=== PATIENT | male | born 1955 | race Caucasian/White ===

== ENCOUNTER 2018-04-29 03:12 | Emergency (ER) | payer OTHER ==
--- OUTSIDE RECORDS SUMMARY | 2018-04-29 03:14 | XMS REPORT ---
:1955 Author Organization eClinicalWorks Care Team Providers Name Role Phone Ramón Moneth Provider Role Unavailable Allergies, Adverse Reactions, Alerts Substance Reaction Event Type N.K.D.A. Info Not Available Non Drug Allergy Problems Problem Type Condition Code Onset Dates Condition Status Assessment Vitamin D deficiency E55.9 Active Assessment Rheumatoid arthritis involving M06.9 Active multiple sites, unspecified rheumatoid factor presence Assessment Obstructive sleep apnea G47.33 Active Assessment Adult BMI 40.0-44.9 kg/sq m Z68.41 Active Assessment Anxiety F41.9 Active Problem Obstructive sleep apnea G47.33 Active Assessment Depression F32.9 Active Problem Prediabetes R73.09 Active Assessment Prediabetes R73.09 Active Problem Depression F32.9 Active Problem Vitamin D deficiency E55.9 Active Problem GERD (gastroesophageal reflux K21.9 Active disease) Problem Rheumatoid arthritis involving M06.9 Active multiple sites, unspecified rheumatoid factor presence Problem Allergic rhinitis J30.9 Active Assessment Mixed hyperlipidemia E78.2 Active Assessment COPD (chronic obstructive pulmonary J44.9 Active disease) Problem Adult BMI 40.0-44.9 kg/sq m Z68.41 Active Assessment Hypertension I10 Active Problem Anxiety F41.9 Active Problem Rheumatoid arthritis M06.9 Active Problem Hypertension I10 Active Problem COPD (chronic obstructive pulmonary J44.9 Active disease) Problem Mixed hyperlipidemia E78.2 Active Problem Sexual dysfunction, unspecified R37 Active Problem Nonalcoholic fatty liver disease K76.0 Active Problem Thrombocytosis D47.3 Active Problem Varicose vein I86.8 Active Problem Folate deficiency anemia, D52.9 Active unspecified Problem Decreased testosterone level E29.1 Active Medications Medication Code Code Instructions Start End Status Dosage System Date Date Pantoprazole [facility] 59291415645 40 MG Orally Active 1 tablet Sodium Once a day Zetia [facility] 26230749322 10 MG Orally Active 1 tablet Once a day Pantoprazole [facility] 67135598960 40 MG Active TAKE 1 Sodium TABLET BY MOUTH EVERY DAY Vitamin D [facility] 11808764436 95683 UNIT Active 1 capsule (Ergocalciferol Orally ) Etodolac [facility] [address]-54 500 MG Orally Active 1 tablet Once a day with food Lexapro [facility] 94176288607 20 MG Orally Active 0.5 tablet Once a day Folic Acid [facility] 15334152629 1 MG Orally Active 1 tablet Once a day Wellbutrin SR [facility] 46956905245 150 MG Orally Active 1 tablet Twice a day Clarinex [facility] 87665074038 5 MG Orally Active 1 tablet Once a day Cozaar [facility] 98673142695 25 MG Orally Active 1 tablet Once a day Humira Pen [facility] 44201656953 40 MG/0.8ML Active 0.8 ml Subcutaneous Lipitor [facility] 02384680193 40 MG Orally Active 1 tablet Once a day Results No Known Results Summary Purpose eClinicalWorks Submission
--- OUTSIDE RECORDS SUMMARY | 2018-04-29 03:14 | XMS REPORT ---
:1955 Author Organization [employer]ClinicalWorks Care Team Providers Name Role Phone Chiki Portillo Provider Role Unavailable Allergies, Adverse Reactions, Alerts Substance Reaction Event Type N.K.D.A. Info Not Available Non Drug Allergy Problems Problem Type Condition Code Onset Dates Condition Status Assessment Vitamin D deficiency E55.9 Active Assessment Rheumatoid arthritis involving M06.9 Active multiple sites, unspecified rheumatoid factor presence Assessment Obstructive sleep apnea G47.33 Active Problem Varicose vein I86.8 Active Assessment Anxiety F41.9 Active Problem Obstructive sleep apnea G47.33 Active Assessment Depression F32.9 Active Problem Prediabetes R73.09 Active Problem GERD (gastroesophageal reflux K21.9 Active disease) Problem Depression F32.9 Active Problem Allergic rhinitis J30.9 Active Problem Hypertension I10 Active Assessment Hypertension I10 Active Assessment Mixed hyperlipidemia E78.2 Active Problem Rheumatoid arthritis involving M06.9 Active multiple sites, unspecified rheumatoid factor presence Assessment Prediabetes R73.09 Active Problem Rheumatoid arthritis M06.9 Active Problem Vitamin D deficiency E55.9 Active Problem COPD (chronic obstructive pulmonary J44.9 Active disease) Problem Anxiety F41.9 Active Problem Nonalcoholic fatty liver disease K76.0 Active Problem Mixed hyperlipidemia E78.2 Active Assessment COPD (chronic obstructive pulmonary J44.9 Active disease) Problem Decreased testosterone level E29.1 Active Problem Thrombocytosis D47.3 Active Problem Sexual dysfunction, unspecified R37 Active Problem Folate deficiency anemia, D52.9 Active unspecified Medications Medication Code Code Instructions Start End Status Dosage System Date Date Lexapro [facility] 50199592325 20 MG Orally Active 0.5 tablet Once a day Cozaar [facility] 59890979118 25 MG Orally Active 1 tablet Once a day Etodolac [facility] [address]-17 500 MG Orally Active 1 tablet Once a day with food Pantoprazole [facility] 25652864729 40 MG Orally Active 1 tablet Sodium Once a day Vitamin D [facility] 23690466405 31050 UNIT Active 1 capsule (Ergocalciferol Orally ) Lipitor [facility] 40811845583 40 MG Orally Active 1 tablet Once a day Folic Acid [facility] 09075142283 1 MG Orally Active 1 tablet Once a day Humira Pen [facility] 55979276996 40 MG/0.8ML Active 0.8 ml Subcutaneous Clarinex [facility] 17945412589 5 MG Orally Active 1 tablet Once a day Wellbutrin SR [facility] 37699177004 150 MG Orally Active 1 tablet Twice a day Zetia [facility] 44201180845 10 MG Orally Active 1 tablet Once a day Results No Known Results Summary Purpose eClinicalWorks Submission
[2018-04-29] MEDS ORDERED: ASPIRIN 81 MG CHEWABLE TABLET ONE (03:58)
[2018-04-29 04:37] LABS: Absolute Lymphocytes (CBC) 1.1 K/uL (0.7-4.9); Absolute Monocytes 0.7 K/uL (0.1-1.3); Absolute Neutrophil 4.8 K/uL (1.8-8.0); Hematocrit 47.9 % (39.6-49.0); Lymphocytes % 15.5 % (15.3-44.8); MCH 26.9 pg (27.0-35.0); MCV 81.1 fL (80-100); MPV 8.2 fL (7.6-11.3); Monocytes % 10.4 % (3.3-12.3); Protime INR 1.15
[2018-04-29 05:01] LABS: ALT/SGPT 55 U/L (12-78); AST/SGOT 35 U/L (15-37); Albumin 3.5 g/dL (3.4-5.0); Alkaline Phosphatase 63 U/L (45-117); BUN Blood Urea Nitrogen 27 mg/dL (7-18); Bicarbonate 27 mmol/L (21-32); Bilirubin Direct 0.2 mg/dL (0-0.2); Bilirubin Total 0.6 mg/dL (0.2-1.0); Glucose Level 107 mg/dL (74-106); Magnesium 2.1 mg/dL (1.8-2.4); NT PRO-BNP 15 pg/mL (<125); Potassium 4.2 mmol/L (3.5-5.1); Protein, Total 7.1 g/dL (6.4-8.2); Sodium Level 140 mmol/L (136-145); Troponin (Emerg Dept Use Only) < 0.02 ng/mL (0.0-0.045)
--- NOTE | 2018-04-29 05:59 | ER ---
Nurse's Notes [facility] Name: Navdeep Gonzalez Age: 62 yrs Sex: Male : 1955 Arrival Date: 04/29/2018 Time: 03:14 Bed 17 Private MD: Diagnosis: Chest pain Presentation: 04/29 03:21 Presenting complaint: Patient states: left chest wall pain that radiates down left arm ak1 started at midnight. pt denies N/V. Transition of care: patient was not received from another setting of care. Onset of symptoms was April 29, 2018. Risk Assessment: Do you want to hurt yourself or someone else? Patient reports no desire to harm self or others. Initial Sepsis Screen: Does the patient meet any 2 criteria? No. Patient's initial sepsis screen is negative. Does the patient have a suspected source of infection? No. Patient's initial sepsis screen is negative. Care prior to arrival: None. 03:21 Method Of Arrival: Ambulatory ak1 03:21 Acuity: CHERI 3 ak1 Triage Assessment: 03:26 General: Appears in no apparent distress. Behavior is calm, cooperative. Pain: ak1 Complains of pain in left supraclavicular area, left clavicle and anterior aspect of left upper chest. EENT: No signs and/or symptoms were reported regarding the EENT system. Neuro: No deficits noted. Historical: - Allergies: 03:26 No Known Allergies; ak1 - Home Meds: 03:26 bupropion HCl 300 mg Oral Tb24 1 tab once daily [Active]; losartan 25 mg Oral tab 1 tab ak1 once daily [Active]; humira [Active]; etodolac 500 mg Oral tab 1 tab 2 times per day [Active]; escitalopram oxalate 20 mg Oral tab 1 tab once daily [Active]; Zetia 10 mg Oral tab [Active]; Lipitor Oral [Active]; Protonix Oral [Active]; - PMHx: 03:26 Anxiety; Arthritis; Hyperlipidemia; Hypertension; ak1 - PSHx: 03:26 R knee replacement; left knee replacement; foot sx; ak1 - Immunization history:: Adult Immunizations unknown. - Social history:: Smoking status: Patient/guardian denies using tobacco, the patient reports quitting approximately 11 years ago. - Ebola Screening: : No symptoms or risks identified at this time. Screenin:27 Abuse screen: Denies threats or abuse. Denies injuries from another. Nutritional ak1 screening: No deficits noted. Tuberculosis screening: No symptoms or risk factors identified. Fall Risk None identified. Assessment: 03:27 Pain: Pain radiates to left arm Pain began 3 hours ago. ak1 03:45 General: Appears in no apparent distress. uncomfortable, Behavior is calm, cooperative, jb4 appropriate for age. Pain: Complains of pain in chest Pain radiates to anterior aspect of left shoulder Pain currently is 2 out of 10 on a pain scale. at worst was 8 out of 10 on a pain scale. Quality of pain is described as pressure. Neuro: Level of Consciousness is awake, alert, obeys commands, Oriented to person, place, time, situation. Cardiovascular: Heart tones S1 S2 present Patient's skin is warm and dry. Rhythm is sinus rhythm. Respiratory: Airway is patent Respiratory effort is even, unlabored, Respiratory pattern is regular, symmetrical, Breath sounds are clear bilaterally. GI: No signs and/or symptoms were reported involving the gastrointestinal system. : No signs and/or symptoms were reported regarding the genitourinary system. EENT: No signs and/or symptoms were reported regarding the EENT system. Derm: Skin is intact, Skin is pink, warm \T\ dry. 03:45 Musculoskeletal: Circulation, motion, and sensation intact. jb4 05:01 Reassessment: Patient appears in no apparent distress at this time. Patient and/or jb4 family updated on plan of care and expected duration. Pain level reassessed. Patient is alert, oriented x 3, equal unlabored respirations, skin warm/dry/pink. 06:05 Reassessment: Patient appears in no apparent distress at this time. Patient and/or jb4 family updated on plan of care and expected duration. Pain level reassessed. Patient is alert, oriented x 3, equal unlabored respirations, skin warm/dry/pink. Vital Signs: 03:21 BP 138 / 62 RA Supine (auto/reg); Pulse 88 MON; Resp 18 S; Temp 98.9(O); Pulse Ox 94% ds4 on R/A; Weight 145.15 kg (R); Height 6 ft. 0 in. (182.88 cm) (R); Pain 2/10; 03:45 BP 141 / 80; Pulse 84; Resp 18; Pulse Ox 92% on R/A; jb4 04:45 BP 121 / 78; Pulse 80; Resp 18; Pulse Ox 92% on R/A; jb4 06:05 BP 127 / 64; Pulse 78; Resp 18; Pulse Ox 95% on R/A; jb4 03:21 Body Mass Index 43.40 (145.15 kg, 182.88 cm) ds4 ED Course: 03:14 Patient arrived in ED. do 03:21 Tre Lake MD is Attending Physician. pkl 03:23 Triage completed. ak1 03:25 Inserted saline lock: 20 gauge in right forearm, using aseptic technique. Blood cc3 collected. By RODOLFO Van. 03:26 Arm band placed on Patient placed in an exam room, on a stretcher, on nutrition specialist, ak1 on pulse oximetry, Patient notified of wait time. 03:27 Patient has correct armband on for positive identification. Bed in low position. Call ak1 light in reach. Side rails up X 1. Adult w/ patient. knife finisher on. Pulse ox on. NIBP on. 03:27 Patient maintains SpO2 saturation greater than 95% on room air. ak1 03:45 Edinson Brice, RN is Primary Nurse. jb4 03:59 X-ray completed. Portable x-ray completed in exam room. Patient tolerated procedure kw well. 04:01 XRAY Chest (1 view) In Process Unspecified. EDMS 06:05 No provider procedures requiring assistance completed. IV discontinued, intact, jb4 bleeding controlled. Administered Medications: 04:00 Drug: Aspirin Chewable Tablet 324 mg Route: PO; jb4 05:06 Follow up: Response: No adverse reaction; Pain is decreased jb4 Outcome: 05:59 Discharge ordered by . pkmurray 06:05 Discharged to home ambulatory. jb4 06:05 Condition: stable 06:05 Discharge instructions given to patient, family, Instructed on discharge instructions, follow up and referral plans. Demonstrated understanding of instructions, follow-up care. 06:07 Patient left the ED. jb4 Signatures: Dispatcher [employer] EDMS Tre Lake MD MD pkAgnes William Donovan ds4 Meron Amaya RN RN ak1 Aruna Chinchilla James, RN RN jb4 Brielle Diane cc3 Corrections: (The following items were deleted from the chart) 03:25 03:21 Pulse 87bpm; Resp 18bpm; Pulse Ox 94% RA; 145.15 kg Reported; Height 6 ft. 0 in. ds4 Reported; BMI: 43.4; Pain 2/10; ak1
--- NOTE | 2018-04-29 06:00 | EDPHYS ---
Physician Documentation [facility] Name: Navdeep Gonzalez Age: 62 yrs Sex: Male : 1955 Arrival Date: 04/29/2018 Time: 03:14 Bed 17 Private MD: ED Physician Tre Lake HPI: 04/29 03:52 This 62 yrs old Male presents to ER via Ambulatory with complaints of Chest pkl Pain > 30 y/o, Arm Pain. 03:52 The patient or guardian reports chest pain that is located primarily in the substernal pkl area. Onset: just prior to arrival, 4 hour(s) ago. The pain radiates to the left arm. Associated signs and symptoms: The patient has no apparent associated signs or symptoms. The chest pain is described as a pressure. Historical: - Allergies: 03:26 No Known Allergies; ak1 - Home Meds: 03:26 bupropion HCl 300 mg Oral Tb24 1 tab once daily [Active]; losartan 25 mg Oral tab 1 tab ak1 once daily [Active]; humira [Active]; etodolac 500 mg Oral tab 1 tab 2 times per day [Active]; escitalopram oxalate 20 mg Oral tab 1 tab once daily [Active]; Zetia 10 mg Oral tab [Active]; Lipitor Oral [Active]; Protonix Oral [Active]; - PMHx: 03:26 Anxiety; Arthritis; Hyperlipidemia; Hypertension; ak1 - PSHx: 03:26 R knee replacement; left knee replacement; foot sx; ak1 - Immunization history:: Adult Immunizations unknown. - Social history:: Smoking status: Patient/guardian denies using tobacco, the patient reports quitting approximately 11 years ago. - Ebola Screening: : No symptoms or risks identified at this time. ROS: 03:52 Eyes: Negative for injury, pain, redness, and discharge, ENT: Negative for injury, pkl pain, and discharge, Neck: Negative for injury, pain, and swelling. 03:52 Cardiovascular: Positive for chest pain. 03:52 Respiratory: Negative for cough, shortness of breath. 03:52 Abdomen/GI: Negative for abdominal pain, nausea, vomiting, and diarrhea. 03:52 Back: Negative for acute changes. 03:52 : Negative for urinary symptoms. 03:52 MS/extremity: Negative for acute changes. 03:52 Skin: Negative for rash. 03:52 Neuro: Negative for altered mental status. Exam: 03:52 Head/Face: Normocephalic, atraumatic. Eyes: Pupils equal round and reactive to light, pkl extra-ocular motions intact. Lids and lashes normal. Conjunctiva and sclera are non-icteric and not injected. Cornea within normal limits. Periorbital areas with no swelling, redness, or edema. ENT: Nares patent. No nasal discharge, no septal abnormalities noted. Tympanic membranes are normal and external auditory canals are clear. Oropharynx with no redness, swelling, or masses, exudates, or evidence of obstruction, uvula midline. Mucous membranes moist. Neck: Trachea midline, no thyromegaly or masses palpated, and no cervical lymphadenopathy. Supple, full range of motion without nuchal rigidity, or vertebral point tenderness. No Meningismus. Chest/axilla: Normal chest wall appearance and motion. Nontender with no deformity. No lesions are appreciated. Cardiovascular: Regular rate and rhythm with a normal S1 and S2. No gallops, murmurs, or rubs. Normal PMI, no JVD. No pulse deficits. Respiratory: Lungs have equal breath sounds bilaterally, clear to auscultation and percussion. No rales, rhonchi or wheezes noted. No increased work of breathing, no retractions or nasal flaring. Abdomen/GI: Soft, non-tender, with normal bowel sounds. No distension or tympany. No guarding or rebound. No evidence of tenderness throughout. Back: No spinal tenderness. No costovertebral tenderness. Full range of motion. Skin: Warm, dry with normal turgor. Normal color with no rashes, no lesions, and no evidence of cellulitis. MS/ Extremity: Pulses equal, no cyanosis. Neurovascular intact. Full, normal range of motion. Neuro: Awake and alert, GCS 15, oriented to person, place, time, and situation. Cranial nerves II-XII grossly intact. Motor strength 5/5 in all extremities. Sensory grossly intact. Cerebellar exam normal. Normal gait. Vital Signs: 03:21 BP 138 / 62 RA Supine (auto/reg); Pulse 88 MON; Resp 18 S; Temp 98.9(O); Pulse Ox 94% ds4 on R/A; Weight 145.15 kg (R); Height 6 ft. 0 in. (182.88 cm) (R); Pain 2/10; 03:45 BP 141 / 80; Pulse 84; Resp 18; Pulse Ox 92% on R/A; jb4 04:45 BP 121 / 78; Pulse 80; Resp 18; Pulse Ox 92% on R/A; jb4 06:05 BP 127 / 64; Pulse 78; Resp 18; Pulse Ox 95% on R/A; jb4 03:21 Body Mass Index 43.40 (145.15 kg, 182.88 cm) ds4 MDM: 03:21 Patient medically screened. pkl 05:56 Data reviewed: vital signs, nurses notes, lab test result(s), EKG, radiologic studies, pkl plain films. ED course: Patient feeling better. Does not want to be admitted for further evaluations. Will see his tuft machine operator for outpatient evaluations. 04/29 03:37 Order name: Basic Metabolic Panel; Complete Time: 05:07 ak1 04/29 03:37 Order name: CBC with Diff; Complete Time: 05:00 ak1 04/29 03:37 Order name: LFT's; Complete Time: 05:07 ak1 04/29 03:37 Order name: Magnesium; Complete Time: 05:07 ak1 04/29 03:37 Order name: NT PRO-BNP; Complete Time: 05:07 ak1 04/29 03:37 Order name: PT-INR; Complete Time: 05:00 ak1 04/29 03:37 Order name: Troponin (emerg Dept Use Only); Complete Time: 05:07 ak1 04/29 03:37 Order name: XRAY Chest (1 view) ak1 04/29 03:37 Order name: EKG; Complete Time: 03:38 ak1 04/29 03:37 Order name: Cardiac monitoring; Complete Time: 03:46 ak1 04/29 03:37 Order name: EKG - Nurse/Tech; Complete Time: 03:46 ak1 04/29 05:10 Order name: D-Dimer; Complete Time: 05:54 pkl 04/29 05:10 Order name: Troponin (emerg Dept Use Only); Complete Time: 05:54 pkl 04/29 03:37 Order name: IV Saline Lock; Complete Time: 03:46 ak1 04/29 03:37 Order name: Labs collected and sent; Complete Time: 03:46 ak1 04/29 03:37 Order name: O2 Per Protocol; Complete Time: :46 ak1 04/29 03:37 Order name: O2 Sat Monitoring; Complete Time: ak1 Administered Medications: 04:00 Drug: Aspirin Chewable Tablet 324 mg Route: PO; jb4 05:06 Follow up: Response: No adverse reaction; Pain is decreased jb4 Disposition: 04/29/18 05:59 Discharged to Home. Impression: Chest pain. - Condition is Stable. - Medication Reconciliation Form, Thank You Letter, Antibiotic Education, Prescription Opioid Use form. - Follow up: Private Physician; When: 1 - 2 days; Reason: Re-evaluation by your physician. - Problem is new. - Symptoms have improved. Signatures: Dispatcher [employer] EDMS Tre Lake MD MD pkl Meron Amaya RN RN ak1 Edinson Brice RN RN jb4 Corrections: (The following items were deleted from the chart) 06:07 05:59 04/29/2018 05:59 Discharged to Home. Impression: Chest pain. Condition is Stable. jb4 Forms are Medication Reconciliation Form, Thank You Letter, Antibiotic Education, Prescription Opioid Use. Follow up: Private Physician; When: 1 - 2 days; Reason: Re-evaluation by your physician. Problem is new. Symptoms have improved. pkl
[2018-04-29 06:12] VITALS: TEMP 98.9
[2018-04-29 06:15] VITALS: BP 127/64; O2SAT 95
--- NOTE | 2018-04-29 08:25 | RAD REPORT ---
EXAM DESCRIPTION: Frantz Single View04/29/2018 4:00 am CLINICAL HISTORY: Chest pain COMPARISON: July 2016 FINDINGS: The lungs appear clear of acute infiltrate. The heart is normal size IMPRESSION: No acute abnormalities displayed
--- NOTE | 2018-04-29 13:55 | EKG ---
Test Date: 2018-04-29 Test Time: 03:20:30 Employee Benefits Director: SOHAIL MEASUREMENT RESULTS: Intervals: Rate: 87 SC: 182 QRSD: 92 QT: 366 QTc: 440 [place]: P: 58 SC: 182 QRS: 31 T: 58 INTERPRETIVE STATEMENTS: Normal sinus rhythm Normal ECG Compared to ECG 07/30/2016 19:57:54 No significant changes Electronically Signed On 04-29-18 13:53:20 CDT by Marcel Wisdom
== END 2018-04-29 06:07 | disposition home or self-care (01) ==
LOC: ER 03:12
DX: R07.9 Chest pain, unspecified (principal); I10 Essential (primary) hypertension; E78.5 Hyperlipidemia, unspecified; F41.8 Other specified anxiety disorders
CPT/HCPCS: 36415; 71045; 80048; 80076; 83735; 83880; 84484; 85025; 85379; 85610; 93005; 99285

== ENCOUNTER 2018-12-08 19:08 | Emergency (ER) | payer OTHER ==
--- OUTSIDE RECORDS SUMMARY | 2018-12-08 19:11 | XMS REPORT | Clinical Summary ---
:1955 Author Organization [facility] Address [address] [place] [address] Care Team Providers Name Role Phone Asked, No Pcp Primary Care Provider Unavailable Allergies No Known Allergies Medications Medication Sig Dispensed Refills Start Date End Date Status adalimumab (HUMIRA) 40 Inject 40 mg 0 Active mg/0.8 mL injection under the skin every 14 (fourteen) days. folic acid (FOLVITE) 1 Take 1 mg by 0 Active MG tablet mouth daily. escitalopram (LEXAPRO) Take 20 mg by 0 Active 20 MG tablet mouth daily. buPROPion XL (WELLBUTRIN Take 300 mg by 0 Active XL) 300 MG 24 hr tablet mouth daily. desloratadine (CLARINEX) Take 5 mg by 0 Active 5 mg tablet mouth daily. losartan (COZAAR) 25 MG Take 25 mg by 0 Active tablet mouth daily. pantoprazole (PROTONIX) Take 40 mg by 0 Active 40 MG EC tablet mouth daily. etodolac (LODINE) 300 MG Take 500 mg by 0 Active capsule mouth 2 (two) times a day. ezetimibe (ZETIA) 10 mg Take 10 mg by 0 Active tablet mouth daily. atorvastatin (LIPITOR) Take 40 mg by 0 Active 40 MG tablet mouth daily. metoprolol succinate XL Take 25 mg by 0 Active (TOPROL-XL) 25 mg 24 hr mouth daily. tablet Active Problems Not on file Encounters Date Type Specialty Care Team Description 08/01/2018 Surgery Procedural Davin Teixeira CV LEFT HEART CATH Cardiology MD Carlos LV GRAM WITH CORS MATILDA LV [84981 (CPT)] 08/01/2018 Hospital Encounter Procedural Davin Teixeira Abnormal nuclear stress test; Cardiology MD Carlos Unstable angina (HCC) 07/18/2018 Hospital Encounter Procedural Davin Teixeira Cardiology MD Carlos 07/11/2018 Hospital Encounter Procedural Davin Teixeira Other specified Cardiology MD Carlos symptoms and signs involving the circulatory and respiratory systems 07/11/2018 Hospital Encounter Procedural Davin Teixeira Chest pain, Cardiology MD Carlos unspecified type 07/11/2018 Hospital Encounter Procedural Davin Teixeira Essential Cardiology MD Carlos hypertension, benign 07/04/2018 Transcribe Orders Access Davin Teixeira Essential hypertension, benign (Primary Dx); MD Carlos Chest pain, unspecified type; Other specified symptoms and signs involving the circulatory and respiratory systems after 12/07/2017 Social History Tobacco Use Types Packs/Day Years Used Date Former Smoker Quit: 2007 Smokeless Tobacco: Never Used Alcohol Use Drinks/Week oz/Week Comments No Alcohol Habits Answer Date Recorded How often do you have a drink containing alcohol? Never 07/31/2018 How many drinks containing alcohol do you have on a typical Not asked day when you are drinking? How often do you have six or more drinks on one occasion? Not asked Sex Assigned at Date Recorded Not on file Job Start Date Occupation Industry Not on file Not on file Not on file Travel History Travel Start Travel End No recent travel history available. Last Filed Vital Signs Vital Sign Reading Time Taken Blood Pressure 159/74 08/01/2018 2:15 PM ENTER[employer]ISE DATA ARCHITECT Pulse 71 08/01/2018 2:15 PM [employer] DATA [employer]CHIT[employer] Temperature 36.6 C (97.9 F) 08/01/2018 10:00 AM EN[employer]CHITECT Respiratory Rate 23 08/01/2018 2:15 PM EN[employer]ISE DATA ARCHITECT Oxygen Saturation 91% 08/01/2018 2:15 PM ENTER[employer]ISE DATA ARCHITECT Inhaled Oxygen Concentration - - Weight 145 kg (320 lb 7 oz) 08/01/2018 6:34 AM EN[employer] DATA ARCHITECT Height 185.4 cm (6' 1") 08/01/2018 6:34 AM ENTER[employer]ISE DATA ARCHITECT Body Mass Index 42.28 08/01/2018 6:34 AM ENTER[employer]ISE DATA ARCHITECT Plan of Treatment Health Maintenance Due Date Last Done Comments COLONOSCOPY SCREENING 2005 SHINGLES VACCINES (#1) 2005 INFLUENZA VACCINE 01/29/2019 Procedures Procedure Name Priority Date/Time Associated Comments Diagnosis CV LEFT HEART CATH LV Routine 08/01/2018 9:40 Abnormal nuclear Results for this GRAM WITH CORS AM ENTER[employer]ISE DATA ARCHITECT stress test procedure are in Unstable angina the results (HCC) section. PARTIAL THROMBOPLASTIN STAT 08/01/2018 6:46 Results for this TIME (PTT) AM EN[employer] DATA [employer]CHITECT procedure are in the results section. PROTHROMBIN TIME WITH STAT 08/01/2018 6:46 Results for this INR AM EN[employer]ISE DATA ARCHITECT procedure are in the results section. ECG 12-LEAD STAT 08/01/2018 6:17 Results for this AM [employer] DATA [employer]CHITECT procedure are in the results section. NM MYOCARDIAL PERFUSION Routine 07/18/2018 11:30 Chest pain, Results for this STRESS REST 2 DAY AM EN[employer]ISE DATA ARCHITECT unspecified type procedure are in the results section. US CAROTID DUPLEX Routine 07/11/2018 1:20 Other specified Results for this BILATERAL PM EN[employer]ISE DATA ARCHITECT symptoms and signs procedure are in involving the the results circulatory and section. respiratory systems CV STRESS TEST NUCLEAR Routine 07/11/2018 10:43 Chest pain, Results for this CARDIO AM EN[employer]ISE DATA ARCHITECT unspecified type procedure are in the results section. ECHOCARDIOGRAM 2D Routine 07/11/2018 9:20 Essential Results for this COMPLETE W MMODE AM EN[employer]ISE DATA ARCHITECT hypertension, procedure are in SPECTRAL COLOR DOPPLER benign the results (60942) section. 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 lvef 60 % cv risk factor optimization, diet and exercise interim Performing Organization Address [facility] Phone Number [facility] [address] [place] [address] Partial thromboplastin time, activated (08/01/2018 6:46 AM ENTERPRISE DATA ARCHITECT) PTT 35.4 23.0 - 36.0 [facility] P[facility] therapeutic range for unfractionated heparin is 61.0-112.0 seconds which corresponds to Anti-Xa 0.3-0.7 U/ml. Specimen Blood Performing Organization Address City[facility]/Zipcode Phone Number [facility] DEPARTMENT OF PATHOLOGY AND [address] [place] [address] GENOMIC MEDICINE [place] [id number] [place] [address] Prothrombin time with INR (08/01/2018 6:46 AM ENTERPRISE DATA ARCHITECT) Prothrombin time 14.3 11.5 - 14.5 [facility] INR 1.1 [facility] Comment: RASTAFARI The International Normalized Ratio (INR) is a therapeutic HOSPITAL monitoring tool for patients who are stable on oral anticoagulant therapy. An INR of 2.0-3.0 is suggested for deep vein thrombosis/pulmonary embolism. Specimen Blood Performing Organization Address City[facility]/Zipcode Phone Number [facility] DEPARTMENT OF PATHOLOGY AND [address] [place] [address] GENOMIC MEDICINE [address] [address] ECG 12 lead (08/01/2018 6:17 AM ENTERPRISE DATA ARCHITECT) Ventricular rate 77 [facility] Atrial rate 77 [facility] MUSE MI interval 180 [facility] MUSE QRSD interval 94 [facility] QT interval 384 [facility] MUSE QTC interval 434 [facility] MUSE P axis 1 55 [facility] MUSE QRS axis 1 16 [facility] MUSE T wave axis 37 [facility] MUSE EKG impression Normal sinus [facility] MUSE rhythm-Normal ECG-No previous ECGs available-Electronicall y Signed By Nico Perkins MD ([id number]) on 08/11/2018 8:33:06 PM Specimen Narrative Performed At Performing Organization Address [facility] Phone Number [facility] MUSE [address] [place] [address] Nm myocardial perfusion (07/18/2018 11:30 AM ENTER[employer]ISE DATA ARCHITECT) Specimen Narrative Performed At [facility] Nuclear Cardiology and Cardiac CT [address] [place] [address] Myocardial Perfusion Imaging Report Stress ECG tracings are available in MUSE, Adult[employer] and HDmessaging Web All ECG interpretations are included in this report Pat.Name:MORALES BOLIVAR Pat.ID:[id number] .Date: 07/11/2018 Refer.MD:DAVIN TEIXEIRA MD Exam Time: 10:19:00 AM Study Type:Myocardial Perfusion Imaging Height:72.99in BSA: 2.61 m2 DOBAge:1955,63Y Sex: MALE BP:130/65HR: 68 bpm Nuclear Tech:PARI Leahy, NAYA/ PARI Sinclair/Shanon YAÑEZ,NAYA Pat. Stat.:OutpatientNuclear Event ID:[id number] Order ID:[id number] Reason for Study:Pre-op evaluation, intermediate/high risk patient History / Clinical:Hyperlipidemia, Hypertension, Obesity Procedures:Two Day Stress / Rest Risk Factors:Hyperlipidemia, Hypertension, Obesity Clinical Symptoms:Regadenoson Physical Exam:S1, S2 SUMMARY: SCINTIGRAPHIC RESULTS Perfusion Defect Size (% LV) 2% Total 0% Ischemia2% Scar Left Ventricular Perfusion Results There is a small mild inferoseptal perfusion defect during stress which improves with rest imaging. Gated SPECT Results The post stress left ventricular ejection fraction is 68% with normal apical wall motion.Left ventricular end-diastolic volume is 141 ml; end-systolic volume is45 ml.The left ventricle is of normal size at stress and rest. Conclusion Abnormal regadenoson Tc-99m tetrofosmin myocardial perfusion study compatible with scar in the left anterior descending coronary artery vascular territory. The LVEF is normal. Comments The study results indicate a relatively low (< 1%) annual risk for a cardiac or non-fatal myocardial infarction. Study Quality/Artifacts The study quality is good. Comparison to Previous Study None available. STRESS: Baseline Vital Signs:Intervention: Regadenoson 0.4mg/5ml IV over 10 seconds followed by radiotracer injection and 5ml saline flush ECG: Normal Sinus Rhythm HR:68 BP:130/65 Stress Test Results: Target HR: 133 Symptoms and Complications: Arrhythmias: None Terminated: As per Regadenoson protocol Symptoms:None Complications: none Conclusions: Normal heart rate response to pharmacological stress, Normal blood pressure response to pharmacological stress Stress ECG Interp: No ischemic ST segment change occurred with stress. Signed 07/18/2018 12:05 PM Arianne Kim MD Procedure Note Interface, Radiology Results In - 07/18/2018 12:05 PM [facility] Nuclear Cardiology and Cardiac CT [address] [address] Myocardial Perfusion Imaging Report Stress ECG tracings are available in [employer], Adult[employer] and Journalism Online All ECG interpretations are included in this report Pat.Name: MORALES BOLIVAR Pat.ID: [id number] .Date: 07/11/2018 Refer.MD: DAVIN TEIXEIRA MD Exam Time: 10:19:00 AM Study Type:Myocardial Perfusion Imaging Height: 72.99in BSA: 2.61 m2 Age: 12 1955,63Y Sex: MALE BP: 130/65 HR: 68 bpm Nuclear Tech:Erik Milner, KELLY MACHINE OPERATOR, ARRT/ Tierra Ferreira, KELLY MACHINE OPERATOR/Shanon Whiting KELLY MACHINE OPERATOR,ARRT Pat. Stat.:Outpatient Nuclear Event ID:[id number] Order ID: [id number] Reason for Study:Pre-op evaluation, intermediate/high risk patient History / Clinical:Hyperlipidemia, Hypertension, Obesity Procedures:Two Day Stress / Rest Risk Factors:Hyperlipidemia, Hypertension, Obesity Clinical Symptoms:Regadenoson Physical Exam:S1, S2 SUMMARY: SCINTIGRAPHIC RESULTS Perfusion Defect Size (% LV) 2% Total 0% Ischemia 2% Scar Left Ventricular Perfusion Results There is a small mild inferoseptal perfusion defect during stress which improves with rest imaging. Gated SPECT Results The post stress left ventricular ejection fraction is 68% with normal apical wall motion. Left ventricular end-diastolic volume is 141 ml; end-systolic volume is 45 ml. The left ventricle is of normal size at stress and rest. Conclusion Abnormal regadenoson Tc-99m tetrofosmin myocardial perfusion study compatible with scar in the left anterior descending coronary artery vascular territory. The LVEF is normal. Comments The study results indicate a relatively low (< 1%) annual risk for a cardiac or non-fatal myocardial infarction. Study Quality/Artifacts The study quality is good. Comparison to Previous Study None available. STRESS: Baseline Vital Signs: Intervention: Regadenoson 0.4mg/5ml IV over 10 seconds followed by radiotracer injection and 5ml saline flush ECG: Normal Sinus Rhythm HR: 68 BP: 130/65 Stress Test Results: Target HR: 133 Symptoms and Complications: Arrhythmias: None Terminated: As per Regadenoson protocol Symptoms: None Complications: none Conclusions: Normal heart rate response to pharmacological stress, Normal blood pressure response to pharmacological stress Stress ECG Interp: No ischemic ST segment change occurred with stress. Signed 07/18/2018 12:05 PM Arianne Kim MD Performing Organization Address City/State/Zipcode Phone Number [facility] [address] [place] [address] Us carotid duplex (07/11/2018 1:20 PM ENTERPRISE DATA ARCHITECT) Specimen Narrative Performed At [facility] Vascular Ultrasound Laboratory Carotid Artery Duplex Report [address] [place] [address] For water quality tester purposes, the categorization of the degree of the stenosis of this exam is based on criteria described in the IAC carotid stenosis grading white paper( www.intersocietal.org/Vascular) and Leti Camilo., Hima Castillo., et al. Carotid artery stenosis: calderon-scale and Doppler US diagnosis--Society of Radiologists in Ultrasound Consensus Conference. Radiology. 2003 Nov; 229(2):340-6. Pat.Name:MORALES BOLIVAR Pat.ID:[id number] .Date: 07/11/2018 Refer.MD:DAVIN TEIXEIRA MD Exam Time: 12:50:00 PM Study Type:Carotid DOBAge:1955,63Y Sex: MALE Sonogrphr: [place] RVT Pat. Stat.:Outpatient TapeVol: RADHA, CPT - 4: 08592 Echo Event ID:[id number] Order ID:[id number] Reason for Study:HTN, and SOB Procedures:Colorflow, Grayscale/2D, Pulsed wave Doppler Race:C SUMMARY: PHYSICAL ASSESSMENT BloodPulsesCarotid Pressure Carotid TemporalBruit Right 120/75 ++0 Left 131/80 ++0 CAROTID ARTERY SCAN RIGHT: There is smooth plaque noted in the common carotid artery and the proximal external carotid artery. There is calcified plaque noted in the proximal internal carotid artery. Velocities are within normal limits and the vertebral artery is antegrade. LEFT: There is intimal thickening noted in the common carotid artery and calcified plaque noted in the bulb/proximal internal carotid artery. Velocities are within normal limits and the vertebral artery is antegrade. PRELIMINARY FINDINGS 1. <50% stenosis in the internal carotid artery, bilaterally 2. The vertebral artery is antegrade, bilaterally PHYSICIAN INTERPRETATION Bilateral carotid duplex examination demonstrated atherosclerotic plaques in the bulbs. Less than 50% stenosis in the bulb and internal carotid artery, bilaterally. Both vertebral arteries are antegrade. Carotid Findings:RightLeft Verteb.Flw AntegradeAntegrade Subclavian TriphasicTriphasic MEASUREMENTS: DOPPLER Right CCA Dist CCA Dist PSV93.8 cm/sCCA Dist EDV20.7 cm/s Right CCA Mid CCA Mid PSV 91.2 cm/sCCA Mid EDV 16.8 cm/s Right CCA Prox CCA Prox PSV83.4 cm/sCCA Prox EDV18.1 cm/s Right ECA Prox ECA Prox PSV78.1 cm/sECA Prox EDV 0 cm/s Right ICA Dist ICA Dist PSV 114 cm/Anh Dist EDV33.7 cm/s Right ICA Mid ICA Mid PSV 98.3 cm/Anh Mid EDV 35.4 cm/s Right ICA Prox ICA Prox PSV 116 cm/Anh Prox EDV25.7 cm/s Right Vertebral Vertebral PSV 62.8 cm/sVertebral EDV 14.4 cm/s Right Subclavian Subclavian PSV 110 cm/sSubclavian EDV 0 cm/s Left CCA Dist CCA Dist PSV78.9 cm/sCCA Dist EDV16 cm/s Left CCA Mid CCA Mid PSV 93.4 cm/sCCA Mid EDV 25.7 cm/s Left CCA Prox CCA Prox PSV93.4 cm/sCCA Prox EDV14.4 cm/s Left ECA Prox ECA Prox PSV 122 cm/sECA Prox EDV10.7 cm/s Left ICA Dist ICA Dist PSV66 cm/Anh Dist EDV25.8 cm/s Left ICA Mid ICA Mid PSV 83.1 cm/Anh Mid EDV 31.4 cm/s Left ICA Prox ICA Prox PSV67.7 cm/Anh Prox EDV21.5 cm/s Left Vertebral Vertebral PSV 47.9 cm/sVertebral EDV 12.8 cm/s Left Subclavian Subclavian PSV 121 cm/sSubclavian EDV 0 cm/s Right ICA/CCA Ratio ICA/CCA PSV 1.27 Left ICA/CCA Ratio ICA/CCA PSV0.725 Signed 07/12/2018 07:40 AM Mitch Escalante MD, RPVI Procedure Note Interface, Radiology Results In - 07/12/2018 7:41 AM [facility] Vascular Ultrasound Laboratory Carotid Artery Duplex Report [address] [place] [address] For water quality tester purposes, the categorization of the degree of the stenosis of this exam is based on criteria described in the IAC carotid stenosis grading white paper( www.intersocietal.org/Vascular) and Leti Camilo., Jonathan CSamB., et al. Carotid artery stenosis: calderon-scale and Doppler US diagnosis--Society of Radiologists in Ultrasound Consensus Conference. Radiology. 2003 Nov; 229(2):340-6. Pat.Name: MORALES BOLIVAR Pat.ID: [id number] St.Date: 07/11/2018 Refer.MD: DAVIN TEIXEIRA MD Exam Time: 12:50:00 PM Study Type:Carotid Age: 12 1955,63Y Sex: MALE Sonogrphr: [place] RVT Pat. Stat.:Outpatient Tape Vol: VB, CPT - 4: 42909 Echo Event ID:[id number] Order ID: [id number] Reason for Study:HTN, and SOB Procedures:Colorflow, Grayscale/2D, Pulsed wave Doppler Race: C SUMMARY: PHYSICAL ASSESSMENT Blood Pulses Carotid Pressure Carotid Temporal Bruit Right 120/75 + + 0 Left 131/80 + + 0 CAROTID ARTERY SCAN RIGHT: There is smooth plaque noted in the common carotid artery and the proximal external carotid artery. There is calcified plaque noted in the proximal internal carotid artery. Velocities are within normal limits and the vertebral artery is antegrade. LEFT: There is intimal thickening noted in the common carotid artery and calcified plaque noted in the bulb/proximal internal carotid artery. Velocities are within normal limits and the vertebral artery is antegrade. PRELIMINARY FINDINGS 1. <50% stenosis in the internal carotid artery, bilaterally 2. The vertebral artery is antegrade, bilaterally PHYSICIAN INTERPRETATION Bilateral carotid duplex examination demonstrated atherosclerotic plaques in the bulbs. Less than 50% stenosis in the bulb and internal carotid artery, bilaterally. Both vertebral arteries are antegrade. Carotid Findings: Right Left Verteb.Flw Antegrade Antegrade Subclavian Triphasic Triphasic MEASUREMENTS: DOPPLER Right CCA Dist CCA Dist PSV 93.8 cm/s CCA Dist EDV 20.7 cm/s Right CCA Mid CCA Mid PSV 91.2 cm/s CCA Mid EDV 16.8 cm/s Right CCA Prox CCA Prox PSV 83.4 cm/s CCA Prox EDV 18.1 cm/s Right ECA Prox ECA Prox PSV 78.1 cm/s ECA Prox EDV 0 cm/s Right ICA Dist ICA Dist PSV 114 cm/s ICA Dist EDV 33.7 cm/s Right ICA Mid ICA Mid PSV 98.3 cm/s ICA Mid EDV 35.4 cm/s Right ICA Prox ICA Prox PSV 116 cm/s ICA Prox EDV 25.7 cm/s Right Vertebral Vertebral PSV 62.8 cm/s Vertebral EDV 14.4 cm/s Right Subclavian Subclavian PSV 110 cm/s Subclavian EDV 0 cm/s Left CCA Dist CCA Dist PSV 78.9 cm/s CCA Dist EDV 16 cm/s Left CCA Mid CCA Mid PSV 93.4 cm/s CCA Mid EDV 25.7 cm/s Left CCA Prox CCA Prox PSV 93.4 cm/s CCA Prox EDV 14.4 cm/s Left ECA Prox ECA Prox PSV 122 cm/s ECA Prox EDV 10.7 cm/s Left ICA Dist ICA Dist PSV 66 cm/s ICA Dist EDV 25.8 cm/s Left ICA Mid ICA Mid PSV 83.1 cm/s ICA Mid EDV 31.4 cm/s Left ICA Prox ICA Prox PSV 67.7 cm/s ICA Prox EDV 21.5 cm/s Left Vertebral Vertebral PSV 47.9 cm/s Vertebral EDV 12.8 cm/s Left Subclavian Subclavian PSV 121 cm/s Subclavian EDV 0 cm/s Right ICA/CCA Ratio ICA/CCA PSV 1.27 Left ICA/CCA Ratio ICA/CCA PSV 0.725 Signed 07/12/2018 07:40 AM Mitch Escalante MD, RPVI Performing Organization Address City/State/Zipcode Phone Number [facility] [address] [place] [address] Cv stress test (07/11/2018 10:43 AM ENTERPRISE DATA ARCHITECT) Resting HR 68 [facility] MUSE Resting BP 130 [facility] MUSE Peak MET Achieved 1.0 [facility] MUSE Protocol Name REGADENO [facility] MUSE Time in Exercise 00:01:00 [facility] MUSE Phase Max Systolic BP 130 [facility] MUSE Max Diastolic BP 65 [facility] MUSE Max Heart Rate 92 [facility] MUSE Max Predicted Heart 157 [facility] MUSE Rate Target HR Formula (220 - Age)*100% [facility] MUSE Test Indication chest pain [facility] MUSE Stress Test Waveform interpreted in [facility] MUSE Impression report associated with image study. No interpretation is provided as part of this Stress ECG report.--Electronically Signed By Milton WARREN, Laurel Servin ([id number]), desk editor Sera Espinoza ([id number]) on 07/11/2018 10:16:13 AM Target HR 157.00 bpm [facility] MUSE Specimen Narrative Performed At Performing Organization Address City/State/Zipcode Phone Number [facility] ASIF [address] [place] [address] Echocardiogram complete w contrast and 3D if needed (07/11/2018 9:20 AM ENTERPRISE DATA ARCHITECT) Specimen Narrative Performed At [facility] Echocardiography Report [address] [facility] [address], [place] [address] Pat.Name:MORALES BOLIVAR Pat.ID:[id number] St.Date: 07/11/2018 Refer.MD:DAVIN TEIXEIRA MD Exam Time: 8:28:00 AMStudy Type:Routine Echo Height:73inWeight: 314lb BSA: 2.61 m2 DOBAge:1955,63Y Sex: MALEBP:130/65 HR:68 bpm Sonogrphr: Marley Valdes RDCS; Yessenia Espinoza (student) Pat. Stat.:OutpatientRoom:Discovery Study Status:Final Echo Event ID:[id number] Order ID:[id number] Reason for Study:Chest Pain History / Clinical:Hypertension Procedures:2D Echo, Colorflow Doppler, Intravenous Definity Contrast SUMMARY: LV EF is normal. RV systolic function is normal. Diastolic dysfunction Grade I (Mild): Impaired relaxation with normal LV filling pressures. No intracardiac flow abnormalities detected by Doppler. FINDINGS: LV: LV size is normal. LV EF is normal. Overall wall motion is normal.Estimated EF is 60-64%. RV: RV size is normal. RV systolic function is normal. LA: LA volume is mildly enlarged. RA: RA volume is mildly enlarged. AO: Aortic root diameter is normal in size. Ascending aorta diameteris normal. JENN: No pericardial effusion. AV: No structural AV abnormalities noted. MV: No structural MV abnormalities noted. PV: No structural PV abnormalities noted. TV: No structural TV abnormalities noted. Hess: Diastolic dysfunction Grade I (Mild): Impaired relaxation withnormal LV filling pressures. Other:Insufficient TR jet to estimate PA systolic pressure. No intracardiacflow abnormalities detected by Doppler. MEASUREMENTS: 2D Parasternal Long [place] LVOT 2.3 cmLA Ds4.9 cm LVIDd5.9 cmIndex2.2 cm/m Ao An2.4 cm LVIDs3.7 cmAo Rtd 3.7 cm Index1.4 cm/m LV%fs 37.3 % LV Gafk785.9 g(122-174) IVSd 1 cmLVM Index 91.9 g/m2 LVPWd1 cmRWT0.3 LA Sng Plane LA Area 26.3 cm2(8.8-23.4) LA Vol96.6 ml Index37 ml/m LA LngAx 5.7 cm RA Sng Plane RA Area 26.8 cm2(8.3-19.5) RA Vol 103 ml Index39.5 ml/m RA LngAx 5.4 cm Ascending Aorta Asce Dim 3.9 cm DOPPLER LVOT Stroke Vol LVOT 2.3 cmLVOT CO5.5 l/min LVOT TVI18.8 cmLVOT CI2.1 l/m/m2 LVOT Tm291 mkvpUW96 bpm LVOT SV 78.3 ml LVOT For Flow LVOT Area4.2 cm2 LVOT SV 87.8 ml WQVNoxMgw173.3 cm/sHR70.1 bpm LVOTpkPG 5.2 mmHgLVOT CO6.2 l/min LVOTmnPG 2.3 mmHgLVOT CI2.4 l/m/m2 LVOT TVI21.1 cm Signed 07/13/2018 03:09 PM Ganga Tobin M.D. Procedure Note Interface, Radiology Results In - 07/13/2018 3:10 PM [facility] Echocardiography Report [address] [place] [address] Pat.Name: MORALES BOLIVAR.ID: [id number] St.Date: 07/11/2018 Refer.MD: DAVIN TEIXEIRA MD Exam Time: 8:28:00 AM Study Type:Routine Echo Height: 73in Weight: 314lb BSA: 2.61 m2 Age: 12 1955,63Y Sex: MALE BP: 130/65 HR: 68 bpm Sonogrphr: Marley Valdes RDCS; Yessenia Espinoza (student) Pat. Stat.:Outpatient Room: [facility] Study Status:Final Echo Event ID:[id number] Order ID: [id number] Reason for Study:Chest Pain History / Clinical:Hypertension Procedures:2D Echo, Colorflow Doppler, Intravenous Definity Contrast SUMMARY: LV EF is normal. RV systolic function is normal. Diastolic dysfunction Grade I (Mild): Impaired relaxation with normal LV filling pressures. No intracardiac flow abnormalities detected by Doppler. FINDINGS: LV: LV size is normal. LV EF is normal. Overall wall motion is normal. Estimated EF is 60-64%. RV: RV size is normal. RV systolic function is normal. LA: LA volume is mildly enlarged. RA: RA volume is mildly enlarged. AO: Aortic root diameter is normal in size. Ascending aorta diameter is normal. JENN: No pericardial effusion. AV: No structural AV abnormalities noted. MV: No structural MV abnormalities noted. PV: No structural PV abnormalities noted. TV: No structural TV abnormalities noted. Hess: Diastolic dysfunction Grade I (Mild): Impaired relaxation with normal LV filling pressures. Other: Insufficient TR jet to estimate PA systolic pressure. No intracardiac flow abnormalities detected by Doppler. MEASUREMENTS: 2D Parasternal Long [place] LVOT 2.3 cm LA Ds 4.9 cm LVIDd 5.9 cm Index 2.2 cm/m Ao An 2.4 cm LVIDs 3.7 cm Ao Rtd 3.7 cm Index 1.4 cm/m LV%fs 37.3 % LV Mass 239.9 g (122-174) IVSd 1 cm LVM Index 91.9 g/m2 LVPWd 1 cm RWT 0.3 LA Sng Plane LA Area 26.3 cm2 (8.8-23.4) LA Vol 96.6 ml Index 37 ml/m LA LngAx 5.7 cm RA Sng Plane RA Area 26.8 cm2 (8.3-19.5) RA Vol 103 ml Index 39.5 ml/m RA LngAx 5.4 cm Ascending Aorta Asce Dim 3.9 cm DOPPLER LVOT Stroke Vol LVOT 2.3 cm LVOT CO 5.5 l/min LVOT TVI 18.8 cm LVOT CI 2.1 l/m/m2 LVOT Tm 291 msec HR 70 bpm LVOT SV 78.3 ml LVOT For Flow LVOT Area 4.2 cm2 LVOT SV 87.8 ml LVOTpkVel 114.3 cm/s HR 70.1 bpm LVOTpkPG 5.2 mmHg LVOT CO 6.2 l/min LVOTmnPG 2.3 mmHg LVOT CI 2.4 l/m/m2 LVOT TVI 21.1 cm Signed 07/13/2018 03:09 PM Ganga Tobin M.D. Performing Organization Address City/State/Zipcode Phone Number [phone] [place] [address] after 12/07/2017 Advance Directives Patient has advance care planning documents on file. For more information, please contact:Micha [id number] [place] [address]
--- OUTSIDE RECORDS SUMMARY | 2018-12-08 19:11 | XMS REPORT ---
[...] End Status Dosage System Date Date Lexapro [facility] 73428222266 20 MG Orally Active 0.5 tablet Once a day Cozaar [facility] 97064537934 25 MG Orally Active 1 tablet Once a day Etodolac [facility] [address]-42 500 MG Orally Active 1 tablet Once a day with food Pantoprazole [facility] 50722096797 40 MG Orally Active 1 tablet Sodium Once a day Vitamin D [facility] 43213009246 61837 UNIT Active 1 capsule (Ergocalciferol Orally ) Lipitor [facility] 45539214846 40 MG Orally Active 1 tablet Once a day Folic Acid [facility] 07741489633 1 MG Orally Active 1 tablet Once a day Humira Pen [facility] 07613089692 40 MG/0.8ML Active 0.8 ml Subcutaneous Clarinex [facility] 39197761684 5 MG Orally Active 1 tablet Once a day Wellbutrin SR [facility] 01597912815 150 MG Orally Active 1 tablet Twice a day Zetia [facility] 96359510188 10 MG Orally Active 1 tablet Once a day Results No Known Results Summary Purpose eClinicalWorks Submission
--- OUTSIDE RECORDS SUMMARY | 2018-12-08 19:12 | XMS REPORT ---
[...] End Status Dosage System Date Date Pantoprazole [facility] 73671295412 40 MG Orally Active 1 tablet Sodium Once a day Zetia [facility] 09472622979 10 MG Orally Active 1 tablet Once a day Pantoprazole [facility] 43468567129 40 MG Active TAKE 1 Sodium TABLET BY MOUTH EVERY DAY Vitamin D [facility] 93502861980 49042 UNIT Active 1 capsule (Ergocalciferol Orally ) Etodolac [facility] [address]-81 500 MG Orally Active 1 tablet Once a day with food Lexapro [facility] 46216689877 20 MG Orally Active 0.5 tablet Once a day Folic Acid [facility] 40464681603 1 MG Orally Active 1 tablet Once a day Wellbutrin SR [facility] 76581301254 150 MG Orally Active 1 tablet Twice a day Clarinex [facility] 29573077244 5 MG Orally Active 1 tablet Once a day Cozaar [facility] 97575034572 25 MG Orally Active 1 tablet Once a day Humira Pen [facility] 63943035546 40 MG/0.8ML Active 0.8 ml Subcutaneous Lipitor [facility] 21098593610 40 MG Orally Active 1 tablet Once a day Results No Known Results Summary Purpose eClinicalWorks Submission
--- OUTSIDE RECORDS SUMMARY | 2018-12-08 19:12 | XMS REPORT ---
:1955 Author Organization eClinicalWorks Care Team Providers Name Role Phone Portillo Monet Provider Role Unavailable Allergies, Adverse Reactions, Alerts Substance Reaction Event Type N.K.D.A. Info Not Available Non Drug Allergy Problems Problem Type Condition Code Onset Dates Condition Status Assessment Former heavy tobacco smoker Z87.891 Active Assessment Adult BMI 40.0-44.9 kg/sq m Z68.41 Active Assessment Prediabetes R73.09 Active Assessment Vitamin D deficiency E55.9 Active Assessment Hypertension I10 Active Assessment Rheumatoid arthritis involving M06.9 Active multiple sites, unspecified rheumatoid factor presence Problem Obstructive sleep apnea G47.33 Active Assessment COPD (chronic obstructive pulmonary J44.9 Active disease) Problem Prediabetes R73.09 Active Assessment Mixed hyperlipidemia E78.2 Active Problem Depression F32.9 Active Problem Vitamin D deficiency E55.9 Active Problem GERD (gastroesophageal reflux K21.9 Active disease) Problem Rheumatoid arthritis involving M06.9 Active multiple sites, unspecified rheumatoid factor presence Problem Allergic rhinitis J30.9 Active Assessment Depression F32.9 Active Assessment Anxiety F41.9 Active Problem Adult BMI 40.0-44.9 kg/sq m Z68.41 Active Assessment Obstructive sleep apnea G47.33 Active Problem Anxiety F41.9 Active Problem Rheumatoid [...] Start End Status Dosage System Date Date Escitalopram [facility] 08856819014 20 MG Orally Active 0.5 tablet Oxalate Once a day Atorvastatin [facility] 79661203567 40 MG Orally Active 1 tablet Calcium Once a day Vitamin D [facility] 31430056672 93619 UNIT Active 1 capsule (Ergocalciferol Orally ) Lipitor [facility] 90217347465 40 MG Orally Active 1 tablet Once a day Folic Acid [facility] 31600206014 1 MG Orally Active 1 tablet Once a day BuPROPion HCl [facility] 63607830935 300 MG Orally Active 1 tablet ER (XL) Once a day in the morning Metoprolol [facility] 87716915943 25 MG Orally Active 1 tablet Succinate ER Once a day Zetia [facility] 06868074514 10 MG Orally Active 1 tablet Once a day Etodolac [facility] [address]-76 500 MG Orally Active 1 tablet Once a day with food Humira Pen [facility] 44701625379 40 MG/0.8ML Active 0.8 ml Subcutaneous Lexapro [facility] 84125518961 20 MG Orally Active 0.5 tablet Once a day Pantoprazole [facility] 88727534373 40 MG Orally Active 1 tablet Sodium Once a day Clarinex [facility] 68359720413 5 MG Active TAKE 1 TABLET BY MOUTH EVERY DAY Folic Acid [facility] 03823358283 1 MG Active TAKE 1 TABLET BY MOUTH EVERY DAY Cozaar [facility] 96714629058 50 MG Orally Active 1 tablet Once a day Results No Known Results Summary Purpose eClinicalWorks Submission
--- OUTSIDE RECORDS SUMMARY | 2018-12-08 19:12 | XMS REPORT ---
:1955 Author Organization eClinicalWorks Care Team Providers Name Role Phone Portillo Monet Provider Role Unavailable Allergies, Adverse Reactions, Alerts Substance Reaction Event Type N.K.D.A. Info Not Available Non Drug Allergy Problems Problem Type Condition Code Onset Dates Condition Status Assessment Prediabetes R73.09 Active Assessment Adult BMI 40.0-44.9 kg/sq m Z68.41 Active Assessment Hypertension I10 Active Assessment Vitamin D deficiency E55.9 Active Assessment Rheumatoid arthritis involving M06.9 Active multiple sites, unspecified rheumatoid factor presence Assessment COPD (chronic obstructive pulmonary J44.9 Active disease) Assessment Mixed hyperlipidemia E78.2 Active Assessment Obstructive sleep apnea G47.33 Active Assessment Anxiety F41.9 Active Problem Obstructive sleep apnea G47.33 Active Assessment Depression F32.9 Active Problem Prediabetes R73.09 Active Assessment Need for pneumococcal vaccine Z23 Active Problem Depression F32.9 Active Problem Vitamin D deficiency E55.9 Active Problem GERD (gastroesophageal reflux K21.9 Active disease) Problem Rheumatoid arthritis involving M06.9 Active multiple sites, unspecified rheumatoid factor presence Problem Allergic rhinitis J30.9 Active Assessment Encounter for general adult medical Z00.01 Active examination with abnormal findings Assessment Former heavy tobacco smoker Z87.891 Active Problem Adult BMI 40.0-44.9 kg/sq m Z68.41 Active Assessment Encounter for screening for lung Z12.2 Active cancer Problem Anxiety F41.9 Active Problem Rheumatoid arthritis [...] Start End Status Dosage System Date Date Lipitor [facility] 01120141526 40 MG Orally Active 1 tablet Once a day Escitalopram [facility] 37031121394 20 MG Orally Active 0.5 tablet Oxalate Once a day Folic Acid [facility] 30195510340 1 MG Orally Active 1 tablet Once a day Metoprolol [facility] 90013634925 25 MG Orally Active 1 tablet Succinate ER Once a day Lexapro [facility] 70174365980 20 MG Orally Active 0.5 tablet Once a day Pantoprazole [facility] 04649646742 40 MG Orally Active 1 tablet Sodium Once a day Cozaar [facility] 52735749349 25 MG Orally Active 1 tablet Once a day Vitamin D [facility] 37716755041 92333 UNIT Active 1 capsule (Ergocalciferol Orally ) Atorvastatin [facility] 86799283001 40 MG Orally Active 1 tablet Calcium Once a day Etodolac [facility] [address]-72 500 MG Orally Active 1 tablet Once a day with food Humira Pen [facility] 57058450097 40 MG/0.8ML Active 0.8 ml Subcutaneous Vitamin D [facility] 31466232057 44456 UNIT Active 1 capsule (Ergocalciferol Orally ) Clarinex [facility] 16532150307 5 MG Active TAKE 1 TABLET BY MOUTH EVERY DAY Folic Acid [facility] 75408754927 1 MG Active TAKE 1 TABLET BY MOUTH EVERY DAY Wellbutrin SR [facility] 62363519103 150 MG Orally Active 1 tablet Twice a day Zetia [facility] 60763192480 10 MG Orally Active 1 tablet Once a day Results No Known Results Immunizations Vaccine Administration Date PNEUMAVAX Jul 28, 2018 Summary Purpose eClinicalWorks Submission
--- OUTSIDE RECORDS SUMMARY | 2018-12-08 19:12 | XMS REPORT ---
:1955 Author Organization eClinicalWorks Care Team Providers Name Role Phone Chiki Portillo Provider Role Unavailable Allergies, Adverse Reactions, Alerts Substance Reaction Event Type N.K.D.A. Info Not Available Non Drug Allergy Problems Problem Type Condition Code Onset Dates Condition Status Problem Depression F32.9 Active Problem Vitamin D deficiency E55.9 Active Problem GERD (gastroesophageal reflux K21.9 Active disease) Problem Rheumatoid arthritis involving M06.9 Active multiple sites, unspecified rheumatoid factor presence Assessment Discoloration and thickening of L60.8 Active nails both feet Problem Allergic rhinitis J30.9 Active Assessment Dystrophic nail L60.3 Active Problem Adult BMI 40.0-44.9 kg/sq m Z68.41 Active Problem Anxiety F41.9 Active Problem Rheumatoid arthritis M06.9 Active Problem Hypertension I10 Active Problem COPD (chronic obstructive pulmonary J44.9 Active disease) Problem Mixed hyperlipidemia E78.2 Active Problem Sexual dysfunction, unspecified R37 Active Problem Nonalcoholic fatty liver disease K76.0 Active Problem Thrombocytosis D47.3 Active Problem Varicose vein I86.8 Active Problem Folate deficiency anemia, D52.9 Active unspecified Problem Obstructive sleep apnea G47.33 Active Problem Decreased testosterone level E29.1 Active Problem Prediabetes R73.09 Active Medications Medication Code Code Instructions Start End Status Dosage System Date Date Atorvastatin [facility] 60460940442 40 MG Orally Active 1 tablet Calcium Once a day Wellbutrin SR [facility] 68921055877 150 MG Orally Active 1 tablet Twice a day Etodolac [facility] [address]-38 500 MG Orally Active 1 tablet Once a day with food Folic Acid [facility] 17343064908 1 MG Orally Active 1 tablet Once a day Escitalopram [facility] 78936626986 20 MG Orally Active 0.5 tablet Oxalate Once a day Clarinex [facility] 44040560283 5 MG Active TAKE 1 TABLET BY MOUTH EVERY DAY Lipitor [facility] 85896537866 40 MG Orally Active 1 tablet Once a day Zetia [facility] 17867865210 10 MG Orally Active 1 tablet Once a day Metoprolol [facility] 78382488596 25 MG Orally Active 1 tablet Succinate ER Once a day Pantoprazole [facility] 75893119563 40 MG Orally Active 1 tablet Sodium Once a day Humira Pen [facility] 95027473853 40 MG/0.8ML Active 0.8 ml Subcutaneous Lexapro [facility] 18108461415 20 MG Orally Active 0.5 tablet Once a day Vitamin D [facility] 62497130360 84302 UNIT Active 1 capsule (Ergocalciferol Orally ) Folic Acid [facility] 82660270671 1 MG Active TAKE 1 TABLET BY MOUTH EVERY DAY Cozaar [facility] 98301625837 25 MG Orally Active 1 tablet Once a day Results No Known Results Summary Purpose eClinicalWorks Submission
[2018-12-08] MEDS ORDERED: ONDANSETRON 4 MG/2 ML VIAL ONE (20:31)
[2018-12-08] MEDS ORDERED: NA CHLORIDE 0.9% 2,000 ML ONE (20:31)
--- NOTE | 2018-12-08 20:32 | RAD REPORT ---
EXAM DESCRIPTION: CT - Stone Protocol - 12/08/2018 7:41 pm CLINICAL HISTORY: Abdominal pain. Right flank pain. Hematuria COMPARISON: None. TECHNIQUE: Computed axial tomography of the abdomen pelvis was obtained without oral or IV contrast. Lack of IV and oral contrast limits evaluation of solid organs, bowel, and vessels. Coronal reformat lily images were obtained and reviewed. All CT scans are performed using dose optimization technique as appropriate and may include automated exposure control or mA/KV adjustment according to patient size. FINDINGS: 4.3 centimeter low-density mass extends off the lower pole right kidney. A 8.6 centimeter heterogeneous intermediate density mass present within the lower pole left kidney. C ontains a couple small calcifications. Small left renal cysts noted A renal calculus is not seen. An ureteral calculus is not noted. A bladder calculus is not present. Spleen measures 17 centimeters The liver, pancreas and adrenals appear grossly normal There is no evidence of diverticulitis. The appendix appears normal Cholelithiasis without gallbladder wall thickening IMPRESSION: 8.6 centimeter heterogeneous intermediate density mass left kidney may represent neoplas m. It is recommended that the patient have a CT scan with IV contrast to determine if there is abnorm al enhancement to confirm neoplasm. 4.3 centimeter low-density mass extending off the right kidney probably represents a cyst Moderate splenomegaly
[2018-12-08 20:37] LABS: Absolute Lymphocytes (CBC) 0.7 K/uL (0.7-4.9); Absolute Monocytes 0.7 K/uL (0.1-1.3); Absolute Neutrophil 7.8 K/uL (1.8-8.0); Basophils % 1.1 % (0-1.3); Eosinophils % 1.7 % (0-4.4); Hematocrit 48.6 % (39.6-49.0); Lymphocytes % 7.3 % (15.3-44.8); MPV 7.9 fL (7.6-11.3); Monocytes % 7.8 % (3.3-12.3); RBC Red Blood Cell Count 6.04 M/uL (4.33-5.43)
[2018-12-08 20:37] LABS: Urine Appearance TURBID; Urine Blood 3+ (NEG); Urine Color RED; Urine Glucose NEGATIVE (NEG); Urine Protein 2+ (NEG); Urine Specific Gravity 1.025 (1.005-1.030)
[2018-12-08 20:40] LABS: Albumin 3.8 g/dL (3.4-5.0); Bilirubin Direct 0.3 mg/dL (0-0.2); Bilirubin Total 0.7 mg/dL (0.2-1.0); Potassium 4.3 mmol/L (3.5-5.1); Protein, Total 7.6 g/dL (6.4-8.2)
[2018-12-08 20:42] LABS: Urine Bilirubin NEGATIVE (NEG)
[2018-12-08 20:44] LABS: Urine Microscopic Reflex ORDER UMIC
[2018-12-08 20:48] LABS: Urine Bacteria <20 /HPF (NONE SEEN); Urine Culture Reflex Order REFLEXED; Urine RBC TNTC /HPF (NONE SEEN)
--- NOTE | 2018-12-08 21:44 | EDPHYS ---
Physician Documentation [facility] Name: Navdeep Gonzalez Age: 63 yrs Sex: Male : 1955 Arrival Date: 12/08/2018 Time: 19:12 Bed 27 Private MD: Portillo Monet ED Physician Jennifer French HPI: 12/08 21:41 This 63 yrs old Male presents to ER via Ambulatory with complaints of Blood ma2 in ueine, Abdominal Pain, Vomiting. 21:41 Onset: The symptoms/episode began/occurred gradually, 1 day(s) ago. Possible causes: ma2 unknown. Associated signs and symptoms: Pertinent positives: abdominal pain, hematuria, Pertinent negatives: dysuria, GI bleeding, hematuria. Severity of symptoms: At their worst the symptoms were very mild in the emergency department the symptoms are unchanged. The patient has not experienced similar symptoms in the past. Historical: - Allergies: 19:21 No Known Allergies; aj - Immunization history:: Adult Immunizations up to date. - Social history:: Patient/guardian denies using alcohol, street drugs, The patient lives with family, with spouse, Smoking status: Patient/guardian denies using tobacco. - Ebola Screening: : Patient negative for fever greater than or equal to 101.5 degrees Fahrenheit, and additional compatible Ebola Virus Disease symptoms Patient denies exposure to infectious person Patient denies travel to an Ebola-affected area in the 21 days before illness onset. - Family history:: not pertinent. ROS: 21:41 Constitutional: Negative for fever, chills, and weight loss. ma2 21:41 : Positive for urinary symptoms, Negative for difficulty urinating, testicular pain 21:41 All other systems are negative. Exam: 21:41 Constitutional: This is a well developed, well nourished patient who is awake, alert, ma2 and in no acute distress. Chest/axilla: Normal chest wall appearance and motion. Nontender with no deformity. No lesions are appreciated. Cardiovascular: Regular rate and rhythm with a normal S1 and S2. No gallops, murmurs, or rubs. Normal PMI, no JVD. No pulse deficits. Respiratory: Lungs have equal breath sounds bilaterally, clear to auscultation and percussion. No rales, rhonchi or wheezes noted. No increased work of breathing, no retractions or nasal flaring. Abdomen/GI: Soft, non-tender, with normal bowel sounds. No distension or tympany. No guarding or rebound. No evidence of tenderness throughout. Male : Normal genitalia with no discharge or lesions. MS/ Extremity: Pulses equal, no cyanosis. Neurovascular intact. Full, normal range of motion. Neuro: Awake and alert, GCS 15, oriented to person, place, time, and situation. Cranial nerves II-XII grossly intact. Motor strength 5/5 in all extremities. Sensory grossly intact. Cerebellar exam normal. Normal gait. Vital Signs: 19:21 BP 159 / 79; Pulse 95; Resp 20; Temp 97.4; Pulse Ox 95% on R/A; Weight 146.96 kg; aj Height 6 ft. 0 in. (182.88 cm); 20:22 BP 138 / 71; Pulse 89; Resp 18; Pulse Ox 95% on R/A; ca1 21:40 BP 128 / 65; Pulse 91; Resp 17 S; Temp 97.8(O); Pulse Ox 99% on R/A; ca1 19:21 Body Mass Index 43.94 (146.96 kg, 182.88 cm) aj MDM: 19:23 Patient medically screened. ma2 21:41 Differential diagnosis: uti, renal mass. Data reviewed: vital signs, nurses notes, old [facility] medical records, radiologic studies. Counseling: I had a detailed discussion with the patient and/or guardian regarding: the historical points, exam findings, and any diagnostic results supporting the discharge/admit diagnosis, the presence of at least one elevated blood pressure reading (>120/80) during this emergency department visit, lab results, the need for outpatient follow up. Response to treatment: the patient's symptoms have markedly improved after treatment. 12/08 19:40 Order name: Basic Metabolic Panel; Complete Time: 21:28 [facility] 12/08 19:40 Order name: CBC with Diff; Complete Time: 21:28 [facility] 12/08 19:40 Order name: Creatinine for Radiology; Complete Time: 21:28 [facility] 12/08 19:40 Order name: Hepatic Function; Complete Time: 21:28 [facility] 12/08 19:40 Order name: Lipase; Complete Time: 21:28 [facility] 12/08 20:09 Order name: UA; Complete Time: 21:28 [facility] 12/08 19:20 Order name: CT Stone Protocol; Complete Time: 21:28 12/08 19:40 Order name: IV Saline Lock; Complete Time: 20:16 [facility] 12/08 19:40 Order name: Labs collected and sent; Complete Time: 20:16 [facility] 12/08 19:40 Order name: Urine Dipstick-Ancillary (obtain specimen); Complete Time: 20:16 [facility] 12/08 20:47 Order name: Urine Microscopic Only; Complete Time: 21:28 EDMS Administered Medications: 20:10 Drug: Zofran 4 mg Route: IVP; Site: left antecubital; ca1 20:56 Follow up: Response: No adverse reaction ca1 20:10 Drug: NS 0.9% 2000 ml Route: IV; Rate: 1 bolus; Site: left antecubital; ca1 22:05 Follow up: Urine output 350 ml; Response: No adverse reaction; IV Status: Completed ca1 infusion 21:35 Drug: Rocephin 1 grams Route: IV; Rate: calculated rate; Site: left antecubital; ca1 22:05 Follow up: Response: No adverse reaction; IV Status: Completed infusion ca1 Disposition: 12/08/18 21:43 Discharged to Home. Impression: Neoplasm of uncertain behavior of left kidney, Urinary tract infection, site not specified. - Condition is Stable. - Discharge Instructions: Urinary Tract Infection, Pediatric. - Prescriptions for Tylenol- Codeine #3 300-30 mg Oral Tablet - take 2 tablet by ORAL route every 6 hours As needed; 30 tablet. Cipro 500 mg Oral Tablet - take 1 tablet by ORAL route every 12 hours for 7 days; 14 tablet. Zofran 4 mg Oral Tablet - take 1 tablet by ORAL route every 12 hours As needed; 20 tablet. - Medication Reconciliation Form, Thank You Letter, Antibiotic Education, Prescription Opioid Use form. - Follow up: Private Physician; When: Tomorrow; Reason: Continuance of care. Follow up: Larisa Martin MD; When: Tomorrow; Reason: Continuance of care. - Notes: you have a kideny mass, follow up with urologist Signatures: Dispatcher [employer] EDNohemi Valdivia RN RN aj Alzahri, Mohammad, MD MD [facility] Lula Avendaño RN RN ca1 Corrections: (The following items were deleted from the chart) 21:44 21:43 12/08/2018 21:43 Discharged to Home. Impression: Neoplasm of uncertain behavior ma2 of left kidney. Condition is Stable. Prescriptions for Tylenol-Codeine #3 300-30 mg Oral Tablet - take 2 tablet by ORAL route every 6 hours As needed; 30 tablet, Cipro 500 mg Oral Tablet - take 1 tablet by ORAL route every 12 hours for 7 days; 14 tablet. and Forms are Medication Reconciliation Form, Thank You Letter, Antibiotic Education, Prescription Opioid Use. Follow up: Private Physician; When: Tomorrow; Reason: Continuance of care. ma2 21:45 21:44 12/08/2018 21:43 Discharged to Home. Impression: Neoplasm of uncertain behavior ma2 of left kidney; Urinary tract infection, site not specified. Condition is Stable. Prescriptions for Tylenol-Codeine #3 300-30 mg Oral Tablet - take 2 tablet by ORAL route every 6 hours As needed; 30 tablet, Cipro 500 mg Oral Tablet - take 1 tablet by ORAL route every 12 hours for 7 days; 14 tablet. and Forms are Medication Reconciliation Form, Thank You Letter, Antibiotic Education, Prescription Opioid Use. Follow up: Private Physician; When: Tomorrow; Reason: Continuance of care. ma2 22:05 21:45 12/08/2018 21:43 Discharged to Home. Impression: Neoplasm of uncertain behavior ca1 of left kidney; Urinary tract infection, site not specified. Condition is Stable. Discharge Instructions: Urinary Tract Infection, Pediatric. Prescriptions for Tylenol-Codeine #3 300-30 mg Oral Tablet - take 2 tablet by ORAL route every 6 hours As needed; 30 tablet, Cipro 500 mg Oral Tablet - take 1 tablet by ORAL route every 12 hours for 7 days; 14 tablet. and Forms are Medication Reconciliation Form, Thank You Letter, Antibiotic Education, Prescription Opioid Use. Follow up: Private Physician; When: Tomorrow; Reason: Continuance of care. Follow up: Larisa Martin; When: Tomorrow; Reason: Continuance of care. ma2
--- NOTE | 2018-12-08 21:44 | ER ---
Nurse's Notes [facility] Name: Navdeep Gonzalez Age: 63 yrs Sex: Male : 1955 Arrival Date: 12/08/2018 Time: 19:12 Bed 27 Private MD: Portillo Monet Diagnosis: Neoplasm of uncertain behavior of left kidney;Urinary tract infection, site not specified Presentation: 12/08 19:20 Presenting complaint: Patient states: Right flank pain for since last night. Seen PCP aj today. Reports blood in urine. Care prior to arrival: None. 19:20 Method Of Arrival: Ambulatory aj 19:20 Acuity: CHERI 3 aj 19:36 Transition of care: patient was not received from another setting of care. Onset of ca1 symptoms was December 08, 2018. Risk Assessment: Do you want to hurt yourself or someone else? Patient reports no desire to harm self or others. Initial Sepsis Screen: Does the patient meet any 2 criteria? No. Patient's initial sepsis screen is negative. Does the patient have a suspected source of infection? No. Patient's initial sepsis screen is negative. Triage Assessment: 19:21 General: Appears in no apparent distress. comfortable, Behavior is calm, cooperative, aj appropriate for age. Pain: Complains of pain in anterior aspect of right lateral abdomen and posterior aspect of right lateral abdomen. Neuro: Level of Consciousness is awake, alert, obeys commands, Oriented to person, place, time, situation, Appropriate for age. Respiratory: Airway is patent Respiratory effort is even, unlabored, Respiratory pattern is regular, symmetrical. : Reports pain in right flank(s). Derm: Skin is pink, warm \T\ dry. Historical: - Allergies: 19:21 No Known Allergies; aj - Immunization history:: Adult Immunizations up to date. - Social history:: Patient/guardian denies using alcohol, street drugs, The patient lives with family, with spouse, Smoking status: Patient/guardian denies using tobacco. - Ebola Screening: : Patient negative for fever greater than or equal to 101.5 degrees Fahrenheit, and additional compatible Ebola Virus Disease symptoms Patient denies exposure to infectious person Patient denies travel to an Ebola-affected area in the 21 days before illness onset. - Family history:: not pertinent. Screenin:32 Abuse screen: Denies threats or abuse. Denies injuries from another. Nutritional ca1 screening: No deficits noted. Tuberculosis screening: No symptoms or risk factors identified. Fall Risk IV access (20 points). Assessment: 19:32 General: Appears in no apparent distress. comfortable, Behavior is calm, cooperative, ca1 appropriate for age. Pain: Complains of pain in abdomen and posterior aspect of right lateral abdomen and anterior aspect of right lateral abdomen Pain currently is 4 out of 10 on a pain scale. Neuro: Level of Consciousness is awake, alert, obeys commands, Oriented to person, place, time, situation. Cardiovascular: Heart tones S1 S2 present Capillary refill < 3 seconds Patient's skin is warm and dry. Respiratory: Airway is patent Respiratory effort is even, unlabored, Respiratory pattern is regular, symmetrical, Breath sounds are clear bilaterally. GI: Abdomen is round non-distended, Bowel sounds present X 4 quads. Abd is soft and non tender X 4 quads. : Urine is contreras blood. EENT: No deficits noted. No signs and/or symptoms were reported regarding the EENT system. Derm: Skin is intact, is healthy with good turgor, Skin is pink, warm \T\ dry. Musculoskeletal: Circulation, motion, and sensation intact. Capillary refill < 3 seconds, Range of motion: intact in all extremities. 20:22 Reassessment: Patient appears in no apparent distress at this time. Patient and/or ca1 family updated on plan of care and expected duration. Pain level reassessed. Patient is alert, oriented x 3, equal unlabored respirations, skin warm/dry/pink. 21:40 Reassessment: Patient appears in no apparent distress at this time. Patient is alert, ca1 oriented x 3, equal unlabored respirations, skin warm/dry/pink. Vital Signs: 19:21 BP 159 / 79; Pulse 95; Resp 20; Temp 97.4; Pulse Ox 95% on R/A; Weight 146.96 kg; aj Height 6 ft. 0 in. (182.88 cm); 20:22 BP 138 / 71; Pulse 89; Resp 18; Pulse Ox 95% on R/A; ca1 21:40 BP 128 / 65; Pulse 91; Resp 17 S; Temp 97.8(O); Pulse Ox 99% on R/A; ca1 19:21 Body Mass Index 43.94 (146.96 kg, 182.88 cm) aj ED Course: 19:12 Patient arrived in ED. es 19:13 Portillo Monet DO is Private Physician. es 19:20 Triage completed. aj 19:21 Arm band placed on right wrist. aj 19:23 Jennifer French MD is Attending Physician. ma2 19:27 Lula Avendaño, RODOLFO is Primary Nurse. ca1 19:32 Patient has correct armband on for positive identification. Placed in gown. Bed in low ca1 position. Call light in reach. Side rails up X 1. Pulse ox on. NIBP on. Warm blanket given. 19:32 No provider procedures requiring assistance completed. ca1 19:43 CT Stone Protocol In Process Unspecified. EDMS 20:07 Inserted saline lock: 20 gauge in left antecubital area, using aseptic technique. Blood ca1 collected. 21:45 Larisa Martin MD is Referral Physician. ma2 22:03 IV discontinued, intact, bleeding controlled, No redness/swelling at site. Pressure ca1 dressing applied. Administered Medications: 20:10 Drug: Zofran 4 mg Route: IVP; Site: left antecubital; ca1 20:56 Follow up: Response: No adverse reaction ca1 20:10 Drug: NS 0.9% 2000 ml Route: IV; Rate: 1 bolus; Site: left antecubital; ca1 22:05 Follow up: Urine output 350 ml; Response: No adverse reaction; IV Status: Completed ca1 infusion 21:35 Drug: Rocephin 1 grams Route: IV; Rate: calculated rate; Site: left antecubital; ca1 22:05 Follow up: Response: No adverse reaction; IV Status: Completed infusion ca1 Output: 22:05 Urine: 350ml; Total: 350ml. ca1 Outcome: 21:43 Discharge ordered by . ma2 22:03 Discharged to home ambulatory, with significant other. ca1 22:03 Condition: stable 22:03 Discharge instructions given to patient, Instructed on discharge instructions, follow up and referral plans. medication usage, Demonstrated understanding of instructions, follow-up care, medications, Prescriptions given X 3. 22:05 Patient left the ED. ca1 Signatures: Dispatcher [employer] Nohemi Christianson RN RN Annetta Feliz Mohammad, MD MD ma2 Acob, Cheryl, RN RN ca1
[2018-12-08] MEDS ORDERED: CEFTRIAXONE/SWI 1gm 1 GM/10 ML SYR ONE (21:50)
[2018-12-09 04:03] VITALS: BP 128/65; TEMP 97.8; O2SAT 99
== END 2018-12-08 22:05 | disposition home or self-care (01) ==
LOC: ER 19:08
DX: D41.02 Neoplasm of uncertain behavior of left kidney (principal); N39.0 Urinary tract infection, site not specified
CPT/HCPCS: 36415; 74176; 76377; 80048; 80076; 81003; 81015; 83690; 85025; 96361; 96365; 96375; 99284; J0696; J2405; J7030

== ENCOUNTER 2019-06-28 00:39 | Emergency (ER) | payer OTHER ==
--- OUTSIDE RECORDS SUMMARY | 2019-06-28 00:43 | XMS REPORT ---
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 Active Problem Varicose vein I86.8 Active Problem Thrombocytosis D47.3 Active Problem Renal mass N28.89 Active Problem GERD (gastroesophageal reflux K21.9 Active disease) Problem History of left nephrectomy Z90.5 Active Problem Depression F32.9 Active Problem Prediabetes R73.09 Active Problem A-fib I48.91 Active Problem Rheumatoid arthritis involving M06.9 Active multiple sites, unspecified rheumatoid factor presence Problem Obstructive sleep apnea G47.33 Active Problem 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 Problem Adult BMI 40.0-44.9 kg/sq m Z68.41 Active Problem Anxiety F41.9 Active Problem COPD (chronic obstructive pulmonary J44.9 Active disease) Problem Vitamin D deficiency E55.9 Active Problem Rheumatoid arthritis M06.9 Active Problem Nonalcoholic fatty liver disease K76.0 Active Problem Mixed hyperlipidemia E78.2 Active Assessment Rheumatoid arthritis involving M06.9 Active multiple sites, unspecified rheumatoid factor presence Problem Hypertension I10 Active Problem Sexual dysfunction, unspecified R37 Active Problem Allergic rhinitis J30.9 Active Problem Folate deficiency anemia, 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
--- OUTSIDE RECORDS SUMMARY | 2019-06-28 00:43 | XMS REPORT ---
:1955 [facility] Address [address] [place] [address] Dr. Yañez [address] [place] [id number] Care Team Providers Name Role Phone ELISEO PEARCE Unavailable Unavailable BETY HOLLOWAY Unavailable Unavailable Problems This patient has no known problems. Allergies, Adverse Reactions, Alerts This patient has no known allergies or adverse reactions. Medications This patient has no known medications. Results Test Description Test Time Test Comments Text Results Atomic Results Result Comments TISSUE EXAM 2019-01-14 13:31:00 Surgical Pathology Report Case: [id number] Authorizing Provider: Bety Holloway MD Collected: 01/02/2019 1249 Ordering Location: [facility] PERI[facility] Received: 01/02/2019 1427 SERVICES Pathologist: Mario Hernandez MD Specimen: Kidney, Left A. KIDNEY, LEFT, RADICAL NEPHRECTOMY: - CLEAR CELL PAPILLARY RENAL CELL CARCINOMA, BLAS NUCLEAR GRADE 2 - TUMOR MEASURES 6.0 CM IN GREATEST DIMENSION - TUMOR IS ORGAN CONFINED - SURGICAL MARGINS, NEGATIVE FOR MALIGNANCY - NEGATIVE FOR LYMPHO-VASCULAR INVASION - NEGATIVE FOR TUMOR NECROSIS - NEGATIVE FOR SARCOMATOID FEATURES - UNINVOLVED KIDNEY WITH NO SIGNIFICANT DIAGNOSTIC ABNORMALITY - PATHOLOGIC TUMOR STAGING: [id number] Signing Pathologist Direct Phone Line: [phone] signed by Mario Hernandez MD on 01/14/2019 at 1:31 PMImmunostains for CK7 and CD10 are positive; while AMACR is negative. While majority of the tumor appears to clear cell papillary renal cell carcinoma, focal areas (~10%) are also reminiscent of conventional clear cell carcinoma.KIDNEY: Nephrectomy (Kidney Res - All Specimens)SPECIMEN Procedure: Radical nephrectomy Specimen Laterality: Left TUMOR Tumor Site: Lower pole Histologic Type: Clear cell papillary renal cell carcinoma Histologic Grade (WHO / ISUP Grade): G2: Nucleoli conspicuous and eosinophilic at 400x magnification, visible but not prominent at 100x magnification Tumor Size: Greatest dimension in Centimeters (cm): 6 Centimeters (cm) Additional Dimension in Centimeters (cm): 5 Centimeters (cm) Additional Dimension in Centimeters (cm): 4.5 Centimeters (cm) Tumor Focality: Unifocal Tumor Extent: Tumor Extension: Tumor limited to kidney Accessory Findings: Sarcomatoid Features: Not identified Rhabdoid Features: Not identified Tumor Necrosis: Not identified Lymphovascular Invasion: Not identified MARGINS Margins: Uninvolved by invasive carcinoma LYMPH NODES Regional Lymph Nodes: No lymph nodes submitted or found PATHOLOGIC STAGE CLASSIFICATION (pTNM, AJCC 8th Edition) TNM Descriptors: Not applicable Primary Tumor (pT): pT1b Regional Lymph Nodes (pN): pNX ADDITIONAL FINDINGS Pathologic Findings in Nonneoplastic Kidney: None identified [id number] mass Kidney, leftReceived fresh labeled with the patient's name, accession number and "kidney, left" is a 2,082 gm, 25 x 16 x 15 cm radical nephrectomy. The kidney measures 13.5 x 7.5 x 7.4 cm, and there is an abundant amount of attached perinephric fat. There is a 4.5 x 0.5 cm, attached, slightly dilated, but otherwise unremarkable ureter. An adrenal gland is not present.The specimen is opened to reveal a 6 x 5 x 4.5 cm, well-circumscribed, polycystic, long-yellow, gong to red, partially hemorrhagic and necrotic mass in the lower pole. The mass pushes the perinephric fat, but it does not invade through it. There is possible renal vein involvement. The mass pushes on the renal sinus, but it does not invade through it.The uninvolved parenchyma is red-pink and smooth. Lymph nodes are not present in the hilum. [employer] sections are submitted.Ink code: Black-outer surface of perinephric fat.Section code:A1, ureter and vascular margins, en faceA2-A3, mass to renal sinus and veinA4-A7, mass to capsule and perinephric fat A8, mass to parenchyma interfaceA9, mass to renal yqqvpO75, civil rights representative of massA11, civil rights representative of hilar fatA12, uninvolved renal parenchymaCG/ewPerformed.The interpretation of this case included the use of immunohistochemistry or special stains.Control Slides Examined: In-house known positive controls were evaluated along with the test tissue. These control slides run alongside of the patients sample show appropriate staining. Internal positive and negative controls when available are evaluated Immunohistochemistry technical testing was performed at [facility], Pathology Laboratory where it was developed and its performance characteristics were determined. It has not been cleared or approved by the U.S. Food and Drug Administration. The FDA has determined that such clearance or approval is not necessary. The test is used for clinical purposes. It should not be regarded as investigational or for research. This laboratory is certified under the Clinical Laboratory Improvement Amendments of 1988 (CLIA-88) as qualified to perform high complexity clinical laboratory testing. WOUND CULTURE + GRAM STAIN 2019-01-13 14:53:00 Test Item Value Reference Range Comments CULTURE (BEAKER) (test hmkb=7565) <1+ Staphylococcus epidermidis BASIC METABOLIC [id number] 07:18:00 Test Item Value Reference Range Comments SODIUM (BEAKER) (test 139 meq/L 136-145 zyud=856) POTASSIUM (BEAKER) (test 3.9 meq/L 3.5-5.1 anqr=239) CHLORIDE (BEAKER) (test 109 meq/L 98-107 uerc=752) CO2 (BEAKER) (test 24 meq/L 22-29 zwrm=217) BLOOD UREA NITROGEN 9 mg/dL 7-21 (BEAKER) (test jixn=954) CREATININE (BEAKER) (test 1.04 mg/dL 0.57-1.25 gaph=592) GLUCOSE RANDOM (BEAKER) 108 mg/dL 70-105 (test fjpb=481) CALCIUM (BEAKER) (test 7.8 mg/dL 8.4-10.2 xbct=761) EGFR (BEAKER) (test 72 mL/min/1.73 sq m ESTIMATED GFR IS NOT ntqk=6656) ACCURATE CREATININE CLEARANCE IN PREDICTING GLOMERULAR FILTRATION RATE. ESTIMATED GFR IS NOT APPLICABLE FOR DIALYSIS PATIENTS. HEMOGLOBIN AND [id number] 06:44:00 Test Item Value Reference Range Comments HEMOGLOBIN (BEAKER) (test tkvl=735) 12.2 GM/DL 13.7-17.5 HEMATOCRIT (BEAKER) (test ihqs=674) 40.8 % 40.1-51.0 ANAEROBIC [id number] 03:32:00 Test Item Value Reference Range Comments CULTURE (BEAKER) (test vsil=6879) No anaerobes isolated HEPATIC FUNCTION [id number] 11:02:00 Test Item Value Reference Range Comments TOTAL PROTEIN (BEAKER) (test lyuv=292) 5.8 gm/dL 6.0-8.3 ALBUMIN (BEAKER) (test jjec=1333) 3.0 g/dL 3.5-5.0 BILIRUBIN TOTAL (BEAKER) (test svdw=942) 0.8 mg/dL 0.2-1.2 BILIRUBIN DIRECT (BEAKER) (test qrpn=043) 0.5 mg/dL 0.1-0.5 ALKALINE PHOSPHATASE (BEAKER) (test afjw=509) 93 U/L 40-150 AST (SGOT) (BEAKER) (test djfi=935) 30 U/L 5-34 ALT (SGPT) (BEAKER) (test hsrs=003) 18 U/L 6-55 BASIC METABOLIC [id number] 06:30:00 Test Item Value Reference Range Comments SODIUM (BEAKER) (test 135 meq/L 136-145 jagb=040) POTASSIUM (BEAKER) (test 3.9 meq/L 3.5-5.1 oibd=410) CHLORIDE (BEAKER) (test 104 meq/L 98-107 httu=751) CO2 (BEAKER) (test 24 meq/L 22-29 tafy=222) BLOOD UREA NITROGEN 8 mg/dL 7-21 (BEAKER) (test prli=629) CREATININE (BEAKER) (test 1.08 mg/dL 0.57-1.25 lnll=497) GLUCOSE RANDOM (BEAKER) 109 mg/dL 70-105 (test oxny=334) CALCIUM (BEAKER) (test 7.7 mg/dL 8.4-10.2 bfkr=037) EGFR (BEAKER) (test 69 mL/min/1.73 sq m ESTIMATED GFR IS NOT rgic=2003) ACCURATE CREATININE CLEARANCE IN PREDICTING GLOMERULAR FILTRATION RATE. ESTIMATED GFR IS NOT APPLICABLE FOR DIALYSIS PATIENTS. HEMOGLOBIN AND [id number] 05:41:00 Test Item Value Reference Range Comments HEMOGLOBIN (BEAKER) (test chwc=972) 12.7 GM/DL 13.7-17.5 HEMATOCRIT (BEAKER) (test lpfi=830) 41.7 % 40.1-51.0 BASIC METABOLIC [id number] 08:51:00 Test Item Value Reference Range Comments SODIUM (BEAKER) (test 136 meq/L 136-145 nqke=708) POTASSIUM (BEAKER) (test 4.1 meq/L 3.5-5.1 Specimen slightly dggk=519) hemolyzed CHLORIDE (BEAKER) (test 103 meq/L 98-107 dpzb=805) CO2 (BEAKER) (test 25 meq/L 22-29 fmos=123) BLOOD UREA NITROGEN 11 mg/dL 7-21 (BEAKER) (test twkb=536) CREATININE (BEAKER) (test 1.16 mg/dL 0.57-1.25 Specimen slightly kbng=824) hemolyzed GLUCOSE RANDOM (BEAKER) 110 mg/dL 70-105 (test wqec=982) CALCIUM (BEAKER) (test 7.7 mg/dL 8.4-10.2 urnb=708) EGFR (BEAKER) (test 64 mL/min/1.73 sq m ESTIMATED GFR IS NOT dffo=4888) ACCURATE CREATININE CLEARANCE IN PREDICTING GLOMERULAR FILTRATION RATE. ESTIMATED GFR IS NOT APPLICABLE FOR DIALYSIS PATIENTS. HEMOGLOBIN AND [id number] 08:03:00 Test Item Value Reference Range Comments HEMOGLOBIN (BEAKER) (test idta=498) 13.1 GM/DL 13.7-17.5 HEMATOCRIT (BEAKER) (test nowa=712) 43.1 % 40.1-51.0 CT, [id number] 16:56:00With PO contrastFINAL REPORT ABDOMINAL AND PELVIS CT DATED 01/10/2019 CLINICAL INFORMATION: Abdominal distension TECHNIQUE: Axial images of the abdomen and pelvis were obtained from diaphragm to the pubic symphysis with GI contrast. Intravenous contrast was not given. This exam was performed according to our departmental dose-optimization program, which includes automated exposure control, adjustment of the mA and/or kV according to patient size and/or use of interactive reconstruction technique. COMMENT: There is trace bilateral pleural effusion. Subsegmental atelectasis is seen in both lung bases. Pleural calcification seen on the left. Liver and spleen are normal in size without focal abnormality. Gallbladder is distended. A few small gallstones are present. No biliary dilatation is noted. Pancreas and adrenals are unremarkable. Right kidney is normal in size. A 4.25 x 4.4 seen cyst is seen in the right kidney. Left kidney is surgically absent. The opacified small bowel is unremarkable. Diverticular disease is seen in the large bowel without diverticulitis. Appendix is not visualized. No mass, adenopathy or ascites is present. IMPRESSION: 1. Diverticulosis without diverticulitis.2. Status post left nephrectomy.3. Right renal cyst.4. Distended gallbladder with gallstones without biliary dilatation.5. Trace bilateral pleural effusion. Signed: Bridget Yepezeport Verified Date/Time: 01/10/2019 16:56:13 Reading Location: [address] Body Reading Room RAD, ABDOMEN/KUB, 1 VIEW [id number] 11:39:00Reason for exam:->NGT placementShould this be performed at the bedside?->YesFINAL REPORT ONE VIEW ABDOMEN HISTORY: Status post nasogastric tube placementCOMPARISON: 01/09/2019 FINDINGS: Single supine AP image of the abdomen was obtained. Nasogastric tubetip is in the region of the body of the stomach. There are dilated bowel loops in the central and lower abdomen, similar to the prior study and suggestive of adynamic ileus. Signed: Morales Crow Verified Date/Time: 01/10/2019 11:39:35 Reading Location: [place] [id number] Transitional Reading Room [id number] 07:33:00 Test Item Value Reference Range Comments MAGNESIUM (BEAKER) (test 2.2 mg/dL 1.6-2.6 Specimen slightly hemolyzed aykc=520) [id number] 07:33:00 Test Item Value Reference Range Comments PHOSPHORUS (BEAKER) (test 2.6 mg/dL 2.3-4.7 Specimen slightly hemolyzed ffgq=980) BASIC METABOLIC [id number] 07:33:00 Test Item Value Reference Range Comments SODIUM (BEAKER) (test 138 meq/L 136-145 lzgl=171) POTASSIUM (BEAKER) (test 4.0 meq/L 3.5-5.1 Specimen slightly smic=686) hemolyzed CHLORIDE (BEAKER) (test 103 meq/L 98-107 mohp=201) CO2 (BEAKER) (test 27 meq/L 22-29 czvj=626) BLOOD UREA NITROGEN 17 mg/dL 7-21 (BEAKER) (test mjir=910) CREATININE (BEAKER) (test 1.12 mg/dL 0.57-1.25 Specimen slightly egpn=271) hemolyzed GLUCOSE RANDOM (BEAKER) 114 mg/dL 70-105 (test fprr=182) CALCIUM (BEAKER) (test 8.0 mg/dL 8.4-10.2 nnlb=973) EGFR (BEAKER) (test 66 mL/min/1.73 sq m ESTIMATED GFR IS NOT ckus=0481) ACCURATE CREATININE CLEARANCE IN PREDICTING GLOMERULAR FILTRATION RATE. ESTIMATED GFR IS NOT APPLICABLE FOR DIALYSIS PATIENTS. URINE [id number] 15:09:00 Test Item Value Reference Range Comments CULTURE (BEAKER) (test jsjf=1167) No growth RAD, ABDOMEN/KUB, 1 VIEW [id number] 10:34:00Reason for exam:->abdominal distensionShould this be performed at the bedside?->YesFINAL REPORT Exam: KUB three views INDICATION: Abdominal distention. COMPARISON: KUB of 01/07/2019. FINDINGS:Persistent dilated loops of small bowel measuring up to 5.0 cm, not significantly changed from the prior KUB of 2018. Air-fluid levels are not apparent as in the prior study. Persistent paucity of colonic bowel gas. No free air. The osseous structures appear unremarkable. The minimally visualized lung bases appear unremarkable. IMPRESSION:Dilated loops of small bowel, not definitely changed from 01/07/2019, consistent with ileus versus obstruction. Signed: Jayna Gore MDReport Verified Date/Time: 01/09/2019 10:34:42 Reading Location: [facility] Radiology Reading Room 10: 34 [id number] 04:41:00 Test Item Value Reference Range Comments PHOSPHORUS (BEAKER) (test qqnf=933) 2.6 mg/dL 2.3-4.7 [id number] 04:41:00 Test Item Value Reference Range Comments MAGNESIUM (BEAKER) (test ulux=701) 2.2 mg/dL 1.6-2.6 BASIC METABOLIC [id number] 04:41:00 Test Item Value Reference Range Comments SODIUM (BEAKER) (test 139 meq/L 136-145 dbbe=768) POTASSIUM (BEAKER) (test 3.3 meq/L 3.5-5.1 nwtp=956) CHLORIDE (BEAKER) (test 101 meq/L 98-107 evvx=874) CO2 (BEAKER) (test 28 meq/L 22-29 fvwn=764) BLOOD UREA NITROGEN 33 mg/dL 7-21 (BEAKER) (test czhm=847) CREATININE (BEAKER) (test 1.38 mg/dL 0.57-1.25 bbvv=857) GLUCOSE RANDOM (BEAKER) 119 mg/dL 70-105 (test rxjs=429) CALCIUM (BEAKER) (test 8.0 mg/dL 8.4-10.2 qkyr=897) EGFR (BEAKER) (test 52 mL/min/1.73 sq m ESTIMATED GFR IS NOT zhir=8710) ACCURATE CREATININE CLEARANCE IN PREDICTING GLOMERULAR FILTRATION RATE. ESTIMATED GFR IS NOT APPLICABLE FOR DIALYSIS PATIENTS. [id number] 11:45:00 Test Item Value Reference Range Comments AMYLASE (BEAKER) (test mrrx=178) 78 U/L 25-125 [id number] 02:24:00 Test Item Value Reference Range Comments PHOSPHORUS (BEAKER) (test xgqr=282) 3.7 mg/dL 2.3-4.7 [id number] 02:24:00 Test Item Value Reference Range Comments MAGNESIUM (BEAKER) (test usaq=790) 2.5 mg/dL 1.6-2.6 BASIC METABOLIC [id number] 02:24:00 Test Item Value Reference Range Comments SODIUM (BEAKER) (test 137 meq/L 136-145 iraj=197) POTASSIUM (BEAKER) (test 4.2 meq/L 3.5-5.1 yqxg=333) CHLORIDE (BEAKER) (test 95 meq/L 98-107 tvel=140) CO2 (BEAKER) (test 31 meq/L 22-29 pqmb=104) BLOOD UREA NITROGEN 46 mg/dL 7-21 (BEAKER) (test gbhr=415) CREATININE (BEAKER) (test 1.64 mg/dL 0.57-1.25 gsxb=843) GLUCOSE RANDOM (BEAKER) 109 mg/dL 70-105 (test fbaf=799) CALCIUM (BEAKER) (test 8.8 mg/dL 8.4-10.2 aoai=203) EGFR (BEAKER) (test 43 mL/min/1.73 sq m ESTIMATED GFR IS NOT zqlv=5098) ACCURATE CREATININE CLEARANCE IN PREDICTING GLOMERULAR FILTRATION RATE. ESTIMATED GFR IS NOT APPLICABLE FOR DIALYSIS PATIENTS. CBC (HEMOGRAM ONLY)2019-01-08 01:58:00 Test Item Value Reference Range Comments WHITE BLOOD CELL COUNT (BEAKER) (test viki=881) 7.8 K/ L 3.5-10.5 RED BLOOD CELL COUNT (BEAKER) (test eadg=920) 5.44 M/ L 4.63-6.08 HEMOGLOBIN (BEAKER) (test ctfj=336) 13.5 GM/DL 13.7-17.5 HEMATOCRIT (BEAKER) (test sevd=032) 44.6 % 40.1-51.0 MEAN CORPUSCULAR VOLUME (BEAKER) (test nern=057) 82.0 fL 79.0-92.2 MEAN CORPUSCULAR HEMOGLOBIN (BEAKER) (test 24.8 pg 25.7-32.2 ekfd=263) MEAN CORPUSCULAR HEMOGLOBIN CONC (BEAKER) (test 30.3 GM/DL 32.3-36.5 bbnz=779) RED CELL DISTRIBUTION WIDTH (BEAKER) (test 16.2 % 11.6-14.4 krqi=822) PLATELET COUNT (BEAKER) (test nvif=941) 428 K/CU MM 150-450 MEAN PLATELET VOLUME (BEAKER) (test numo=569) 9.8 fL 9.4-12.4 NUCLEATED RED BLOOD CELLS (BEAKER) (test 0 /100 WBC 0-0 ydlb=542) CT, [id number] 01:05:00Reason for exam:->EMESISsince 1330 this afternoonReason for exam:->SHORTNESS OF BREATHstarted today What is the patient's sedation requirement?->No SedationFINAL REPORT EXAM: CT of the abdomen and pelvis, without contrast CLINICAL HISTORY: Emesis and abdominal pain. TECHNIQUE: CT of the abdomen and pelvis was performed without the intravenous administration of contrast. This exam was performed according to our departmental dose optimization program which includes automated exposure control, adjustment of the mA and/or kV according to patient's size and/or use of iterative reconstructive technique. COMPARISON: None FINDINGS: Please note study is limited due to lack of intravenous contrast. LOWER CHEST: Trace right pleural effusion. Bibasilar subsegmental atelectasis. Calcified left basilar pleural plaques.LIVER: Within normal limits.BILE DUCTS: Within normal limits.GALL BLADDER: Cholelithiasis.PANCREAS: Within normal limits.SPLEEN: Mild to moderate splenomegaly.ADRENALS: Within normal limits.KIDNEYS/URETERS: Status post leftnephrectomy. 4.6 cm exophytic right lower pole renal cyst. No hydronephrosis or radiopaque stones. URINARY BLADDER: Small amount of air in the urinary bladder may be due to recent instrumentation or infection.REPRODUCTIVE ORGANS: Within normal limits. BOWEL/ MESENTERY: Colonic diverticulosis without acute diverticulitis. Multiple fluid- filled dilated small bowel loops with air-fluid levels without a transition point compatible with an ileus. No abnormal bowel wall thickening. Normal appendix. PERITONEUM/RETROPERITONEUM: Small free fluid in the medial left upper quadrant and left retroperitoneum likely from recent nephrectomy. Small amount of free air in the left retroperitoneum. VESSELS: Atherosclerotic calcifications of the aorta and branches. LYMPH NODES: No abdominal or pelvic lymphadenopathy.SOFT TISSUES: Mild anasarca. Fatty stranding in the midline abdominal wall and left flank likely fromrecent surgery.BONES: Degenerative changes of the visualized spine. Lucent lesion in the L4 vertebral body which may represent intraosseous hemangioma. IMPRESSION: Findings in keeping with recent leftnephrectomy. Small bowel ileus. No findings to suggest mechanical bowel obstruction. Colonic diverticulosis without acute diverticulitis. Small amount of air in the urinary bladder may be due to recentinstrumentation or infection. Correlate clinically. Splenomegaly. Trace right pleural effusion. Bibasilar subsegmental atelectasis. Signed: Elva Avila MDReport Verified Date /Time: 01/08/2019 01:05:19 URINALYSIS W/ [id number] 22:45:00 Test Item Value Reference Range Comments COLOR (BEAKER) (test eejs=991) Yellow CLARITY (BEAKER) (test xufl=984) Clear SPECIFIC GRAVITY UA (BEAKER) (test zxja=344) 1.018 1.001-1.035 PH UA (BEAKER) (test ptah=941) 5.0 5.0-8.0 PROTEIN UA (BEAKER) (test kifh=844) 30 mg/dL Negative GLUCOSE UA (BEAKER) (test vunl=286) Negative Negative KETONES UA (BEAKER) (test tcwu=470) Negative Negative BILIRUBIN UA (BEAKER) (test miuo=734) Positive Negative BLOOD UA (BEAKER) (test npiz=279) Negative Negative NITRITE UA (BEAKER) (test vefu=127) Negative Negative LEUKOCYTE ESTERASE UA (BEAKER) (test epqw=719) Negative Negative UROBILINOGEN UA (BEAKER) (test wxti=542) 0.2 mg/dL 0.2-1.0 RBC UA (BEAKER) (test otrm=110) < /HPF WBC UA (BEAKER) (test hrkf=036) < /HPF MUCUS (BEAKER) (test bqpe=6351) Rare HYALINE CASTS (BEAKER) (test qskj=409) 5 /LPF SOURCE(BEAKER) (test uwaf=6572) [id number] 22:33:00 Test Item Value Reference Range Comments LIPASE (BEAKER) (test phur=810) 81 U/L 8-78 HEPATIC FUNCTION [id number] 22:33:00 Test Item Value Reference Range Comments TOTAL PROTEIN (BEAKER) (test ogtc=848) 6.9 gm/dL 6.0-8.3 ALBUMIN (BEAKER) (test acky=9627) 3.5 g/dL 3.5-5.0 BILIRUBIN TOTAL (BEAKER) (test ykwo=486) 1.4 mg/dL 0.2-1.2 BILIRUBIN DIRECT (BEAKER) (test nglp=179) 0.8 mg/dL 0.1-0.5 ALKALINE PHOSPHATASE (BEAKER) (test ybkh=137) 89 U/L 40-150 AST (SGOT) (BEAKER) (test eked=495) 39 U/L 5-34 ALT (SGPT) (BEAKER) (test mrpo=688) 21 U/L 6-55 RAD, ABDOMEN SERIES W/ UPRIGHT PA [id number] 22:19:00Reason for exam:-> abd painfree air under the diaphragm?Should this be performed at the bedside?-& gt;NoFINAL REPORT HISTORY: Abdominal pain COMPARISON: None. DISCUSSION:An upright view of the chest as well as upright and supine views of the abdomen were obtained. The trachea is midline. The lungs are symmetrically expanded without evidence for large focal consolidation, pneumothorax, or significant pleural effusion. The cardiomediastinal silhouette is within normal limits. Multiple distended loops of bowel are identified throughout the abdomen with air-fluid levels. Findings are suggestive of a bowel obstruction. No abnormal intra-abdominal calcification is appreciated. No acute osseous abnormality is identified. IMPRESSION: No acute cardiopulmonary process identified. Multiple diffusely dilated loops of bowel identified within the abdomen with air-fluid levels concerning for bowel obstruction. Consider further evaluation with dedicated CT examination. Signed: Pavel Antony MDReport Verified Date/Time: 01/07/2019 22:19:37 Reading Location: [facility] [id number] Consult Reading Room TROPONIN [id number] 21:25:00 Test Item Value Reference Range Comments TROPONIN I (BEAKER) (test zjjl=433) < ng/mL 0.00-0.03 Troponin I (TnI) levels must be interpreted in the context of the presenting symptoms and the clinical findings. Elevated TnI levels indicate myocardial damage, but are not specific for ischemic heart disease. Elevated TnI levels are seen in patients with other cardiac conditions (including myocarditis and congestive heart failure), and slight TnI elevations occur in patients with other conditions, including sepsis, renal failure, acidosis, acute neurological disease, and persistent tachyarrhythmia.B-TYPE NATRIURETIC FACTOR (BNP) 21:25:00 Test Item Value Reference Range Comments B-TYPE NATRIURETIC PEPTIDE (BEAKER) (test kier=613) 21 pg/mL 0-100 BASIC METABOLIC [id number] 21:18:00 Test Item Value Reference Range Comments SODIUM (BEAKER) (test 137 meq/L 136-145 pmoe=148) POTASSIUM (BEAKER) (test 4.0 meq/L 3.5-5.1 lryg=264) CHLORIDE (BEAKER) (test 96 meq/L 98-107 ekic=492) CO2 (BEAKER) (test 31 meq/L 22-29 fvwk=188) BLOOD UREA NITROGEN 45 mg/dL 7-21 (BEAKER) (test dbhd=068) CREATININE (BEAKER) (test 1.59 mg/dL 0.57-1.25 lypo=023) GLUCOSE RANDOM (BEAKER) 108 mg/dL 70-105 (test jzaq=235) CALCIUM (BEAKER) (test 9.0 mg/dL 8.4-10.2 gcak=162) EGFR (BEAKER) (test 44 mL/min/1.73 sq m ESTIMATED GFR IS NOT mwfe=3233) ACCURATE CREATININE CLEARANCE IN PREDICTING GLOMERULAR FILTRATION RATE. ESTIMATED GFR IS NOT APPLICABLE FOR DIALYSIS PATIENTS. CREATINE KINASE (CK)2019-01-07 21:18:00 Test Item Value Reference Range Comments CREATINE KINASE TOTAL (BEAKER) (test ankz=428) 55 U/L 29-200 [id number] 21:17:00 Test Item Value Reference Range Comments MAGNESIUM (BEAKER) (test hasx=481) 2.5 mg/dL 1.6-2.6 CBC W/PLT COUNT & AUTO [id number] 21:03:00 Test Item Value Reference Range Comments WHITE BLOOD CELL COUNT (BEAKER) (test kano=187) 9.5 K/ L 3.5-10.5 RED BLOOD CELL COUNT (BEAKER) (test vxmh=667) 5.50 M/ L 4.63-6.08 HEMOGLOBIN (BEAKER) (test devn=753) 13.9 GM/DL 13.7-17.5 HEMATOCRIT (BEAKER) (test rgnt=442) 44.8 % 40.1-51.0 MEAN CORPUSCULAR VOLUME (BEAKER) (test yhzl=992) 81.5 fL 79.0-92.2 MEAN CORPUSCULAR HEMOGLOBIN (BEAKER) (test 25.3 pg 25.7-32.2 lypp=071) MEAN CORPUSCULAR HEMOGLOBIN CONC (BEAKER) (test 31.0 GM/DL 32.3-36.5 kwkv=649) RED CELL DISTRIBUTION WIDTH (BEAKER) (test 16.2 % 11.6-14.4 fyzs=695) PLATELET COUNT (BEAKER) (test dpah=417) 437 K/CU MM 150-450 MEAN PLATELET VOLUME (BEAKER) (test dlyi=386) 10.0 fL 9.4-12.4 NUCLEATED RED BLOOD CELLS (BEAKER) (test 0 /100 WBC 0-0 ypao=978) NEUTROPHILS RELATIVE PERCENT (BEAKER) (test 80 % zpyl=350) LYMPHOCYTES RELATIVE PERCENT (BEAKER) (test 4 % quby=108) MONOCYTES RELATIVE PERCENT (BEAKER) (test 14 % ypbd=504) EOSINOPHILS RELATIVE PERCENT (BEAKER) (test 2 % spxk=041) BASOPHILS RELATIVE PERCENT (BEAKER) (test 0 % tqbs=254) NEUTROPHILS ABSOLUTE COUNT (BEAKER) (test 7.55 K/ L 1.78-5.38 ksnp=263) LYMPHOCYTES ABSOLUTE COUNT (BEAKER) (test 0.35 K/ L 1.32-3.57 muof=333) MONOCYTES ABSOLUTE COUNT (BEAKER) (test 1.36 K/ L 0.30-0.82 wacm=428) EOSINOPHILS ABSOLUTE COUNT (BEAKER) (test 0.14 K/ L 0.04-0.54 vcdg=492) BASOPHILS ABSOLUTE COUNT (BEAKER) (test 0.04 K/ L 0.01-0.08 amoq=307) IMMATURE GRANULOCYTES-RELATIVE PERCENT (BEAKER) 1 % 0-1 (test xcrt=3655) RAD, CHEST, 1 VIEW, NON [id number] 21:03:00Reason for exam:->EMESISsince 1330 this afternoonReason for exam:->SHORTNESS OF BREATHstarted todayFINAL REPORT Chest, 1 view. History: Stenosis, shortness of breath. Comparison: 01/05/2019. Discussion: There is stable mild elevation of the left hemidiaphragm and left basilar atelectasis. There is no evidence for new large focal consolidation, pneumothorax, or significant pleural effusion. The cardiomediastinal silhouette is stable in appearance. No acute osseous abnormalities identified. IMPRESSION: No significant interval change from 2018. Signed: Pavel Antonyeport Verified Date/Time: 01/07/2019 21:03:03 Reading Location: [facility] B1 C013W Consult Reading Room PUL PERF IMAGING, PARTIC, [id number] 10:56:00FINAL REPORT PROCEDURE: V/Q LUNG SCAN CPT CODE: 70303 INDICATION: Acute chest pain, hypoxia PROTOCOL: 10.8 mCi of Xe-133 gas was administered by inhalation. Single breath and rebreathing/washout images were obtained in the anterior and posterior projections. 4.3 mCi of Tc-99m MAA was then injected intravenously, and static perfusion images were obtained in multiple projections. FINDINGS: Ventilation: Initial tracer distribution is mildly irregular in the left mid and upper lung melendez. Washout is mildly irregular. Perfusion: Tracer distribution is nonsegmentally, irregularly decreased in both lungs. IMPRESSION: 1. Very low probability of acute pulmonary embolization.2. Bilateral parenchymal and/or atelectatic changes. Signed: Binta Gould MDReport Verified Date/Time: 01/05/2019 10:56:35 Reading Location: [address] [address] Med Reading Room [facility]. DIFFICILE GDH [id number] 10:36:00 Test Item Value Reference Range Comments CDT TOXIN (test Negative Negative vbju=[id number]) CDT GDH ANTIGEN (test Negative Negative No indication of Clostridium nwzl=[id number]) difficile infection and no colonization. Discontinue enteric isolation and therapy. Testing performed by [employer] Rapid Cassette Assay. For GDH, published sensitivity of the assay is 98.7% compared to cytotoxicity testing. For Toxin AB, published sensitivity is 87.8% and specificity 99.4% compared to cytotoxicity testing.Verification of kit performance was done by the [facility] Microbiology Lab prior to clinical use.BASIC METABOLIC [id number] 07:58:00 Test Item Value Reference Range Comments SODIUM (BEAKER) (test 142 meq/L 136-145 otno=329) POTASSIUM (BEAKER) (test 4.2 meq/L 3.5-5.1 Specimen slightly vmal=937) hemolyzed CHLORIDE (BEAKER) (test 99 meq/L 98-107 oybl=811) CO2 (BEAKER) (test 34 meq/L 22-29 fyuo=561) BLOOD UREA NITROGEN 26 mg/dL 7-21 (BEAKER) (test ruqn=449) CREATININE (BEAKER) (test 1.50 mg/dL 0.57-1.25 Specimen slightly squd=229) hemolyzed GLUCOSE RANDOM (BEAKER) 154 mg/dL 70-105 (test xgqc=544) CALCIUM (BEAKER) (test 8.7 mg/dL 8.4-10.2 lzlv=768) EGFR (BEAKER) (test 47 mL/min/1.73 sq m ESTIMATED GFR IS NOT jfbx=5734) ACCURATE CREATININE CLEARANCE IN PREDICTING GLOMERULAR FILTRATION RATE. ESTIMATED GFR IS NOT APPLICABLE FOR DIALYSIS PATIENTS. RAD, CHEST, 1 VIEW, NON [id number] 07:51:00Reason for exam:->eval breathing statusShould this be performed at the bedside?->YesFINAL REPORT AP chest dated 01/05/2019 Comment: Heart is normal in size. Pulmonary vasculature is unremarkable. Left hemidiaphragm is elevated. Subsegmental atelectasis is seen in the left lower lobe. The rest of the lungs are clear. No pulmonary infiltrate or pleural effusion. IMPRESSION: Left lower lobe subsegmental atelectasis. Signed: Bridget Yepezeport Verified Date/Time: 01/05/2019 07:51:40 Reading Location: [facility] Radiology Reading Room HEMOGLOBIN AND [id number] 06:22:00 Test Item Value Reference Range Comments HEMOGLOBIN (BEAKER) (test vumv=527) 15.0 GM/DL 13.7-17.5 HEMATOCRIT (BEAKER) (test pjhn=155) 49.7 % 40.1-51.0 BASIC METABOLIC [id number] 06:14:00 Test Item Value Reference Range Comments SODIUM (BEAKER) (test 141 meq/L 136-145 jnkr=675) POTASSIUM (BEAKER) (test 4.7 meq/L 3.5-5.1 lgcz=736) CHLORIDE (BEAKER) (test 99 meq/L 98-107 ffba=757) CO2 (BEAKER) (test 33 meq/L 22-29 kuap=805) BLOOD UREA NITROGEN 22 mg/dL 7-21 (BEAKER) (test yjzz=513) CREATININE (BEAKER) (test 1.67 mg/dL 0.57-1.25 byfb=543) GLUCOSE RANDOM (BEAKER) 111 mg/dL 70-105 (test pjsl=085) CALCIUM (BEAKER) (test 8.7 mg/dL 8.4-10.2 gnff=002) EGFR (BEAKER) (test 42 mL/min/1.73 sq m ESTIMATED GFR IS NOT ulcp=7049) ACCURATE CREATININE CLEARANCE IN PREDICTING GLOMERULAR FILTRATION RATE. ESTIMATED GFR IS NOT APPLICABLE FOR DIALYSIS PATIENTS. HEMOGLOBIN AND [id number] 05:56:00 Test Item Value Reference Range Comments HEMOGLOBIN (BEAKER) (test taof=874) 14.2 GM/DL 13.7-17.5 HEMATOCRIT (BEAKER) (test vrqy=795) 47.2 % 40.1-51.0 BASIC METABOLIC [id number] 06:27:00 Test Item Value Reference Range Comments SODIUM (BEAKER) (test 141 meq/L 136-145 juqt=347) POTASSIUM (BEAKER) (test 4.6 meq/L 3.5-5.1 pdue=334) CHLORIDE (BEAKER) (test 106 meq/L 98-107 afkk=952) CO2 (BEAKER) (test 27 meq/L 22-29 qnuj=889) BLOOD UREA NITROGEN 22 mg/dL 7-21 (BEAKER) (test dkut=101) CREATININE (BEAKER) (test 1.62 mg/dL 0.57-1.25 cgra=538) GLUCOSE RANDOM (BEAKER) 111 mg/dL 70-105 (test toqm=556) CALCIUM (BEAKER) (test 8.5 mg/dL 8.4-10.2 ypwn=806) EGFR (BEAKER) (test 43 mL/min/1.73 sq m ESTIMATED GFR IS NOT xdtc=7695) ACCURATE CREATININE CLEARANCE IN PREDICTING GLOMERULAR FILTRATION RATE. ESTIMATED GFR IS NOT APPLICABLE FOR DIALYSIS PATIENTS. CREATINE KINASE (CK)2019-01-03 06:27:00 Test Item Value Reference Range Comments CREATINE KINASE TOTAL (BEAKER) (test dpmy=435) 193 U/L 29-200 HEMOGLOBIN AND [id number] 05:28:00 Test Item Value Reference Range Comments HEMOGLOBIN (BEAKER) (test rlsl=312) 13.4 GM/DL 13.7-17.5 HEMATOCRIT (BEAKER) (test dwqi=830) 43.4 % 40.1-51.0 BASIC METABOLIC [id number] 15:27:00 Test Item Value Reference Range Comments SODIUM (BEAKER) (test 141 meq/L 136-145 wgzz=786) POTASSIUM (BEAKER) (test 5.0 meq/L 3.5-5.1 Specimen slightly ltcd=840) hemolyzed CHLORIDE (BEAKER) (test 108 meq/L 98-107 gtps=328) CO2 (BEAKER) (test 21 meq/L 22-29 asll=564) BLOOD UREA NITROGEN 20 mg/dL 7-21 (BEAKER) (test gtcd=634) CREATININE (BEAKER) (test 1.60 mg/dL 0.57-1.25 Specimen slightly rbdi=062) hemolyzed GLUCOSE RANDOM (BEAKER) 136 mg/dL 70-105 (test beiz=406) CALCIUM (BEAKER) (test 8.2 mg/dL 8.4-10.2 tbsz=380) EGFR (BEAKER) (test 44 mL/min/1.73 sq m ESTIMATED GFR IS NOT xhyn=4575) ACCURATE CREATININE CLEARANCE IN PREDICTING GLOMERULAR FILTRATION RATE. ESTIMATED GFR IS NOT APPLICABLE FOR DIALYSIS PATIENTS. CREATINE KINASE (CK)2019-01-02 15:27:00 Test Item Value Reference Range Comments CREATINE KINASE TOTAL (BEAKER) (test baor=452) 65 U/L 29-200 HEMOGLOBIN AND [id number] 15:15:00 Test Item Value Reference Range Comments HEMOGLOBIN (BEAKER) (test ufwh=540) 13.7 GM/DL 13.7-17.5 HEMATOCRIT (BEAKER) (test hqvl=813) 44.9 % 40.1-51.0
[2019-06-28] MEDS ORDERED: ASPIRIN 81 MG CHEWABLE TABLET ONE (01:11)
[2019-06-28 02:10] LABS: Protime INR 1.12
[2019-06-28 02:13] LABS: Absolute Lymphocytes (CBC) 1.1 K/uL (0.7-4.9); Basophils % 1.4 % (0-1.3); Hematocrit 44.4 % (39.6-49.0); Lymphocytes % 13.8 % (15.3-44.8); MPV 7.9 fL (7.6-11.3); RBC Red Blood Cell Count 5.38 M/uL (4.33-5.43)
[2019-06-28 02:25] LABS: ALT/SGPT 58 U/L (12-78); AST/SGOT 34 U/L (15-37); Albumin 3.5 g/dL (3.4-5.0); Alkaline Phosphatase 74 U/L (45-117); BUN Blood Urea Nitrogen 29 mg/dL (7-18); Bicarbonate 29 mmol/L (21-32); Bilirubin Direct 0.2 mg/dL (0-0.2); Bilirubin Total 0.5 mg/dL (0.2-1.0); Glucose Level 114 mg/dL (74-106); Magnesium 2.1 mg/dL (1.8-2.4); NT PRO-BNP 61 pg/mL (<125); Potassium 4.5 mmol/L (3.5-5.1); Sodium Level 140 mmol/L (136-145); Troponin (Emerg Dept Use Only) < 0.02 ng/mL (0.0-0.045)
--- NOTE | 2019-06-28 04:16 | EDPHYS ---
Physician Documentation [facility] Name: Navdeep Gonzalez Age: 64 yrs Sex: Male : 1955 Arrival Date: 06/28/2019 Time: 00:42 Bed 24 Private MD: ED Physician Julian Parada HPI: 06/28 01:13 This 64 yrs old Male presents to ER via Unassigned with complaints of Chest kb Pain, Left arm pain. 01:13 The patient or guardian reports chest pain that is located primarily in the anterior kb chest wall, left. Onset: 1 hour(s) ago. The pain radiates to the left arm. Associated signs and symptoms: The patient has no apparent associated signs or symptoms. The chest pain is described as dull. Duration: The patient or guardian reports a single episode, that is still ongoing. Modifying factors: The symptoms are alleviated by nothing. the symptoms are aggravated by nothing. Severity of pain: At its worst the pain was mild in the emergency department the pain is unchanged. The patient has experienced similar episodes in the past, a few times, today's symptoms are similar. The patient has not recently seen a physician. Historical: - Allergies: 02:09 No Known Allergies; jv1 - Home Meds: 02:09 bupropion HCl 300 mg Oral Tb24 1 tab once daily [Active]; losartan 50 mg oral tab 1 tab jv1 once daily [Active]; pantoprazole 40 mg oral TbEC 1 tab once daily [Active]; etodolac 500 mg Oral tab 1 tab 2 times per day [Active]; ezetimibe oral oral 1 tab once daily [Active]; Lipitor 40 mg oral tab 1 tab once daily [Active]; escitalopram oxalate 20 mg Oral tab 1 tab once daily [Active]; desloratadine 5 mg oral tab 1 tab once daily [Active]; metoprolol succinate 50 mg oral Tb24 1 tab once daily [Active]; folic acid 1 mg Oral tab 1 tab once daily [Active]; - PMHx: 02:09 Anxiety; Arthritis; Hyperlipidemia; Hypertension; Depression; jv1 - Immunization history:: Adult Immunizations up to date. - Social history:: Smoking status: Patient/guardian denies using tobacco, the patient reports quitting approximately 13 years ago. - Ebola Screening: : No symptoms or risks identified at this time. ROS: 01:12 Constitutional: Negative for fever, chills, and weight loss, ENT: Negative for injury, kb pain, and discharge, Neck: Negative for injury, pain, and swelling, Respiratory: Negative for shortness of breath, cough, wheezing, and pleuritic chest pain, Abdomen/GI: Negative for abdominal pain, nausea, vomiting, diarrhea, and constipation, Back: Negative for injury and pain, MS/Extremity: Negative for injury and deformity, Skin: Negative for injury, rash, and discoloration, Neuro: Negative for headache, weakness, numbness, tingling, and seizure. 01:12 Cardiovascular: Positive for chest pain, of the chest. Exam: 01:12 Constitutional: This is a well developed, well nourished patient who is awake, alert, kb and in no acute distress. Head/Face: Normocephalic, atraumatic. ENT: Nares patent. No nasal discharge, no septal abnormalities noted. Tympanic membranes are normal and external auditory canals are clear. Oropharynx with no redness, swelling, or masses, exudates, or evidence of obstruction, uvula midline. Mucous membranes moist. Neck: Trachea midline, no thyromegaly or masses palpated, and no cervical lymphadenopathy. Supple, full range of motion without nuchal rigidity, or vertebral point tenderness. No Meningismus. Chest/axilla: Normal chest wall appearance and motion. Nontender with no deformity. No lesions are appreciated. Cardiovascular: Regular rate and rhythm with a normal S1 and S2. No gallops, murmurs, or rubs. Normal PMI, no JVD. No pulse deficits. Respiratory: Lungs have equal breath sounds bilaterally, clear to auscultation and percussion. No rales, rhonchi or wheezes noted. No increased work of breathing, no retractions or nasal flaring. Abdomen/GI: Soft, non-tender, with normal bowel sounds. No distension or tympany. No guarding or rebound. No evidence of tenderness throughout. Back: No spinal tenderness. No costovertebral tenderness. Full range of motion. Skin: Warm, dry with normal turgor. Normal color with no rashes, no lesions, and no evidence of cellulitis. MS/ Extremity: Pulses equal, no cyanosis. Neurovascular intact. Full, normal range of motion. Neuro: Awake and alert, GCS 15, oriented to person, place, time, and situation. Cranial nerves II-XII grossly intact. Motor strength 5/5 in all extremities. Sensory grossly intact. Cerebellar exam normal. Normal gait. Vital Signs: 01:00 BP 122 / 65; Pulse 77; Resp 18; Temp 97.7; Pulse Ox 96% on R/A; Pain 4/10; jv1 01:30 BP 118 / 80; Pulse 74; Resp 18; Temp 98; Pulse Ox 95% on R/A; Pain 4/10; jv1 02:00 BP 116 / 82; Pulse 72; Resp 18; Temp 98; Pulse Ox 92% ; Pain 2/10; jv1 03:00 BP 114 / 63; Pulse 73; Resp 18; Temp 98; Pulse Ox 95% ; Pain 0/10; jv1 04:00 BP 115 / 75; Pulse 68; Resp 78; Temp 98; Pulse Ox 97% on R/A; Pain 1/10; jv1 04:45 BP 118 / 63; Pulse 69; Resp 18; Temp 98.4; Pulse Ox 95% ; Pain 0/10; jv1 MDM: 00:45 Patient medically screened. kb 01:11 Data reviewed: vital signs, nurses notes. Data interpreted: Pulse oximetry: on room air kb is 100 %. Interpretation: normal. 02:38 The patient was given aspirin in the Emergency Department. ED course: Discussed kb admission with pt. Pt does not want to stay in the hospital. Requests that we "recheck" him here in the ER and let him go home. Will repeat troponin and EKG at 0330 and discharge home if normal. . 04:14 Refusal of service: The patient/guardian displays adequate decision making capability rn and despite a detailed discussion of alternatives, benefits, risks, and consequences refuses: Admission to the hospital for further work-up and treatment. 06/28 00:45 Order name: Basic Metabolic Panel; Complete Time: 02:26 kb 06/28 00:45 Order name: CBC with Diff; Complete Time: 02:15 kb 06/28 00:45 Order name: LFT's; Complete Time: 02:26 kb 06/28 00:45 Order name: Magnesium; Complete Time: 02:26 kb 06/28 00:45 Order name: NT PRO-BNP; Complete Time: 02: kb 06/28 00:45 Order name: PT-INR; Complete Time: 02:15 kb 06/28 00:45 Order name: Troponin (emerg Dept Use Only); Complete Time: 02:26 kb 06/28 00:45 Order name: XRAY Chest (1 view); Complete Time: 16:02 kb 06/28 00:45 Order name: EKG; Complete Time: 00:47 kb 06/28 00:45 Order name: Cardiac monitoring; Complete Time: 01:07 kb 06/28 00:45 Order name: EKG - Nurse/Tech; Complete Time: 01:07 kb 06/28 03:47 Order name: Troponin (emerg Dept Use Only); Complete Time: 04:14 rn 06/28 03:47 Order name: EKG; Complete Time: 03:48 rn 06/28 00:45 Order name: IV Saline Lock; Complete Time: 04:56 kb 06/28 00:45 Order name: Labs collected and sent; Complete Time: 04:56 kb 06/28 00:45 Order name: O2 Per Protocol; Complete Time: 01:07 kb 06/28 00:45 Order name: O2 Sat Monitoring; Complete Time: 01:07 kb 06/28 02:40 Order name: Repeat Cardiac Enzymes at: 0330; Complete Time: 04:56 kb 06/28 03:47 Order name: EKG - Nurse/Tech; Complete Time: 04:55 rn Administered Medications: 01:15 Drug: Aspirin Chewable Tablet 324 mg Route: PO; jv1 01:43 Follow up: Response: No adverse reaction jv1 Disposition: 07:01 Co-signature as Attending Physician, Julian Parada MD. rn Disposition: 06/28/19 04:15 Discharged to Home. Impression: Chest pain, unspecified. - Condition is Stable. - Discharge Instructions: Nonspecific Chest Pain, Rxuk-la-Oqiz. - Medication Reconciliation Form, Thank You Letter, Antibiotic Education, Prescription Opioid Use form. - Follow up: Emergency Department; When: As needed; Reason: Worsening of condition. Follow up: Private Physician; When: 2 - 3 days; Reason: Recheck today's complaints, Continuance of care, Re-evaluation by your physician. Signatures: Dispatcher [employer] EDNJ Kathleen Dumont, INPATIENT SERVICES DIRECTOR-C INPATIENT SERVICES DIRECTOR-Ckb Parada, Julian, MD MD rn Timothy, Loli, RN RN jv1 Corrections: (The following items were deleted from the chart) 04:56 04:15 06/28/2019 04:15 Discharged to Home. Impression: Chest pain, unspecified. jv1 Condition is Stable. Discharge Instructions: Nonspecific Chest Pain, Lowi-dn-Gstm. Forms are Medication Reconciliation Form, Thank You Letter, Antibiotic Education, Prescription Opioid Use. Follow up: Emergency Department; When: As needed; Reason: Worsening of condition. Follow up: Private Physician; When: 2 - 3 days; Reason: Recheck today's complaints, Continuance of care, Re-evaluation by your physician. rn
--- NOTE | 2019-06-28 04:16 | ER ---
Nurse's Notes [facility] Name: Navdeep Gonzalez Age: 64 yrs Sex: Male : 1955 Arrival Date: 06/28/2019 Time: 00:42 Bed 24 Private MD: Diagnosis: Chest pain, unspecified Presentation: 06/28 01:00 Presenting complaint: Patient states: verbalized, " I have chest pain, dull pain on my jv1 chest radiating down my left arm." pain scale was 4/10. 01:00 Transition of care: patient was not received from another setting of care. Onset of jv1 symptoms was June 27, 2019 at 23:40. Risk Assessment: Do you want to hurt yourself or someone else? Patient reports no desire to harm self or others. Initial Sepsis Screen: Does the patient meet any 2 criteria? No. Patient's initial sepsis screen is negative. Does the patient have a suspected source of infection? No. Patient's initial sepsis screen is negative. Care prior to arrival: None. 01:00 Method Of Arrival: Ambulatory jv1 01:00 Acuity: CHERI 3 jv1 Triage Assessment: 01:00 General: Appears in no apparent distress. obese, well groomed, Behavior is calm, jv1 cooperative, appropriate for age. Pain: Complains of pain in chest Pain radiates to left arm Pain currently is 4 out of 10 on a pain scale. Quality of pain is described as dull, Pain began 2 hours ago. Cardiovascular: Reports chest pain, since 11:40 pm of June 27, 2019. Respiratory: Airway is patent Breath sounds are clear bilaterally. Historical: - Allergies: 02:09 No Known Allergies; jv1 - Home Meds: 02:09 bupropion HCl 300 mg Oral Tb24 1 tab once daily [Active]; losartan 50 mg oral tab 1 tab jv1 once daily [Active]; pantoprazole 40 mg oral TbEC 1 tab once daily [Active]; etodolac 500 mg Oral tab 1 tab 2 times per day [Active]; ezetimibe oral oral 1 tab once daily [Active]; Lipitor 40 mg oral tab 1 tab once daily [Active]; escitalopram oxalate 20 mg Oral tab 1 tab once daily [Active]; desloratadine 5 mg oral tab 1 tab once daily [Active]; metoprolol succinate 50 mg oral Tb24 1 tab once daily [Active]; folic acid 1 mg Oral tab 1 tab once daily [Active]; - PMHx: 02:09 Anxiety; Arthritis; Hyperlipidemia; Hypertension; Depression; jv1 - Immunization history:: Adult Immunizations up to date. - Social history:: Smoking status: Patient/guardian denies using tobacco, the patient reports quitting approximately 13 years ago. - Ebola Screening: : No symptoms or risks identified at this time. Screenin:00 Abuse screen: Denies threats or abuse. Nutritional screening: No deficits noted. jv1 Tuberculosis screening: No symptoms or risk factors identified. Fall Risk None identified. Mental Status- Oriented to own ability (0 pts). Assessment: 01:00 General: Appears in no apparent distress. obese, well groomed. Pain: Complains of pain jv1 in chest Pain radiates to left arm Pain currently is 4 out of 10 on a pain scale. Quality of pain is described as dull, Pain began 2 hours ago. Neuro: Level of Consciousness is awake, alert, obeys commands, Oriented to person, place, time, Continuity Tester are equal bilaterally Reports. Cardiovascular: Reports chest pain, Heart tones present Capillary refill < 3 seconds JVD is absent. Respiratory: Airway is patent Respiratory effort is even, unlabored, Respiratory pattern is regular, symmetrical. GI: Abdomen is round obese, Bowel sounds present X 4 quads. Abd is soft and non tender X 4 quads. : No signs and/or symptoms were reported regarding the genitourinary system. EENT: No signs and/or symptoms were reported regarding the EENT system. Derm: pt has some brownish discoloration on bilateral lower extremities. 02:00 Reassessment: Patient and/or family updated on plan of care and expected duration. Pain jv1 level reassessed. Patient is alert, oriented x 3, equal unlabored respirations, skin warm/dry/pink. . Pain: Complains of pain in chest Pain does not radiate. Pain currently is 2 out of 10 on a pain scale. Quality of pain is described as dull. 03:00 Reassessment: Patient and/or family updated on plan of care and expected duration. Pain jv1 level reassessed. Patient is alert, oriented x 3, equal unlabored respirations, skin warm/dry/pink. pt resting comfortably, eyes closed, respirations even and unlabored. Pain: Denies pain. 03:30 Reassessment: Patient and/or family updated on plan of care and expected duration. Pain jv1 level reassessed. Patient is alert, oriented x 3, equal unlabored respirations, skin warm/dry/pink. blood obtained for repeat troponin as ordered and repeat EKG done. . 04:45 Reassessment: Patient and/or family updated on plan of care and expected duration. Pain jv1 level reassessed. Patient is alert, oriented x 3, equal unlabored respirations, skin warm/dry/pink. Patient denies pain at this time. Vital Signs: 01:00 BP 122 / 65; Pulse 77; Resp 18; Temp 97.7; Pulse Ox 96% on R/A; Pain 4/10; jv1 01:30 BP 118 / 80; Pulse 74; Resp 18; Temp 98; Pulse Ox 95% on R/A; Pain 4/10; jv1 02:00 BP 116 / 82; Pulse 72; Resp 18; Temp 98; Pulse Ox 92% ; Pain 2/10; jv1 03:00 BP 114 / 63; Pulse 73; Resp 18; Temp 98; Pulse Ox 95% ; Pain 0/10; jv1 04:00 BP 115 / 75; Pulse 68; Resp 78; Temp 98; Pulse Ox 97% on R/A; Pain 1/10; jv1 04:45 BP 118 / 63; Pulse 69; Resp 18; Temp 98.4; Pulse Ox 95% ; Pain 0/10; jv1 ED Course: 00:42 Patient arrived in ED. cf2 00:45 Kathleen Dumont FNP-C [facility]. kb 00:45 Julian Parada MD is Attending Physician. kb 01:00 Patient has correct armband on for positive identification. Placed in gown. Bed in low jv1 position. Call light in reach. Side rails up X 1. Adult w/ patient. victim advocate on. Pulse ox on. NIBP on. 01:15 XRAY Chest (1 view) In Process Unspecified. EDMS 01:15 Patient placed in the treatment room, on a stretcher, on terrazzo worker helper, on pulse jv1 oximetry. EKG completed in triage. Results shown to MD. EKG completed in triage. Results shown to MD. 01:15 Inserted saline lock: 22 gauge in right antecubital area, using aseptic technique. jv1 Patient maintains SpO2 saturation greater than 95% on room air. 04:10 Triage completed. jv1 04:54 No provider procedures requiring assistance completed. IV discontinued, intact, jv1 bleeding controlled, No redness/swelling at site. Pressure dressing applied. Administered Medications: 01:15 Drug: Aspirin Chewable Tablet 324 mg Route: PO; jv1 01:43 Follow up: Response: No adverse reaction jv1 Outcome: 04:15 Discharge ordered by . rn 04:54 Discharged to home ambulatory, with family. jv1 04:54 Condition: improved 04:54 Discharge instructions given to patient, family, Instructed on discharge instructions, follow up and referral plans. Demonstrated understanding of instructions, follow-up care. 04:56 Patient left the ED. jv1 Signatures: Dispatcher [employer] EDMS Kathleen Dumont, GAS DISTRIBUTION PLANT OPERATOR-C GAS DISTRIBUTION PLANT OPERATOR-Ckb Julian Parada MD MD rn Vicente, Joyce, RN RN jDavid Espinoza2
[2019-06-28 05:09] VITALS: BP 118/63; TEMP 98.4; O2SAT 95
--- NOTE | 2019-06-28 09:28 | RAD REPORT ---
EXAM DESCRIPTION: Frantz Single View06/28/2019 1:15 am CLINICAL HISTORY: Chest pain COMPARISON: March 2018 FINDINGS: The lungs appear clear of acute infiltrate. The heart is normal size IMPRESSION: No acute abnormalities displayed
--- NOTE | 2019-06-28 11:43 | EKG ---
Test Date: 2019-06-28 Test Time: 04:00:37 Early Childhood Educator Aide: PAULA MEASUREMENT RESULTS: Intervals: Rate: 69 WV: 190 QRSD: 94 QT: 424 QTc: 454 [place]: P: 46 WV: 190 QRS: 10 T: 34 INTERPRETIVE STATEMENTS: Normal sinus rhythm Normal ECG Compared to ECG 06/28/2019 01:04:36 Myocardial infarct finding no longer present Electronically Signed On 06-28-19 11:41:55 SPORTS RECRUITER by Marcel Wisdom
--- NOTE | 2019-06-28 11:44 | EKG ---
Test Date: 2019-06-28 Test Time: 01:04:36 Marketing Account Manager: DALI MEASUREMENT RESULTS: Intervals: Rate: 74 VT: 182 QRSD: 92 QT: 400 QTc: 444 [place]: P: 47 VT: 182 QRS: 9 T: 35 INTERPRETIVE STATEMENTS: Normal sinus rhythm Cannot rule out Anterior infarct, age undetermined Abnormal ECG Compared to ECG 04/29/2018 03:20:30 Myocardial infarct finding now present Electronically Signed On 06-28-19 11:41:59 OBSTETRIC ANAESTHETIST by Marcel Wisdom
== END 2019-06-28 04:56 | disposition home or self-care (01) ==
LOC: ER 00:39
DX: R07.9 Chest pain, unspecified (principal); I10 Essential (primary) hypertension; E78.5 Hyperlipidemia, unspecified; F41.9 Anxiety disorder, unspecified
CPT/HCPCS: 36415; 71045; 80048; 80076; 83735; 83880; 84484; 85025; 85610; 93005; 99285

== ENCOUNTER 2021-04-09 10:38 | Emergency (ER) | payer OTHER ==
[2021-04-09 11:52] LABS: Protime INR 1.19
[2021-04-09 11:55] LABS: Absolute Lymphocytes (CBC) 0.8 K/uL (0.7-4.9); Hematocrit 45.3 % (39.6-49.0); Lymphocytes % 10.8 % (15.3-44.8); MPV 7.8 fL (7.6-11.3); RBC Red Blood Cell Count 5.34 M/uL (4.33-5.43)
[2021-04-09 11:58] LABS: ALT/SGPT 57 U/L (12-78); AST/SGOT 45 U/L (15-37); Albumin 3.7 g/dL (3.4-5.0); Alkaline Phosphatase 71 U/L (45-117); BUN Blood Urea Nitrogen 26 mg/dL (7-18); Bicarbonate 25 mmol/L (21-32); Bilirubin Direct 0.2 mg/dL (0-0.2); Bilirubin Total 0.7 mg/dL (0.2-1.0); Ferritin 119.8 ng/mL (26-388); Glucose Level 89 mg/dL (74-106); Lipase 187 U/L (73-393); Potassium 4.7 mmol/L (3.5-5.1); Protein, Total 7.3 g/dL (6.4-8.2); Sodium Level 139 mmol/L (136-145); Troponin (Emerg Dept Use Only) < 0.02 ng/mL (0.0-0.045)
[2021-04-09] MEDS ORDERED: METHYLPREDNISOLONE 125 MG INJ ONE (11:59)
[2021-04-09] MEDS ORDERED: ALBUTEROL 2.5 MG/3 ML NEB SOL ONE (11:59)
[2021-04-09] MEDS ORDERED: IPRATROPIUM BROM 0.5MG/2.5ML ONE (11:59)
--- NOTE | 2021-04-09 12:17 | RAD REPORT ---
EXAM DESCRIPTION: RAD - Chest Single View - 04/09/2021 11:38 am CLINICAL HISTORY: SOB COMPARISON: August 2019 TECHNIQUE: AP portable chest image was obtained 04/09/2021 11:38 am . FINDINGS: Lungs are clear but with low lung volume. Interstitial pattern not clearly different from comparison. No failure or volume overload. Heart and vasculature are normal. No measurable pleural effusion and no pneumothorax. No acute bony abnormality seen. No acute aortic findings suspected. IMPRESSION: No acute cardiopulmonary process. No significant change from comparison study.
--- NOTE | 2021-04-09 14:08 | EDPHYS ---
Physician Documentation [facility] Name: Navdeep Gonzalez Age: 65 yrs Sex: Male : 1955 Arrival Date: 04/09/2021 Time: 10:40 Bed 16 Private MD: ED Physician Julian Parada HPI: 04/09 11:26 This 65 yrs old Male presents to ER via Ambulatory with complaints of pm1 Breathing Difficulty, Congestion, Cough. 11:26 The patient has shortness of breath at rest, with light activity. Onset: The pm1 symptoms/episode began/occurred 4 day(s) ago. Duration: The symptoms are intermittent. The patient's shortness of breath is aggravated by light activity. Associated signs and symptoms: Pertinent positives: productive cough, Pertinent negatives: chest pain, fever, nausea, vomiting, Diarrhea. Severity of symptoms: in the emergency department the symptoms are worse. The patient has not recently seen a physician. 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 Historical: - Allergies: 11: No Known Allergies; vg1 - Home Meds: 11:01 folic acid 1 mg Oral tab 1 tab once daily [Active]; escitalopram oxalate 20 mg Oral tab vg1 1 tab once daily [Active]; bupropion HCl 300 mg Oral Tb24 1 tab once daily [Active]; desloratadine 5 mg Oral tab 1 tab once daily [Active]; losartan 50 mg Oral tab 1 tab once daily [Active]; ezetimibe Oral 1 tab once daily [Active]; atorvastatin oral [Active]; metoprolol succinate 50 mg Oral Tb24 1 tab once daily [Active]; Lipitor 40 mg Oral tab 1 tab once daily [Active]; - PMHx: 11:01 Anxiety; Arthritis; Depression; Hyperlipidemia; Hypertension; vg1 - Immunization history:: Adult Immunizations up to date, Client reports receiving the 2nd dose of the Covid vaccine. - Social history:: Smoking status: Patient denies any tobacco usage or history of. ROS: 11:26 Constitutional: Negative for fever, chills, and weight loss, Cardiovascular: Negative pm1 for chest pain, palpitations, and edema. 11:26 Abdomen/GI: Negative for abdominal pain, nausea, vomiting, diarrhea, and constipation, Back: Negative for injury and pain, MS/Extremity: Negative for injury and deformity, Skin: Negative for injury, rash, and discoloration. 11:26 Respiratory: Positive for cough, shortness of breath. 11:26 All other systems are negative. Exam: 11:26 Constitutional: This is a well developed, well nourished patient who is awake, alert, pm1 and in no acute distress. Head/Face: Normocephalic, atraumatic. 11:26 Chest/axilla: Normal chest wall appearance and motion. Nontender with no deformity. No lesions are appreciated. 11:26 Back: No spinal tenderness. No costovertebral tenderness. Full range of motion. Skin: Warm, dry with normal turgor. Normal color with no rashes, no lesions, and no evidence of cellulitis. MS/ Extremity: Pulses equal, no cyanosis. Neurovascular intact. Full, normal range of motion. 11:26 Eyes: Exam is negative for acute changes, Extraocular movements: intact throughout, Conjunctiva: no acute changes, Sclera: no acute changes, icterus, is not appreciated. 11:26 ENT: Exam is negative for acute changes, Mouth: Lips: normal, moist, Oral mucosa: normal, pink and intact, moist. 11:26 Neck: Exam negative for acute changes, ROM/movement: no acute changes. 11:26 Cardiovascular: Exam negative for acute changes, Rate: normal, Rhythm: regular, Pulses: no pulse deficits are appreciated, Heart sounds: normal, Edema: is not appreciated. 11:26 Respiratory: the patient does not display signs of respiratory distress, Respirations: normal, Breath sounds: wheezing: expiratory is heard diffusely. 11:26 Abdomen/GI: Inspection: obese Palpation: abdomen is soft and non-tender, in all quadrants. 11:26 Neuro: Exam negative for acute changes, Orientation: is normal, Mentation: is normal, Motor: is normal, moves all fours. Vital Signs: 10:58 BP 113 / 59; Pulse 78; Resp 24; Temp 99.0; Pulse Ox 93% ; Weight 139.25 kg; Height 6 vg1 ft. 0 in. (182.88 cm); Pain 2/10; 12:18 BP 106 / 63; Pulse 79; Resp 20; Pulse Ox 95% on 2 lpm NC; ll1 14:10 BP 109 / 54; Pulse 81; Resp 20; Pulse Ox 93% on 2 lpm NC; ll1 10:58 Body Mass Index 41.64 (139.25 kg, 182.88 cm) vg1 MDM: 11:08 Patient medically screened. pm1 14:01 Data reviewed: vital signs. Data interpreted: Pulse oximetry: on room air is 95 %. pm1 Interpretation: normal. 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 04/09 11:14 Order name: BMP pm1 04/09 11:14 Order name: Blood Culture Adult (2) pm1 04/09 11:14 Order name: C-Reactive Protein pm1 04/09 11:14 Order name: CBC with Diff pm1 04/09 11:14 Order name: D-Dimer pm1 04/09 11:14 Order name: Ferritin pm1 04/09 11:14 Order name: Flu pm1 04/09 11:14 Order name: LFT's; Complete Time: 12:03 pm1 04/09 11:14 Order name: Lactate; Complete Time: 12:03 pm1 04/09 11:14 Order name: Lipase; Complete Time: 12:03 pm1 04/09 11:14 Order name: PT-INR; Complete Time: 12:03 pm1 04/09 11:14 Order name: Procalcitonin; Complete Time: 12:50 pm1 04/09 11:14 Order name: Ptt, Activated; Complete Time: 12:03 pm1 04/09 11:14 Order name: Strep; Complete Time: 12:50 pm1 04/09 11:14 Order name: Troponin (emerg Dept Use Only); Complete Time: 12:03 pm1 04/09 11:14 Order name: CXR XRAY; Complete Time: 12:20 pm1 04/09 11:14 Order name: Basic Metabolic Panel; Complete Time: 12:03 EDMS 04/09 11:14 Order name: Blood Culture EDMS 04/09 11:14 Order name: C-Reactive Protein; Complete Time: 12:03 EDMS 04/09 11:14 Order name: CBC with Automated Diff; Complete Time: 12:03 EDMS 04/09 11:14 Order name: D-Dimer; Complete Time: 12:03 EDMS 04/09 11:14 Order name: Ferritin; Complete Time: 12:03 EDMS 04/09 11:14 Order name: Influenza Screen (A ; Complete Time: 12:50 EDMS 04/09 11:52 Order name: SARS-COV-2 RT PCR; Complete Time: 13:57 EDMS 04/09 12:42 Order name: Throat Culture EDMS 04/09 11:14 Order name: EKG; Complete Time: 11:15 pm1 04/09 11:14 Order name: Cardiac monitoring; Complete Time: 12:18 pm1 04/09 11:14 Order name: Droplet/Contact Precautions; Complete Time: 11:32 pm1 04/09 11:14 Order name: EKG - Nurse/Tech; Complete Time: 12:18 pm1 04/09 11:14 Order name: IV Start; Complete Time: 11:32 pm1 04/09 11:14 Order name: Labs collected and sent; Complete Time: 11:32 pm1 04/09 11:14 Order name: O2 Per Protocol; Complete Time: 11:32 pm1 04/09 11:14 Order name: O2 Sat Monitoring; Complete Time: 11:32 pm1 Administered Medications: 11:45 Drug: Albuterol - atroVENT (ipratropium) (3:1) (2.5 mg - 0.5 mg) 3 ml Route: Nebulizer; ll1 12:17 Follow up: Response: No adverse reaction ll1 11:45 Drug: SOLU-Medrol (methylPrednisoLONE) 125 mg Route: IVP; Site: left forearm; ll1 12:18 Follow up: Response: No adverse reaction; RASS: Alert and Calm (0) ll1 14:23 Drug: Rocephin (cefTRIAXone) 1 grams Route: IV; Rate: calculated rate; Site: left ll1 forearm; Disposition Summary: 04/09/21 14:07 Discharge Ordered Location: Home pm1 Problem: new pm1 Symptoms: have improved pm1 Condition: Stable pm1 Diagnosis - COPD/ Chronic obstructive pulmonary disease, unspecified pm1 Followup: pm1 - With: Emergency Department - When: As needed - Reason: Worsening of condition Followup: pm1 - With: Private Physician - When: 2 - 3 days - Reason: Recheck today's complaints, Continuance of care, Re-evaluation by your physician Discharge Instructions: - Discharge Summary Sheet pm1 - Chronic Obstructive Pulmonary Disease pm1 - Chronic Obstructive Pulmonary Disease Exacerbation pm1 Forms: - Medication Reconciliation Form pm1 - Thank You Letter pm1 - Antibiotic Education pm1 - Prescription Opioid Use pm1 Prescriptions: - Ventolin HFA 90 mcg/actuation Inhalation HFA aerosol inhaler - inhale 1 puff by INHALATION route every 4-6 hours As needed; 1 Inhaler; pm1 Refills: 0, Product Selection Permitted - Prednisone 20 mg Oral Tablet - take 3 tablets by ORAL route once daily for 5 days; 15 tablet; Refills: 0, pm1 Product Selection Permitted - Zithromax Z-Henok 250 mg Oral Tablet - take 1 tablet by ORAL route as directed for 5 days Day 1 - take two (2) tablets pm1 one time. Day 2, 3, 4 , 5 take one (1) tablet once daily.; 6 tablet; Refills: 0, Product Selection Permitted - Guaifenesin AC 10-100 mg/5 mL Oral Liquid - take 10 milliliters by ORAL route every 4 hours As needed; 240 milliliter; pm1 Refills: 0, Product Selection Permitted Addendum: 04/13/2021 00:01 Co-signature as Attending Physician, Julian Parada MD I agree with the assessment and r n plan of care. Attestation: The patient's history, exam findings, diagnostics, and a summary of any interventions or procedures was reviewed in detail with Ankit Martinez NP. Signatures: Dispatcher [employer] [facility] Julian Parada MD MD rn Marinas, Patrick, NP [employer] MG[employer] DEV MANAGER pm1 Karen Cross RN RN vg1 Isaiah Walton RN RN ll1 Corrections: (The following items were deleted from the chart) 04/09 11:52 11:15 CORONAVIRUS+ ordered. [facility] EDUT
--- NOTE | 2021-04-09 14:08 | ER ---
Nurse's Notes [facility] Name: Navdeep Gonzalez Age: 65 yrs Sex: Male : 1955 Arrival Date: 04/09/2021 Time: 10:40 Bed 16 Private MD: Diagnosis: COPD/ Chronic obstructive pulmonary disease, unspecified Presentation: 04/09 10:58 Chief complaint: Patient states: For the past 4 days pt has had a productive cough, c/o vg1 chest and back pain, states sneezing and congestion as well as shortness of breath and difficulty breathing 'at times'. Denies NVD. Coronavirus screen: Vaccine status: Patient reports receiving the 2nd dose of the covid vaccine. Client presents with at least one sign or symptom that may indicate coronavirus-19. Standard/surgical mask placed on the client. Ebola Screen: Patient negative for fever greater than or equal to 101.5 degrees Fahrenheit, and additional compatible Ebola Virus Disease symptoms. Initial Sepsis Screen: Does the patient meet any 2 criteria? No. Patient's initial sepsis screen is negative. Does the patient have a suspected source of infection? No. Patient's initial sepsis screen is negative. Risk Assessment: Do you want to hurt yourself or someone else? Patient reports no desire to harm self or others. Onset of symptoms was April 05, 2021. 10:58 Method Of Arrival: Ambulatory vg1 10:58 Acuity: CHERI 3 vg1 Triage Assessment: 11:01 General: Appears in no apparent distress. uncomfortable, Behavior is calm, cooperative. vg1 Pain: Complains of pain in back and chest. Respiratory: Reports shortness of breath at rest cough that is productive, Breath sounds are diminished in left posterior lower lobe Onset: The symptoms/episode began/occurred 04/05/21, the patient has moderate shortness of breath. Historical: - Allergies: 11: No Known Allergies; vg1 - Home Meds: 11: folic acid 1 mg Oral tab 1 tab once daily [Active]; escitalopram oxalate 20 mg Oral tab vg1 1 tab once daily [Active]; bupropion HCl 300 mg Oral Tb24 1 tab once daily [Active]; desloratadine 5 mg Oral tab 1 tab once daily [Active]; losartan 50 mg Oral tab 1 tab once daily [Active]; ezetimibe Oral 1 tab once daily [Active]; atorvastatin oral [Active]; metoprolol succinate 50 mg Oral Tb24 1 tab once daily [Active]; Lipitor 40 mg Oral tab 1 tab once daily [Active]; - PMHx: 11:01 Anxiety; Arthritis; Depression; Hyperlipidemia; Hypertension; vg1 - Immunization history:: Adult Immunizations up to date, Client reports receiving the 2nd dose of the Covid vaccine. - Social history:: Smoking status: Patient denies any tobacco usage or history of. Screenin:11 Abuse screen: Denies threats or abuse. Nutritional screening: No deficits noted. ll1 Tuberculosis screening: No symptoms or risk factors identified. 11:11 Fall Risk IV access (20 points). Total Francois Fall Scale indicates No Risk (0-24 pts). ll1 Assessment: 11:11 Cardiovascular: Rhythm is regular. Respiratory: Airway is patent Trachea midline ll1 Respiratory effort is even, unlabored. 12:00 Reassessment: No changes from previously documented assessment. Patient and/or family ll1 updated on plan of care and expected duration. Pain level reassessed. Patient is alert, oriented x 3, equal unlabored respirations, skin warm/dry/pink. 13:00 Reassessment: No changes from previously documented assessment. Patient and/or family ll1 updated on plan of care and expected duration. Pain level reassessed. Patient is alert, oriented x 3, equal unlabored respirations, skin warm/dry/pink. 14:00 Reassessment: No changes from previously documented assessment. Patient and/or family ll1 updated on plan of care and expected duration. Pain level reassessed. Patient is alert, oriented x 3, equal unlabored respirations, skin warm/dry/pink. Vital Signs: 10:58 BP 113 / 59; Pulse 78; Resp 24; Temp 99.0; Pulse Ox 93% ; Weight 139.25 kg; Height 6 vg1 ft. 0 in. (182.88 cm); Pain 2/10; 12:18 BP 106 / 63; Pulse 79; Resp 20; Pulse Ox 95% on 2 lpm NC; ll1 14:10 BP 109 / 54; Pulse 81; Resp 20; Pulse Ox 93% on 2 lpm NC; ll1 10:58 Body Mass Index 41.64 (139.25 kg, 182.88 cm) vg1 ED Course: 10:40 Patient arrived in ED. rg4 11:01 Triage completed. vg1 11:01 Arm band placed on. vg1 11:05 [facility] pm1 11:05 Julian Parada MD is Attending Physician. pm1 11:08 Isaiah Walton, RN is Primary Nurse. ll1 11:10 Patient placed in an exam room, on a stretcher. ll1 11:11 Patient has correct armband on for positive identification. Bed in low position. Call ll1 light in reach. Side rails up X 1. Pulse ox on. NIBP on. 11:25 Inserted saline lock: 22 gauge in left forearm, using aseptic technique. Blood ll1 collected. 11:38 CXR XRAY In Process Unspecified. EDMS 12:25 EKG done, by ED staff. cs9 Administered Medications: 11:45 Drug: Albuterol - atroVENT (ipratropium) (3:1) (2.5 mg - 0.5 mg) 3 ml Route: Nebulizer; ll1 12:17 Follow up: Response: No adverse reaction ll1 11:45 Drug: SOLU-Medrol (methylPrednisoLONE) 125 mg Route: IVP; Site: left forearm; ll1 12:18 Follow up: Response: No adverse reaction; RASS: Alert and Calm (0) ll1 14:23 Drug: Rocephin (cefTRIAXone) 1 grams Route: IV; Rate: calculated rate; Site: left ll1 forearm; Outcome: 14:07 Discharge ordered by . pm1 14:27 Patient left the ED. ll1 Signatures: Dispatcher [employer] EDMS Ankit Martinez NP [employer]ISHING [employer] MOUNTER pm1 Shannon Cross rg4 Karen Cross RN RN vg1 Isaiah Walton, RODOLFO RN ll1 Luisa Ferguson cs9
[2021-04-09] MEDS ORDERED: CEFTRIAXONE 1000 MG/VIAL ONE (14:40)
[2021-04-09] MEDS ORDERED: LIDOCAINE 1% MPF 2 ML AMPULE ONE (14:41)
[2021-04-09 14:43] VITALS: TEMP 99
[2021-04-09 14:44] VITALS: BP 109/54; O2SAT 93
--- NOTE | 2021-04-10 07:07 | EKG ---
Test Date: 2021-04-09 Test Time: 11:43:32 Combined [employer] Operator: ADRIENNE MEASUREMENT RESULTS: Intervals: Rate: 73 NC: 188 QRSD: 82 QT: 388 QTc: 427 Burton: P: 37 NC: 188 QRS: 3 T: 50 INTERPRETIVE STATEMENTS: Normal sinus rhythm Normal ECG Compared to ECG 06/28/2019 04:00:37 No significant changes Electronically Signed On 04-10-21 07:04:41 CDT by Marcel Wisdom
== END 2021-04-09 14:27 | disposition home or self-care (01) ==
LOC: ER 10:38
DX: J44.9 Chronic obstructive pulmonary disease, unspecified (principal); I10 Essential (primary) hypertension; F41.9 Anxiety disorder, unspecified; E78.5 Hyperlipidemia, unspecified; M19.90 Unspecified osteoarthritis, unspecified site; F32.A Depression, unspecified; Z20.822 Contact with and (suspected) exposure to COVID-19
CPT/HCPCS: 93005; 87040 ×2; 87070; 85025; 80048; 36415; 85610; 85379; 80076; 87081; 83605; 85730; 84484; 82728; 83690; 84145; 86140; 87804 ×2; 71045; 96375; 96374; 99284; U0003; J2930

== ENCOUNTER 2021-11-08 08:32 | Observation (INO) | payer OTHER ==
--- OUTSIDE RECORDS SUMMARY | 2021-11-08 08:38 | XMS REPORT | Continuity of Care Document ---
:1955 Author Organization [facility] t Address [address] [place] [place] [address] Care Team Providers Name Role Phone Fozia MONET Primary Care Physician Unavailable Fozia Monet Attending Clinician Unavailable Lester WARREN Attending Clinician Therapy, Covid Infusion Attending Clinician Unavailable Chiki WARREN, A Attending Clinician Tez MONET Attending Clinician Unavailable Doctor Unassigned, Name Attending Clinician Unavailable Saji WARREN Attending Clinician Luis Holloway MD Attending Clinician DASIA PEARCE Attending Clinician Unavailable LUIS HOLLOWAY Attending Clinician Unavailable LUIS HOLLOWAY Admitting Clinician Unavailable Payers Payer Name Policy Type Policy Number Effective Date Expiration Date S ource Problems Condition Condition Condition Status Onset Resolution Last Treating Co mments Source Name Details Category Date Date Treatment Clinician Date Encounter Encounter Disease Active NPI :152 for for 07-12 [id number] monitoring monitoring 00:00: golimumab golimumab 00 therapy therapy Rheumatoid Rheumatoid Disease Active N PI:152 arthritis arthritis 01-05 205 involving involving 00:00: multiple multiple 00 sites with sites with positive positive rheumatoid rheumatoid factor factor Stage 3a Stage 3a Disease Active NPI:1 52 chronic chronic 01-05 [id number] kidney kidney 00:00: disease disease 00 Body mass Body mass Disease Active NPI :152 index index [id number] (BMI)40.0- (BMI)40.0- 00:00: 44.9, 44.9, 00 adult adult 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 00:00: kidney kidney 00 CPAP CPAP Disease Active NPI:152 (continuou (continuou 01-05 42289 s positive s positive 00:00: airway airway 00 pressure) pressure) dependence dependence Major Major Disease Active NPI:152 depressive depressive 01-05 disorder, disorder, 00:00: single single 00 episode, episode, moderate moderate On On Disease Active NPI:152 abatacept abatacept 01-05 therapy therapy 00:00: 00 Encounter Encounter Disease Active NPI :152 for for 03-30 [id number] long-term long-term 00:00: (current) (current) 00 use of use of medication medication s s History of History of Disease Active N PI:152 left left [id number] nephrectom nephrectom 00:00: y y 00 Chronic Chronic Disease Active NPI:152 gout gout 03-25 [id number] 00:00: 00 Renal mass Renal mass Disease Active N PI:118 [id number] 00:00: 00 Nausea and Nausea and Disease Active N PI:118 vomiting, vomiting, 01-07 [id number] intractabi intractabi 00:00: lity of lity of vomiting vomiting not not specified, specified, unspecifie unspecifie d vomiting d vomiting type type Renal Renal Disease Active NPI:118 mass, left mass, left 01-02 46 90301 00:00: 00 Generalize Generalize Disease Active N PI:152 d d 5-10 [id number] osteoarthr osteoarthr 00:00: itis of itis of 00 multiple multiple sites sites High High Disease Active [facility] cholestero cholestero [facility]lege l l of Medicin e Severe Severe Disease Active [facility] obesity obesity [facility] of [facility]in e Rheumatoid Rheumatoid Disease Active [facility] of [facility]in e Hypertensi Hypertensi Disease Active [facility] Medicin e Allergies, Adverse Reactions, Alerts Allergy Allergy Status Severity Reaction(s) Onset Inactive Treating Comm ents Source Name Type Date Date Clinician NO KNOWN Drug Active NPI:183 ALLERGIE Class [id number] S Social History Social Habit Start Date Stop Date Quantity Comments Source Exposure to Not sure NPI:[id number] SARS-CoV-2 (event) History of tobacco Cigarette Smoker [facility] use of Medicine History [facility] St[facility] Drinks Hospit al History [facility] B[facility] History [facility] Alcohol Comment Hospital Cigarettes smoked 2019-12-15 2019-12-15 [facility] current (pack per 00:00:00 00:00:00 of Medi ) - Reported Cigarette 2019-12-15 2019-12-15 [facility] pack-years 00:00:00 00:00:00 of Medicine Tobacco Comment 2018-12-30 2018-12-30 quit 2006 NPI:[id number] 00:00:00 00:00:00 Alcohol intake 2018-08-04 2018-08-04 Current [facility] 00:00:00 00:00:00 non-drinker of Hospital alcohol (finding) History [facility] 2018-08-01 2018-08-01 1 [facility] Frequency 00:00:00 00:00:00 Hospita l Tobacco use and 2018-07-31 2018-07-31 Smokeless tobacco [facility] exposure 00:00:00 00:00:00 non-user Hospital Sex Ass[birth year] At [birth year] [facility] 00:00[facility] 00[facility]00 Hospital Smoking Status Start Date Stop Date Source Unknown if ever smoked NPI:[id number] Ex-smoker 2021-01-05 00:00:00 2021-01-05 00:00:00 NPI:1528 [id number] Medications Ordered Filled Start Stop Current Ordering Indication Dosage Frequency Signature Comments Components Source Medication Medication Date Date Medication? Clinician (SIG) Name Name folic acid QD 1 (one) NPI :152 (Folvite) 1 -12 01-12 time each 85 [id number] MG tablet 10:51: 00:00 day. 55 :00 etodolac Yes 500mg Q.5D Take 500 NPI: 152 (Lodine) 1-12 mg by [id number] 300 MG 10:09: mouth capsule 52 twice a day. ezetimibe 0 Yes 10mg QD Take 10 mg SHOE PLANNER I:152 (Zetia) 10 1-12 by mouth 1 850 9205 MG tablet 10:09: (one) time 52 each day. losartan 2021-0 Yes 50mg QD Take 50 mg NPI :152 (Cozaar) 50 1-12 by mouth 1 85 86540 MG tablet 10:09: (one) time 52 each day. metoprolol 0 Yes 25mg QD Take 25 mg N PI:152 succinate 1-12 by mouth 1 8509 205 XL 10:09: (one) time (Toprol-XL) 52 each day. 25 MG 24 hr tablet omega-3 0 Yes 1 (one) NPI:152 (Fish Oil) 1-12 time each 8509 205 1000 MG 10:09: day at the capsule 52 same time. Topiramate 0 Yes 50mg 50 mg. NPI:1 52 ER 1-12 [id number] (Trokendi 10:09: XR) 50 MG 52 capsule sustained-r elease 24 hr Zinc 50 MG Yes TAKE 1 NPI:1 52 tablet 1-12 TABLET [id number] 10:09: DAILY. 52 adalimumab 2021-0 Yes 40mg Q14D Inject 40 SHOE PLANNER I:152 (Humira) 40 1-12 mg under 8509 205 MG/0.8ML 10:09: the skin Prefilled 52 every 14 Syringe Kit (fourteen) days. atorvastati Yes TAKE 1 NPI: 152 n (Lipitor) 1-12 TABLET BY 850 9205 40 MG 10:09: MOUTH tablet 52 EVERY DAY buPROPion 2021-0 Yes 300mg QD Take 300 NPI :152 XL 1-12 mg by [id number] (Wellbutrin 10:09: mouth 1 XL) 300 MG 52 (one) time 24 hr each day. tablet Cholecalcif 0 Yes TAKE 1 NPI: 152 don 1-12 CAPSULE [id number] (Vitamin D) 10:09: DAILY 50 MCG 52 (2000 UT) capsule desloratadi 0 Yes TAKE 1 NPI: 152 ne 1-12 TABLET BY [id number] (Clarinex) 10:09: MOUTH 5 MG tablet 52 EVERY DAY ergocalcife Yes 1 capsule N PI:152 rol 1-12 [id number] (Vitamin 10:09: D2) 1.25 MG 52 (16688 UT) capsule escitalopra Yes QD 1 (one) NPI :152 m (Lexapro) 1-12 time each 850 9205 20 MG 10:09: day. tablet 52 Golimumab 2022- No [id number] 50mg Q28D Inject 50 NPI:152 (Simponi) 1-12 01-13 mg under [id number] 05 50 MG/0.5ML 00:00: 05:59 the skin solution 00 :00 every 28 auto-inject (twenty-ei or ght) days. sotrovimab 2020-07- No [id number] 500mg 500 mg, IV NPI:183 (XEVUDY) 2-30 12-30 Infusion, [id number] 81 500 mg in 23:00: 22:17 ONCE, NaCl 0.9% 00 :00 Administer (NS) 50 mL over 30 MINI-BAG Minutes, On Irma 06/29/21 at 1700, For [address] able 24 hours refrigerat ed or 6 hours at room temperatur e including transporta tion and infusion time.
Golimumab 2021- No [id number] 50mg Q28D Inject 50 NPI:152 (Simponi) 7 01-12 mg [place] [id number] 05 50 MG/0.5ML 00:00: 00:00 the skin solution 00 :00 every 28 auto-inject (twenty-ei or ght) days. leflunomide 2021- No 10mg 10 mg. NPI :152 (Arava) 10 09-28- [id number] MG tablet 00:00: 00:00 00 :00 Abatacept 2020-2021- No 125mg/m 125 mg/mL. NPI:152 (Orencia 2-08 01-12 L [id number] ClickJect) 00:00: 00:00 125 MG/ML 00 :00 solution auto-inject or CIMZIA Yes 200mL Inject 200 Bayl or PREFILLED 2 5-26 mL into Colle ge X 200 MG/ML 00:00: the skin of injection 00 every 14 Medici n days. e Certolizuma 2021- No 200mL Inject 200 NPI:152 b Pegol 5-26 01-12 mL under [id number] (Cimzia 00:00: 00:00 the skin. Starter 00 :00 Kit) 6 X 200 MG/ML kit Famotidine Famotidine 2018-07 Yes Portillo TAKE 1 NPI:174 0-28 Monet TABLET BY [id number] 00:00: MOUTH 00 EVERY DAY AT BEDTIME NEEDED folic acid 2018- Yes 1mg QD Take 1 mg SHOE PLANNER I:118 (FOLVITE) 1 7-16 by mouth 4622 847 MG tablet 10:55: daily. 46 escitalopra Yes 20mg QD Take 20 mg NPI:118 m oxalate 7-16 by mouth [id number] (LEXAPRO) 10:55: daily. 20 MG 46 tablet buPROPion Yes 300mg QD Take 300 NPI :118 (WELLBUTRIN 7-16 mg by [id number] XL) 300 MG 10:55: mouth 24 hr 46 daily. tablet desloratadi Yes 5mg QD Take 5 mg N PI:118 ne 7-16 by mouth [id number] (CLARINEX) 10:55: daily. 5 mg tablet 46 losartan Yes 50mg QD Take 50 mg NPI :118 (COZAAR) 50 7-16 by mouth [id number] 847 MG tablet 10:55: daily. 46 etodolac Yes 500mg Take 500 NPI: 118 (LODINE) 7-16 mg by [id number] 500 MG 10:55: mouth as tablet 46 needed. ezetimibe 0 Yes 10mg QD Take 10 mg SHOE PLANNER I:118 (ZETIA) 10 7-16 by mouth 13987 47 mg tablet 10:55: daily. 46 metoprolol 2019 Yes 25mg QD Take 25 mg N PI:118 (TOPROL-XL) 7-16 by mouth 4622 847 25 MG 24 hr 10:55: daily. tablet 46 atorvastati 2019-0 Yes 40mg QD Take 40 mg NPI:118 n (LIPITOR) 7-16 by mouth 4622 847 40 MG 10:55: daily. tablet 46 adalimumab 2019-0 Yes 40mg Q14D Inject 40 SHOE PLANNER I:118 (HUMIRA,CF, 7-16 mg [id number] PEN) 40 10:55: subcutaneo mg/0.4 mL 46 usly every PnKt 14 (fourteen) days. folic acid 2019-0 Yes 1mg QD Take 1 mg SHOE PLANNER I:118 (FOLVITE) 1 7-16 by mouth 4622 847 MG tablet 10:55: daily. 46 escitalopra 2019-0 Yes 20mg QD Take 20 mg NPI:118 m oxalate 7-16 by mouth [id number] 7 (LEXAPRO) 10:55: daily. 20 MG 46 tablet buPROPion 2019-0 Yes 300mg QD Take 300 NPI :118 (WELLBUTRIN 7-16 mg by [id number] XL) 300 MG 10:55: mouth 24 hr 46 daily. tablet desloratadi 2019-0 Yes 5mg QD Take 5 mg N PI:118 ne 7-16 by mouth [id number] (CLARINEX) 10:55: daily. 5 mg tablet 46 losartan 2018-0 Yes 50mg QD Take 50 mg NPI :118 (COZAAR) 50 7-16 by mouth 4622 847 MG tablet 10:55: daily. 46 etodolac 2019-0 Yes 500mg Take 500 NPI: 118 (LODINE) 7-16 mg by [id number] 500 MG 10:55: mouth as tablet 46 needed. ezetimibe 2019-0 Yes 10mg QD Take 10 mg SHOE PLANNER I:118 (ZETIA) 10 7-16 by mouth [id number] 47 mg tablet 10:55: daily. 46 metoprolol 2019-0 Yes 25mg QD Take 25 mg N PI:118 (TOPROL-XL) 7-16 by mouth 4622 847 25 MG 24 hr 10:55: daily. tablet 46 atorvastati 2019-0 Yes 40mg QD Take 40 mg NPI:118 n (LIPITOR) 7-16 by mouth 4622 847 40 MG 10:55: daily. tablet 46 adalimumab 2019-0 Yes 40mg Q14D Inject 40 SHOE PLANNER I:118 (HUMIRA,CF, 7-16 mg [id number] PEN) 40 10:55: subcutaneo mg/0.4 mL 46 usly every PnKt 14 (fourteen) days. HUMIRA PEN 2019-0 Yes [facility] 40 MG/0.8ML 6-13 College injection 00:00: of 00 Medicin e HUMIRA PEN Yes [facility] 40 MG/0.8ML 613 College injection 00:00: of 00 Medicin e metoprolol Yes TAKE 1 [facility] (TOPROL-XL) 6-10 TABLET BY Col [facility] 25 MG XL 00:00: MOUTH of tablet 00 EVERY DAY Medicin e metoprolol Yes TAKE 1 [facility] (TOPROL-XL) 6-10 TABLET BY Col [facility]ge 25 MG XL 00:00: MOUTH of tablet 00 EVERY DAY Medicin e losartan Yes TAKE 1 [facility] (COZAAR) 25 5-27 TABLET BY Col lege MG tablet 00:00: MOUTH of 00 TWICE A Medicin DAY e losartan Yes TAKE 1 [facility] (COZAAR) 25 5-27 TABLET BY Col lege MG tablet 00:00: MOUTH of 00 TWICE A Medicin DAY e folic acid Yes TAKE 1 [facility] (FOLVITE) 1 5-25 TABLET BY Col [facility]ge MG tablet 00:00: MOUTH of 00 EVERY DAY Medicin e desloratadi Yes TAKE 1 [facility] or ne 5-25 TABLET BY [place] (CLARINEX) 00:00: MOUTH of 5 MG tablet 00 EVERY DAY Med icin e folic acid Yes TAKE 1 [facility] (FOLVITE) 1 5-25 TABLET BY Col [facility]ge MG tablet 00:00: MOUTH of 00 EVERY DAY Medicin e desloratadi Yes TAKE 1 [facility] or ne 5-25 TABLET BY [place] (CLARINEX) 00:00: MOUTH of 5 MG tablet 00 EVERY DAY Med icin e ezetimibe Yes TAKE 1 [facility] (ZETIA) 10 5-06 TABLET BY [facility] MG tablet 00:00: MOUTH of 00 EVERY DAY Medicin e atorvastati Yes TAKE 1 [facility] or n (LIPITOR) 5-06 TABLET BY Col [facility]ge 40 MG 00:00: MOUTH of tablet 00 EVERY DAY Medicin e ezetimibe Yes TAKE 1 [facility] (ZETIA) 10 5-06 TABLET BY [facility] MG tablet 00:00: MOUTH of 00 EVERY DAY Medicin e atorvastati Yes TAKE 1 [facility] or n (LIPITOR) 5-06 TABLET BY Col lege 40 MG 00:00: MOUTH of tablet 00 EVERY DAY Medicin e escitalopra Yes TAKE 1 [facility] or m (LEXAPRO) 4-19 TABLET BY Col lege 20 MG 00:00: MOUTH ONCE of tablet 00 A DAY Medicin NEEDS e APPOINTMEN T buPROPion Yes TAKE 1 [facility] (WELLBUTRIN 4-19 TABLET BY Col lege ) 300 MG XL 00:00: MOUTH of tablet 00 EVERY Medicin MORNING e NEEDS APPOINTMEN T escitalopra Yes TAKE 1 [facility] or m (LEXAPRO) 4-19 TABLET BY Col lege 20 MG 00:00: MOUTH ONCE of tablet 00 A DAY Medicin NEEDS e APPOINTMEN T buPROPion Yes TAKE 1 [facility] (WELLBUTRIN 4-19 TABLET BY Col lege ) 300 MG XL 00:00: MOUTH of tablet 00 EVERY Medicin MORNING e NEEDS APPOINTMEN T etodolac Yes TAKE 1 [facility] (LODINE) 3-27 TABLET BY Colleg e 500 MG 00:00: MOUTH of tablet 00 TWICE A Medicin DAY e NEEDED FOR PAIN etodolac Yes TAKE 1 [facility] (LODINE) 3-27 TABLET BY Colleg e 500 MG 00:00: MOUTH of tablet 00 TWICE A Medicin DAY e NEEDED FOR PAIN folic acid Yes 1mg QD Take 1 mg [facility] (FOLVITE) [address] MG tablet 14:50: daily. Hospit a 27 l escitalopra Yes 20mg QD Take 20 mg [facility] (LEXAPRO) 08-[address] 20 MG 14:50: daily. Hospita tablet 27 l buPROPion Yes 300mg QD Take 300 [facility] XL 2-[address] (WELLBUTRIN 14:50: mouth Hospi ta XL) 300 MG 27 daily. l 24 hr tablet desloratadi Yes 5mg QD Take 5 mg M [facility]i ne 08-[address] (CLARINEX) 14:50: daily. Hospi ta 5 mg tablet 27 l losartan Yes 25mg QD Take 25 mg [facility] (COZAAR) 25 08-[address] MG tablet 14:50: daily. Hospit a 27 l pantoprazol Yes 40mg QD Take 40 mg [facility] 2-[address] (PROTONIX) 14:50: daily. Hospi ta 40 MG EC 27 l tablet etodolac Yes 500mg Q.5D Take 500 [facility] kelsie (LODINE) 2-[address] 300 MG 14:50: mouth 2 Hospita capsule 27 (two) l times a day. ezetimibe Yes 10mg QD Take 10 mg [facility] (ZETIA) 10 2-[address] mg tablet 14:50: daily. Hospit a 27 l atorvastati Yes 40mg QD Take 40 mg [facility] (LIPITOR) 2-[address] 40 MG 14:50: daily. Hospita tablet 27 l metoprolol Yes 25mg QD Take 25 mg M ethodi succinate 2-[address] XL 14:50: daily. Hospita (TOPROL-XL) 27 l 25 mg 24 hr tablet adalimumab Yes 40mg Q14D Inject 40 Me [facility] (HUMIRA) 40 2-[address] mg/0.8 mL 14:50: the skin Hosp yonathan injection 27 every 14 l (fourteen) days. Pantoprazol Pantoprazol Yes Portillo 1 tablet NPI:174 e Sodium e Sodium Monet [id number] Cozaar Cozaar Yes Portillo 1 tablet NPI:1 74 Monet [id number] Folic Acid Folic Acid Yes Portillo 1 tablet NPI:174 Monet [id number] Losartan Losartan Yes Portillo 1 tablet N PI:174 Potassium Potassium Monet 0485 879 Desloratadi Desloratadi Yes Portillo TAKE 1 NPI:174 ne ne Monet TABLET BY [id number] MOUTH EVERY DAY BuPROPion BuPROPion Yes Portillo 1 tablet NPI:174 HCl ER (XL) HCl ER (XL) Monet in the 4507862 morning Atorvastati Atorvastati Yes Portillo TAKE 1 NPI:174 n Calcium n Calcium Monet TABLET BY [id number] MOUTH EVERY DAY Lexapro Lexapro Yes [facility] 0.5 tablet N PI:174 Monet [id number] Zetia Zetia Yes Portillo 1 tablet NPI:174 Monet [id number] Cimzia Cimzia Yes Portillo as NPI:174 Monet directed [id number] Vitamin D Vitamin D Yes Portillo 1 capsule NPI:174 (Ergocalcif (Ergocalcif Monet [id number] don) don) Lipitor Lipitor Yes Portillo 1 tablet NPI :174 Monet [id number] Metoprolol Metoprolol Yes Portillo 1 tablet NPI:174 Succinate Succinate Monet [id number] ER ER Zetia Zetia Yes Portillo 1 tablet NPI:174 Monet [id number] Escitalopra Escitalopra Yes Portillo TAKE 1 NPI:174 m Oxalate m Oxalate Monet TABLET BY [id number] MOUTH EVERY DAY Immunizations Ordered Immunization Filled Immunization Date Status Commen ts Source Name Name Flucelvax - Flucelvax - 2019-04-24 Completed NPI:[id number] multidose vial multidose vial 00:00:00 PNEUMAVAX 23 PNEUMAVAX 23 2018-07-28 Completed NPI:[id number] 00:00:00 Vital Signs Vital Name Observation Time Observation Value Comments Source Systolic blood 2021-07-12 16:10:00 132 mm[Hg] NPI:15 [id number] pressure Diastolic blood 2021-07-12 16:10:00 75 mm[Hg] NPI:1 [id number] pressure Heart rate 2021-07-12 16:10:00 74 /min NPI:1528 [id number] Body temperature 2021-07-12 16:10:00 36.61 Stacia Body weight 2021-07-12 16:10:00 144.471 kg NPI:1528 [id number] BMI 2021-07-12 16:10:00 44.42 kg/m2 NPI:1528 [id number] Systolic blood 2021-06-29 23:18:00 111 mm[Hg] NPI:18 [id number] pressure Diastolic blood 2021-06-29 23:18:00 51 mm[Hg] NPI:1 [id number] pressure Heart rate 2021-06-29 23:18:00 66 /min NPI:1831 [id number] Body temperature 2021-06-29 23:18:00 36.33 [facility] Respiratory rate 2021-06-29 23:18:00 17 /min Oxygen saturation in 2021-06-29 23:18:00 94 /min Arterial blood by Pulse oximetry Body height 2021-06-29 21:41:00 182.9 cm NPI:1831 [id number] Body weight 2021-06-29 21:41:00 140.615 kg NPI:1831 [id number] BMI 2021-06-29 21:41:00 42.04 kg/m2 NPI:1831 [id number] Systolic blood 2019-12-15 19:08:00 116 mm[Hg] [facility] Diastolic blood 2019-12-15 19:08:00 78 mm[Hg] [facility] Heart rate 2019-12-15 19:08:00 86 /min [facility] Body temperature 2019-12-15 19:08:00 36.67 Stacia [facility] Respiratory rate 2019-12-15 19:08:00 16 /min [facility] Body height 2019-12-15 19:08:00 182.9 cm [facility] Body weight 2019-12-15 19:08:00 152.409 [facility] BMI 2019-12-15 19:08:00 45.57 kg/m2 [facility] Systolic blood 2019-12-15 19:08:00 116 mm[Hg] [facility] Diastolic blood 2019-12-15 19:08:00 78 mm[Hg] [facility] Heart rate 2019-12-15 19:08:00 86 /min [facility] Body temperature 2019-12-15 19:08:00 36.67 Stacia [facility] Respiratory rate 2019-12-15 19:08:00 16 /min [facility] Body height 2019-12-15 19:08:00 182.9 cm [facility] Body weight 2019-12-15 19:08:00 152.409 kg [facility] BMI 2019-12-15 19:08:00 45.57 kg/m2 [facility] Systolic blood 2019-07-30 19:26:00 118 mm[Hg] [facility] Medicine Diastolic blood 2019-07-30 19:26:00 67 mm[Hg] [facility] Heart rate 2019-07-30 19:26:00 90 /min [facility] Body temperature 2019-07-30 19:26:00 36.67 Stacia [facility] Systolic blood 2019-07-30 19:26:00 118 mm[Hg] [facility] Diastolic blood 2019-07-30 19:26:00 67 mm[Hg] [facility] Heart rate 2019-07-30 19:26:00 90 /min [facility] Body temperature 2019-07-30 19:26:00 36.67 Stacia [facility] Procedures Procedure Date / Time Performing Clinician Source Performed COMPREHENSIVE METABOLIC 2021-07-14 13:59:00 Gong, Jose Luis PANEL C-REACTIVE PROTEIN 2021-07-14 13:59:00 Gong, Jose Luis NPI:[id number] CBC AND DIFFERENTIAL 2021-07-14 13:59:00 Gong, Jose Luis NPI:[id number] SEDIMENTATION RATE, 2021-07-14 13:59:00 Gong, Jose Luis NPI:[id number] AUTOMATED CONSENT/REFUSAL FOR 2021-06-29 06:01:00 Doctor Unassigned, No SHOE PLANNER I:[id number] DIAGNOSIS AND TREATMENT Name COMPREHENSIVE METABOLIC 2019-12-15 19:52:00 Guerrero Lennon [facility] MAGNESIUM 2019-12-15 19:52:00 Guerrero Lennon [facility] Medicine PHOSPHORUS 2019-12-15 19:52:00 Guerrero Lennon [facility] Medicine URIC ACID 2019-12-15 19:52:00 Saji [facility] Medicine CBC W/AUTO DIFF WITH 2019-12-15 19:52:00 Saji [facility] PLATELETS [facility] RANDOM URINE 2019-12-15 19:52:00 Guerrero Lennon [facility] PROTEIN/CREATININE Medicine URINALYSIS, COMPLETE 2019-12-15 19:52:00 Guerrero Lennon [facility] W/REFLEX TO CULTURE Medicine COMPREHENSIVE METABOLIC 2019-07-30 20:36:00 Rico Holloway [facility] PANEL Medicine CBC W/AUTO DIFF WITH 2019-07-30 20:36:[address] [facility] POCT URINALYSIS DIPSTICK 2019-07-30 00:00:00 Rico Holloway [facility] Plan of Care Planned Activity Planned Date Details Comments Source Future Scheduled 2021-08-10 COVID-19 VACCINE (1) [facility] Test 08:51:43 [code = COVID-19 VACCINE (1)] Future Scheduled 2021-08-10 Hepatitis C screening [facility] Test 08:51:43 (procedure) [code = 490187161] Future Scheduled 2021-08-[address] [facility] Test 08:51:43 [code = COLONOSCOPY SCREENING] Future Scheduled 2021-08-10 SHINGLES VACCINES (#1) [facility] Test 08:51:43 [code = SHINGLES VACCINES (#1)] Future Scheduled 2021-08-10 [facility]INE [facility] 08:51:43 [code = INFLUENZA VACCINE] Future Scheduled 2021-08-10 65+ [facility]OCOCCAL [facility] Test 08:51:43 VACCINE (1 of 1 - PPSV23) [code = 65+ PNEUMOCOCCAL VACCINE (1 of 1 - PPSV23)] Future Scheduled 2021-07-01 DEPRESSION SCREENING NPI :[id number] Test 00:00:00 (12+) [code = DEPRESSION SCREENING (12+)] Future Scheduled 2021-07-01 FALLS RISK SCREENING NPI :[id number] Test 00:00:00 [code = FALLS RISK SCREENING] Future Scheduled 2021-07-01 DEPRESSION SCREENING NPI :[id number] Test 00:00:00 (12+) [code = DEPRESSION SCREENING (12+)] Future Scheduled 2021-07-01 FALLS RISK SCREENING NPI :[id number] Test 00:00:00 [code = FALLS RISK SCREENING] Future Scheduled 2021-03-01 INFLUENZA VACCINE (#1) N PI:[id number] Test 00:00:00 [code = INFLUENZA VACCINE (#1)] Future Scheduled 2021-03-01 INFLUENZA VACCINE (#1) N PI:[id number] Test 00:00:00 [code = INFLUENZA VACCINE (#1)] Future Scheduled 2020 PNEUMOCOCCAL 65+ YRS NPI :[id number] Test 00:00:00 (1 of 1 - [id number] PCV13) [code = PNEUMOCOCCAL 65+ YRS (1 of 1 - [id number] PCV13)] Future Scheduled 2020 PNEUMOCOCCAL 65+ YRS NPI :[id number] Test 00:00:00 (1 of 1 - [id number]_Xcjdvoh PCV13) [code = PNEUMOCOCCAL 65+ YRS (1 of 1 - [id number]_Wasrrhd PCV13)] Future Scheduled 2005 SHINGLES VACCINES (1 NPI :[id number] Test 00:00:00 of 2) [code = SHINGLES VACCINES (1 of 2)] Future Scheduled 2005 SHINGLES VACCINES (1 NPI :[id number] Test 00:00:00 of 2) [code = SHINGLES VACCINES (1 of 2)] Future Scheduled 1974 DTAP/TDAP/TD VACCINES SHOE PLANNER I:[id number] Test 00:00:00 (1 - Tdap) [code = DTAP/TDAP/TD VACCINES (1 - Tdap)] Future Scheduled 1974 DTAP/TDAP/TD VACCINES SHOE PLANNER I:[id number] Test 00:00:00 (1 - Tdap) [code = DTAP/TDAP/TD VACCINES (1 - Tdap)] Future Scheduled 1973 HEPATITIS C SCREENING SHOE PLANNER I:[id number] Test 00:00:00 [code = HEPATITIS C SCREENING] Future Scheduled 1973 HEPATITIS C SCREENING SHOE PLANNER I:[id number] Test 00:00:00 [code = HEPATITIS C SCREENING] Future Scheduled 1967 COVID-19 VACCINE (1) NPI :[id number] Test 00:00:00 [code = COVID-19 VACCINE (1)] Future Scheduled 1967 COVID-19 VACCINE (1) NPI :[id number] Test 00:00:00 [code = COVID-19 VACCINE (1)] Future Scheduled 1955 Screening for NPI:[id number] Test 00:00:00 malignant neoplasm of colon (procedure) [code = 571632025] Future Scheduled 1955 Screening for NPI:[id number] Test 00:00:00 malignant neoplasm of colon (procedure) [code = 608873428] Future Scheduled COLON CANCER [facility] Test SCREENING: COLONOSCOPY Medic ine [code = COLON CANCER SCREENING: COLONOSCOPY] Future Scheduled TETANUS SHOT (ADULT) [facility] Test [code = TETANUS SHOT Medicin e (ADULT)] Future Scheduled BMI FOLLOW UP PLAN [facility] Test [code = BMI FOLLOW UP Medici ne PLAN] Future Scheduled HEPATITIS C SCREENING [facility] Test [code = HEPATITIS C Medicine SCREENING] Future Scheduled HIV SCREENING [code = Ba [facility] of Test HIV SCREENING] Medicine Future Scheduled FLU VACCINE > 6 MONTHS B [facility] Test [code = FLU VACCINE > Medici ne 6 MONTHS] Future Scheduled COLON CANCER [facility] Test SCREENING: COLONOSCOPY Medic ine [code = COLON CANCER SCREENING: COLONOSCOPY] Future Scheduled TETANUS SHOT (ADULT) [facility] Test [code = TETANUS SHOT Medicin e (ADULT)] Future Scheduled BMI FOLLOW UP PLAN [facility] Test [code = BMI FOLLOW UP Medici ne PLAN] Future Scheduled HEPATITIS C SCREENING [facility] Test [code = HEPATITIS C Medicine SCREENING] Future Scheduled HIV SCREENING [code = Ba [facility] of Test HIV SCREENING] Medicine Future Scheduled FLU VACCINE > 6 MONTHS B [facility] Test [code = FLU VACCINE > Medici ne 6 MONTHS] Encounters Start End Encounter Admission Attending Care Care Encounter Source Date/Time Date/Time Type Type Clinicians Facility Department ID 2021-08-28 Outpatient Monet, [facility] NPI:174 08:13:00 [place] [id number] 2021-07-26 Outpatient Monet, [facility] NPI:174 14:12:49 [place] [id number] 2021-07-26 Outpatient Monet, [facility] NPI:174 14:03:20 [place] [id number] 2021-07-26 Outpatient Monet, [facility] NPI:174 12:34:37 [place] [id number] 2021-07-26 Outpatient Monet, [facility] NPI:174 12:33:54 [place] [id number] 2021-07-26 Outpatient Monet, [facility] [id number] NPI:174 12:27:03 [place] [id number] 2021-07-26 Outpatient Monet, [facility] NPI:174 12:26:30 [place] [id number] 2021-07-26 Outpatient Monet, [facility] [id number] NPI:174 12:15:49 [place] [id number] 2021-07-26 Outpatient Monet, [facility] NPI:174 11:59:11 [place] [id number] 2021-07-26 Outpatient Monet, [facility] [id number] NPI:174 11:58:45 [place] [id number] 2021-07-26 Outpatient Monet, [facility] ST[facility] [id number] NPI:174 11:32:48 [place] [id number] 2021-07-26 Outpatient Monet, [facility] NPI:174 11:18:09 [place] [id number] 2021-07-26 Outpatient Monet, [facility] [id number] NPI:174 11:01:55 [place] [id number] 2021-07-26 Outpatient Monet, [facility] NPI:174 10:57:52 [place] [id number] 2021-09-20 2021-09-20 ambulatory [facility] [id number] NPI:174 00:00:00 00:00:00 [id number] 2021-08-28 2021-08-28 ambulatory [facility] ST[facility]C [id number] NPI:174 00:00:00 00:00:00 [id number] 2021-07-12 2021-07-12 Office Gong, [facility] 6410 1.2.840.114 [id number] NPI:152 10:00:00 10:43:44 Visit Jose Luis ENGLE [id number] [id number] 2021-06-29 2021-06-29 Nurse Therapy, [facility]fusion [facility] 1.2.840.114 [id number] NPI:183 16:00:00 17:00:00 Visit Yoni Monet 350.1.13.10 [id number] [place] 4.2.7.2.686 [facility] [id number] [place] 053 2021-06-29 2021-06-29 Outpatient Melecio MONET [facility] [id number] NPI:183 16:00:00 16:00:00 YONI [id number] 1 2021-06-29 2021-06-29 Orders Doctor DUSTY 1.2.840.114 [id number] NPI:183 00:00:00 00:00:00 Only Unassigned, CASSIE 350.1.13.10 [id number] [place] [facility] 4.2.7.2.686 [id number] 2021-06-21 2021-06-21 ambulatory [facility] ST[facility] [id number] NPI:174 00:00:00 00:00:00 [id number] 2021-05-29 2021-05-29 ambulatory [facility]C [facility] [id number] NPI:174 00:00:00 00:00:00 [id number] 2021-03-10 2021-03-10 Outpatient [facility] [id number] NPI:174 00:00:00 00:00:00 [id number] 2020-12-22 2020-12-22 Outpatient [facility] [id number] NPI:174 00:00:00 00:00:00 [id number] 9 2020-11-18 2020-11-18 Outpatient [facility] [id number] NPI:174 00:00:00 00:00:00 [id number] 9 2020-11-09 2020-11-09 Outpatient [facility] [id number] NPI:174 00:00:00 00:00:00 [id number] 9 2020-09-05 2020-09-05 Outpatient [facility] [id number] NPI:174 00:00:00 00:00:00 [id number] 2020-08-30 2020-08-30 Outpatient [facility] [id number] NPI:174 00:00:00 00:00:00 [id number] 2020-08-29 2020-08-29 Outpatient [facility]C ST[facility] [id number] NPI:174 00:00:00 00:00:00 [id number] 2020-08-02 2020-08-02 Outpatient [facility]C ST[facility] [id number] NPI:174 00:00:00 00:00:00 [id number] 2020-08-01 2020-08-01 Outpatient [facility] [id number] NPI:174 00:00:00 00:00:00 [id number] 2020-08-01 2020-08-01 Outpatient [facility] [id number] NPI:174 00:00:00 00:00:00 [id number] 2020-07-25 2020-07-25 Outpatient [facility]C ST[facility] [id number] NPI:174 00:00:00 00:00:00 [id number] 2020-04-26 2020-04-26 Outpatient [facility]C [facility] [id number] NPI:174 00:00:00 00:00:00 [id number] 9 2020-01-25 2020-01-25 [facility] [id number] NPI:174 08:45:00 08:45:00 t Proximetry5 [employer] [facility] 2019-12-15 2019-12-15 Office Guerrero Lennon 1.2.840.114 [id number] [facility] 14:06:49 14:48:35 Visit AMBULATOR 350.1.13.21 College Y 0.2.7.2.686 of [id number] [facility] 335 e 2019-12-15 2019-12-15 Office Guerrero Lennon 1.2.840.114 [id number] 14:06:49 14:48:35 Visit AMBULATOR 350.1.13.21 Y 0.2.7.2.686 [id number] 2019-10-26 2019-10-26 [facility] [id number] NPI:174 08:30:00 08:30:00 t Proximetry5 [employer] [facility] Medicine 2019-07-30 2019-07-30 Office GILLIAN Holloway 1.2.840.114 [id number] [facility] 13:10:38 15:34:27 Visit Rico Luis AMBULATOR 350.1.13.21 College Y 0.2.7.2.686 [id number] [facility] 300 e 2019-07-30 2019-07-30 Office GILLIAN Holloway 1.2.840.114 [id number] 13:10:38 15:34:27 Visit Rico Smith AMBULATOR 350.1.13.21 Y 0.2.7.2.686 [id number] 2019-07-27 2019-07-27 [facility] [id number] NPI:174 08:00:00 08:00:00 t Serious Parody 0485 879 [employer] [facility] Medicine 2019-04-27 2019-04-27 [facility] [id number] NPI:174 14:25:00 14:25:00 [employer] 0485 879 [employer] [facility] Medicine 2019-04-24 2019-04-24 [facility] 26 [id number] NPI:174 08:00:00 08:00:00 [employer] 0485 879 [employer] [facility] Medicine 2019-01-23 2019-01-23 [facility] 25 [id number] NPI:174 08:45:00 08:45:00 t Serious Parody 0485 879 [employer] [facility] Medicine 2018-12-23 2018-12-23 [facility] 26 [id number] NPI:174 15:38:00 15:38:00 [employer] 0485 879 [employer] [facility] Medicine 2018-12-22 2018-12-22 [facility] [id number] NPI:174 15:14:00 15:14:00 t Specialty/U 04 [id number] Specialty rology /Urology Clinic Clinic 2018-12-09 2018-12-09 [facility] 26 [id number] NPI:174 15:00:00 15:00:00 t Specialty/U 04 [id number] Specialty rology /Urology Clinic Clinic 2018-10-27 2018-10-27 [facility] 23 [id number] NPI:174 08:15:00 08:15:00 [employer] 0485 879 [employer] [facility] Medicine 2018-08-11 2018-08-11 [facility] [id number] NPI:174 08:00:00 08:00:00 [employer] 0485 879 [employer] [facility] 2018-07-28 2018-07-28 Outpatient Cyndi Hannat [id number] NPI:174 08:30:00 08:30:00 Serious Parody [address] [place] [address] [employer] [facility] 2018-04-01 2018-04-01 Outpatient Cyndi Hannat [id number] NPI:174 08:45:00 08:45:00 Serious Parody [address] [place] [address] [employer] [facility] 2017-12-30 2017-12-30 Outpatient Cyndi Hannat [id number] NPI:174 10:45:00 10:45:00 Serious Parody [address] [place] [address] Results Test Description Test Time Test Comments Results Result Comments Source CBC and differential 2021-07-17 19:00:00 Test Item Value Reference Range Interpretation Comme nts WHITE BLOOD CELL COUNT See_Comment [Aut omated message] The (test code = 6690-2) system which generated this result tra nsmitted reference range : 3.8 - 10.8 Thousand/u L. The reference range was not used to interpr et this result as normal/abnormal . RED BLOOD CELL COUNT See_Comment [Autom ated message] The (test code = 789-8) [facility] generated this result tra nsmitted reference range : 4.20 - 5.80 Million/uL . The reference range was not used to interpr et this result as normal/abnormal . HEMOGLOBIN (test code = 14.9 g/dL 13.2-17.1 718-7) HEMATOCRIT (test code = 47.8 % 38.5-50.0 4544-3) MCV (test code = 787-2) 84.3 fL 80.0-100.0 MCH (test code = 785-6) 26.3 pg 27.0-33.0 L MCHC (test code = 786-4) 31.2 g/dL 32.0-36.0 L RDW (test code = 788-0) 16.4 % 11.0-15.0 H PLATELET COUNT (test See_Comment [Autom ated message] The code = 777-3) system which g enerated this result tra nsmitted reference range : 140 - 400 Thousand/uL . The reference range was not used to interpr et this result as normal/abnormal . MPV (test code = 776-5) 9.7 fL 7.5-12.5 ABSOLUTE NEUTROPHILS See_Comment [Autom ated message] The (test code = 751-8) system w [employer] generated this result tra nsmitted reference range : 1500 - 7800 cells/uL. The reference range was not used to interpr et this result as normal/abnormal . ABSOLUTE LYMPHOCYTES See_Comment [Autom ated message] The (test code = 731-0) system w [employer] generated this result tra nsmitted reference range : 850 - 3900 cells/uL. The reference range was not used to interpr et this result as normal/abnormal . ABSOLUTE MONOCYTES (test See_Comment [A utomated message] The code = 742-7) system which g enerated this result tra nsmitted reference range : 200 - 950 cells/uL. T he reference range was not used to interpr et this result as normal/abnormal . ABSOLUTE EOSINOPHILS See_Comment [Autom ated message] The (test code = 711-2) system w [employer] generated this result tra nsmitted reference range : 15 - 500 cells/uL. The r eference range was not u sed to interpret this result as normal/abnormal . ABSOLUTE BASOPHILS (test See_Comment [A utomated message] The code = 704-7) system which g enerated this result tra nsmitted reference range : 0 - 200 cells/uL. The r eference range was not u sed to interpret this result as normal/abnormal . NEUTROPHILS (test code = 73.1 % 770-8) LYMPHOCYTES (test code = 14.5 % 736-9) MONOCYTES (test code = 9.4 % 5905-5) EOSINOPHILS (test code = 1.9 % 713-8) BASOPHILS (test code = 1.1 % 706-2) RAC (test code = RAC) Performing Organization Information: ? ?Site ID: RGA ? ?Name: [employer] [place] ? ?Address: [address] [place] [phone] ? ?Director: DAVIN WAGNER MD Lab Interpretation (test Abnormal code = 53909-4) NPI:[id number] metabolic [id number] 19:00:00 Test Item Value Reference Interpretation Comments Range GLUCOSE (test code 105 mg/dL 65-99 H ? Fasting = 2345-7) reference inter zach For someone wit hout known diabetes, a glucose valuebe tween 100 and 125 mg/ dL is consistent withprediabetes and should be confi rmed with afollow-up test. UREA NITROGEN (BUN) 24 mg/dL 7-25 (test code = 3094-0) CREATININE (test 1.41 mg/dL 0.70-1.25 H For patient s >49 code = 2160-0) years of age, the reference limit for Creatinine is approximately 1 3% higher for peopleidentifie d as -Isela n. eGFR NON- See_Comment L [Automated message] MACEDONIAN (test code The syst em which = 57071-4) generated this result transmit tito reference range : > OR = 60 mL/min/1.73m2. The reference range was not used to interpret this result as normal/abnormal . eGFR See_Comment [Automated mes aziza] MACEDONIAN (test code The syst em which = 08685-8) generated this result transmit tito reference range : > OR = 60 mL/min/1.73m2. The reference range was not used to interpret this result as normal/abnormal . BUN/CREATININE See_Comment [Automated m essage] RATIO (test code = The syste m which 3097-3) generated this result transmit tito reference range : 6 - 22 (calc). The reference range was not used to interpret this result as normal/abnormal . SODIUM (test code = 143 mmol/L 142-482 4716-2) POTASSIUM (test 5.2 mmol/L 3.5-5.3 code = 2823-3) CHLORIDE (test code 107 mmol/L 98-110 = 2075-0) CARBON DIOXIDE 29 mmol/L 20-32 (test code = 8-9) CALCIUM (test code 9.7 mg/dL 8.6-10.3 = 99895-6) PROTEIN, TOTAL 6.8 g/dL 6.1-8.1 (test code = 2885-2) ALBUMIN (test code 4.3 g/dL 3.6-5.1 = 1751-7) GLOBULIN (test code See_Comment [Automa tito message] = 02857-6) The system [employer] generated this result transmit tito reference range : 1.9 - 3.7 g/dL (davey c). The reference r dillon was not used to interpret this result as normal/abnormal . ALBUMIN/GLOBULIN See_Comment [Automated message] RATIO (test code = The syste m which 175-0) generated this result transmit tito reference range : 1.0 - 2.5 (calc). T he reference range was not used to interpret this result as normal/abnormal . BILIRUBIN, TOTAL 0.5 mg/dL 0.2-1.2 (test code = 1975-2) ALKALINE 70 U/L 35-144 PHOSPHATASE (test code = 6768-6) AST (test code = 44 U/L 10-35 H 1920-8) ALT (test code = 54 U/L 9-46 H 1742-6) RAC (test code = Performing RAC) Organization Information: ? ?Site ID: RGA ? ?Name: [employer] [place] ? ?Address: [address] [place] [address] ? ?Director: DAVIN WAGNER MD Lab Interpretation Abnormal (test code = 96555-6) NPI:[id number] [id number] 19:00:00 Test Item Value Reference Range Interpretation Comments C-REACTIVE 1 mg/L <8.0 REPORT PROTEIN (test COMMENT:FASTIN G:Y code = 1987-10) ES RAC (test code = Performing RAC) Organization Information: ? ?Site ID: RGA ? ?Name: [employer] [place] ? ?Address: [address] [place] [address] ? ?Director: DAVIN WAGNER MD NPI:[id number] rate, [id number] 19:00:00 Test Item Value Reference Range Interpretation Comments SED RATE BY 2 mm/h See_Comment [Automated MODIFIED message] The [employer] (test system ic h code = 4537-7) generated thi s result transmit tito reference range : < OR = 20. The reference range was not used to interpret this result as normal/abnormal . RAC (test code = Performing RAC) Organization Information: ? ?Site ID: RGA ? ?Name: [employer] [place] ? ?Address: [address] [place] [address] ? ?Director: DAVIN WAGNER MD NPI:[id number] 11:20:23 Test Item Value Reference Range Interpretation Comments PHOSPHORUS (test code = See_Comment Unless Otherwise 2777-1) Indicated, All Testing Performed At: [facility] [employer] [facility], [address] [place] [address] Laboratory D irector: Dasia delacruz M.D. CLIA Number [id number] [employer] Accreditation N o. [Auto mated message] The sy stem which generated this result transmitted ref erence range: 2.5 - 4. 5 MG/DL. The reference r dillon was not used to int erpret this result as normal/abnormal . [id number] 11:20:23 Test Item Value Reference Range Interpretation Comments MAGNESIUM (test code = See_Comment Unless Otherwise 49168-9) Indicated, All Testing Performed At: [facility], [address] [place] [address] Laboratory Di erik: Dasia delacruz M.D. CLIA Number [id number] Cap Accredit[employer] on No. [Auto mated message] The sy stem which generated this result transmitted ref erence range: 1.6 - 2. 6 MG/DL. The reference r dillon was not used to int erpret this result as josé l/abnormal. [facility] [id number] 11:18:47 Test Item Value Reference Range Interpretation Comments GLUCOSE (test code = See_Comment H [Autom ated message] 8212-7) The system [employer] generated this result transmitted ref erence range: 70 - 99 MG/DL. The reference r dillon was not used to interpret this result as normal/abnor mal. BLOOD UREA NITROGEN See_Comment [Automa tito message] (test code = 3091-6) The sys tem which generated this result transmitted ref erence range: 8 - 23 M G/DL. The reference r dillon was not used to interpret this result as normal/abnor mal. CREATININE (test code = See_Comment H [Au tomated message] 2160-0) The system [employer] generated this result transmitted ref erence range: 0.80 - 1 .40 MG/DL. The refe rence range was not u sed to interpret this result as normal/abnor mal. EGFR AA (test code = See_Comment L [Autom ated message] 30898-1) The system [employer] generated this result transmitted ref erence range: >60 ML/MIN/1.73. Th e reference range was not used to int erpret this result as normal/abnormal . EGFR (test code = See_Comment L [Automate d message] 50318-4) The system [employer] generated this result transmitted ref erence range: >60 ML/MIN/1.73. Th e reference range was not used to int erpret this result as normal/abnormal . BUN/CREAT RATIO (test See_Comment [Auto mated message] code = 3097-3) The system [facility] generated this result transmitted ref erence range: 6 - 28 R ATIO. The reference r dillon was not used to interpret this result as normal/abnor mal. SODIUM (test code = See_Comment [Automa tito message] 0251-2) The system [employer] generated this result transmitted ref erence range: 133 - 14 6 MEQ/L. The refe rence range was not u sed to interpret this result as normal/abnor mal. POTASSIUM (test code = See_Comment [Aut omated message] 8693-3) The system [employer] generated this result transmitted ref erence range: 3.5 - 5. 4 MEQ/L. The refe rence range was not u sed to interpret this result as normal/abnor mal. CHLORIDE (test code = See_Comment [Auto mated message] 9922-0) The system [employer] generated this result transmitted ref erence range: 95 - 107 MEQ/L. The reference r dillon was not used to interpret this result as normal/abnor mal. CO2 (test code = See_Comment [Automated message] 1962-8) The system [employer] generated this result transmitted ref erence range: 19 - 31 MEQ/L. The reference r dillon was not used to interpret this result as normal/abnor mal. CALCIUM (test code = See_Comment [Autom ated message] 00520-4) The system [employer] generated this result transmitted ref erence range: 8.5 - 10 .5 MG/DL. The refe rence range was not u sed to interpret this result as normal/abnor mal. PROTEIN TOTAL (test See_Comment [Automa tito message] code = 2885-2) The system [facility] generated this result transmitted ref erence range: 6.1 - 8. 3 G/DL. The reference r dillon was not used to interpret this result as normal/abnor mal. ALBUMIN (test code = See_Comment [Autom ated message] 15926-7) The system [facility] generated this result transmitted ref erence range: 3.5 - 5. 2 G/DL. The reference r dillon was not used to interpret this result as normal/abnor mal. GLOBULINS, SERUM, TOTAL See_Comment [Au tomated message] (test code = 93077-2) The sy stem which generated this result transmitted ref erence range: 1.9 - 3. 7 G/DL. The reference r dillon was not used to interpret this result as normal/abnor mal. A/G RATIO (test code = See_Comment [Aut omated message] 1759-0) The system [facility] generated this result transmitted ref erence range: 1.0 - 2. 6 RATIO. The refe rence range was not u sed to interpret this result as normal/abnor mal. BILIRUBIN TOTAL (test See_Comment [Auto mated message] code = 1975-2) The system [facility] generated this result transmitted ref erence range: <=1.2 MG /DL. The reference r dillon was not used to interpret this result as normal/abnor mal. ALKALINE PHOSPHATASE 66 U/L 40-123 (test code = 6768-6) AST (SGOT) (test code = 29 U/L 9-50 1920-8) ALT (SGPT) (test code = 39 U/L 5-50 Unless 1744-2) Otherwise Indic ated, All Testing Per formed At: [facility], [address] [place] [address] Laboratory Dire ctor: Dasia delacruz M.D. CLIA Num isi [id number] Cap Accreditation [place] o. 60262-54 Lab Interpretation Abnormal (test code = 64223-0) [facility] [id number] 11:18:47 Test Item Value Reference Range Interpretation Comments URIC ACID (test code = See_Comment H Unless 8052466) Otherwise Indic ated, All Testing Per formed At: [facility], [address] [place] [address] Laboratory Dire ctor: Dasia delacruz M.D. CLIA Num isi [id number] [employer] Acc[employer] N o. 40741-57 [Auto mated message] The sy stem which generated this result transmit tito reference range : 3.7 - 8.0 MG/DL. The reference range was not used to int erpret this result as normal/abnormal . Lab Interpretation Abnormal (test code = 39329-8) [facility] PROTEIN/[id number] 10:36:42 Test Item Value Reference Range Interpretation Comments URINE PROTEIN (test NOT ESTAB MG/DL Reference code = 2888-6) interval for random urine samples h as not been establ ished. CREATININE URINE NOT ESTAB MG/DL Re ference (test code = 2161-8) interva l for random urine samples h as not been establ ished. CALC SEE BELOW MG/G CREAT $$$$$ PROTEIN/CREATININE INTERPRET ZHEN (test code = 72520-3) INFORM ATION $$$$$NKF ADULT AND CHILD NORMAL RANGE . . . . . .MG/G CREAT <200AAFP INFANT (6-24 MONTHS) N ORMAL RANGE . . .MG/G CREAT <500NEPHROTIC R DILLON PROTEINURIA (AP PROX) . . . .MG/G CREAT >2-3,000 NKF NO RMAL RANGES PREFERRE D FOR FIRST MORNING V OID, BUT NON-FIRSTMORNIN G SPECIMENS ARE ACCEPTABLE. FO R ASSESSMENT OF NON-FIRSTMORNIN G SPECIMENS, ANNA TIONAL INTERPRETIVE INFORMATION PROVIDEDBELOW: AGE MALE FEM KATRIN (MG/G CREAT) (MG /G CREAT) 7-9 <220 <300 10-12 <220 <340 13-15 <150 <39 0 16-17 <190 <350 Refs: National Kid[employer] Foundation K/DO QI 2002. [facility] Eddi and [facility] Michael; Proteinur ia in Children. Amer. Fam. Phys. 2010; 8 2(6): 645-651. [place] Sl ev et al. Pediatric R eference Intervals for Random Urine Calcium, Phosphorus and Total Protein. Pedi atr Nephrol. 2010; 25:9580-2236. Unless Otherwis e Indicated, All Testing Performed At: [facility], [address] [place] [address] Hook Tender: Dasia Gutierrez M.D. CLIA Number [id number] [place] [address] [facility]AL[facility], COMPLETE W/REFLEX TO [id number] 09:59:54 Test Item Value Reference Range Interpretation Comments COLOR UA (test code = YELLOW YELLOW-STRAW 5778-6) CLARITY UA (test code CLEAR CLEAR = 5767-9) SPECIFIC GRAVITY UA 1.005-1.035 (test code = 5811-5) LEUKOCYTE ESTERASE UA NEGATIVE NEGATIVE (test code = 5799-2) NITRITE UA (test code NEGATIVE NEGATIVE = 5802-4) PH UA (test code = 5.0-9.0 5803-2) PROTEIN UA (test code NEGATIVE NEGATIVE = 83933-8) GLUCOSE UA (test code NEGATIVE NEGATIVE = 5792-7) KETONES UA (test code NEGATIVE NEGATIVE = 5797-6) UROBILINOGEN UA (test <2.0 See_Comment [Auto mated message] code = 47926-6) The system [employer] [facility] generated this result transmitted ref erence range: <=2.0 M G/DL. The reference r dillon was not used to int erpret this result as normal/abnormal . BILIRUBIN UA (test NEGATIVE NEGATIVE code = 5770-3) OCCULT BLOOD UA (test NEGATIVE NEGATIVE code = 97920-4) WBC UA (test code = See_Comment [Automa tito message] 78829-1) The system [employer] generated this result transmitted ref erence range: 0 - 5 / HPF. The reference range was not used to interpr et this result as normal/abnormal . RBC UA (test code = 0-2 See_Comment [Automa tito message] 95037-9) The system [employer] generated this result transmitted ref erence range: 0 - 5 / HPF. The reference range was not used to interpr et this result as normal/abnormal . EPITHELIAL CELLS (test See_Comment Unless code = 65183-9) Otherwise In dicated, All Testing Per formed At: [facility], [address] [facility], [place] [address] Laboratory Dire ctor: Dasia delacruz M.D. CLIA Numb er [id number] Cap Accreditation N o. 11598-08 [Auto mated message] The sy stem which generated this result transmit tito reference range : 0 - 5 /HPF. The refer ence range was not u sed to interpret this result as normal/abnor mal. [facility] W/AUTO DIFF WITH [id number] 09:22:42 Test Item Value Reference Range Interpretation Comments WHITE BLOOD CELL COUNT See_Comment [Aut omated message] (test code = 91959-8) The sy stem which generated this result transmitted ref erence range: 3.5 - 10 .0 K/UL. The refer ence range was not u sed to interpret this result as normal/abnor mal. RED BLOOD CELL COUNT See_Comment [Autom ated message] (test code = 48884-5) The sy stem which generated this result transmitted ref erence range: 4.30 - 5 .70 M/UL. The refer ence range was not u sed to interpret this result as normal/abnor mal. HEMOGLOBIN (test code = See_Comment [Au tomated message] 718-7) The system whic h generated this result transmitted ref erence range: 13.5 - 1 7.0 G/DL. The refer ence range was not u sed to interpret this result as normal/abnor mal. HEMATOCRIT (test code = 42.6 % 38-50 36102-8) MEAN CORPUSCULAR VOLUME 83.2 fL 80-99 (test code = 83543-3) MEAN CORPUSCULAR 28.3 PG 25-34 HEMOGLOBIN (test code = 01246-9) MEAN CORPUSCULAR See_Comment [Automated message] HEMOGLOBIN CONC (test The sy stem which code = 33315-6) generated th is result transmitted ref erence range: 31.0 - 3 6.0 G/DL. The refer ence range was not u sed to interpret this result as normal/abnor mal. RED CELL DISTRIBUTION 15.3 % 11.5-15 H WIDTH (test code = 48258-9) NEUTROPHILS % (test 65.2 % 40-75 code = 29744-6) LYMPHOCYTES % (test 18.0 % 20-45 L code = 66366-0) MONOCYTES % (test code 13.3 % 4-12 H = 75429-1) EOSINOPHILS % (test 2.2 % 0-7 code = 05343-9) BASOPHILS % (test code 1.3 % 0-2 = 16415-8) PLATELET COUNT (test See_Comment Unless code = 81780-0) Otherwise In dicated, All Testing Per formed At: [facility], [address] [place] [address] Laboratory Dire ctor: Dasia delacruz M.D. CLIA Num isi [id number] Cap Accreditation N o. [id number] [Auto mated message] The sy stem which generated this result transmit tito reference range : 130 - 400 K/UL. The reference range was not used to int erpret this result as normal/abnormal . Lab Interpretation Abnormal (test code = 96535-4) [facility] [id number] 10:22:15 Test Item Value Reference Range Interpretation Comments GLUCOSE (test code = See_Comment [Autom ated message] 2345-7) The system [employer] generated this result transmitted ref erence range: 70 - 99 MG/DL. The reference r dillon was not used to interpret this result as normal/abnor mal. BLOOD UREA NITROGEN See_Comment H [Automa tito message] (test code = 3091-6) The sys tem which generated this result transmitted ref erence range: 8 - 23 M G/DL. The reference r dillon was not used to interpret this result as normal/abnor mal. CREATININE (test code = See_Comment H [Au tomated message] 2160-0) The system [employer] generated this result transmitted ref erence range: 0.80 - 1 .40 MG/DL. The refe rence range was not u sed to interpret this result as normal/abnor mal. EGFR AA (test code = See_Comment L [Autom ated message] 47327-5) The system [employer] generated this result transmitted ref erence range: >60 ML/MIN/1.73. Th e reference range was not used to int erpret this result as normal/abnormal . EGFR (test code = See_Comment L [Automate d message] 14874-7) The system [facility] generated this result transmitted ref erence range: >60 ML/MIN/1.73. Th e reference range was not used to int erpret this result as normal/abnormal . BUN/CREAT RATIO (test See_Comment [Auto mated message] code = 3097-3) The system [facility] generated this result transmitted ref erence range: 6 - 28 R ATIO. The reference r dillno was not used to interpret this result as normal/abnor mal. SODIUM (test code = See_Comment [Automa tito message] 2951-2) The system [facility] generated this result transmitted ref erence range: 133 - 14 6 MEQ/L. The refe rence range was not u sed to interpret this result as normal/abnor mal. POTASSIUM (test code = See_Comment H [Aut omated message] 7283-3) The system [facility] generated this result transmitted ref erence range: 3.5 - 5. 4 MEQ/L. The refe rence range was not u sed to interpret this result as normal/abnor mal. CHLORIDE (test code = See_Comment [Auto mated message] 5285-0) The system [facility] generated this result transmitted ref erence range: 95 - 107 MEQ/L. The reference r dillon was not used to interpret this result as normal/abnor mal. CO2 (test code = See_Comment [Automated message] 1963-8) The system [facility] generated this result transmitted ref erence range: 19 - 31 MEQ/L. The reference r dillon was not used to interpret this result as normal/abnor mal. CALCIUM (test code = See_Comment [Autom ated message] 32493-2) The system [facility] generated this result transmitted ref erence range: 8.5 - 10 .5 MG/DL. The refe rence range was not u sed to interpret this result as normal/abnor mal. PROTEIN TOTAL (test See_Comment [Automa tito message] code = 2885-2) The system [facility] generated this result transmitted ref erence range: 6.1 - 8. 3 G/DL. The reference r dillon was not used to interpret this result as normal/abnor mal. ALBUMIN (test code = See_Comment [Autom ated message] 03962-2) The system [employer] generated this result transmitted ref erence range: 3.5 - 5. 2 G/DL. The reference r dillon was not used to interpret this result as normal/abnor mal. GLOBULINS, SERUM, TOTAL See_Comment [Au tomated message] (test code = 47004-1) The sy stem which generated this result transmitted ref erence range: 1.9 - 3. 7 G/DL. The reference r dillon was not used to interpret this result as normal/abnor mal. A/G RATIO (test code = See_Comment [Aut omated message] 1759-0) The system [employer] generated this result transmitted ref erence range: 1.0 - 2. 6 RATIO. The refe rence range was not u sed to interpret this result as normal/abnor mal. BILIRUBIN TOTAL (test See_Comment [Auto mated message] code = 1975-2) The system [facility] generated this result transmitted ref erence range: <=1.2 MG /DL. The reference r dillon was not used to interpret this result as normal/abnor mal. ALKALINE PHOSPHATASE 70 U/L 40-123 (test code = 6768-6) AST (SGOT) (test code = 30 U/L 9-50 1920-8) ALT (SGPT) (test code = 37 U/L 5-50 Unless 1744-2) Otherwise Indic ated, All Testing Per formed At: [facility], [address] [place] [address] Laboratory Dire ctor: Tien MorenoIA Num [facility] [id number] Cap Accreditation N o. [id number] Lab Interpretation Abnormal (test code = 47786-9) [facility] W/AUTO DIFF WITH [id number] 07:37:08 Test Item Value Reference Range Interpretation Comments WHITE BLOOD CELL COUNT See_Comment [Aut omated message] (test code = 74829-7) The sy stem which generated this result transmitted ref erence range: 4.0 - 11 .0 K/UL. The refer ence range was not u sed to interpret this result as normal/abnor mal. RED BLOOD CELL COUNT See_Comment [Autom ated message] (test code = 73059-4) The sy stem which generated this result transmitted ref erence range: 4.10 - 5 .70 M/UL. The refer ence range was not u sed to interpret this result as normal/abnor mal. HEMOGLOBIN (test code = See_Comment [Au tomated message] 718-7) The system whic h generated this result transmitted ref erence range: 13.0 - 1 7.0 G/DL. The refer ence range was not u sed to interpret this result as normal/abnor mal. HEMATOCRIT (test code = 43.9 % 37-49 57571-4) MEAN CORPUSCULAR VOLUME 80.1 fL 80-100 (test code = 90115-7) MEAN CORPUSCULAR 27.9 PG 27-34 HEMOGLOBIN (test code = 34067-5) MEAN CORPUSCULAR See_Comment [Automated message] HEMOGLOBIN CONC (test The sy stem which code = 75534-6) generated th is result transmitted ref erence range: 32.0 - 3 5.5 G/DL. The refer ence range was not u sed to interpret this result as normal/abnor mal. RED CELL DISTRIBUTION 15.9 % 11-15 H WIDTH (test code = 37482-1) NEUTROPHILS % (test 66.7 % 40-74 code = 06999-2) LYMPHOCYTES % (test 16.2 % 19-48 L code = 59774-0) MONOCYTES % (test code 12.3 % 4-13 = 82862-5) EOSINOPHILS % (test 2.8 % 0-7 code = 72511-2) BASOPHILS % (test code 2.0 % 0-2 = 25161-4) PLATELET COUNT (test See_Comment Unless code = 71014-2) Otherwise In dicated, All Testing Per formed At: [facility], [address] [facility], [place] [address] Laboratory Dire ctor: Dasia delacruz M.D. CLIA Num isi [id number] Cap Accreditation N o. [id number] [Auto mated message] The sy stem which generated this result transmit tito reference range : 130 - 400 K/UL. The reference range was not used to int erpret this result as normal/abnormal . Lab Interpretation Abnormal (test code = 80677-4) [facility] [id number] 00:00:00 Test Item Value Reference Range Interpretation Comments COLOR UA (test code = 5778-6) Yellow YELLOW/STRAW CLARITY UA (test code = 05484-2) Clear CLEAR GLUCOSE UA (test code = 5792-7) Negative NEGATIVE BILIRUBIN UA (test code = 5770-3) 2+ NEGATIVE KETONES UA (test code = 04586-7) Negative NEGATIVE SPECIFIC GRAVITY UA (test code = 1.005-1.035 5811-5) BLOOD UA (test code = 5794-3) Negative NEGATIVE PH UA (test code = 5803-2) 5-9 PROTEIN UA (test code = 5804-0) Negative NEGATIVE UROBILINOGEN UA (test code = 0.02 E.U/DL NORMAL MG/DL 5818-0) LEUKOCYTE ESTERASE UA (test code Negative NEGATIVE = 5799-2) NITRITE UA (test code = 5802-4) Negative NEGATIVE REDUCING SUBSTANCES URINE (test code = 03372-8) [facility] [id number] 13:31:00Surgical Pathology Report Case: [id number] Authorizing Provider: Rico Holloway MD Collected: 01/02/2019 1249 Ordering Location: [facility] Received: 01/02/2019 1427 SERVICES Pathologist: Mario Hernandez MD Specimen: Dell clark, Left A. KIDNEY, LEFT, RADICAL NEPHRECTOMY: - CLEAR CELL PAPILLARY RENAL CELL CARCINOMA, BLAS NUCLEAR GRADE 2 - TUMORMEASURES 6.0 CM IN GREATEST DIMENSION - TUMOR IS ORGAN CONFINED - SURGICAL MARGINS, NEGATIVE FOR MALIGNANCY - NEGATIVE FOR LYMPHO-VASCULAR INVASION - NEGATIVE FOR TUMOR NECROSIS - NEGATIVE FOR SARCOMATOID FEATURES - UNINVOLVED KIDNEY WITH NO SIGNIFICANT DIAGNOSTIC ABNORMALITY - PATHOLOGIC TUMOR STAGING: [id number] Signing Pathologist Direct Phone Line: [phone] signed by Mario Hernandez MD on 01/14/2019 at 1:31 PMImmunostains for CK7 and CD10 are positive; while AMACR is negative. While majority of the tumor appears to clear cell papillary renal cell carcinoma, focal areas (~10%) are also reminiscent of conventional clear cell carcinoma.KIDNEY: Nephrectomy(Kidney Res - All Specimens)SPECIMEN Procedure: Radical nephrectomy [...] Extension: Tumor limited to kidney Accessory Findings: Sa rcomatoid Features: Not identified Rhabdoid Features: Not identified Tumor Necrosis: Not identified Lymphovascular Invasion: Not identified MARGINS Margins: Uninvolved by invasive carcinoma LYMPH NODES Regional Lymph Nodes: No lymph nodes submitted or found PATHOLOGIC STAGE CLASSIFICATION (pTNM, AJCC 8th Edition) TNM Descriptors: Not applicable Primary Tumor (pT): pT1b Regional Lymph Nodes (pN): pNX ADDITIONAL FINDINGS Pathologic Findings in Nonneoplastic Kidney: None identified [id number] mass Kidney, leftReceived fresh labeledwith the patient's name, accession number and "kidney, left" is a 2,082 gm, 25 x 16 x 15 cm radical nephrectomy. The kidney measures 13.5 x 7.5 x 7.4 cm, and there is an abundant amount of attached perinephric fat. There is a 4.5 x 0.5 cm, attached, slightly dilated, but otherwise unremarkable ureter.An adrenal gland is not present.The specimen is [...] nodes are not present in the hilum. Water Mangle Tender sections are submitted.Ink code: Black-outer surface of perinephric fat.Section code:A1, ureter and vascular margins, en faceA2-A3, mass to renal sinus and veinA4-A7, mass to capsule and perinephric fat A8, mass toparenchyma interfaceA9, mass to renal naczxB77, artists' booking representative of massA11, artists' booking representative of hilar fatA12, uninvolved renal parenchymaCG/ewPerformed.The interpretation of this case included the use of immunohistochemistry or special stains.Control Slides Examined: In-house known positive controls were evaluated along with the test tissue. These control slides run alongside of the patients sample show appropriate staining. Internal positive and negative controls when available are evaluated Immunohistochemistry technical testing was performed at [facility], Pathology Laboratory where it was developed and its performance characteristics were determined. It has not been cleared or approved by the U.S. Food and Drug Administration. The FDA has determined that such clearance orapproval is not necessary. The test is used for clinical purposes. It should not be regarded as investigational or for research. This laboratory is certified under the Clinical Laboratory Improvement Amendments of 1988 (CLIA-88) as qualified to perform high complexity clinical laboratory testing.WOUND CULTURE + GRAM [id number] 14:53:00 Test Item Value Reference Range Interpretation Comments CULTURE (BEAKER) A <1+ Staphyl ococcus (test code = 1095) epidermid is BASIC METABOLIC [id number] 07:18:00 Test Item Value Reference Range Interpretation Comments SODIUM (BEAKER) 139 meq/L 136-145 (test code = 381) POTASSIUM (BEAKER) 3.9 meq/L 3.5-5.1 (test code = 379) CHLORIDE (BEAKER) 109 meq/L 98-107 H (test code = 382) CO2 (BEAKER) (test 24 meq/L 22-29 code = 355) BLOOD UREA NITROGEN 9 mg/dL 7-21 (BEAKER) (test code = 354) CREATININE (BEAKER) 1.04 mg/dL 0.57-1.25 (test code = 358) GLUCOSE RANDOM 108 mg/dL 70-105 H (BEAKER) (test code = 652) CALCIUM (BEAKER) 7.8 mg/dL 8.4-10.2 L (test code = 697) EGFR (BEAKER) (test 72 mL/min/1.73 ESTIMA TITO GFR IS code = 1092) sq m NOT ACCURATE CREATININE CLEARANCE IN PREDICTING GLOMERULAR FILTRATION RATE . ESTIMATED GFR I S NOT APPLICABLE FOR DIALYSIS PATIEN TS. HEMOGLOBIN AND [id number] 06:44:00 Test Item Value Reference Range Interpretation Comments HEMOGLOBIN (BEAKER) (test code = 12.2 GM/DL 13.7-17.5 L 410) HEMATOCRIT (BEAKER) (test code = 40.8 % 40.1-51.0 411) ANAEROBIC [id number] 03:32:00 Test Item Value Reference Range Interpretation Comments CULTURE (BEAKER) (test No anaerobes isolated code = 1095) HEPATIC FUNCTION [id number] 11:02:00 Test Item Value Reference Range Interpretation Comments TOTAL PROTEIN (BEAKER) (test code = 5.8 gm/dL 6.0-8.3 L 770) ALBUMIN (BEAKER) (test code = 1145) 3.0 g/dL 3.5-5.0 L BILIRUBIN TOTAL (BEAKER) (test code 0.8 mg/dL 0.2-1.2 = 377) BILIRUBIN DIRECT (BEAKER) (test 0.5 mg/dL 0.1-0.5 code = 706) ALKALINE PHOSPHATASE (BEAKER) (test 93 U/L 40-150 code = 346) AST (SGOT) (BEAKER) (test code = 30 U/L 5-34 353) ALT (SGPT) (BEAKER) (test code = 18 U/L 6-55 347) BASIC METABOLIC [id number] 06:30:00 Test Item Value Reference Range Interpretation Comments SODIUM (BEAKER) 135 meq/L 136-145 L (test code = 381) POTASSIUM (BEAKER) 3.9 meq/L 3.5-5.1 (test code = 379) CHLORIDE (BEAKER) 104 meq/L 98-107 (test code = 382) CO2 (BEAKER) (test 24 meq/L 22-29 code = 355) BLOOD UREA NITROGEN 8 mg/dL 7-21 (BEAKER) (test code = 354) CREATININE (BEAKER) 1.08 mg/dL 0.57-1.25 (test code = 358) GLUCOSE RANDOM 109 mg/dL 70-105 H (BEAKER) (test code = 652) CALCIUM (BEAKER) 7.7 mg/dL 8.4-10.2 L (test code = 697) EGFR (BEAKER) (test 69 mL/min/1.73 ESTIMA TITO GFR IS code = 1092) sq m NOT ACCURATE CREATININE CLEARANCE IN PREDICTING GLOMERULAR FILTRATION RATE . ESTIMATED GFR I S NOT APPLICABLE FOR DIALYSIS PATIEN TS. HEMOGLOBIN AND [id number] 05:41:00 Test Item Value Reference Range Interpretation Comments HEMOGLOBIN (BEAKER) (test code = 12.7 GM/DL 13.7-17.5 L 410) HEMATOCRIT (BEAKER) (test code = 41.7 % 40.1-51.0 411) BASIC METABOLIC [id number] 08:51:00 Test Item Value Reference Range Interpretation Comments SODIUM (BEAKER) 136 meq/L 136-145 (test code = 381) POTASSIUM (BEAKER) 4.1 meq/L 3.5-5.1 Specimen slightly (test code = 379) hemolyzed CHLORIDE (BEAKER) 103 meq/L 98-107 (test code = 382) CO2 (BEAKER) (test 25 meq/L 22-29 code = 355) BLOOD UREA NITROGEN 11 mg/dL 7-21 (BEAKER) (test code = 354) CREATININE (BEAKER) 1.16 mg/dL 0.57-1.25 Specimen slightly (test code = 358) hemolyzed GLUCOSE RANDOM 110 mg/dL 70-105 H (BEAKER) (test code = 652) CALCIUM (BEAKER) 7.7 mg/dL 8.4-10.2 L (test code = 697) EGFR (BEAKER) (test 64 mL/min/1.73 ESTIMA TITO GFR IS code = 1092) sq m NOT ACCURATE CREATININE CLEARANCE IN PREDICTING GLOMERULAR FILTRATION RATE . ESTIMATED GFR I S NOT APPLICABLE FOR DIALYSIS PATIEN TS. HEMOGLOBIN AND [id number] 08:03:00 Test Item Value Reference Range Interpretation Comments HEMOGLOBIN (BEAKER) (test code = 13.1 GM/DL 13.7-17.5 L 410) HEMATOCRIT (BEAKER) (test code = 43.1 % 40.1-51.0 411) CT, [id number] 16:56:00With PO contrastFINAL REPORT ABDOMINAL AND PELVIS CT DATED 01/10/2019 CLINICAL INFORMATION: A bdominal distension TECHNIQUE: Axial images of the abdomen [...] large bowel without diverticulitis. Appendix is not visua lized. No mass, adenopathy or ascites is present. IMPRESSION: 1. Diverticulosis without diverticulitis.2. Status post left nephrectomy.3. Right renal cyst.4. Distended gallbladder with gallstones without biliary dilatation.5. Trace bilateral pleural effusion. Signed: Bridget Yepezeport Verified Date/Time: 01/10/2019 16:56:13 Reading Location: [place] [address] CT Body Reading Room RAD, ABDOMEN/KUB, 1 VIEW [id number] 11:39:00Reason for exam:->NGT placementShould this be performed at the bedside?->YesFINAL REPORT ONE VIEW ABDOMEN HISTORY: Status post nasogastric tube placement COMPARISON: 01/09/2019 FINDINGS: Single supine AP image of the abdomen was obtained. Nasogastric tubetip is in the region of the body of the stomach. There are dilated bowel loops in the central and lower abdomen, similar to the prior study and suggestive of adynamic ileus. Signed: Morales Crowort Verified Date/Time: 01/10/2019 11:39:35 Reading Location: [facility] C013T Transitional Reading Room [id number] 07:33:00 Test Item Value Reference Range Interpretation Comments MAGNESIUM (BEAKER) 2.2 mg/dL 1.6-2.6 Specimen slightly (test code = 627) hemolyzed [id number] 07:33:00 Test Item Value Reference Range Interpretation Comments PHOSPHORUS (BEAKER) 2.6 mg/dL 2.3-4.7 Specimen slightly (test code = 604) hemolyzed BASIC METABOLIC [id number] 07:33:00 Test Item Value Reference Range Interpretation Comments SODIUM (BEAKER) 138 meq/L 136-145 (test code = 381) POTASSIUM (BEAKER) 4.0 meq/L 3.5-5.1 Specimen slightly (test code = 379) hemolyzed CHLORIDE (BEAKER) 103 meq/L 98-107 (test code = 382) CO2 (BEAKER) (test 27 meq/L 22-29 code = 355) BLOOD UREA NITROGEN 17 mg/dL 7-21 (BEAKER) (test code = 354) CREATININE (BEAKER) 1.12 mg/dL 0.57-1.25 Specimen slightly (test code = 358) hemolyzed GLUCOSE RANDOM 114 mg/dL 70-105 H (BEAKER) (test code = 652) CALCIUM (BEAKER) 8.0 mg/dL 8.4-10.2 L (test code = 697) EGFR (BEAKER) (test 66 mL/min/1.73 ESTIMA TITO GFR IS code = 1092) sq m NOT ACCURATE CREATININE CLEARANCE IN PREDICTING GLOMERULAR FILTRATION RATE . ESTIMATED GFR I S NOT APPLICABLE FOR DIALYSIS PATIEN TS. URINE [id number] 15:09:00 Test Item Value Reference Range Interpretation Comments CULTURE (BEAKER) (test code = 1095) No growth RAD, ABDOMEN/KUB, 1 VIEW [id number] 10:34:00Reason for exam:->abdominal distensionShould this be performed at the bedside?->YesFINAL REPORT Exam: KUB three views INDICATION: Abdominal distention. COMPARISO N: KUB of 01/07/2019. FINDINGS:Persistent dilated loops of small bowel measuring up to 5.0 cm, not significantly changed from the prior KUB of 01/07/2019. Air- fluid levels are not apparent as in the prior study. Persistent paucity of colonic bowel gas. No free air. The osseous structures appear unremarkable. The minimally visualized lung bases appear unremarkable. IMPRESSION:Dilated loops of small bowel, not definitely changed from 01/07/2019, consistent with ileus versus obstruction. Signed: Jayna Gore MDReport Verified Date/Time: 01/09/2019 10:34:42 Reading Location: [facility] Radiology Reading Room PHOSPHORUS 2019-01-09 04:41:00 Test Item Value Reference Range Interpretation Comments PHOSPHORUS (BEAKER) (test code = 2.6 mg/dL 2.3-4.7 604) [id number] 04:41:00 Test Item Value Reference Range Interpretation Comments MAGNESIUM (BEAKER) (test code = 2.2 mg/dL 1.6-2.6 627) BASIC METABOLIC [id number] 04:41:00 Test Item Value Reference Range Interpretation Comments SODIUM (BEAKER) 139 meq/L 136-145 (test code = 381) POTASSIUM (BEAKER) 3.3 meq/L 3.5-5.1 L (test code = 379) CHLORIDE (BEAKER) 101 meq/L 98-107 (test code = 382) CO2 (BEAKER) (test 28 meq/L 22-29 code = 355) BLOOD UREA NITROGEN 33 mg/dL 7-21 H (BEAKER) (test code = 354) CREATININE (BEAKER) 1.38 mg/dL 0.57-1.25 H (test code = 358) GLUCOSE RANDOM 119 mg/dL 70-105 H (BEAKER) (test code = 652) CALCIUM (BEAKER) 8.0 mg/dL 8.4-10.2 L (test code = 697) EGFR (BEAKER) (test 52 mL/min/1.73 ESTIMA TITO GFR IS code = 1092) sq m NOT ACCURATE CREATININE CLEARANCE IN PREDICTING GLOMERULAR FILTRATION RATE . ESTIMATED GFR I S NOT APPLICABLE FOR DIALYSIS PATIEN TS. [id number] 11:45:00 Test Item Value Reference Range Interpretation Comments AMYLASE (BEAKER) (test code = 349) 78 U/L 25-125 [id number] 02:24:00 Test Item Value Reference Range Interpretation Comments PHOSPHORUS (BEAKER) (test code = 3.7 mg/dL 2.3-4.7 604) [id number] 02:24:00 Test Item Value Reference Range Interpretation Comments MAGNESIUM (BEAKER) (test code = 2.5 mg/dL 1.6-2.6 627) BASIC METABOLIC [id number] 02:24:00 Test Item Value Reference Range Interpretation Comments SODIUM (BEAKER) 137 meq/L 136-145 (test code = 381) POTASSIUM (BEAKER) 4.2 meq/L 3.5-5.1 (test code = 379) CHLORIDE (BEAKER) 95 meq/L 98-107 L (test code = 382) CO2 (BEAKER) (test 31 meq/L 22-29 H code = 355) BLOOD UREA NITROGEN 46 mg/dL 7-21 H (BEAKER) (test code = 354) CREATININE (BEAKER) 1.64 mg/dL 0.57-1.25 H (test code = 358) GLUCOSE RANDOM 109 mg/dL 70-105 H (BEAKER) (test code = 652) CALCIUM (BEAKER) 8.8 mg/dL 8.4-10.2 (test code = 697) EGFR (BEAKER) (test 43 mL/min/1.73 ESTIMA TITO GFR IS code = 1092) sq m NOT ACCURATE CREATININE CLEARANCE IN PREDICTING GLOMERULAR FILTRATION RATE . ESTIMATED GFR I S NOT APPLICABLE FOR DIALYSIS PATIEN TS. CBC (HEMOGRAM ONLY)2019-01-08 01:58:00 Test Item Value Reference Range Interpretation Comments WHITE BLOOD CELL COUNT (BEAKER) 7.8 K/ L 3.5-10.5 (test code = 775) RED BLOOD CELL COUNT (BEAKER) 5.44 M/ L 4.63-6.08 (test code = 761) HEMOGLOBIN (BEAKER) (test code = 13.5 GM/DL 13.7-17.5 L 410) HEMATOCRIT (BEAKER) (test code = 44.6 % 40.1-51.0 411) MEAN CORPUSCULAR VOLUME (BEAKER) 82.0 fL 79.0-92.2 (test code = 753) MEAN CORPUSCULAR HEMOGLOBIN 24.8 pg 25.7-32.2 L (BEAKER) (test code = 751) MEAN CORPUSCULAR HEMOGLOBIN CONC 30.3 GM/DL 32.3-36.5 L (BEAKER) (test code = 752) RED CELL DISTRIBUTION WIDTH 16.2 % 11.6-14.4 H (BEAKER) (test code = 412) PLATELET COUNT (BEAKER) (test 428 K/CU MM 150-450 code = 756) MEAN PLATELET VOLUME (BEAKER) 9.8 fL 9.4-12.4 (test code = 754) NUCLEATED RED BLOOD CELLS 0 /100 WBC 0-0 (BEAKER) (test code = 413) CT, [id number] 01:05:00Reason for exam:->EMESISsince 1330 this afternoonReason for [...] may be due to recent instrumentation or in fection.REPRODUCTIVE ORGANS: Within normal limits. BOWEL/MESENTERY: Colonic diverticulosis without acute diverticulitis. Multiple fluid-filled dilated small bowel loops with air-fluid levels without a transition point compatible with an ileus. No abnormal bowel wall thickening. Normal appendix. PERITON EUM/RETROPERITONEUM: Small free fluid in the medial left [...] right pleural effusion. Bibasilar subsegmental atelectasis. Signed: Bret Avila MDReport Verified Date/Time: 01/08/2019 01:05:19 URINALYSIS W/ [id number] 22:45:00 Test Item Value Reference Range Interpretation Comments COLOR (BEAKER) (test code = 470) Yellow CLARITY (BEAKER) (test code = 469) Clear SPECIFIC GRAVITY UA (BEAKER) (test 1.018 1.001-1.035 code = 468) PH UA (BEAKER) (test code = 467) 5.0 5.0-8.0 PROTEIN UA (BEAKER) (test code = 30 mg/dL Negative A 464) GLUCOSE UA (BEAKER) (test code = Negative Negative 365) KETONES UA (BEAKER) (test code = Negative Negative 371) BILIRUBIN UA (BEAKER) (test code = Positive Negative A 462) BLOOD UA (BEAKER) (test code = 461) Negative Negative NITRITE UA (BEAKER) (test code = Negative Negative 465) LEUKOCYTE ESTERASE UA (BEAKER) Negative Negative (test code = 466) UROBILINOGEN UA (BEAKER) (test code 0.2 mg/dL 0.2-1.0 = 463) RBC UA (BEAKER) (test code = 519) < /HPF WBC UA (BEAKER) (test code = 520) < /HPF MUCUS (BEAKER) (test code = 1574) Rare HYALINE CASTS (BEAKER) (test code = 5 /LPF 514) SOURCE(BEAKER) (test code = 2795) [id number] 22:33:00 Test Item Value Reference Range Interpretation Comments LIPASE (BEAKER) (test code = 749) 81 U/L 8-78 H HEPATIC FUNCTION [id number] 22:33:00 Test Item Value Reference Range Interpretation Comments TOTAL PROTEIN (BEAKER) (test code = 6.9 gm/dL 6.0-8.3 770) ALBUMIN (BEAKER) (test code = 1145) 3.5 g/dL 3.5-5.0 BILIRUBIN TOTAL (BEAKER) (test code 1.4 mg/dL 0.2-1.2 H = 377) BILIRUBIN DIRECT (BEAKER) (test 0.8 mg/dL 0.1-0.5 H code = 706) ALKALINE PHOSPHATASE (BEAKER) (test 89 U/L 40-150 code = 346) AST (SGOT) (BEAKER) (test code = 39 U/L 5-34 H 353) ALT (SGPT) (BEAKER) (test code = 21 U/L 6-55 347) RAD, ABDOMEN SERIES W/ UPRIGHT PA [id number] 22:19:00Reason for exam:- >abd painfree air under the diaphragm?Should this be performed at the bedside?->NoFINAL REPORT HISTORY: Abdominal pain COMPARISON: None. DISCUSSION:An [...] MDReport Verified Date/Time: 01/07/2019 22:19:37 Reading Location: [address] Consult Reading Room TROPONIN [id number] 21:25:00 Test Item Value Reference Range Interpretation Comments TROPONIN I (BEAKER) (test code = 397) < ng/mL 0.00-0.03 Troponin I (TnI) levels [...] disease, and persistent tachyarrhythmia.B-TYPE NATRIURETIC FACTOR (BNP) 2019-01-07 21:25:00 Test Item Value Reference Range Interpretation Comments B-TYPE NATRIURETIC PEPTIDE (BEAKER) 21 pg/mL 0-100 (test code = 700) BASIC METABOLIC [id number] 21:18:00 Test Item Value Reference Range Interpretation Comments SODIUM (BEAKER) 137 meq/L 136-145 (test code = 381) POTASSIUM (BEAKER) 4.0 meq/L 3.5-5.1 (test code = 379) CHLORIDE (BEAKER) 96 meq/L 98-107 L (test code = 382) CO2 (BEAKER) (test 31 meq/L 22-29 H code = 355) BLOOD UREA NITROGEN 45 mg/dL 7-21 H (BEAKER) (test code = 354) CREATININE (BEAKER) 1.59 mg/dL 0.57-1.25 H (test code = 358) GLUCOSE RANDOM 108 mg/dL 70-105 H (BEAKER) (test code = 652) CALCIUM (BEAKER) 9.0 mg/dL 8.4-10.2 (test code = 697) EGFR (BEAKER) (test 44 mL/min/1.73 ESTIMA TITO GFR IS code = 1092) sq m NOT ACCURATE CREATININE CLEARANCE IN PREDICTING GLOMERULAR FILTRATION RATE . ESTIMATED GFR I S NOT APPLICABLE FOR DIALYSIS PATIEN TS. CREATINE KINASE (CK)2019-01-07 21:18:00 Test Item Value Reference Range Interpretation Comments CREATINE KINASE TOTAL (BEAKER) (test 55 U/L 29-200 code = 380) [id number] 21:17:00 Test Item Value Reference Range Interpretation Comments MAGNESIUM (BEAKER) (test code = 2.5 mg/dL 1.6-2.6 627) CBC W/PLT COUNT & AUTO [id number] 21:03:00 Test Item Value Reference Range Interpretation Comments WHITE BLOOD CELL COUNT (BEAKER) 9.5 K/ L 3.5-10.5 (test code = 775) RED BLOOD CELL COUNT (BEAKER) 5.50 M/ L 4.63-6.08 (test code = 761) HEMOGLOBIN (BEAKER) (test code = 13.9 GM/DL 13.7-17.5 410) HEMATOCRIT (BEAKER) (test code = 44.8 % 40.1-51.0 411) MEAN CORPUSCULAR VOLUME (BEAKER) 81.5 fL 79.0-92.2 (test code = 753) MEAN CORPUSCULAR HEMOGLOBIN 25.3 pg 25.7-32.2 L (BEAKER) (test code = 751) MEAN CORPUSCULAR HEMOGLOBIN CONC 31.0 GM/DL 32.3-36.5 L (BEAKER) (test code = 752) RED CELL DISTRIBUTION WIDTH 16.2 % 11.6-14.4 H (BEAKER) (test code = 412) PLATELET COUNT (BEAKER) (test 437 K/CU MM 150-450 code = 756) MEAN PLATELET VOLUME (BEAKER) 10.0 fL 9.4-12.4 (test code = 754) NUCLEATED RED BLOOD CELLS 0 /100 WBC 0-0 (BEAKER) (test code = 413) NEUTROPHILS RELATIVE PERCENT 80 % (BEAKER) (test code = 429) LYMPHOCYTES RELATIVE PERCENT 4 % (BEAKER) (test code = 430) MONOCYTES RELATIVE PERCENT 14 % (BEAKER) (test code = 431) EOSINOPHILS RELATIVE PERCENT 2 % (BEAKER) (test code = 432) BASOPHILS RELATIVE PERCENT 0 % (BEAKER) (test code = 437) NEUTROPHILS ABSOLUTE COUNT 7.55 K/ L 1.78-5.38 H (BEAKER) (test code = 670) LYMPHOCYTES ABSOLUTE COUNT 0.35 K/ L 1.32-3.57 L (BEAKER) (test code = 414) MONOCYTES ABSOLUTE COUNT (BEAKER) 1.36 K/ L 0.30-0.82 H (test code = 415) EOSINOPHILS ABSOLUTE COUNT 0.14 K/ L 0.04-0.54 (BEAKER) (test code = 416) BASOPHILS ABSOLUTE COUNT (BEAKER) 0.04 K/ L 0.01-0.08 (test code = 417) IMMATURE GRANULOCYTES-RELATIVE 1 % 0-1 PERCENT (BEAKER) (test code = 2801) RAD, CHEST, 1 VIEW, NON [id number] 21:03:00Reason for exam:->EMESISsince 1330 this afternoonReason for [...] identified. IMPRESSION: No significant interval change from 01/05/2019. Signed: Pavel Antony MDRjelaniort Verified Date/Time: 01/07/2019 21:03:03 Reading Location: [facility] [id number] Consult Reading Room PUL PERF IMAGING, PARTIC, [id number] 10:56:00FINAL REPORT PROCEDURE: V/Q LUNG SCAN CPT CODE: 41471 INDICATION: Acute chest pain, hypoxia PROTOCOL: 10.8 [...] MDReport Verified Date/Time: 01/05/2019 10:56:35 Reading Location: [facility] Med Reading Room C. DIFFICILE GDH [id number] 10:36:00 Test Item Value Reference Range Interpretation Comments CDT TOXIN (test code Negative Negative = 2460182453) CDT GDH ANTIGEN (test Negative Negative No ind ication of code = 2331151715) Clostridi um difficile infection and n o colonization. Discontinue ent josé isolation and t herapy. Testing performed by [employer] Rapid Cassette Assay. For GDH, published sensitivity of the assay is 98.7% compared to cytotoxicity testing. For Toxin AB, published sensitivity is 87.8% and specificity 99.4% compared to cytotoxicity testing.Verification of kit performance was done by the [facility] Microbiology Lab prior to clinical use.BASIC METABOLIC [id number] 07:58:00 Test Item Value Reference Range Interpretation Comments SODIUM (BEAKER) 142 meq/L 136-145 (test code = 381) POTASSIUM (BEAKER) 4.2 meq/L 3.5-5.1 Specimen slightly (test code = 379) hemolyzed CHLORIDE (BEAKER) 99 meq/L 98-107 (test code = 382) CO2 (BEAKER) (test 34 meq/L 22-29 H code = 355) BLOOD UREA NITROGEN 26 mg/dL 7-21 H (BEAKER) (test code = 354) CREATININE (BEAKER) 1.50 mg/dL 0.57-1.25 H Specimen slightly (test code = 358) hemolyzed GLUCOSE RANDOM 154 mg/dL 70-105 H (BEAKER) (test code = 652) CALCIUM (BEAKER) 8.7 mg/dL 8.4-10.2 (test code = 697) EGFR (BEAKER) (test 47 mL/min/1.73 ESTIMA TITO GFR IS code = 1092) sq m NOT ACCURATE CREATININE CLEARANCE IN PREDICTING GLOMERULAR FILTRATION RATE . ESTIMATED GFR I S NOT APPLICABLE FOR DIALYSIS PATIEN TS. RAD, CHEST, 1 VIEW, NON [id number] 07:51:00Reason for exam:->eval breathing statusShould this be performed at the bedside?->YesFINAL REPORT AP chest dated 01/05/2019 Comment: Heart is normal in size. Pulmonary vasculature is unremarkable. Left hemidiaphragm is elevated. Subsegmental atelectasis is seen in the left lower lobe. The rest of the lungs are clear. No pulmonary infiltrate or pleural effusion. IMPRESSION: Left lower lobe subsegmental atelectasis. Signed: Bridget Yepez MDReport Verified Date/Time: 01/05/2019 07:51:40 [facility] [place] [place] [facility] Reading Room HEMOGLOBIN AND [id number] 06:22:00 Test Item Value Reference Range Interpretation Comments HEMOGLOBIN (BEAKER) (test code = 15.0 GM/DL 13.7-17.5 410) HEMATOCRIT (BEAKER) (test code = 49.7 % 40.1-51.0 411) BASIC METABOLIC [id number] 06:14:00 Test Item Value Reference Range Interpretation Comments SODIUM (BEAKER) 141 meq/L 136-145 (test code = 381) POTASSIUM (BEAKER) 4.7 meq/L 3.5-5.1 (test code = 379) CHLORIDE (BEAKER) 99 meq/L 98-107 (test code = 382) CO2 (BEAKER) (test 33 meq/L 22-29 H code = 355) BLOOD UREA NITROGEN 22 mg/dL 7-21 H (BEAKER) (test code = 354) CREATININE (BEAKER) 1.67 mg/dL 0.57-1.25 H (test code = 358) GLUCOSE RANDOM 111 mg/dL 70-105 H (BEAKER) (test code = 652) CALCIUM (BEAKER) 8.7 mg/dL 8.4-10.2 (test code = 697) EGFR (BEAKER) (test 42 mL/min/1.73 ESTIMA TITO GFR IS code = 1092) sq m NOT ACCURATE CREATININE CLEARANCE IN PREDICTING GLOMERULAR FILTRATION RATE . ESTIMATED GFR I S NOT APPLICABLE FOR DIALYSIS PATIEN TS. HEMOGLOBIN AND [id number] 05:56:00 Test Item Value Reference Range Interpretation Comments HEMOGLOBIN (BEAKER) (test code = 14.2 GM/DL 13.7-17.5 410) HEMATOCRIT (BEAKER) (test code = 47.2 % 40.1-51.0 411) BASIC METABOLIC [id number] 06:27:00 Test Item Value Reference Range Interpretation Comments SODIUM (BEAKER) 141 meq/L 136-145 (test code = 381) POTASSIUM (BEAKER) 4.6 meq/L 3.5-5.1 (test code = 379) CHLORIDE (BEAKER) 106 meq/L 98-107 (test code = 382) CO2 (BEAKER) (test 27 meq/L 22-29 code = 355) BLOOD UREA NITROGEN 22 mg/dL 7-21 H (BEAKER) (test code = 354) CREATININE (BEAKER) 1.62 mg/dL 0.57-1.25 H (test code = 358) GLUCOSE RANDOM 111 mg/dL 70-105 H (BEAKER) (test code = 652) CALCIUM (BEAKER) 8.5 mg/dL 8.4-10.2 (test code = 697) EGFR (BEAKER) (test 43 mL/min/1.73 ESTIMA TITO GFR IS code = 1092) sq m NOT ACCURATE CREATININE CLEARANCE IN PREDICTING GLOMERULAR FILTRATION RATE . ESTIMATED GFR I S NOT APPLICABLE FOR DIALYSIS PATIEN TS. CREATINE KINASE (CK)2019-01-03 06:27:00 Test Item Value Reference Range Interpretation Comments CREATINE KINASE TOTAL (BEAKER) (test 193 U/L 29-200 code = 380) HEMOGLOBIN AND [id number] 05:28:00 Test Item Value Reference Range Interpretation Comments HEMOGLOBIN (BEAKER) (test code = 13.4 GM/DL 13.7-17.5 L 410) HEMATOCRIT (BEAKER) (test code = 43.4 % 40.1-51.0 411) BASIC METABOLIC [id number] 15:27:00 Test Item Value Reference Range Interpretation Comments SODIUM (BEAKER) 141 meq/L 136-145 (test code = 381) POTASSIUM (BEAKER) 5.0 meq/L 3.5-5.1 Specimen slightly (test code = 379) hemolyzed CHLORIDE (BEAKER) 108 meq/L 98-107 H (test code = 382) CO2 (BEAKER) (test 21 meq/L 22-29 L code = 355) BLOOD UREA NITROGEN 20 mg/dL 7-21 (BEAKER) (test code = 354) CREATININE (BEAKER) 1.60 mg/dL 0.57-1.25 H Specimen slightly (test code = 358) hemolyzed GLUCOSE RANDOM 136 mg/dL 70-105 H (BEAKER) (test code = 652) CALCIUM (BEAKER) 8.2 mg/dL 8.4-10.2 L (test code = 697) EGFR (BEAKER) (test 44 mL/min/1.73 ESTIMA TITO GFR IS code = 1092) sq m NOT ACCURATE CREATININE CLEARANCE IN PREDICTING GLOMERULAR FILTRATION RATE . ESTIMATED GFR I S NOT APPLICABLE FOR DIALYSIS PATIEN TS. CREATINE KINASE (CK)2019-01-02 15:27:00 Test Item Value Reference Range Interpretation Comments CREATINE KINASE TOTAL (BEAKER) (test 65 U/L 29-200 code = 380) HEMOGLOBIN AND [id number] 15:15:00 Test Item Value Reference Range Interpretation Comments HEMOGLOBIN (BEAKER) (test code = 13.7 GM/DL 13.7-17.5 410) HEMATOCRIT (BEAKER) (test code = 44.9 % 40.1-51.0 411)
[2021-11-08 08:55] LABS: Absolute Lymphocytes (CBC) 0.9 K/uL (0.7-4.9); Hematocrit 47.3 % (39.6-49.0); Lymphocytes % 7.7 % (15.3-44.8); MPV 7.6 fL (7.6-11.3); RBC Red Blood Cell Count 5.81 M/uL (4.33-5.43)
[2021-11-08 08:58] LABS: Protime INR 1.22
[2021-11-08] MEDS ORDERED: METHYLPREDNISOLONE 125 MG INJ ONE (09:10)
[2021-11-08] MEDS ORDERED: IPRATROPIUM BROM 0.5MG/2.5ML ONE ×2 (09:10→11:00)
[2021-11-08] MEDS ORDERED: ALBUTEROL 2.5 MG/3 ML NEB SOL ONE ×2 (09:10→11:00)
[2021-11-08 09:15] LABS: Albumin 3.7 g/dL (3.4-5.0); Bilirubin Direct 0.3 mg/dL (0-0.2); Bilirubin Total 0.8 mg/dL (0.2-1.0); Potassium 4.7 mmol/L (3.5-5.1); Protein, Total 7.5 g/dL (6.4-8.2); Troponin High Sensitivity 5.4 pg/mL (<58.9)
--- NOTE | 2021-11-08 10:36 | RAD REPORT ---
EXAM DESCRIPTION: RAD - Chest Single View - 11/08/2021 9:25 am CLINICAL HISTORY: sob, chest pain Chest pain. COMPARISON: Chest Single View dated 04/09/2021; Chest Pa And Lat (2 Views) dated 08/20/2019; Chest Si ngle View dated 06/28/2019; Chest Single View dated 04/29/2018 FINDINGS: Portable technique limits examination quality. The lungs are grossly clear. The heart is normal in size. No displaced fractures. IMPRESSION: No acute intrathoracic process suspected.
--- NOTE | 2021-11-08 11:36 | RAD REPORT ---
EXAM DESCRIPTION: CT - Chest For Pe Angio - 11/08/2021 11:14 am CLINICAL HISTORY: Chest pain. shortness of breath, chest pain COMPARISON: Lung Cancer Screening CT W/O dated 08/12/2018 TECHNIQUE: CT angiogram of the pulmonary arteries was performed with MIP. All CT scans are performed using dose optimization technique as appropriate and may include automated exposure control or mA/KV adjustment according to patient size. FINDINGS: Filling defects are seen in the right lower lobe pulmonary arterial tree suspicious for pu lmonary embolism. No acute aortic finding demonstrated. The lungs are clear. No significant pericardial or pleural fluid. No concerning bony finding. Cholelithiasis. IMPRESSION: Filling defects are present in the right lower lobe segmental and subsegmental branches suspicious for pulmonary embolism. There is no evidence of an RV strain pattern. No acute lung findings. Gallstones.
--- NOTE | 2021-11-08 11:48 | EDPHYS ---
Physician Documentation [facility] Name: Navdeep Gonzalez Age: 66 yrs Sex: Male : 1955 Arrival Date: 11/08/2021 Time: 08:33 Bed 8 Private MD: [facility] ED Physician Ashkan Kirkpatrick HPI: 11/08 08:37 This 66 yrs old Male presents to ER via Ambulatory with complaints of Chest Pain, jmm Breathing Difficulty. 08:37 The patient has shortness of breath at rest. Onset: The symptoms/episode began/occurred jmm gradually, 1 day(s) ago. Duration: The symptoms are continuous. The patient's shortness of breath is aggravated by nothing, is alleviated by nothing. Associated signs and symptoms: Pertinent positives: chest pain. The patient has experienced similar episodes in the past, with previous copd exacerbations. . Historical: - Allergies: 08:44 No Known Allergies; jl7 - Home Meds: 08:44 folic acid 1 mg Oral tab 1 tab once daily [Active]; escitalopram oxalate 20 mg Oral tab jl7 1 tab once daily [Active]; bupropion HCl 300 mg Oral Tb24 1 tab once daily [Active]; desloratadine 5 mg Oral tab 1 tab once daily [Active]; losartan 50 mg Oral tab 1 tab once daily [Active]; ezetimibe 10 mg oral tab 1 tab once daily [Active]; atorvastatin 40 mg oral tab 1 tab once daily [Active]; metoprolol succinate 50 mg Oral Tb24 1 tab once daily [Active]; - PMHx: 08:44 Anxiety; Arthritis; Depression; Hyperlipidemia; Hypertension; jl7 - Immunization history:: Client reports receiving the 2nd dose of the Covid vaccine. - Social history:: Smoking status: Patient/guardian denies using tobacco, the patient reports quitting approximately 16 years ago. ROS: 08:45 Constitutional: Positive for fatigue. jmm 08:45 Cardiovascular: Positive for chest pain. 08:45 Respiratory: Positive for shortness of breath. 08:45 All other systems are negative. Exam: 08:45 Constitutional: This is a well developed, well nourished patient who is awake, alert, jmm and in no acute distress. Head/Face: atraumatic. Eyes: EOMI, no conjunctival erythema appreciated ENT: Moist Mucus Membranes Neck: Trachea midline, Supple Chest/axilla: Normal chest wall appearance and motion. Cardiovascular: Regular rate and rhythm. No edema appreciated 08:45 Abdomen/GI: Non distended, soft Back: Normal ROM Skin: General appearance color normal MS/ Extremity: Moves all extremities, no obvious deformities appreciated, no edema noted to the lower extremities Neuro: Awake and alert Psych: Behavior is normal, Mood is normal, Patient is cooperative and pleasant 08:45 Respiratory: mild respiratory distress is noted, Respirations: labored breathing, that is mild, Breath sounds: decreased breath sounds, that are moderate, are heard in the left posterior lower lobe and right posterior middle lobe. Vital Signs: 08:43 BP 152 / 69; Pulse 89; Resp 20; Pulse Ox 95% ; Weight 145.15 kg; Height 6 ft. 0 in. jl7 (182.88 cm); Pain 7/10; 09:41 BP 131 / 73; Pulse 108; Resp 20 S; Pulse Ox 94% on R/A; jd3 10:45 BP 122 / 72; Pulse 102; Resp 20 S; Pulse Ox 91% on R/A; jd3 11:48 BP 122 / 72; Pulse 107; Resp 16; Pulse Ox 98% on Nebulizer Mask; jd3 13:00 BP 130 / 69; Pulse 110; Resp 22 S; Pulse Ox 93% on R/A; jd3 14:02 BP 132 / 70; Pulse 115; Resp 23 S; Pulse Ox 91% on R/A; jd3 15:06 BP 120 / 87; Pulse 113; Resp 19 S; Pulse Ox 93% on R/A; jd3 16:08 BP 124 / 60; Pulse 112; Resp 20 S; Pulse Ox 93% on R/A; jd3 08:43 Body Mass Index 43.40 (145.15 kg, 182.88 cm) jl7 MDM: 08:37 Patient medically screened. [facility] 11:45 Data reviewed: vital signs, nurses notes. [facility] 11:45 Counseling: I had a detailed discussion with the patient and/or guardian regarding: the [facility] historical points, exam findings, and any diagnostic results supporting the discharge/admit diagnosis, lab results, radiology results, the need for further work-up and treatment in the hospital. ED course: I discussed the patient with Dr. Parada whom accepted the patient for admission. . 11/08 08:42 Order name: Basic Metabolic Panel; Complete Time: 09:33 [facility] 11/08 08:42 Order name: CBC with Diff; Complete Time: 09:02 [facility] 11/08 08:42 Order name: LFT's; Complete Time: 09:33 [facility] 11/08 08:42 Order name: Magnesium; Complete Time: 09:33 [facility] 11/08 08:42 Order name: NT PRO-BNP; Complete Time: 09:33 [facility] 11/08 08:42 Order name: PT-INR; Complete Time: 09:02 [facility] 11/08 08:42 Order name: Troponin HS; Complete Time: 09:33 [facility] 11/08 08:42 Order name: XRAY Chest (1 view); Complete Time: 10:37 [facility] 11/08 09:02 Order name: SARS-COV-2 RT PCR (Document "Date of Onset" if Symptomatic); Complete Time: [facility] 11:11/08 09:03 Order name: Influenza Screen (a \\T\\ B); Complete Time: 10:49 [facility] 11/08 10:49 Order name: CT Chest For PE Angio; Complete Time: 11:37 [facility] 11/08 11:38 Order name: US Extremity Venous W Compression Mg; Complete Time: 13:31 [facility] 11/08 08:42 Order name: EKG; Complete Time: 08:43 [facility] 11/08 08:42 Order name: Cardiac monitoring; Complete Time: 08:46 [facility] 11/08 08:42 Order name: EKG - Nurse/Tech; Complete Time: 08:46 [facility] 11/08 08:42 Order name: IV Saline Lock; Complete Time: 08:46 [facility] 11/08 08:42 Order name: Labs collected and sent; Complete Time: 08:46 [facility] 11/08 08:42 Order name: O2 Per Protocol; Complete Time: 08:46 [facility] 11/08 08:42 Order name: O2 Sat Monitoring; Complete Time: 08:46 [facility] 11/08 14:08 Order name: CONS Physician Consult EDMS Administered Medications: 09:12 Drug: DuoNeb (albuterol 2.5 mg, ipratropium 0.5 mg) (3:1) (2.5 mg - 0.5 mg) 3 ml Route: jd3 Nebulizer; 10:00 Follow up: Response: No adverse reaction jd3 09:12 Drug: SOLU-Medrol (methylPrednisoLONE) 125 mg Route: IVP; Site: right antecubital; jd3 10:00 Follow up: Response: No adverse reaction jd3 11:28 Drug: DuoNeb (albuterol 2.5 mg, ipratropium 0.5 mg) (3:1) (2.5 mg - 0.5 mg) 3 ml Route: jd3 Nebulizer; 12:20 Follow up: Response: No adverse reaction jd3 12:51 Drug: Lovenox (enoxaparin) 1 mg/kg Route: Sub-Q; Site: abdomen; jd3 13:50 Follow up: Response: No adverse reaction jd3 Disposition: 21:22 Co-signature as Attending Physician, Ashkan KHAN was immediately available on-site ms3 in the Emergency Department for consultation in the care of the patient.. Disposition Summary: 11/08/21 11:47 Hospitalization Ordered Hospitalization Status: Observation [facility] Provider: David Parada Location: Telemetry/MedSurg (observation) [facility] Condition: Stable [facility] Problem: new jmm Symptoms: are unchanged [facility] Bed/Room Type: Standard [facility] Room Assignment: 231(11/08/21 14:51) bd Diagnosis - Pulmonary embolism without acute cor pulmonale [facility] Forms: - Medication Reconciliation Form [facility] - SBAR form [facility] Signatures: Dispatcher [employer] EDMS Itzel Langley Joel, PA PA m Isabella Waite RN RN Brent Murray RN RN jAshkan Jacobsen DO DO ms3 Corrections: (The following items were deleted from the chart) 14:51 11:47 [facility] bd
--- NOTE | 2021-11-08 11:48 | ER ---
Nurse's Notes [facility] Name: Navdeep Gonzalez Age: 66 yrs Sex: Male : 1955 Arrival Date: 11/08/2021 Time: 08:33 Bed 8 Private MD: Portillo Monet Diagnosis: Pulmonary embolism without acute cor pulmonale Presentation: 11/08 08:43 Chief complaint: Patient states: Dyspnea and midsternal chest pain x 1 day. Coronavirus jl7 screen: At this time, the client does not indicate any symptoms associated with coronavirus-19. Ebola Screen: No symptoms or risks identified at this time. Initial Sepsis Screen: Does the patient meet any 2 criteria? No. Patient's initial sepsis screen is negative. Does the patient have a suspected source of infection? No. Patient's initial sepsis screen is negative. Risk Assessment: Do you want to hurt yourself or someone else? Patient reports no desire to harm self or others. Onset of symptoms was November 07, 2021. 08:43 Method Of Arrival: Ambulatory jl7 08:43 Acuity: CHERI 2 jl7 Triage Assessment: 08:44 General: Appears in no apparent distress. uncomfortable, Behavior is calm, cooperative, jl7 appropriate for age. Pain: Complains of pain in mid-sternal area Pain currently is 7 out of 10 on a pain scale. Cardiovascular: Patient's skin is warm and dry. Historical: - Allergies: 08:44 No Known Allergies; jl7 - Home Meds: 08:44 folic acid 1 mg Oral tab 1 tab once daily [Active]; escitalopram oxalate 20 mg Oral tab jl7 1 tab once daily [Active]; bupropion HCl 300 mg Oral Tb24 1 tab once daily [Active]; desloratadine 5 mg Oral tab 1 tab once daily [Active]; losartan 50 mg Oral tab 1 tab once daily [Active]; ezetimibe 10 mg oral tab 1 tab once daily [Active]; atorvastatin 40 mg oral tab 1 tab once daily [Active]; metoprolol succinate 50 mg Oral Tb24 1 tab once daily [Active]; - PMHx: 08:44 Anxiety; Arthritis; Depression; Hyperlipidemia; Hypertension; jl7 - Immunization history:: Client reports receiving the 2nd dose of the Covid vaccine. - Social history:: Smoking status: Patient/guardian denies using tobacco, the patient reports quitting approximately 16 years ago. Screenin:52 Abuse screen: Denies threats or abuse. Nutritional screening: No deficits noted. jd3 Tuberculosis screening: No symptoms or risk factors identified. Fall Risk Ambulatory Aid- None/Bed Rest/Nurse Assist (0 pts). Gait- Normal/Bed Rest/Wheelchair (0 pts) Mental Status- Oriented to own ability (0 pts). Total Francois Fall Scale indicates No Risk (0-24 pts). Assessment: 08:50 General: Appears in no apparent distress. comfortable, Behavior is calm, cooperative, jd3 appropriate for age. Pain: Complains of pain in chest Pain does not radiate. Quality of pain is described as crampy, pressure, Pain began 1 day ago. Neuro: Greene Agitation-Sedation Scale (RASS): 0 - Alert and Calm Level of Consciousness is awake, alert, obeys commands, Oriented to person, place, time, situation. Cardiovascular: Capillary refill < 3 seconds Patient's skin is warm and dry. Rhythm is regular. Respiratory: Airway is patent Respiratory effort is even, unlabored, shallow, Respiratory pattern is regular, symmetrical, Breath sounds are coarse bilaterally. Breath sounds are diminished bilaterally. GI: No signs and/or symptoms were reported involving the gastrointestinal system. : No signs and/or symptoms were reported regarding the genitourinary system. EENT: No signs and/or symptoms were reported regarding the EENT system. Derm: Skin is intact, Skin is dry, Skin is normal, Skin temperature is warm. Musculoskeletal: Circulation, motion, and sensation intact. Range of motion: intact in all extremities. 09:41 Reassessment: Patient appears in no apparent distress at this time. No changes from jd3 previously documented assessment. Patient and/or family updated on plan of care and expected duration. Pain level reassessed. Patient is alert, oriented x 3, equal unlabored respirations, skin warm/dry/pink. 10:45 Reassessment: Patient appears in no apparent distress at this time. Patient and/or jd3 family updated on plan of care and expected duration. Pain level reassessed. Patient is alert, oriented x 3, equal unlabored respirations, skin warm/dry/pink. 11:47 Reassessment: Patient appears in no apparent distress at this time. No changes from jd3 previously documented assessment. Patient and/or family updated on plan of care and expected duration. Pain level reassessed. Patient is alert, oriented x 3, equal unlabored respirations, skin warm/dry/pink. 13:00 Reassessment: Patient appears in no apparent distress at this time. Patient and/or jd3 family updated on plan of care and expected duration. Pain level reassessed. Patient is alert, oriented x 3, equal unlabored respirations, skin warm/dry/pink. awaiting admission. 14:02 Reassessment: Patient appears in no apparent distress at this time. No changes from jd3 previously documented assessment. Patient and/or family updated on plan of care and expected duration. Pain level reassessed. Patient is alert, oriented x 3, equal unlabored respirations, skin warm/dry/pink. 15:06 Reassessment: Patient appears in no apparent distress at this time. Patient and/or jd3 family updated on plan of care and expected duration. Pain level reassessed. Patient is alert, oriented x 3, equal unlabored respirations, skin warm/dry/pink. 16:08 Reassessment: Patient appears in no apparent distress at this time. Patient and/or jd3 family updated on plan of care and expected duration. Pain level reassessed. Patient is alert, oriented x 3, equal unlabored respirations, skin warm/dry/pink. report given to Tawny REYNOLDS. Vital Signs: 08:43 BP 152 / 69; Pulse 89; Resp 20; Pulse Ox 95% ; Weight 145.15 kg; Height 6 ft. 0 in. jl7 (182.88 cm); Pain 7/10; 09:41 BP 131 / 73; Pulse 108; Resp 20 S; Pulse Ox 94% on R/A; jd3 10:45 BP 122 / 72; Pulse 102; Resp 20 S; Pulse Ox 91% on R/A; jd3 11:48 BP 122 / 72; Pulse 107; Resp 16; Pulse Ox 98% on Nebulizer Mask; jd3 13:00 BP 130 / 69; Pulse 110; Resp 22 S; Pulse Ox 93% on R/A; jd3 14:02 BP 132 / 70; Pulse 115; Resp 23 S; Pulse Ox 91% on R/A; jd3 15:06 BP 120 / 87; Pulse 113; Resp 19 S; Pulse Ox 93% on R/A; jd3 16:08 BP 124 / 60; Pulse 112; Resp 20 S; Pulse Ox 93% on R/A; jd3 08:43 Body Mass Index 43.40 (145.15 kg, 182.88 cm) jl7 ED Course: 08:33 Patient arrived in ED. mr 08:33 Portillo Monet DO is Private Physician. mr 08:34 Danny Berrios PA is PHCP. [facility] 08:34 Ashkan Kirkpatrick DO is Attending Physician. [facility] 08:36 Brent Ding, RODOLFO is Primary Nurse. jd3 08:44 Triage completed. jl7 08:50 Arm band placed on. jd3 08:50 EKG done, by ED staff, reviewed by Danny TRUJILLO. Inserted saline lock: 20 gauge in jd3 right antecubital area, using aseptic technique. Blood collected. Patient maintains SpO2 saturation greater than 95% on room air. 08:52 Patient has correct armband on for positive identification. Placed in gown. Bed in low jd3 position. Call light in reach. Side rails up X 1. Adult w/ patient. Client placed on continuous cardiac and pulse oximetry monitoring. NIBP monitoring applied. engine monitor on. Pulse ox on. NIBP on. 09:27 XRAY Chest (1 view) In Process Unspecified. EDMS 10:11 SARS-COV-2 RT PCR (Document "Date of Onset" if Symptomatic) Sent. jw7 10:11 COVID swab sent to lab. Flu and/or RSV swab sent to lab. jw7 11:16 CT Chest For PE Angio In Process Unspecified. EDMS 11:47 David Parada MD is Hospitalizing Provider. jmm 12:34 US Extremity Venous W Compression Mg In Process Unspecified. EDMS 16:08 No provider procedures requiring assistance completed. Patient admitted, IV remains in jd3 place. Administered Medications: 09:12 Drug: DuoNeb (albuterol 2.5 mg, ipratropium 0.5 mg) (3:1) (2.5 mg - 0.5 mg) 3 ml Route: jd3 Nebulizer; 10:00 Follow up: Response: No adverse reaction jd3 09:12 Drug: SOLU-Medrol (methylPrednisoLONE) 125 mg Route: IVP; Site: right antecubital; jd3 10:00 Follow up: Response: No adverse reaction jd3 11:28 Drug: DuoNeb (albuterol 2.5 mg, ipratropium 0.5 mg) (3:1) (2.5 mg - 0.5 mg) 3 ml Route: jd3 Nebulizer; 12:20 Follow up: Response: No adverse reaction jd3 12:51 Drug: Lovenox (enoxaparin) 1 mg/kg Route: Sub-Q; Site: abdomen; jd3 13:50 Follow up: Response: No adverse reaction jd3 Outcome: 11:47 Decision to Hospitalize by Provider. kenzie 16:08 Admitted to Med/surg accompanied by yuli, via wheelchair, room 231, with chart, Report jd3 called to Tawny REYNOLDS 16:08 Condition: stable 16:08 Instructed on the need for admit, Demonstrated understanding of instructions. 16:22 Patient left the ED. jd3 Signatures: Dispatcher [employer] EDMS Danny Berrios PA PA jmm LuisGwen mr Isabella Waite RN RN jl7 Brent Ding RN RN jd3 Waits, Jodi jw7 Corrections: (The following items were deleted from the chart) 10:31 08:50 Pain: Complains of pain in chest Pain does not radiate. Quality of pain is jd3 described as crampy, pressure, Pain began 1 day ago. jd3 13:05 13:00 Pulse 110bpm; Resp 22bpm; Spontaneous; Pulse Ox 93% RA; jd3 jd3
[2021-11-08] MEDS ORDERED: ENOXAPARIN 100 MG/ML SYR SQ ONE (12:01)
[2021-11-08] MEDS ORDERED: ENOXAPARIN 40 MG/0.4 ML SQ ONE (12:01)
--- NOTE | 2021-11-08 13:20 | RAD REPORT ---
EXAM DESCRIPTION: USExtrem Venous W Compress Bil11/08/2021 12:46 pm CLINICAL HISTORY: Leg pain COMPARISON: 2014 FINDINGS: The common femoral, superficial femoral, popliteal and posterior tibial veins bilaterally are compressible and demonstrate augmentation. Doppler demonstrates good flow. Left Nunez cyst measures 2.2 cm Grayscale, color and spectral analysis performed on all vessels IMPRESSION: No evidence of deep venous thrombosis involving either lower extremity.
[2021-11-08] MEDS ORDERED: ONDANSETRON 4 MG/2 ML VIAL IV PRN (16:10)
[2021-11-08 16:44] VITALS: BMI 43.4
--- NOTE | 2021-11-08 16:59 | P.HP ---
Certification for Inpatient Patient admitted to: Observation With expected LOS: <2 Midnights Practitioner: I am a practitioner with admitting privileges, knowledge of patient current condition, hospital course, and medical plan of care. Services: Services provided to patient in accordance with Admission requirements found in Title 42 Section 412.3 of the Code of Federal Regulations Patient History Date of Service: 11/08/21 Reason for admission: PE History of Present Illness: 66yo M, PMH: HTN, HLD, depression/anxiety, RA, COPD Presents to ED due to ~2-3 days of progressively worsening shortness of breath. Feels unable to take a deep breath and gets winded after walking several feet, which is unusual for him. Reports some slight substernal chest tightness. Denies any recent change in meds. Just prior to onset, patient went on road top to [facility] without any breaks / stretching. Multiple 1st degree relatives with h/o blood clot formation. Patient is usure / denies ever being told of genetic / familial issue. Denies any h/o DVT/PE. No recent changes in medications. In the ED, CTA noted PE, U/S negative for DVT, patient was noted to be slightly tachycardic and SpO2: 92% on room air at rest. ED PA requested admission for further management and was given lovenox. Allergies No Known Allergies Allergy (Verified 06/04/15 00:15) - Past Medical/Surgical History Has patient received pneumonia vaccine in the past: Yes Diabetic: No -: hyperlipidemia -: GERD -: RA -: COPD -: R knee replacement -: screw place in R foot -: L Knee SX - Family History Mother -: Heart disease, Diabetes Notes: CHF, COPD Father -: Other (see notes) Notes: brothers/sister, father' h/o DVT - Social History Smoking Status: Former smoker Alcohol use: No CD- Drugs: No Caffeine use: Yes Place of Residence: Home Review of Systems 10-point ROS is otherwise unremarkable Physical Examination - Vital Signs Blood Pressure: 124/60 Pulse: 112 Respirations: 20 - Physical Exam General: Alert, In no apparent distress, Oriented x3 HEENT: Sclerae nonicteric Neck: Supple Respiratory: Clear to auscultation bilaterally Cardiovascular: No edema, Other (sinus tachycardia) Gastrointestinal: Soft and benign, No tenderness Musculoskeletal: No tenderness Integumentary: No rashes, No significant lesion Neurological: Normal speech, Normal reflexes 2+ - Studies Laboratory Data (last 24 hrs) 11/08/21 08:46: PT 13.5 H, INR 1.22 11/08/21 08:46: WBC 11.8 H, Hgb 15.5, Hct 47.3, Plt Count 304 11/08/21 08:46: Sodium 137, Potassium 4.7, BUN 19 H, Creatinine 1.45 H, Glucose 124 H, Magnesium 2.0, Total Bilirubin 0.8, AST 29, ALT 58, Alkaline Phosphatase 92 Microbiology Data (last 24 hrs): 11/08/21 09:03 Nasopharnyx Influenza Type A Antigen Screen - Final 11/08/21 09:03 Nasopharnyx Influenza Type B Antigen Screen - Final Assessment and Plan - Advance Directives Does patient have a Living Will: No Does patient have a Durable POA for Healthcare: No Physician Review Additional Text: Problem List Acute pulmonary emboli family history of PE HTN HLD RA COPD depression/anxiety given lovenox in ED, transition to eliquis 92% on RA at rest U/S to r/u DVT pending Pulmonology consulted seems multiple family members have had DVTs in the past patient just got back from road trip to [place] without breaks otherwise, no changes in meds / routine recently monitor on telemetry O2 if needed VTE: eliquis Code: full Dispo: home, likely tomorrow Time Spent Managing Pts Care (In Minutes): 75
[2021-11-08 17:56] VITALS: O2SAT 96
[2021-11-08] MEDS ORDERED: ACETAMINOPHEN 325 MG TABLET PO PRN (20:36)
[2021-11-08] MEDS ORDERED: ATORVASTATIN 40 MG TAB PO SCH (21:00)
[2021-11-08] MEDS ORDERED: APIXABAN 5 MG TABLET PO SCH (21:00)
[2021-11-09 05:36] VITALS: BP 114/57
[2021-11-09 06:16] LABS: Absolute Lymphocytes (CBC) 0.8 K/uL (0.7-4.9); Hematocrit 44.9 % (39.6-49.0); Lymphocytes % 6.2 % (15.3-44.8); MPV 7.3 fL (7.6-11.3); RBC Red Blood Cell Count 5.44 M/uL (4.33-5.43)
[2021-11-09 06:31] LABS: Albumin 3.2 g/dL (3.4-5.0); Bilirubin Total 0.5 mg/dL (0.2-1.0); Magnesium 2.3 mg/dL (1.8-2.4); Potassium 5.1 mmol/L (3.5-5.1)
--- NOTE | 2021-11-09 07:46 | EKG ---
Test Date: 2021-11-08 Test Time: 08:40:54 [employer] Mechanic: DAVID MEASUREMENT RESULTS: Intervals: Rate: 86 [place]: 176 QRSD: 90 QT: 372 QTc: 445 [place]: P: 53 [place]: 176 QRS: 13 T: 58 INTERPRETIVE STATEMENTS: Normal sinus rhythm Cannot rule out Anterior infarct, age undetermined Abnormal ECG Compared to ECG 04/09/2021 11:43:32 Myocardial infarct finding now present Electronically Signed On 11-09-21 07:43:35 CDT by Marcel Wisdom
--- NOTE | 2021-11-09 08:20 | P.CNS ---
Date of Consult: 11/09/21 Reason for Consult: Pulmonary embolism Chief Complaint: PE History of Present Illness: Patient is 66 years of age admitted with acute onset of shortness of breath came in here to the emergency room diagnosed with pulmonary embolism no prior history of cardiopulmonary disease he has some chest tightness currently he went on a road trip to [place] no prior history of thromboembolism no recent surgery currently doing well no other complaints saturation blood pressure all satisfactory Allergies No Known Allergies Allergy (Verified 06/04/15 00:15) Home Medications: Ascorbic Acid [Vitamin C] 2,000 mg PO DAILY 11/08/21 Atorvastatin Calcium 40 mg PO DAILY 11/08/21 Bupropion HCl [Wellbutrin Xl] 300 mg PO DAILY 11/08/21 Cholecalciferol (Vitamin D3) [Vitamin D 1000 Iu Tab*] 2,000 mg PO DAILY 11/08/21 Desloratadine 5 mg PO DAILY 11/08/21 Escitalopram [Lexapro*] 20 mg PO DAILY 11/08/21 Ezetimibe 10 mg PO DAILY 11/08/21 Folic Acid 1 mg PO DAILY 11/08/21 Golimumab [Simponi] 50 mg SQ DIRECTED 11/08/21 Losartan Potassium 50 mg PO DAILY 11/08/21 Metoprolol Succinate 50 mg PO DAILY 11/08/21 [place]-3/Dha/Epa/Fish Oil [Fish Oil 1,000 mg Softgel] 2,000 mg PO DAILY 11/08/21 Topiramate [Trokendi Xr] 50 mg PO DAILY 11/08/21 Zinc 50 mg PO DAILY 11/08/21 - Past Medical/Surgical History Diabetic: No -: hyperlipidemia -: GERD -: RA -: COPD -: Renal cancer -: R knee replacement -: screw place in R foot -: L Knee SX - Family History Mother Medical History: Heart disease, Diabetes Notes: CHF, COPD Father Medical History: Other (see notes) Notes: brothers/sister, father' h/o DVT - Social History Alcohol use: No CD- Drugs: No Caffeine use: Yes Place of Residence: Home Review of Systems 10-point ROS is otherwise unremarkable Physical Examination Temp Pulse Resp BP Pulse Ox 97.0 F 88 18 114/57 L 94 11/09/21 04:00 11/09/21 04:00 11/09/21 04:00 11/09/21 04:00 11/09/21 04:00 General: Alert, In no apparent distress, Oriented x3 Neck: Supple Respiratory: Clear to auscultation bilaterally Cardiovascular: Regular rate/rhythm, Normal S1 S2, Edema Gastrointestinal: Normal bowel sounds, Soft and benign Musculoskeletal: No clubbing Laboratory Data (last 24 hrs) 11/08/21 08:46: PT 13.5 H, INR 1.22 11/08/21 08:46: WBC 11.8 H, Hgb 15.5, Hct 47.3, Plt Count 304 11/08/21 08:46: Sodium 137, Potassium 4.7, BUN 19 H, Creatinine 1.45 H, Glucose 124 H, Magnesium 2.0, Total Bilirubin 0.8, AST 29, ALT 58, Alkaline Phosphatase 92 - Problems (1) Pulmonary embolism Current Visit: Yes Status: Acute Plan: Patient is 66 years of age admitted with acute pulmonary embolism he is currently doing well hemodynamically stable oxygenation satisfactory plan to discharge home on Eliquis or Xarelto as per guidelines minimum 6 months of anticoagulation possibly longer appears to have chronic renal failure CT scans labs reviewed plan for discharge Qualifiers: Acute cor pulmonale presence: unspecified
[2021-11-09 08:21] VITALS: TEMP 96.9
[2021-11-09] MEDS ORDERED: METOPROLOL XL 50 MG TAB PO SCH (09:00)
[2021-11-09] MEDS ORDERED: BUPROPION HCL XL 150 MG TAB PO SCH (09:00)
[2021-11-09] MEDS ORDERED: EZETIMIBE 10 MG TAB PO SCH (09:00)
[2021-11-09] MEDS ORDERED: FOLIC ACID 1 MG TABLET PO SCH (09:00)
[2021-11-09] MEDS ORDERED: HOME MED 1 EA UNK (Bupropion Hcl [Wellbutrin Xl] 300 MG Tab.Er.24h) PO SCH (09:00)
[2021-11-09] MEDS ORDERED: ESCITALOPRAM 20 MG TAB PO SCH (09:00)
--- NOTE | 2021-11-10 18:25 | P.DS ---
Admission Date: 11/08/21 Discharge Date: 11/09/21 Disposition: ROUTINE DISCHARGE Discharge Condition: GOOD Reason for Admission: PE Consultations: Pulmonology - Dr. Noriega Procedures: Problem List Acute pulmonary emboli family history of PE/DVT HTN HLD RA COPD depression/anxiety Brief History of Present Illness: 66yo M, PMH: HTN, HLD, depression/anxiety, RA, COPD Presents to ED due to ~2-3 days of progressively worsening shortness of breath. Feels unable to take a deep breath and gets winded after walking several feet, which is unusual for him. Reports some slight substernal chest tightness. Denies any recent change in meds. Just prior to onset, patient went on road top to [facility] without any breaks / stretching. Multiple 1st degree relatives with h/o blood clot formation. Patient is usure / denies ever being told of genetic / familial issue. Denies any h/o DVT/PE. No recent changes in medications. In the ED, CTA noted PE, U/S negative for DVT, patient was noted to be slightly tachycardic and SpO2: 92% on room air at rest. ED PA requested admission for further management and was given lovenox. Hospital Course: Patient was found to have pulmonary emboli. He did not require oxygen supplementation. He was observed overnight after initiation of anticoagulation. He remained hemodynamically stable. Pulmonology was consulted. Patient deemed stable for discharge home on eliquis. Minimum 6 months. Follow up with Dr. Noriega in 2-4 weeks. Follow up with PCP within 1 week. Can order labs to further evaluate / rule out hypercoagulopathy issues, given family history vs consider Heme/Onc referral. Vital Signs/Physical Exam: Temp Pulse Resp BP Pulse Ox 96.9 F 83 18 114/57 L 95 11/09/21 08:00 11/09/21 08:00 11/09/21 08:00 11/09/21 08:00 11/09/21 08:00 General: Alert, In no apparent distress, Oriented x3 HEENT: Sclerae nonicteric Respiratory: Clear to auscultation bilaterally, Normal air movement, Other (nonlabored respirations on room air) Cardiovascular: No edema, Regular rate/rhythm Gastrointestinal: Soft and benign, Non-distended, No tenderness Musculoskeletal: No swelling, No tenderness Neurological: Normal speech, Normal affect Laboratory Data at Discharge: WBC 12.7 K/uL (4.3-10.9) H 11/09/21 06:04 Hgb 14.6 g/dL (13.6-17.9) 11/09/21 06:04 Hct 44.9 % (39.6-49.0) 11/09/21 06:04 Plt Count 335 K/uL (152-406) 11/09/21 06:04 PT 13.5 SECONDS (9.5-12.5) H 11/08/21 08:46 INR 1.22 11/08/21 08:46 Sodium 138 mmol/L (136-145) 11/09/21 06:04 Potassium 5.1 mmol/L (3.5-5.1) 11/09/21 06:04 BUN 28 mg/dL (7-18) H 11/09/21 06:04 Creatinine 1.51 mg/dL (0.55-1.3) H 11/09/21 06:04 Glucose 144 mg/dL (74-106) H 11/09/21 06:04 Magnesium 2.3 mg/dL (1.8-2.4) 11/09/21 06:04 Total Bilirubin 0.5 mg/dL (0.2-1.0) 11/09/21 06:04 AST 20 U/L (15-37) 11/09/21 06:04 ALT 45 U/L (12-78) 11/09/21 06:04 Alkaline Phosphatase 80 U/L (45-117) 11/09/21 06:04 Home Medications: Ascorbic Acid [Vitamin C] 2,000 mg PO DAILY 11/08/21 Atorvastatin Calcium 40 mg PO DAILY 11/08/21 Bupropion HCl [Wellbutrin Xl] 300 mg PO DAILY 11/08/21 Cholecalciferol (Vitamin D3) [Vitamin D 1000 Iu Tab*] 2,000 mg PO DAILY 11/08/21 Desloratadine 5 mg PO DAILY 11/08/21 Escitalopram [Lexapro*] 20 mg PO DAILY 11/08/21 Ezetimibe 10 mg PO DAILY 11/08/21 Folic Acid 1 mg PO DAILY 11/08/21 Golimumab [Simponi] 50 mg SQ DIRECTED 11/08/21 Losartan Potassium 50 mg PO DAILY 11/08/21 Metoprolol Succinate 50 mg PO DAILY 11/08/21 [place]-3/Dha/Epa/Fish Oil [Fish Oil 1,000 mg Softgel] 2,000 mg PO DAILY 11/08/21 Topiramate [Trokendi Xr] 50 mg PO DAILY 11/08/21 Zinc 50 mg PO DAILY 11/08/21 Apixaban [Eliquis] 5 mg PO SEECOM 30 Days #1 tab.ds.pk 11/09/21 New Medications: Apixaban [Eliquis] 5 mg PO SEECOM 30 Days #1 tab.ds.pk Diet: AHA Activity: Ad adi Followup: Piero Noriega MD [ACTIVE - CAN ADMIT] - Portillo Monet DO [Primary Care Provider] - Time spent managing pt's care (in minutes): 45
== END 2021-11-09 10:15 | disposition home or self-care (01) ==
LOC: ER 08:32 → ERHOLD 14:15 → 2ND 16:09
PROVIDERS: ADMIT Hospitalist; ATTEND Hospitalist
DX: I26.99 Other pulmonary embolism without acute cor pulmonale (principal); I10 Essential (primary) hypertension; E78.5 Hyperlipidemia, unspecified; M06.9 Rheumatoid arthritis, unspecified; J44.9 Chronic obstructive pulmonary disease, unspecified; F32.A Depression, unspecified; F41.9 Anxiety disorder, unspecified; K21.9 Gastro-esophageal reflux disease without esophagitis; Z20.822 Contact with and (suspected) exposure to COVID-19; Z85.53 Personal history of malignant neoplasm of renal pelvis; Z87.891 Personal history of nicotine dependence; Z96.651 Presence of right artificial knee joint; Z82.49 Family history of ischemic heart disease and other diseases of the circulatory system; Z83.3 Family history of diabetes mellitus; Z83.6 Family history of other diseases of the respiratory system
CPT/HCPCS: 93005; 85025 ×2; 80048; 36415; 83735 ×2; 85610; 80076; 84484; 80053; 83880; 87804 ×2; 71275; 71045; 93970; 94640; 94760 ×3; 96372; 96374; 99285; U0003; Q9967; J1650 ×2; J2930; G0378 ×3

== ENCOUNTER 2022-01-24 06:31 | Day surgery (SDC) | payer OTHER ==
[2022-01-23 11:50] LABS: SARS-CoV-2 Antigen Rapid Res Negative (Negative)
[2022-01-24] MEDS ORDERED: Ringers Lactate 1,000 ML IV ONE (06:46)
[2022-01-24] MEDS ORDERED: LIDOCAINE 1% MPF 5 ML VIAL ONE (07:26)
[2022-01-24] MEDS ORDERED: propofoL 200 MG/20 ML VIAL IV ONE (07:26)
--- NOTE | 2022-01-24 08:08 | ENDO RPT ---
[address], [address] COLONOSCOPY PROCEDURE REPORT EXAM DATE: 01/24/2022 PATIENT NAME: Navdeep Gonzalez MR #: [id number] BIRTHDATE: 1955 ATTENDING: Bhanu Castaneda MD STATUS: outpatient LEGAL OFFICER: Vandana Yao and Natalie Martin RN INDICATIONS: The patient is a 66 yr old Male here for a colonoscopy due to colon cancer screening PROCEDURE PERFORMED: Colonoscopy with biopsy - cold polypectomy MEDICATIONS: Per Anesthesia. ESTIMATED BLOOD LOSS: None CONSENT: The patient understands the risks and benefits of the procedure and understands that these risks include, but are not limited to: sedation, allergic reaction, infection, perforation and/or bleeding. Alternative means of evaluation and treatment include, among others: physical exam, x-rays, and/or surgical intervention. The patient elects to proceed with this endoscopic procedure. DESCRIPTION OF PROCEDURE: During intra-op preparation period all mechanical medical equipment was checked for proper function. Hand hygiene and appropriate measures for infection prevention was taken. Procedure, possible complications, alternatives including, but not limited to possibility of bleeding, perforation, tear, infection, sepsis, need for surgery, need for blood transfusion, were explained to the patient. After the risks, benefits and alternatives of the procedure were thoroughly explained, Informed consent was verified, confirmed and timeout was successfully executed by the treatment team. The patient was placed in the left lateral position. A digital rectal exam was performed and revealed hemorrhoids. After appropriate level of anesthesia, the scope was passed. The [id number] ([id number]) endoscope was introduced through the anus and advanced to the cecum, which was identified by transillumination from the light source, the appendix, and the ileocecal valve. The quality of the prep was fair. The instrument was then slowly withdrawn as the colon was fully examined. Scope withdrawal time was . COLON FINDINGS: Diverticula was found in the descending colon. The opening was medium sized. Multiple sessile polyps were found in the ascending colon less than 0.5 cm in size. Retroflexed views revealed no abnormalities. The scope was then completely withdrawn from the patient and the procedure terminated. ADVERSE EVENTS: There were no complications. IMPRESSIONS: 1. Diverticula in the descending colon 2. Multiple sessile polyps were found in the ascending colon; polypectomy was performed in a piecemeal fashion using hot forceps 3. External hemorrhoids 4. Internal hemorrhoids RECOMMENDATIONS: 1. follow-up: office 1 week(s) 2. hemorrhoidal hygiene 3. no seeds in diet RECALL: for Colonoscopy, pending biopsy results. Bhanu Castaneda MD eSigned: Bhanu Castaneda MD 01/24/2022 8:08 AM cc: Portillo Monet MD CPT CODES: ICD9 CODES: PATIENT NAME: Navdeep Gonzalez MR#: [id number]
[2022-01-24 08:35] VITALS: TEMP 97.8
[2022-01-24 08:39] VITALS: BP 118/65; O2SAT 94
== END 2022-01-24 08:20 | disposition home or self-care (01) ==
LOC: OR 06:31
PROVIDERS: ATTEND Surgery
PROC: 0DBH8ZX Excision of Cecum, Via Natural or Artificial Opening Endoscopic, Diagnostic (ICD-10-PCS; 2022-01-24)
PROC: 0DBK8ZX Excision of Ascending Colon, Via Natural or Artificial Opening Endoscopic, Diagnostic (ICD-10-PCS; principal; 2022-01-24 07:30)
DX: Z12.11 Encounter for screening for malignant neoplasm of colon (principal); K64.4 Residual hemorrhoidal skin tags; K64.8 Other hemorrhoids; K57.30 Diverticulosis of large intestine without perforation or abscess without bleeding; D12.2 Benign neoplasm of ascending colon; I10 Essential (primary) hypertension; J44.9 Chronic obstructive pulmonary disease, unspecified; E78.00 Pure hypercholesterolemia, unspecified; F41.9 Anxiety disorder, unspecified; I82.409 Acute embolism and thrombosis of unspecified deep veins of unspecified lower extremity; G47.30 Sleep apnea, unspecified; Z85.528 Personal history of other malignant neoplasm of kidney; Z20.822 Contact with and (suspected) exposure to COVID-19
CPT/HCPCS: 36415; 88305; 87811; 45380; J2704; J7120

== ENCOUNTER 2022-04-22 11:42 | Emergency (ER) | payer OTHER ==
--- OUTSIDE RECORDS SUMMARY | 2022-04-22 11:50 | XMS REPORT | Continuity of Care Document ---
:1955 Author Organization [facility] t Address [address] [place] [address] Care Team Providers Name Role Phone FELIPA MONET Primary Care Physician Unavailable Felipa Monet Attending Clinician Unavailable CHANI DUNN Attending Clinician Unavailable Radha Attending Clinician Unavailable Therapy, [facility] Attending Clinician Unavailable Yoni Monet MD Attending Clinician YONI MONET Attending Clinician Unavailable Doctor Unassigned, Rickreall Attending Clinician Unavailable Guerrero Lennon MD Attending Clinician DAVIN BOLIVAR Attending Clinician Unavailable Rico Holloway MD Attending Clinician ELISEO PEARCE Attending Clinician Unavailable RICO HOLLOWAY Attending Clinician Unavailable Radha Admitting Clinician Unavailable RICO HOLLOWAY Admitting Clinician Unavailable Payers Payer Name Policy Type Policy Number Effective Date Expiration Date S salvatore AETNA MEDICARE [id number] 2021 PPO 00:00:00 [employer]ETNA MEDICARE 53 [id number] 2021 Common 00:00:00 [facility] MEDICARE B-[place]: [id number] 2020 NOVITAS SOLUTIONS 00:00:00 [employer]ETNA (MEDICARE [id number] 2021 REPLACEMENT PPO) 00:00:00 [employer] MEDICARE 53 [id number] 2020 Common 00:00:00 [facility] MEDICARE NOVMONIQUE MB [id number] 2020 Common 00:00:00 [facility] AETNA MEDICARE C1 [id number] Common [facility] Problems Condition Condition Condition Status Onset Resolution Last Treating Co mments Source Name Details Category Date Date Treatment Clinician Date Single Single Disease Active UT subsegment subsegment 7-13 He alth al al 00:00: pulmonary pulmonary 00 embolism embolism without without acute cor acute cor pulmonale pulmonale Encounter Encounter Disease Active UT for for 1-12 Health monitoring monitoring 00:00: golimumab golimumab 00 therapy therapy Stage 3a Stage 3a Disease Active UT chronic chronic 708 Health kidney kidney 00:00: disease disease 00 On On Disease Active UT abatacept abatacept 7-08 Heal th therapy therapy 00:00: 00 Encounter Encounter Disease Active UT for for 9-30 Health long-term long-term 00:00: (current) (current) 00 use of use of medication medication s s Chronic Chronic Disease Active UT gout gout 9 Health 00:00: 00 Renal mass Renal mass Disease Active [facility] 00:[facility]: Medical 00 Bud Nausea and Nausea and Disease Active C [facility] vomiting, vomiting, 7-10 [facility] s intractabi intractabi 00:00: Me dical lity of lity of 00 Center vomiting vomiting not not specified, specified, unspecifie unspecifie d vomiting d vomiting type type Left renal Left renal Disease Active [facility] mass mass 7-05 [facility] 00:[facility]: Medical 00 Center Generalize Generalize Disease Active U T d d 5-10 Health osteoarthr osteoarthr 00:00: itis of itis of 00 multiple multiple sites sites High High Disease Active [facility] cholestero cholestero Co llege l l of Medicin e Severe Severe Disease Active [facility] obesity obesity [facility]) [facility] of Medicin e [id number] S/P Problem Common laparoscop Spirit ic surgery - [facility] [id number] S/p Problem Common nephrectom Spirit y - [facility] [id number] Lymphopeni Problem Com mon a 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 - [facility] stage 3B disease St (disorder) [facility] Prediabete Prediabete Problem C ommon s s [facility] Gastroesop GERD Problem Commo n hageal (gastroeso Spirit reflux phageal - [facility] disease reflux St disease) [facility] Depression Depression Problem C ommon [facility] Rheumatoid Rheumatoid Problem C ommon arthritis arthritis Spir it - [facility] Vitamin D Vitamin D Problem Com mon deficiency deficiency Sp lninette - [facility] COPD - COPD Problem Common Chronic (chronic Spirit obstructiv obstructiv - [facility] e e St pulmonary pulmonary Leipsic s disease disease) Medical Center Anxiety Anxiety Problem Common 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 Decreased Decreased Problem Com mon testostero testostero Sp linnette ne level ne level [facility] Obstructiv WALE Problem Commo n e sleep (obstructi Spiri t apnea ve sleep - [facility]I apnea) [facility] Varicose Varicose Problem Commo n vein vein 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 t liver liver - [facility] disease [facility] [id number] History of Problem C ommon 9104 left Spirit nephrectom - [facility] y [facility] Atrial A-fib Problem Common fibrillati Spirit on - [facility] [id number] CPAP Problem Common (continuou Spirit s positive - CHI airway St pressure) [facility] dependence [facility] Allergic Allergic Problem Commo n rhinitis rhinitis Spirit - [facility] [id number] 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 - [facility] kidney [facility] Hypertensi Hypertensi Problem C ommon on on Spirit CHI [facility] Mixed Mixed Problem Common hyperlipid hyperlipid Sp linnette emia emia - [facility] [id number] +5th digit Problem Co mmon eff Spirit 03/31/20*CK - CHI D (chronic St kidney [facility] disease) Medical stage 3, Center GFR 30-59 ml/min [id number] Current Problem Common moderate Spirit episode of - [facility]I major St depressive [facility] disorder Medical without Center prior episode [id number] Migraine Problem Comm on without Spirit aura and - [facility] without St status [facility] migrainosu Medica l s, not Center intractabl e Allergies, Adverse Reactions, Alerts Allergy Allergy Status Severity Reaction(s) Onset Inactive Treating Comm ents Source Name Type Date Date Clinician NO KNOWN Drug Active Univers ALLERGIE Class ity of S [facility] Social History Social Habit Start Date Stop Date Quantity Comments Source History SDAK Jain Alcohol Std Drinks Hospit al History [facility] Exposure to Not sure [facility] SARS-CoV-2 (event) History of Tobacco Common Spirit - Use [facility] History [facility] Alcohol Comment Medical C enter Cigarettes smoked 2019-12-15 2019-12-15 [facility] of current (pack per 00:00:00 00:00:00 Medicin e day) - Reported Cigarette 2019-12-15 2019-12-15 [facility] of pack-years 00:00:00 00:00:00 Medicine Tobacco use and 2018-12-30 2018-12-30 Never used [facility] exposure 00:00:00 00:00:00 [facility] Tobacco Comment 2018-12-30 2018-12-[address] Shyla kes 00:00:00 00:00:00 [facility] Alcohol intake 2018-08-04 2018-08-04 Current Jain 00:00:00 00:00:00 non-drinker of Hospital alcohol (finding) History SDAK 2018-08-01 2018-08-01 1 Jain Alcohol Frequency 00:00:00 00:00:00 Hospita l Sex [birth year] Jain 00:00:00 00:00:00 Hospital Smoking Status Start Date Stop Date Source Unknown if ever smoked [facility] Former Smoker 2022-04-16 00:00:00 2022-04-16 00:00:00 Common S pirit - [facility] Ce nter Medications Ordered Filled Start Stop Current Ordering Indication Dosage Frequency Signature Comments Components Source Medication Medication Date Date Medication? Clinician (SIG) Name Name etodolac 2021- No 500mg Q.5D Take 500 UT (Lodine) 7-13 07-13 mg by Health 300 MG 10:05: 00:00 mouth capsule 48 :00 twice a day. ergocalcife 2021- No 1 capsule UT rol 01-10 07-13 Health (Vitamin 10:05: 00:00 D2) 1.25 MG 45 :00 (34160 UT) capsule adalimumab 2021- No 40mg Q14D Inject 40 U T (Humira) 40 7-13 07-13 mg under Hea lth MG/0.8ML 10:05: 00:00 the skin Prefilled 41 :00 every 14 Syringe Kit (fourteen) days. atorvastati Yes TAKE 1 UT n (Lipitor) 7-13 TABLET BY Hea lth 40 MG 09:57: MOUTH tablet 58 EVERY DAY buPROPion Yes 300mg QD Take 300 UT XL 7-13 mg by Health (Wellbutrin 09:57: mouth 1 XL) 300 MG 58 (one) time 24 hr each day. tablet Cholecalcif Yes TAKE 1 UT don 7-13 CAPSULE [email or web address] (Vitamin D) 09:57: DAILY 50 MCG 58 (2000 UT) capsule desloratadi Yes TAKE 1 UT ne 7-13 TABLET BY Health (Clarinex) 09:57: MOUTH 5 MG tablet 58 EVERY DAY escitalopra Yes 10mg QD Take 10 mg UT m (Lexapro) 7-13 by mouth 1 He alth 20 MG 09:57: (one) time tablet 58 each day. ezetimibe 2022-0 Yes 10mg QD Take 10 mg UT (Zetia) 10 - by mouth 1 Hea lth MG tablet 09:57: (one) time 58 each day. losartan 2021-0 Yes 50mg QD Take 50 mg UT (Cozaar) 50 01-10 by mouth 1 He alth MG tablet 09:57: (one) time 58 each day. metoprolol 0 Yes 25mg QD Take 25 mg U T succinate 01-10 by mouth 1 Heal th XL 09:57: (one) time (Toprol-XL) 58 each day. 25 MG 24 hr tablet omega-3 2021-0 Yes 1 (one) UT (Fish Oil) -13 time each Heal th 1000 MG 09:57: day at the capsule 58 same time. Topiramate Yes 50mg QD Take 50 mg U T ER 01-10 by mouth 1 Health (Trokendi 09:57: (one) time XR) 50 MG 58 each day. capsule sustained-r elease 24 hr Zinc 50 MG Yes TAKE 1 UT tablet 01-10 TABLET Health 09:57: DAILY. 58 Golimumab 0 2022- No [id number] 50mg Q28D Inject 50 UT (Simponi) 01-10 07-14 mg under Healt h 50 MG/0.5ML 00:00: 04:59 the skin solution 00 :00 every 28 auto-inject (twenty-ei or ght) days. Eliquis 5 2021-0 Yes 5mg Q.5D Take 5 mg UT MG tablet - by mouth 2 Heal th 00:00: (two) 00 times a day. pantoprazol 0 Yes 40mg QD Take 40 mg UT e 5-29 by mouth 1 Health (ProtoNix) 00:00: (one) time 40 MG EC 00 each day. tablet Eliquis 5 Eliquis 5 2021-0 No Eliquis 5 MG MG 5-18 MG 00:00: 00 Eliquis 5 Eliquis 5 2021-0 No Eliquis 5 MG MG 5-18 MG 00:00: 00 folic acid 2021-0 2022- No QD 1 (one) UT (Folvite) 1 -12 01-12 time each He alth MG tablet 10:51: 00:00 day. 55 :00 escitalopra 2021-0 Yes QD 1 (one) UT m (Lexapro) 1-12 time each Hea lth 20 MG 10:09: day. tablet 52 etodolac 2021-0 Yes 500mg Q.5D Take 500 UT (Lodine) 1-12 mg by Health 300 MG 10:09: mouth capsule 52 twice a day. ezetimibe 2021-0 Yes 10mg QD Take 10 mg UT (Zetia) 10 1-12 by mouth 1 Hea lth MG tablet 10:09: (one) time 52 each day. losartan 2021-0 Yes 50mg QD Take 50 mg UT (Cozaar) 50 1-12 by mouth 1 He alth MG tablet 10:09: (one) time 52 each day. metoprolol 0 Yes 25mg QD Take 25 mg U T succinate 1-12 by mouth 1 Heal th XL 10:09: (one) time (Toprol-XL) 52 each day. 25 MG 24 hr tablet omega-3 2021-0 Yes 1 (one) UT (Fish Oil) 1-12 time each Heal th 1000 MG 10:09: day at the capsule 52 same time. Topiramate 0 Yes 50mg 50 mg. UT ER 1-12 Health (Trokendi 10:09: XR) 50 MG 52 capsule sustained-r elease 24 hr Zinc 50 MG 0 Yes TAKE 1 UT tablet 1-12 TABLET Health 10:09: DAILY. 52 adalimumab 2021-0 Yes 40mg Q14D Inject 40 UT (Humira) 40 1-12 mg under Heal th MG/0.8ML 10:09: the skin Prefilled 52 every 14 Syringe Kit (fourteen) days. atorvastati 0 Yes TAKE 1 UT n (Lipitor) 1-12 TABLET BY Hea lth 40 MG 10:09: MOUTH tablet 52 EVERY DAY buPROPion 2021-0 Yes 300mg QD Take 300 UT XL 1-12 mg by Health (Wellbutrin 10:09: mouth 1 XL) 300 MG 52 (one) time 24 hr each day. tablet Cholecalcif 2021-0 Yes TAKE 1 UT don 1-12 CAPSULE Health (Vitamin D) 10:09: DAILY 50 MCG 52 (1999 UT) capsule desloratadi 0 Yes TAKE 1 UT ne 1-12 TABLET BY Health (Clarinex) 10:09: MOUTH 5 MG tablet 52 EVERY DAY ergocalcife Yes 1 capsule U T rol 1-12 Health (Vitamin 10:09: D2) 1.25 MG 52 (29440 UT) capsule Golimumab 2022- No [id number] 50mg Q28D Inject 50 UT (Simponi) 1-12 01-13 mg under Healt h 50 MG/0.5ML 00:00: 05:59 the skin solution 00 :00 every 28 auto-inject (twenty-ei or ght) days. Golimumab 2021- No [id number] 50mg Q28D Inject 50 UT (Simponi) 07-12 07-13 mg under Healt h 50 MG/0.5ML 00:00: 00:00 the skin solution 00 :00 every 28 auto-inject (twenty-ei or ght) days. sotrovimab 2020-07- No [id number] 500mg 500 mg, IV Univers (XEVUDY) 12-30 Infusion, ity o f 500 mg in 23:00: 22:17 ONCE, [place] NaCl 0.9% 00 :00 Administer Medi davey (NS) 50 mL over 30 Branch MINI-BAG Minutes, On Sat06/29/21 at 1700, For [address] able 24 hours refrigerat ed or 6 hours at room temperatur e including transporta tion and infusion time.
Golimumab 2021- No [id number] 50mg Q28D Inject 50 UT (Simponi) 01-05 01-12 mg under Healt h 50 MG/0.5ML 00:00: 00:00 the skin solution 00 :00 every 28 auto-inject (twenty-ei or ght) days. leflunomide 2021- No 10mg 10 mg. UT (Arava) 10 09-28-12 Health MG tablet 00:00: 00:00 00 :00 Abatacept 2020-2021- No 125mg/m 125 mg/mL. UT (Orencia 2-08 01-12 L Health ClickJect) 00:00: 00:00 125 MG/ML 00 :00 solution auto-inject or CIMZIA Yes 200mL Inject 200 [facility] or PREFILLED 2 5-26 mL into Colle ge X 200 MG/ML 00:00: the skin of injection 00 every 14 Medici n days. e Certolizuma 2021- No 200mL Inject 200 UT b Pegol 5-26 01-12 mL under Health (Cimzia 00:00: 00:00 the skin. Starter 00 :00 Kit) 6 X 200 MG/ML kit Famotidine Famotidine 2018-07 Yes Felipa TAKE 1 Common 0-28 Monet TABLET BY Spirit 00:00: MOUTH - [facility] [address] [facility] folic acid Yes 1mg QD Take [address] (FOLVITE) 1 7-16 by mouth Luke s MG tablet 10:55: daily. Medica l 46 Bud escitalopra Yes 20mg QD Take [address] m oxalate 7-16 by mouth [facility] (LEXAPRO) 10:55: daily. Medica l 20 MG 46 Center tablet buPROPion Yes 300mg QD Take [address] (WELLBUTRIN 7-16 mg by [facility]ukes XL) 300 MG 10:55: mouth Medica l 24 hr 46 daily. Bud tablet desloratadi Yes 5mg QD Take [address] ne 7-16 by mouth [facility] (CLARINEX) 10:55: daily. Medic al 5 mg tablet 46 Bud losartan Yes 50mg QD Take [address] (COZAAR) 50 7-16 by mouth Luke s MG tablet 10:55: daily. Medica l 46 Bud etodolac Yes 500mg Take [address] (LODINE) 7-16 mg by [facility] 500 MG 10:55: mouth as Medical tablet 46 needed. Bud ezetimibe 0 Yes 10mg QD Take [address] (ZETIA) 10 7-16 by mouth [facility]ukes mg tablet 10:55: daily. Medica l 46 Bud metoprolol Yes 25mg QD Take [address] (TOPROL-XL) 7-16 by mouth Luke s 25 MG 24 hr 10:55: daily. Medi davey tablet 46 Bud atorvastati Yes 40mg QD Take [address] n (LIPITOR) 7-16 by mouth Luke s 40 MG 10:55: daily. Medical tablet 46 Bud adalimumab 0 Yes 40mg Q14D Inject [address] (HUMIRA,CF, 7-16 mg [facility]ukes PEN) 40 10:55: subcutaneo Medi davey mg/0.4 mL 46 usly every Cent er PnKt 14 (fourteen) days. folic acid Yes 1mg QD Take [address] (FOLVITE) 1 7-16 by mouth Luke s MG tablet 10:55: daily. Medica l 46 Bud escitalopra Yes 20mg QD Take [address] m oxalate 7-16 by mouth [facility] (LEXAPRO) 10:55: daily. Medica l 20 MG 46 Center tablet buPROPion Yes 300mg QD Take [address] (WELLBUTRIN 7-16 mg by [facility]ukes XL) 300 MG 10:55: mouth Medica l 24 hr 46 daily. Center tablet desloratadi Yes 5mg QD Take [address] ne 7-16 by mouth [facility] (CLARINEX) 10:55: daily. Medic al 5 mg tablet 46 Bud losartan Yes 50mg QD Take [address] (COZAAR) 50 7-16 by mouth Luke s MG tablet 10:55: daily. Medica l 46 Bud etodolac 0 Yes 500mg Take [address] (LODINE) 7-16 mg by [facility] 500 MG 10:55: mouth as Medical tablet 46 needed. Bud ezetimibe Yes 10mg QD Take [address] (ZETIA) 10 7-16 by mouth [facility] mg tablet 10:55: daily. Medica l 46 Bud metoprolol 0 Yes 25mg QD Take [address] (TOPROL-XL) 7-16 by mouth Luke s 25 MG 24 hr 10:55: daily. Medi davey tablet 46 Bud atorvastati 0 Yes 40mg QD Take [address] n (LIPITOR) 7-16 by mouth Luke s 40 MG 10:55: daily. Medical tablet 46 Bud adalimumab Yes 40mg Q14D Inject [address] (HUMIRA,CF, 7-16 mg [facility]ukes PEN) 40 10:55: subcutaneo Medi davey mg/0.4 mL 46 usly every Cent er PnKt 14 (fourteen) days. folic acid Yes 1mg QD Take [address] (FOLVITE) 1 7-16 by mouth Luke s MG tablet 10:55: daily. Medica l 46 Bud escitalopra Yes 20mg QD Take [address] m oxalate 7-16 by mouth [facility] (LEXAPRO) 10:55: daily. Medica l 20 MG 46 Center tablet buPROPion Yes 300mg QD Take [address] (WELLBUTRIN 7-16 mg by [facility]ukes XL) 300 MG 10:55: mouth Medica l 24 hr 46 daily. Center tablet desloratadi Yes 5mg QD Take [address] ne 7-16 by mouth [facility] (CLARINEX) 10:55: daily. Medic al 5 mg tablet 46 Bud losartan Yes 50mg QD Take [address] (COZAAR) 50 7-16 by mouth Luke s MG tablet 10:55: daily. Medica l 46 Bud etodolac Yes 500mg Take [address] (LODINE) 7-16 mg by [facility] 500 MG 10:55: mouth as Medical tablet 46 needed. Bud ezetimibe Yes 10mg QD Take [address] (ZETIA) 10 7-16 by mouth [facility]ukes mg tablet 10:55: daily. Medica l 46 Bud metoprolol Yes 25mg QD Take [address] (TOPROL-XL) 7-16 by mouth Luke s 25 MG 24 hr 10:55: daily. Medi davey tablet 46 Bud atorvastati Yes 40mg QD Take [address] n (LIPITOR) 7-16 by mouth Luke s 40 MG 10:55: daily. Medical tablet 46 Bud adalimumab Yes 40mg Q14D Inject [address] (HUMIRA,CF, 7-16 mg [facility] PEN) 40 10:55: subcutaneo Medi davey mg/0.4 mL 46 usly every Cent er PnKt 14 (fourteen) days. HUMIRA PEN Yes [facility] 40 MG/0.8ML 6-13 College injection 00:00: of 00 Medicin e HUMIRA PEN Yes [facility] 40 MG/0.8ML 6-13 College injection 00:00: of 00 Medicin e metoprolol Yes TAKE 1 [facility] (TOPROL-XL) 6-10 TABLET BY Col lege 25 MG XL 00:00: MOUTH of tablet 00 EVERY DAY Medicin e metoprolol Yes TAKE 1 [facility] (TOPROL-XL) 6-10 TABLET BY Col lege 25 MG XL 00:00: MOUTH of tablet 00 EVERY DAY Medicin e losartan Yes TAKE 1 [facility] (COZAAR) 25 5-27 TABLET BY Col lege MG tablet 00:00: MOUTH of 00 TWICE A Medicin DAY e losartan Yes TAKE 1 [facility] (COZAAR) 25 5-27 TABLET BY Col lege MG tablet 00:00: MOUTH of 00 TWICE A Medicin DAY e folic acid Yes TAKE 1 [facility] (FOLVITE) 1 5-25 TABLET BY Col lege MG tablet 00:00: MOUTH of 00 EVERY DAY Medicin e desloratadi Yes TAKE 1 [facility] or ne 5-[address] (CLARINEX) 00:00: MOUTH of 5 MG tablet 00 EVERY DAY Med icin e folic acid Yes TAKE 1 [facility] (FOLVITE) 1 5-25 TABLET BY Col lege MG tablet 00:00: MOUTH of 00 EVERY DAY Medicin e desloratadi Yes TAKE 1 [facility] or ne 5-[address] (CLARINEX) 00:00: MOUTH of 5 MG tablet 00 EVERY DAY Med icin e ezetimibe Yes TAKE 1 [facility] (ZETIA) [...] e APPOINTMEN T buPROPion Yes TAKE 1 [facility] (WELLBUTRIN 4-19 TABLET BY Col lege ) 300 MG XL 00:00: MOUTH of tablet 00 EVERY Medicin MORNING e NEEDS APPOINTMEN T escitalopra Yes TAKE 1 [facility] m (LEXAPRO) 4-19 TABLET BY Col lege 20 MG 00:00: MOUTH ONCE of tablet 00 A DAY Medicin NEEDS e APPOINTMEN T buPROPion Yes TAKE 1 [facility] (WELLBUTRIN 4-19 TABLET BY Col lege ) 300 MG XL 00:00: MOUTH of tablet 00 EVERY Medicin MORNING e NEEDS APPOINTMEN T etodolac Yes TAKE 1 [facility] (LODINE) 3-27 TABLET BY Colleg e 500 MG 00:00: MOUTH of tablet 00 TWICE A Medicin DAY e NEEDED FOR PAIN etodolac Yes TAKE 1 [facility] (LODINE) 3-27 TABLET BY Colleg e 500 MG 00:00: MOUTH of tablet 00 TWICE A Medicin DAY e NEEDED FOR PAIN atorvastati Yes 40mg QD Take 40 mg [...] injection 27 every 14 l (fourteen) days. folic acid Yes 1mg QD Take 1 mg Me thodi (FOLVITE) 1 2-[address] MG tablet 14:50: daily. Hospit a 27 l escitalopra Yes 20mg QD Take 20 mg Methodi m (LEXAPRO) 2-[address] 20 MG 14:50: daily. Hospita tablet 27 l buPROPion Yes 300mg QD Take 300 Met hodi XL 2-[address] (WELLBUTRIN 14:50: mouth Hospi ta XL) 300 MG 27 daily. l 24 hr tablet desloratadi Yes 5mg QD Take 5 mg M ethodi ne 2-[address] (CLARINEX) 14:50: daily. Hospi ta 5 mg tablet 27 l losartan Yes 25mg QD Take 25 mg Met hodi (COZAAR) 25 2-[address] MG tablet 14:50: daily. [...] injection 27 every 14 l (fourteen) days. folic acid Yes 1mg QD Take 1 mg Me thodi (FOLVITE) 1 2-[address] MG tablet 14:50: daily. Hospit a 27 l escitalopra Yes 20mg QD Take 20 mg Methodi m (LEXAPRO) 2-[address] 20 MG 14:50: daily. Hospita tablet 27 l buPROPion Yes 300mg QD Take 300 Met hodi XL 2-[address] (WELLBUTRIN 14:50: mouth Hospi ta XL) 300 MG 27 daily. l 24 hr tablet desloratadi Yes 5mg QD Take 5 mg M ethodi ne 2-[address] (CLARINEX) 14:50: daily. Hospi ta 5 mg tablet 27 l losartan Yes 25mg QD Take 25 mg Met hodi (COZAAR) 25 2-[address] MG tablet 14:50: daily. Hospit a 27 l pantoprazol 20190 Yes 40mg QD Take 40 mg Methodi [...] injection 27 every 14 l (fourteen) days. folic acid Yes 1mg QD Take 1 mg Me thodi (FOLVITE) 1 2-[address] MG tablet 14:50: daily. Hospit a 27 l escitalopra 2018-0 Yes 20mg QD Take 20 mg Methodi m (LEXAPRO) 2-[address] 20 MG 14:50: daily. Hospita tablet 27 l buPROPion 20190 Yes 300mg QD Take 300 Met hodi XL 2-[address] (WELLBUTRIN 14:50: mouth Hospi ta XL) 300 MG 27 daily. l 24 hr tablet desloratadi Yes 5mg QD Take 5 mg M ethodi ne 2-[address] (CLARINEX) 14:50: daily. Hospi ta 5 mg tablet 27 l losartan Yes 25mg QD Take 25 mg Met hodi (COZAAR) 25 2-[address] MG tablet 14:50: daily. [...] Take 10 mg Me thodi (ZETIA) 10 08-[address] mg tablet 14:50: daily. Hospit a 27 l Pantoprazol Pantoprazol Yes Felipa 1 tablet Common e Sodium e Sodium Monet [facility] Cozaar Cozaar Yes Felipa 1 tablet Commo n Monet [facility] Folic Acid Folic Acid Yes Felipa 1 tablet Common Monet [facility] Losartan Losartan Yes Felipa 1 tablet C ommon Potassium Potassium Monet Spir it [facility] Desloratadi Desloratadi Yes Felipa TAKE 1 Common ne ne Monet TABLET BY [facility] MOUTH - CHI EVERY DAY [facility] BuPROPion BuPROPion Yes Felipa 1 tablet Common HCl ER (XL) HCl ER (XL) Monet in the [facility] morning [facility] Atorvastati Atorvastati Yes Felipa TAKE 1 Common n Calcium n Calcium Monet TABLET BY Spirit MOUTH - CHI EVERY DAY [facility] Lexapro Lexapro Yes Felipa 0.5 tablet C ommon Monet [facility] Zetia Zetia Yes Felipa 1 tablet Common Monet [facility] Cimzia Cimzia Yes Felipa as Common Monet directed [facility] Vitamin D Vitamin D Yes Felipa 1 capsule Common (Ergocalcif (Ergocalcif Monet Spirit don) don) [facility] Lipitor Lipitor Yes Felipa 1 tablet Com mon Monet [facility] Metoprolol Metoprolol Yes Felipa 1 tablet Common Succinate Succinate Monet Spir it ER ER - CHI [facility] Zetia Zetia Yes Felipa 1 tablet Common Monet [facility] - [facility] Escitalopra Escitalopra Yes Felipa TAKE 1 Common m Oxalate m Oxalate Monet TABLET BY Spirit MOUTH - CHI EVERY DAY [facility] Lexapro 20 Lexapro 20 No Lexapro 20 MG MG MG Lexapro 20 Lexapro 20 No .5{tabl QD Lexapro 20 MG MG et} MG Folic Acid Folic Acid No 1{table QD Folic Acid 1 MG 1 MG t} 1 MG buPROPion buPROPion No buPROPion HCl ER (XL) HCl ER (XL) HCl ER 300 MG 300 MG (XL) 300 MG Famotidine Famotidine No Famotidine 20 MG 20 MG 20 MG Escitalopra Escitalopra No Escitalopr m Oxalate m Oxalate am Oxalate 20 MG 20 MG 20 MG Orencia Orencia No Orencia Atorvastati Atorvastati No Atorvastat n Calcium n Calcium in Calcium 40 MG 40 MG 40 MG Lexapro 20 Lexapro 20 No Lexapro 20 MG MG MG Cozaar 50 Cozaar 50 No 1{table QD Cozaar 50 MG MG t} MG Metoprolol Metoprolol No 1{table QD Metoprolol Succinate Succinate t} Succinate ER 50 MG ER 50 MG ER 50 MG Losartan Losartan No 1{table QD Losartan Potassium Potassium t} Potassium 50 MG 50 MG 50 MG buPROPion buPROPion No 1{table QD buPROPion HCl ER (XL) HCl ER (XL) t_in_th HCl ER 300 MG 300 MG e_morni (XL) 300 ng} MG Vitamin D Vitamin D No 1{capsu Vitamin D (Ergocalcif (Ergocalcif le} (Ergocalci don) 13537 don) 86053 ferol) UNIT UNIT [id number] UNIT Desloratadi Desloratadi No Desloratad ne 5 MG ne 5 MG ine 5 MG Cozaar 50 Cozaar 50 No 1{table QD Cozaar 50 MG MG t} MG Lipitor 40 Lipitor 40 No 1{table QD Lipitor 40 MG MG t} MG Cimzia 2 X Cimzia 2 X No Cimzia 2 X 200 MG 200 MG 200 MG Ezetimibe Ezetimibe No Ezetimibe 10 MG 10 MG 10 MG Zetia 10 MG Zetia 10 MG No 1{table QD Zetia 10 t} MG Fish Oil Fish Oil No 1{capsu QD Fish Oil 1000 MG 1000 MG le} 1000 MG Pantoprazol Pantoprazol No 1{table QD Pantoprazo e Sodium 40 e Sodium 40 t} le Sodium MG MG 40 MG Cozaar 50 Cozaar 50 No 1{table QD MG MG t} Metoprolol Metoprolol No 1{table QD Succinate Succinate t} ER 50 MG ER 50 MG Fish Oil Fish Oil No 1{capsu QD 1000 MG 1000 MG le} Folic Acid Folic Acid No 1{table QD 1 MG 1 MG t} Lipitor 40 Lipitor 40 No 1{table QD MG MG t} Cimzia 2 X Cimzia 2 X No 200 MG 200 MG Vitamin D Vitamin D No 1{capsu (Ergocalcif (Ergocalcif le} don) [id number] don) [id number] UNIT UNIT Lexapro 20 Lexapro 20 No .5{tabl QD MG MG et} Losartan Losartan No 1{table QD Potassium Potassium t} 50 MG 50 MG Desloratadi Desloratadi No ne 5 MG ne 5 MG Pantoprazol Pantoprazol No 1{table QD e Sodium 40 e Sodium 40 t} MG MG Atorvastati Atorvastati No n Calcium n Calcium 40 MG 40 MG Escitalopra Escitalopra No m Oxalate m Oxalate 20 MG 20 MG Cozaar 50 Cozaar 50 No 1{table QD MG MG t} Famotidine Famotidine No 20 MG 20 MG Ezetimibe Ezetimibe No 10 MG 10 MG buPROPion buPROPion No HCl ER (XL) HCl ER (XL) 300 MG 300 MG Orencia Orencia No Zetia 10 MG Zetia 10 MG No 1{table QD t} buPROPion buPROPion No 1{table QD HCl ER (XL) HCl ER (XL) t_in_th 300 MG 300 MG e_morni ng} Lexapro 20 Lexapro 20 No MG MG Lipitor 40 Lipitor 40 No 1{table QD Lipitor 40 MG MG t} MG Vitamin D Vitamin D No 1{capsu Vitamin D (Ergocalcif (Ergocalcif le} (Ergocalci don) 15973 don) 50702 ferol) UNIT UNIT 65781 UNIT Cozaar 50 Cozaar 50 No 1{table QD Cozaar 50 MG MG t} MG Losartan Losartan No Losartan Potassium Potassium Potassium 50 MG 50 MG 50 MG Lexapro 20 Lexapro 20 No Lexapro 20 MG MG MG Desloratadi Desloratadi No Desloratad ne 5 MG ne 5 MG ine 5 MG Atorvastati Atorvastati No Atorvastat n Calcium n Calcium in Calcium 40 MG 40 MG 40 MG Orencia Orencia No Orencia Zetia 10 MG Zetia 10 MG No 1{table QD Zetia 10 t} MG buPROPion buPROPion No 1{table QD buPROPion HCl ER (XL) HCl ER (XL) t_in_th HCl ER 300 MG 300 MG e_morni (XL) 300 ng} MG Cimzia 2 X Cimzia 2 X No Cimzia 2 X 200 MG 200 MG 200 MG Metoprolol Metoprolol No 1{table QD Metoprolol Succinate Succinate t} Succinate ER 50 MG ER 50 MG ER 50 MG Lexapro 20 Lexapro 20 No .5{tabl QD Lexapro 20 MG MG et} MG Pantoprazol Pantoprazol No 1{table QD Pantoprazo e Sodium 40 e Sodium 40 t} le Sodium MG MG 40 MG Folic Acid Folic Acid No 1{table QD Folic Acid 1 MG 1 MG t} 1 MG buPROPion buPROPion No buPROPion HCl ER (XL) HCl ER (XL) HCl ER 300 MG 300 MG (XL) 300 MG Escitalopra Escitalopra No Escitalopr m Oxalate m Oxalate am Oxalate 20 MG 20 MG 20 MG Fish Oil Fish Oil No 1{capsu QD Fish Oil 1000 MG 1000 MG le} 1000 MG Famotidine Famotidine No Famotidine 20 MG 20 MG 20 MG Ezetimibe Ezetimibe No Ezetimibe 10 MG 10 MG 10 MG Famotidine Famotidine No Famotidine 20 MG 20 MG 20 MG Lexapro 20 Lexapro 20 No .5{tabl QD Lexapro 20 MG MG et} MG Fish Oil Fish Oil No 1{capsu QD Fish Oil 1000 MG 1000 MG le} 1000 MG Pantoprazol Pantoprazol No 1{table QD Pantoprazo e Sodium 40 e Sodium 40 t} le Sodium MG MG 40 MG Zetia 10 MG Zetia 10 MG No 1{table QD Zetia 10 t} MG Metoprolol Metoprolol No 1{table QD Metoprolol Succinate Succinate t} Succinate ER 50 MG ER 50 MG ER 50 MG Lipitor 40 Lipitor 40 No 1{table QD Lipitor 40 MG MG t} MG Cozaar 50 Cozaar 50 No 1{table QD Cozaar 50 MG MG t} MG Escitalopra Escitalopra No Escitalopr m Oxalate m Oxalate am Oxalate 20 MG 20 MG 20 MG Atorvastati Atorvastati No Atorvastat n Calcium n Calcium in Calcium 40 MG 40 MG 40 MG Cimzia 2 X Cimzia 2 X No Cimzia 2 X 200 MG 200 MG 200 MG Losartan Losartan No Losartan Potassium Potassium Potassium 50 MG 50 MG 50 MG buPROPion buPROPion No buPROPion HCl ER (XL) HCl ER (XL) HCl ER 300 MG 300 MG (XL) 300 MG buPROPion buPROPion No 1{table QD buPROPion HCl ER (XL) HCl ER (XL) t_in_th HCl ER 300 MG 300 MG e_morni (XL) 300 ng} MG Ezetimibe Ezetimibe No Ezetimibe 10 MG 10 MG 10 MG Lexapro 20 Lexapro 20 No Lexapro 20 MG MG MG Orencia Orencia No Orencia Vitamin D Vitamin D No 1{capsu Vitamin D (Ergocalcif (Ergocalcif le} (Ergocalci don) 26011 don) 51256 ferol) UNIT UNIT 09759 UNIT Folic Acid Folic Acid No 1{table QD Folic Acid 1 MG 1 MG t} 1 MG Desloratadi Desloratadi No Desloratad ne 5 MG ne 5 MG ine 5 MG Zetia 10 MG Zetia 10 MG No 1{table QD Zetia 10 t} MG Famotidine Famotidine No Famotidine 20 MG 20 MG 20 MG Escitalopra Escitalopra No Escitalopr m Oxalate m Oxalate am Oxalate 20 MG 20 MG 20 MG Losartan Losartan No Losartan Potassium Potassium Potassium 50 MG 50 MG 50 MG Fish Oil Fish Oil No 1{capsu QD Fish Oil 1000 MG 1000 MG le} 1000 MG buPROPion buPROPion No buPROPion HCl ER (XL) HCl ER (XL) HCl ER 300 MG 300 MG (XL) 300 MG Lipitor 40 Lipitor 40 No 1{table QD Lipitor 40 MG MG t} MG Cozaar 50 Cozaar 50 No 1{table QD Cozaar 50 MG MG t} MG Metoprolol Metoprolol No 1{table QD Metoprolol Succinate Succinate t} Succinate ER 50 MG ER 50 MG ER 50 MG Atorvastati Atorvastati No Atorvastat n Calcium n Calcium in Calcium 40 MG 40 MG 40 MG Lexapro 20 Lexapro 20 No Lexapro 20 MG MG MG Cimzia 2 X Cimzia 2 X No Cimzia 2 X 200 MG 200 MG 200 MG Folic Acid Folic Acid No 1{table QD Folic Acid 1 MG 1 MG t} 1 MG Desloratadi Desloratadi No Desloratad ne 5 MG ne 5 MG ine 5 MG Pantoprazol Pantoprazol No 1{table QD Pantoprazo e Sodium 40 e Sodium 40 t} le Sodium MG MG 40 MG buPROPion buPROPion No 1{table QD buPROPion HCl ER (XL) HCl ER (XL) t_in_th HCl ER 300 MG 300 MG e_morni (XL) 300 ng} MG Orencia Orencia No Orencia Vitamin D Vitamin D No 1{capsu Vitamin D (Ergocalcif (Ergocalcif le} (Ergocalci don) 66666 don) 63140 ferol) UNIT UNIT 15354 UNIT Ezetimibe Ezetimibe No Ezetimibe 10 MG 10 MG 10 MG Lexapro 20 Lexapro 20 No .5{tabl QD Lexapro 20 MG MG et} MG Metoprolol Metoprolol No 1{table QD Metoprolol Succinate Succinate t} Succinate ER 25 MG ER 25 MG ER 25 MG Pantoprazol Pantoprazol No 1{table QD Pantoprazo e Sodium 40 e Sodium 40 t} le Sodium MG MG 40 MG Lexapro 20 Lexapro 20 No .5{tabl QD Lexapro 20 MG MG et} MG Lipitor 40 Lipitor 40 No 1{table QD Lipitor 40 MG MG t} MG Ezetimibe Ezetimibe No Ezetimibe 10 MG 10 MG 10 MG Lexapro 20 Lexapro 20 No Lexapro 20 MG MG MG Losartan Losartan No Losartan Potassium Potassium Potassium 50 MG 50 MG 50 MG Zetia 10 MG Zetia 10 MG No 1{table QD Zetia 10 t} MG Trokendi XR Trokendi XR No 1{capsu QD Trokendi 50 MG 50 MG le} XR 50 MG buPROPion buPROPion No buPROPion HCl ER (XL) HCl ER (XL) HCl ER 300 MG 300 MG (XL) 300 MG Cozaar 50 Cozaar 50 No 1{table QD Cozaar 50 MG MG t} MG Fish Oil Fish Oil No 1{capsu QD Fish Oil 1000 MG 1000 MG le} 1000 MG Famotidine Famotidine No Famotidine 20 MG 20 MG 20 MG Eliquis Eliquis No Eliquis DVT/PE DVT/PE DVT/PE Starter Starter Starter Pack 5 MG Pack 5 MG Pack 5 MG buPROPion buPROPion No 1{table QD buPROPion HCl ER (XL) HCl ER (XL) t_in_th HCl ER 300 MG 300 MG e_morni (XL) 300 ng} MG Atorvastati Atorvastati No Atorvastat n Calcium n Calcium in Calcium 40 MG 40 MG 40 MG Cimzia 2 X Cimzia 2 X No Cimzia 2 X 200 MG 200 MG 200 MG Vitamin D Vitamin D No 1{capsu Vitamin D (Ergocalcif (Ergocalcif le} (Ergocalci don) 74387 don) 40995 ferol) UNIT UNIT 22289 UNIT Folic Acid Folic Acid No 1{table QD Folic Acid 1 MG 1 MG t} 1 MG Orencia Orencia No Orencia Escitalopra Escitalopra No Escitalopr m Oxalate m Oxalate am Oxalate 20 MG 20 MG 20 MG Desloratadi Desloratadi No Desloratad ne 5 MG ne 5 MG ine 5 MG Metoprolol Metoprolol No 1{table QD Metoprolol Succinate Succinate t} Succinate ER 25 MG ER 25 MG ER 25 MG Lexapro 20 Lexapro 20 No .5{tabl QD Lexapro 20 MG MG et} MG Lipitor 40 Lipitor 40 No 1{table QD Lipitor 40 MG MG t} MG Ezetimibe Ezetimibe No Ezetimibe 10 MG 10 MG 10 MG Lexapro 20 Lexapro 20 No Lexapro 20 MG MG MG Losartan Losartan No Losartan Potassium Potassium Potassium 50 MG 50 MG 50 MG Zetia 10 MG Zetia 10 MG No 1{table QD Zetia 10 t} MG Trokendi XR Trokendi XR No 1{capsu QD Trokendi 50 MG 50 MG le} XR 50 MG buPROPion buPROPion No buPROPion HCl ER (XL) HCl ER (XL) HCl ER 300 MG 300 MG (XL) 300 MG Cozaar 50 Cozaar 50 No 1{table QD Cozaar 50 MG MG t} MG Fish Oil Fish Oil No 1{capsu QD Fish Oil 1000 MG 1000 MG le} 1000 MG Famotidine Famotidine No Famotidine 20 MG 20 MG 20 MG Eliquis Eliquis No Eliquis DVT/PE DVT/PE DVT/PE Starter Starter Starter Pack 5 MG Pack 5 MG Pack 5 MG Desloratadi Desloratadi No Desloratad ne 5 MG ne 5 MG ine 5 MG buPROPion buPROPion No 1{table QD buPROPion HCl ER (XL) HCl ER (XL) t_in_th HCl ER 300 MG 300 MG e_morni (XL) 300 ng} MG Atorvastati Atorvastati No Atorvastat n Calcium n Calcium in Calcium 40 MG 40 MG 40 MG Cimzia 2 X Cimzia 2 X No Cimzia 2 X 200 MG 200 MG 200 MG Vitamin D Vitamin D No 1{capsu Vitamin D (Ergocalcif (Ergocalcif le} (Ergocalci don) 47368 don) 65523 ferol) UNIT UNIT 30430 UNIT Folic Acid Folic Acid No 1{table QD Folic Acid 1 MG 1 MG t} 1 MG Orencia Orencia No Orencia Escitalopra Escitalopra No Escitalopr m Oxalate m Oxalate am Oxalate 20 MG 20 MG 20 MG Pantoprazol Pantoprazol No 1{table QD Pantoprazo e Sodium 40 e Sodium 40 t} le Sodium MG MG 40 MG Orencia Orencia No Orencia Trokendi XR Trokendi XR No 1{capsu QD Trokendi 50 MG 50 MG le} XR 50 MG Pantoprazol Pantoprazol No Pantoprazo e Sodium 40 e Sodium 40 le Sodium MG MG 40 MG Eliquis Eliquis No Eliquis DVT/PE DVT/PE DVT/PE Starter Starter Starter Pack 5 MG Pack 5 MG Pack 5 MG Atorvastati Atorvastati No Atorvastat n Calcium n Calcium in Calcium 40 MG 40 MG 40 MG Fish Oil Fish Oil No 1{capsu QD Fish Oil 1000 MG 1000 MG le} 1000 MG Desloratadi Desloratadi No Desloratad ne 5 MG ne 5 MG ine 5 MG Lexapro 10 Lexapro 10 No 1{table QD Lexapro 10 MG MG t} MG Ezetimibe Ezetimibe No Ezetimibe 10 MG 10 MG 10 MG buPROPion buPROPion No 1{table QD buPROPion HCl ER (XL) HCl ER (XL) t_in_th HCl ER 300 MG 300 MG e_morni (XL) 300 ng} MG Vitamin D Vitamin D No 1{capsu Vitamin D (Ergocalcif (Ergocalcif le} (Ergocalci don) 28097 don) 34979 ferol) UNIT UNIT 91512 UNIT Escitalopra Escitalopra No Escitalopr m Oxalate m Oxalate am Oxalate 20 MG 20 MG 20 MG Zetia 10 MG Zetia 10 MG No 1{table QD Zetia 10 t} MG Pantoprazol Pantoprazol No 1{table QD Pantoprazo e Sodium 40 e Sodium 40 t} le Sodium MG MG 40 MG Losartan Losartan No Losartan Potassium Potassium Potassium 50 MG 50 MG 50 MG Lipitor 40 Lipitor 40 No 1{table QD Lipitor 40 MG MG t} MG Famotidine Famotidine No Famotidine 20 MG 20 MG 20 MG Cimzia 2 X Cimzia 2 X No Cimzia 2 X 200 MG 200 MG 200 MG Cozaar 50 Cozaar 50 No 1{table QD Cozaar 50 MG MG t} MG Eliquis 5 Eliquis 5 No Eliquis 5 MG MG MG Folic Acid Folic Acid No 1{table QD Folic Acid 1 MG 1 MG t} 1 MG Cozaar 50 Cozaar 50 No 1{table QD Cozaar 50 MG MG t} MG Metoprolol Metoprolol No 1{table QD Metoprolol Succinate Succinate t} Succinate ER 25 MG ER 25 MG ER 25 MG Lexapro 20 Lexapro 20 No Lexapro 20 MG MG MG buPROPion buPROPion No buPROPion HCl ER (XL) HCl ER (XL) HCl ER 300 MG 300 MG (XL) 300 MG Lipitor 40 Lipitor 40 No 1{table QD Lipitor 40 MG MG t} MG Cozaar 50 Cozaar 50 No 1{table QD Cozaar 50 MG MG t} MG Fish Oil Fish Oil No 1{capsu QD Fish Oil 1000 MG 1000 MG le} 1000 MG Lipitor 40 Lipitor 40 No 1{table QD Lipitor 40 MG MG t} MG Folic Acid Folic Acid No 1{table QD Folic Acid 1 MG 1 MG t} 1 MG Eliquis 5 Eliquis 5 No Eliquis 5 MG MG MG Vitamin D Vitamin D No 1{capsu Vitamin D (Ergocalcif (Ergocalcif le} (Ergocalci don) 80479 don) 08122 ferol) UNIT UNIT 08421 UNIT Pantoprazol Pantoprazol No Pantoprazo e Sodium 40 e Sodium 40 le Sodium MG MG 40 MG Metoprolol Metoprolol No 1{table QD Metoprolol Succinate Succinate t} Succinate ER 25 MG ER 25 MG ER 25 MG Pantoprazol Pantoprazol No 1{table QD Pantoprazo e Sodium 40 e Sodium 40 t} le Sodium MG MG 40 MG Cozaar 50 Cozaar 50 No 1{table QD Cozaar 50 MG MG t} MG Escitalopra Escitalopra No Escitalopr m Oxalate m Oxalate am Oxalate 20 MG 20 MG 20 MG Losartan Losartan No Losartan Potassium Potassium Potassium 50 MG 50 MG 50 MG Desloratadi Desloratadi No Desloratad ne 5 MG ne 5 MG ine 5 MG Ezetimibe Ezetimibe No Ezetimibe 10 MG 10 MG 10 MG Lexapro 20 Lexapro 20 No .5{tabl QD Lexapro 20 MG MG et} MG Lexapro 10 Lexapro 10 No 1{table QD Lexapro 10 MG MG t} MG Atorvastati Atorvastati No Atorvastat n Calcium n Calcium in Calcium 40 MG 40 MG 40 MG Cimzia 2 X Cimzia 2 X No Cimzia 2 X 200 MG 200 MG 200 MG buPROPion buPROPion No 1{table QD buPROPion HCl ER (XL) HCl ER (XL) t_in_th HCl ER 300 MG 300 MG e_morni (XL) 300 ng} MG Trokendi XR Trokendi XR No 1{capsu QD Trokendi 50 MG 50 MG le} XR 50 MG Famotidine Famotidine No Famotidine 20 MG 20 MG 20 MG Zetia 10 MG Zetia 10 MG No 1{table QD Zetia 10 t} MG Escitalopra Escitalopra No Escitalopr m Oxalate m Oxalate am Oxalate 10 MG 10 MG 10 MG Metoprolol Metoprolol No Metoprolol Succinate Succinate Succinate ER 50 MG ER 50 MG ER 50 MG buPROPion buPROPion No buPROPion HCl ER (XL) HCl ER (XL) HCl ER 300 MG 300 MG (XL) 300 MG Orencia Orencia No Orencia Eliquis Eliquis No Eliquis DVT/PE DVT/PE DVT/PE Starter Starter Starter Pack 5 MG Pack 5 MG Pack 5 MG Lipitor 40 Lipitor 40 No 1{table QD Lipitor 40 MG MG t} MG Cozaar 50 Cozaar 50 No 1{table QD Cozaar 50 MG MG t} MG Fish Oil Fish Oil No 1{capsu QD Fish Oil 1000 MG 1000 MG le} 1000 MG Lipitor 40 Lipitor 40 No 1{table QD Lipitor 40 MG MG t} MG Folic Acid Folic Acid No 1{table QD Folic Acid 1 MG 1 MG t} 1 MG Eliquis 5 Eliquis 5 No Eliquis 5 MG MG MG Vitamin D Vitamin D No 1{capsu Vitamin D (Ergocalcif (Ergocalcif le} (Ergocalci don) 84364 don) 27883 ferol) UNIT UNIT 16569 UNIT Pantoprazol Pantoprazol No Pantoprazo e Sodium 40 e Sodium 40 le Sodium MG MG 40 MG Metoprolol Metoprolol No 1{table QD Metoprolol Succinate Succinate t} Succinate ER 25 MG ER 25 MG ER 25 MG Pantoprazol Pantoprazol No 1{table QD Pantoprazo e Sodium 40 e Sodium 40 t} le Sodium MG MG 40 MG Cozaar 50 Cozaar 50 No 1{table QD Cozaar 50 MG MG t} MG Escitalopra Escitalopra No Escitalopr m Oxalate m Oxalate am Oxalate 20 MG 20 MG 20 MG Losartan Losartan No Losartan Potassium Potassium Potassium 50 MG 50 MG 50 MG Desloratadi Desloratadi No Desloratad ne 5 MG ne 5 MG ine 5 MG Ezetimibe Ezetimibe No Ezetimibe 10 MG 10 MG 10 MG Lexapro 20 Lexapro 20 No .5{tabl QD Lexapro 20 MG MG et} MG Lexapro 10 Lexapro 10 No 1{table QD Lexapro 10 MG MG t} MG Atorvastati Atorvastati No Atorvastat n Calcium n Calcium in Calcium 40 MG 40 MG 40 MG Cimzia 2 X Cimzia 2 X No Cimzia 2 X 200 MG 200 MG 200 MG buPROPion buPROPion No 1{table QD buPROPion HCl ER (XL) HCl ER (XL) t_in_th HCl ER 300 MG 300 MG e_morni (XL) 300 ng} MG Trokendi XR Trokendi XR No 1{capsu QD Trokendi 50 MG 50 MG le} XR 50 MG Famotidine Famotidine No Famotidine 20 MG 20 MG 20 MG Zetia 10 MG Zetia 10 MG No 1{table QD Zetia 10 t} MG Escitalopra Escitalopra No Escitalopr m Oxalate m Oxalate am Oxalate 10 MG 10 MG 10 MG Metoprolol Metoprolol No Metoprolol Succinate Succinate Succinate ER 50 MG ER 50 MG ER 50 MG buPROPion buPROPion No buPROPion HCl ER (XL) HCl ER (XL) HCl ER 300 MG 300 MG (XL) 300 MG Orencia Orencia No Orencia Eliquis Eliquis No Eliquis DVT/PE DVT/PE DVT/PE Starter Starter Starter Pack 5 MG Pack 5 MG Pack 5 MG Cozaar 50 Cozaar 50 No 1{table QD Cozaar 50 MG MG t} MG buPROPion buPROPion No 1{table QD buPROPion HCl ER (XL) HCl ER (XL) t_in_th HCl ER 300 MG 300 MG e_morni (XL) 300 ng} MG Lipitor 40 Lipitor 40 No 1{table QD Lipitor 40 MG MG t} MG Cozaar 50 Cozaar 50 No 1{table QD Cozaar 50 MG MG t} MG Desloratadi Desloratadi No Desloratad ne 5 MG ne 5 MG ine 5 MG Lexapro 20 Lexapro 20 No .5{tabl QD Lexapro 20 MG MG et} MG Pantoprazol Pantoprazol No 1{table QD Pantoprazo e Sodium 40 e Sodium 40 t} le Sodium MG MG 40 MG Vitamin D Vitamin D No 1{capsu Vitamin D (Ergocalcif (Ergocalcif le} (Ergocalci don) 82372 don) 17257 ferol) UNIT UNIT 87086 UNIT Fish Oil Fish Oil No 1{capsu QD Fish Oil 1000 MG 1000 MG le} 1000 MG Famotidine Famotidine No Famotidine 20 MG 20 MG 20 MG Metoprolol Metoprolol No 1{table QD Metoprolol Succinate Succinate t} Succinate ER 50 MG ER 50 MG ER 50 MG Zetia 10 MG Zetia 10 MG No 1{table QD Zetia 10 t} MG Losartan Losartan No 1{table QD Losartan Potassium Potassium t} Potassium 50 MG 50 MG 50 MG Folic Acid Folic Acid No 1{table QD Folic Acid 1 MG 1 MG t} 1 MG Cimzia 2 X Cimzia 2 X No Cimzia 2 X 200 MG 200 MG 200 MG Atorvastati Atorvastati No Atorvastat n Calcium n Calcium in Calcium 40 MG 40 MG 40 MG Orencia Orencia No Orencia buPROPion buPROPion No buPROPion HCl ER (XL) HCl ER (XL) HCl ER 300 MG 300 MG (XL) 300 MG Escitalopra Escitalopra No Escitalopr m Oxalate m Oxalate am Oxalate 20 MG 20 MG 20 MG Lipitor 40 Lipitor 40 No 1{table QD Lipitor 40 MG MG t} MG Zetia 10 MG Zetia 10 MG No 1{table QD Zetia 10 t} MG Immunizations Ordered Immunization Filled Immunization Date Status Commen ts Source Name Name FLUZONE HIGH DOSE FLUZONE HIGH DOSE 2022-04-16 Completed [facility] OVER 65 OVER 65 09:09:00 - [facility] FLUZONE HIGH DOSE FLUZONE HIGH DOSE 2022-04-16 Completed [facility] OVER 65 OVER 65 09:09:00 - [facility] Fluzone Fluzone 2021-05-29 Completed [facility] 09:05:00 - [facility] Fluzone Fluzone 2021-05-29 Completed [facility] 09:05:00 - [facility] Fluzone Fluzone 2021-05-29 Completed [facility] 09:05:00 - [facility] Fluzone Fluzone 2021-05-29 Completed [facility] 09[facility]05:00 - [facility] Fluzone Fluzone 2021-05-29 Completed [facility] 09:05:00 - [facility] Fluzone Fluzone 2021-05-29 Completed [facility] 09[facility]05:00 - [facility] Fluzone Fluzone 2021-05-29 Completed [facility] 09:05:00 - [facility] Fluzone Fluzone 2021-05-29 Completed [facility] 09:05:00 - [facility] Fluzone Fluzone 2021-05-29 Completed [facility] 09:05:00 - [facility] Fluzone Fluzone 2021-05-29 Completed [facility] 09:05:00 - [facility] Moderna COVID-19 Moderna COVID-19 2021-03-10 Completed [facility] 13:15:00 - [facility] Moderna COVID-19 Moderna COVID-19 2021-03-10 Completed [facility] 13:15:00 - [facility] Moderna COVID-19 Moderna COVID-19 2021-03-10 Completed [facility] 13:15:00 - [facility] Moderna COVID-19 Moderna COVID-19 2021-03-10 Completed [facility] 13:15:00 - [facility] Moderna COVID-19 Moderna COVID-19 2021-03-10 Completed [facility] 13:15:00 - [facility] Moderna COVID-19 Moderna COVID-19 2021-03-10 Completed [facility] 13:15:00 - [facility] Moderna COVID-19 Moderna COVID-19 2021-03-10 Completed [facility] 13:15:00 - [facility] Moderna COVID-19 Moderna COVID-19 2021-03-10 Completed [facility] 13:15:00 - [facility] Moderna COVID-19 Moderna COVID-19 2021-03-10 Com[facility] 2021-03-10 Com[facility] 13:15:00 - [facility] Moderna COVID-19 Moderna COVID-19 2021-03-10 Completed [facility] 13:15:00 - [facility] Afluria single dose Afluria single dose 2020-04-26 Completed [facility] 09:44:00 - [facility] Shingrix Shingrix 2020-04-26 Completed [facility] 09:44:00 [facility] Afluria single dose Afluria single dose 2020-04-26 Completed [facility] 09:44:00 - [facility] Shingrix Shingrix 2020-04-26 Completed [facility] 09:44:00 [facility] Afluria single dose Afluria single dose 2020-04-26 Completed [facility] 09:44:00 - [facility] Shingrix Shingrix 2020-04-26 Completed [facility] 09:44:00 [facility] Afluria single dose Afluria single dose 2020-04-26 Completed [facility] 09:44:00 - [facility] Shingrix Shingrix 2020-04-26 Completed [facility] 09:44:00 [facility] Afluria single dose Afluria single dose 2020-04-26 Completed [facility] 09:44:00 [facility] Shingrix Shingrix 2020-04-26 Completed [facility] 09:44:00 [facility] Afluria single dose Afluria single dose 2020-04-26 Completed [facility] 09:44:00 [facility] Shingrix Shingrix 2020-04-26 Completed [facility] 09:44:00 [facility] Afluria single dose Afluria single dose 2020-04-26 Completed [facility] 09:44:00 [facility] Shingrix Shingrix 2020-04-26 Completed [facility] 09:44:00 [facility] Afluria single dose Afluria single dose 2020-04-26 Completed [facility] 09:44:00 - [facility] Shingrix Shingrix 2020-04-26 Completed [facility] 09:44:00 - [facility] Afluria single dose Afluria single dose 2020-04-26 Completed [facility] 09:44:00 - [facility] Shingrix Shingrix 2020-04-26 Completed [facility] 09:44:00 - [facility] Afluria single dose Afluria single dose 2020-04-26 Completed [facility] 09:44:00 - [facility] Shingrix Shingrix 2020-04-26 Completed [facility] 09:44:00 - [facility] Afluria single dose Afluria single dose 2020-04-26 Completed [facility] 09:44:00 - [facility] Shingrix Shingrix 2020-04-26 Completed [facility] 09:44:00 - [facility] Flucelvax - Flucelvax - 2019-04-24 [facility] multid[facility] 08:15:00 - [facility] Flucelvax - Flucelvax - 2019-04-24 [facility]pleted [facility] multidose [facility]ial 08:15:00 - [facility] Flucelvax - Flucelvax - 2019-04-24 Completed [facility] multid[facility] multidose vial 08:15:00 - [facility] Flucelvax - Flucelvax - 2019-04-24 Completed [facility] multid[facility] multidose vial 08:15:00 - [facility] Flucelvax - Flucelvax - 2019-04-24 Completed [facility] multid[facility] multidose vial 08:15:00 - [facility] Flucelvax - Flucelvax - 2019-04-24 Completed [facility] multid[facility] multidose vial 08:15:00 - [facility] Flucelvax - Flucelvax - 2019-04-24 [facility]pleted [facility] multidose vial 08:15:00 - [facility] Flucelvax - Flucelvax - 2019-04-24 Completed [facility] multid[facility] multidose vial 08:15:00 - [facility] Flucelvax - Flucelvax - 2019-04-24 Completed [facility] multid[facility] multidose vial 08:15:00 - [facility] Flucelvax - Flucelvax - 2019-04-24 Completed [facility] multid[facility] multidose vial 08:15:00 - [facility] Flucelvax - Flucelvax - 2019-04-24 Completed [facility] multidose vial 08:15:00 - [facility] Flucelvax - Flucelvax - 2019-04-24 Completed [facility] multidose [facility]ial 00:00:00 - [facility] PNEUMAVAX 23 PNEUMAVAX 2018-07-28 [facility]pleted [facility] PNEUMAVAX 23 PNEUMAVAX 2018-07-28 Completed [facility] 09:04:00 - [facility] PNEUMAVAX 23 PNEUMAVAX 2018-07-28 Completed [facility] 09:04:00 - [facility] PNEUMAVAX 23 PNEUMAVAX 2018-07-28 Completed [facility] 09:04:00 - [facility] PNEUMAVAX 23 PNEUMAVAX 2018-07-28 Completed [facility] 09:04:00 - [facility] PNEUMAVAX 23 PNEUMAVAX 2018-07-28 Completed [facility] 09:04:00 - [facility] PNEUMAVAX 23 PNEUMAVAX 2018-07-28 Completed [facility] 09:04:00 - [facility] PNEUMAVAX 23 PNEUMAVAX 2018-07-28 Completed [facility] 09:04:00 - [facility] PNEUMAVAX 23 PNEUMAVAX 2018-07-28 Completed [facility] 09:04:00 - [facility] PNEUMAVAX 23 PNEUMAVAX 2018-07-28 Completed [facility] 09:04:00 - [facility] PNEUMAVAX 23 PNEUMAVAX 2018-07-28 Completed [facility] 09:04:00 - [facility] PNEUMAVAX 23 PNEUMAVAX 2018-07-28 Completed [facility]:00:00 - [facility] Pneumovax (PPSV23) Pneumovax (PPSV23) 2017-08-28 Completed [facility] 13[facility]25:00 - [facility] Pneumovax (PPSV23) Pneumovax (PPSV23) 2017-08-28 Completed [facility] 13:25:00 [facility] Pneumovax (PPSV23) Pneumovax (PPSV23) 2017-08-28 Completed [facility] 13:25:00 [facility] Pneumovax (PPSV23) Pneumovax (PPSV23) 2017-08-28 Completed [facility] 13:25:00 [facility] Pneumovax (PPSV23) Pneumovax (PPSV23) 2017-08-28 Completed [facility] 13:25:00 [facility] Pneumovax (PPSV23) Pneumovax (PPSV23) 2017-08-28 Completed [facility] 13:25:00 [facility] Pneumovax (PPSV23) Pneumovax (PPSV23) 2017-08-28 [facility] Pneumovax (PPSV23) Pneumovax (PPSV23) 2017-08-28 [facility] Pneumovax (PPSV23) Pneumovax (PPSV23) 2017-08-28 [facility] 13:25[facility] Pneumovax (PPSV23) Pneumovax (PPSV23) 2017-08-28 [facility] Pneumovax (PPSV23) Pneumovax (PPSV23) 2017-08-28 Completed [facility] 13:25[facility]00 [facility] Vital Signs Vital Name Observation Time Observation Value Comments Source Systolic blood 2022-01-10 14:55:00 127 mm[Hg] [facility] Diastolic blood 2022-01-10 14:55:00 79 mm[Hg] [facility] Heart rate 2022-01-10 14:55:00 89 /min [facility] temperature 2022-01-10 14:55:00 36.94 [facility] weight 2022-01-10 14:55:00 147.374 [facility] BMI 2022-01-10 14:55:00 45.31 kg/m2 [facility] height 2022-04-16 08:50:00 73 [in_i] [facility] weight 2022-04-16 08:50:00 318.9 [lb_av] [facility] temperature 2022-04-16 08:50:00 97.2 [degF] [facility] bmi 2022-04-16 08:50:00 42.07 kg/m2 [facility] oximetry 2022-04-16 08:50:00 95 % [facility] respiratory rate 2022-04-16 08:50:00 16 /min [facility] on [facility] blood pressure 2022-04-16 08:50:00 132 mm[Hg] [facility] systolic [facility] pressure 2022-04-16 08:50:00 77 mm[Hg] [facility] diastolic [facility] Systolic blood 2022-01-10 14:55:00 127 mm[Hg] [facility] Diastolic blood 2022-01-10 14:55:00 79 mm[Hg] [facility] Heart rate 2022-01-10 14:55:00 89 /min [facility] temperature 2022-01-10 14:55:00 36.94 [facility] weight 2022-01-10 14:55:00 147.374 [facility] BMI 2022-01-10 14:55:00 45.31 kg/m2 [facility] height 2022-01-05 08:10:00 73 [in_i] [facility] weight 2022-01-05 08:10:00 327.2 [lb_av] [facility] temperature 2022-01-05 08:10:00 97.4 [degF] [facility] bmi 2022-01-05 08:10:00 43.16 kg/m2 [facility] oximetry 2022-01-05 08:10:00 94 % [facility] respiratory rate 2022-01-05 08:10:00 16 /min [facility] on [facility] blood pressure 2022-01-05 08:10:00 135 mm[Hg] [facility] - systolic [facility] blood pressure 2022-01-05 08:10:00 63 mm[Hg] [facility] - diastolic [facility] height 2021-11-15 13:30:00 73 [in_i] Common [facility] weight 2021-11-15 13:30:00 319.3 [lb_av] [facility] temperature 2021-11-15 13:30:00 97.0 [degF] [facility] bmi 2021-11-15 13:30:00 42.12 kg/m2 [facility] oximetry 2021-11-15 13:30:00 94 % [facility] respiratory rate 2021-11-15 13:30:00 16 /min Comm on [facility] blood pressure 2021-11-15 13:30:00 117 mm[Hg] Common [facility] - systolic [facility] blood pressure 2021-11-15 13:30:00 56 mm[Hg] Common [facility] diastolic [facility] height 2021-09-20 17:00:00 73 [in_i] Common [facility] weight 2021-09-20 17:00:00 324 [lb_av] Common S [facility] temperature 2021-09-20 17:00:00 97.6 [degF] Common S [facility] bmi 2021-09-20 17:00:00 42.74 kg/m2 [facility] S [facility] oximetry 2021-09-20 17:00:00 98 % [facility] respiratory rate 2021-09-20 17:00:00 18 /min [facility] on [facility] blood pressure 2021-09-20 17:00:00 140 mm[Hg] Common [facility] - systolic [facility] blood pressure 2021-09-20 17:00:00 67 mm[Hg] Common [facility] - diastolic [facility] height 2021-08-28 08:20:00 73 [in_i] [facility] weight 2021-08-28 08:20:00 325.4 [lb_av] [facility] temperature 2021-08-28 08:20:00 97.3 [degF] Common [facility] bmi 2021-08-28 08:20:00 42.93 kg/m2 [facility] oximetry 2021-08-28 08:20:00 97 % [facility] respiratory rate 2021-08-28 08:20:00 18 /min [facility] on [facility] blood pressure 2021-08-28 08:20:00 134 mm[Hg] [facility] systolic [facility] blood pressure 2021-08-28 08:20:00 63 mm[Hg] Common [facility] - diastolic [facility] Systolic blood 2021-07-12 16:10:00 132 mm[Hg] [facility] Diastolic blood 2021-07-12 16:10:00 75 mm[Hg] [facility] Heart rate 2021-07-12 16:10:00 74 /min [facility] temperature 2021-07-12 16:10:00 36.61 [facility] weight 2021-07-12 16:10:00 144.471 [facility] BMI 2021-07-12 16:10:00 44.42 kg[facility]m2 [facility] Systolic blood 2021-06-29 23:18:00 111 mm[Hg] [facility] Diastolic blood 2021-06-29 23:18:00 51 mm[Hg] Unive rsity [facility] Heart rate 2021-06-29 23:18:00 66 /min [facility] Body temperature 2021-06-29 23:18:00 36.33 Stacia [facility] Respiratory rate 2021-06-29 23:18:00 17 /min [facility] Oxygen saturation in 2021-06-29 23:18:00 94 /min [facility] blood by [facility] Pulse oximetry Branch Body height 2021-06-29 21:41:00 182.9 cm Universi ty [facility] Body weight 2021-06-29 21:41:00 140.615 [facility] 2021-06-29 21:41:00 42.04 kg/m2 [facility] height 2021-05-29 09:00:00 73 [in_i] [facility] weight 2021-05-29 09:00:00 317.8 [lb_av] [facility] temperature 2021-05-29 09:00:00 97.2 [degF] [facility] bmi 2021-05-29 09:00:00 41.92 kg/m2 [facility] oximetry 2021-05-29 09:00:00 97 % [facility] respiratory rate 2021-05-29 09:00:00 18 /min [facility] blood pressure 2021-05-29 09:00:00 132 mm[Hg] [facility] - systolic [facility] blood pressure 2021-05-29 09:00:00 69 mm[Hg] [facility] - diastolic [facility] Systolic blood 2019-12-15 19:08:00 116 mm[Hg] [facility] pressure Medicine Diastolic blood 2019-12-15 19:08:00 78 mm[Hg] [facility] pressure Medicine Heart rate 2019-12-15 19:08:00 86 /min [facility] Body temperature 2019-12-15 19:08:00 36.67 Stacia [facility] Respiratory rate 2019-12-15 19:08:00 16 /min [facility] Body height 2019-12-15 19:08:00 182.9 cm [facility] Body weight 2019-12-15 19:08:00 152.409 kg [facility] BMI 2019-12-15 19:08:00 45.57 kg/m2 [facility] Systolic blood 2019-12-15 19:08:00 116 mm[Hg] [facility] Medicine Diastolic blood 2019-12-15 19:08:00 78 mm[Hg] [facility] Medicine Heart rate 2019-12-15 19:08:00 86 /min [facility] Body temperature 2019-12-15 19:08:00 36.67 Stacia [facility] Respiratory rate 2019-12-15 19:08:00 16 /min [facility] Body height 2019-12-15 19:08:00 182.9 cm [facility] Body weight 2019-12-15 19:08:00 152.409 kg [facility] BMI 2019-12-15 19:08:00 45.57 kg/m2 [facility] Systolic blood 2019-07-30 19:26:00 118 mm[Hg] [facility] Medicine Diastolic blood 2019-07-30 19:26:00 67 mm[Hg] [facility] Heart rate 2019-07-30 19:26:00 90 /min [facility] Body temperature 2019-07-30 19:26:00 36.67 St[facility] Systolic blood 2019-07-30 19:26:00 118 mm[Hg] [facility] Diastolic blood 2019-07-30 19:26:00 67 mm[Hg] [facility] Heart rate 2019-07-30 19:26:00 90 /min [facility] Body temperature 2019-07-30 19:26:00 36.67 [facility] Procedures Procedure Date / Time Performing Clinician Source Performed COMPREHENSIVE METABOLIC 2021-07-14 13:59:00 [place] [facility] PANEL C-REACTIVE PROTEIN 2021-07-14 13:59:00 [facility] CBC AND DIFFERENTIAL 2021-07-14 13:59:00 [facility] SEDIMENTATION RATE, 2021-07-14 13:59:00 [place] [facility] AUTOMATED CONSENT/REFUSAL FOR 2021-06-29 06:01:00 Doctor Unassigned, [facility] Name Medical Branch COMPREHENSIVE METABOLIC 2019-12-15 19:52:00 Guerrero Lennon [facility] PANEL Medicine MAGNESIUM 2019-12-15 19:52:00 Guerrero Lennon [facility] Medicine PHOSPHORUS 2019-12-15 19:52:00 Guerrero Lennon [facility] Medicine URIC ACID 2019-12-15 19:52:00 Saji [facility] Medicine CBC W/AUTO DIFF WITH 2019-12-15 19:52:00 Saji [facility] PLATELETS Medicine RANDOM URINE 2019-12-15 19:52:00 Guerrero Lennon [facility] PROTEIN/CREATININE Medicine URINALYSIS, COMPLETE 2019-12-15 19:52:00 Guerrero Lennon [facility] W/REFLEX TO CULTURE Medicine COMPREHENSIVE METABOLIC 2019-07-30 20:36:00 Rico Holloway [facility] PANEL Medicine CBC W/AUTO DIFF WITH 2019-07-30 20:36:00 Rico Holloway [facility] PLATELETS Medicine POCT URINALYSIS DIPSTICK 2019-07-30 00:00:00 Rico Holloway [facility] Plan of Care Planned Activity Planned Date Details Comments Source Future Scheduled 2022-04-05 HEPATITIS B VACCINES Met [facility] Test 14:33:38 (1 of 3 - 3-dose series) [code = HEPATITIS B VACCINES (1 of 3 - 3-dose series)] Future Scheduled 2022-04-05 COVID-19 VACCINE (#1) [facility] Test 14:33:38 [code = COVID-19 VACCINE (#1)] Future Scheduled 2022-04-05 Hepatitis C screening [facility] Test 14:33:38 (procedure) [code = 679605783] Future Scheduled 2022-04-05 COLONOSCOPY SCREENING [facility] Test 14:33:38 [code = COLONOSCOPY SCREENING] Future Scheduled 2022-04-05 SHINGLES VACCINES (1 [facility] Test 14:33:38 of 2) [code = SHINGLES VACCINES (1 of 2)] Future Scheduled 2022-04-05 65[facility] Test 14:33:38 VACCINE (2 - PCV) [code = 65+ PNEUMOCOCCAL VACCINE (2 - PCV)] Future Scheduled 2022-04-05 INFLUENZA VACCINE [facility] Test 14:33:38 [code = INFLUENZA VACCINE] Future Scheduled 2021-08-10 COVID-19 VACCINE (1) [facility] Test 08:51:43 [code = COVID-19 VACCINE (1)] Future Scheduled 2021-08-10 [facility] Test 08:51:43 (procedure) [code = 973393741] Future Scheduled 2021-08-10 [facility] Test 08:51:43 [code = COLONOSCOPY SCREENING] Future Scheduled 2021-08-10 [facility] 08:51:43 [code = SHINGLES VACCINES (#1)] Future Scheduled 2021-08-10 INFLUENZA VACCINE [facility] Test 08:51:43 [code = INFLUENZA VACCINE] Future Scheduled 2021-08-10 65+ [facility]OCOCCAL [facility] Test 08:51:43 VACCINE (1 of 1 - PPSV23) [code = 65+ PNEUMOCOCCAL VACCINE (1 of 1 - PPSV23)] Future Scheduled 2021-08-01 COVID-19 VACCINE (1) [facility] Test 16:40:51 [code = COVID-19 VACCINE (1)] Future Scheduled 2021-08-01 Hepatitis C screening [facility] Test 16:40:51 (procedure) [code = 180071713] Future Scheduled 2021-08-01 COLONOSCOPY SCREENING [facility] Hospital Test 16:40:51 [code = COLONOSCOPY SCREENING] Future Scheduled 2021-08-01 SHINGLES [facility]ACCINES (#[facility]) [facility] 16:40:51 [code = SHINGLES VACCINES (#1)] Future Scheduled 2021-08-01 INFLUENZA VACCINE [facility] Test 16:40:51 [code = INFLUENZA VACCINE] Future Scheduled 2021-08-01 65+ P[facility]UMOCOCCAL [facility] Test 16:40:51 VACCINE (1 of 1 - PPSV23) [code = 65+ PNEUMOCOCCAL VACCINE (1 of 1 - PPSV23)] Future Scheduled 2021-07-01 DEPRESSION SCREENING [facility] Test 00:00:00 (12+) [code = Medical Center DEPRESSION SCREENING (12+)] Future Scheduled 2021-07-01 FALLS RISK SCREENING [facility] Test 00:00:00 [code = FALLS RISK Medical C enter SCREENING] Future Scheduled 2021-07-[address] [facility] Test 00:00:00 (12+) [code = Medical Center DEPRESSION SCREENING (12+)] Future Scheduled 2021-07-01 FALLS RISK SCREENING [facility] Test 00:00:00 [code = FALLS RISK Medical C enter SCREENING] Future Scheduled 2021-03-01 INFLUENZA VACCINE (#1) [facility] Test 00:00:00 [code = INFLUENZA Medical Ce nter VACCINE (#1)] Future Scheduled 2021-03-01 INFLUENZA VACCINE (#1) [facility] Test 00:00:00 [code = INFLUENZA Medical Ce nter VACCINE (#1)] Future Scheduled 2020 PNEUMOCOCCAL 65+ YRS [facility] Test 00:00:00 (1 of 1 - Medical Center [id number] PCV13) [code = PNEUMOCOCCAL 65+ YRS (1 of 1 - [id number] PCV13)] Future Scheduled 2020 PNEUMOCOCCAL 65+ YRS [facility] Test 00:00:00 (1 of 1 - Medical Center [id number] PCV13) [code = PNEUMOCOCCAL 65+ YRS (1 of 1 - [id number] PCV13)] Future Scheduled 2005 SHINGLES VACCINES ([address] [facility] Test 00:00:00 of 2) [code = SHINGLES Medic al Center VACCINES (1 of 2)] Future Scheduled 2005 SHINGLES VACCINES ([address] [facility] Test 00:00:00 of 2) [code = SHINGLES Medic al Center VACCINES (1 of 2)] Future Scheduled 1974 DTAP/TDAP/TD [facility]ACCINES [facility] Test 00:00:00 (1 - Tdap) [code = Medical C enter DTAP/TDAP/TD VACCINES (1 - Tdap)] Future Scheduled 1974 DTAP/TDAP/TD [facility]ACCINES [facility] Test 00:00:00 (1 - Tdap) [code = Medical C enter DTAP/TDAP/TD VACCINES (1 - Tdap)] Future Scheduled 1973 HEPATITIS C [facility]CRE[facility]ING [facility] Test 00:00:00 [code = HEPATITIS C Medical Center SCREENING] Future Scheduled 1973 HEPATITIS C [facility]CRE[facility] Test 00:00:00 [code = HEPATITIS C Medical Center SCREENING] Future Scheduled 1967 COVID-19 VACCINE (1) [facility] Test 00:00:00 [code = COVID-[address] VACCINE (1)] Future Scheduled 1967 COVID-19 VACCINE (1) [facility] Test 00:00:00 [code = COVID-[address] VACCINE (1)] Future Scheduled [address] [facility] Test 00:[facility]:00 malignant neoplasm of Medica l Center colon (procedure) [code = [id number]] Future Scheduled [address] [facility] Test 00:00:00 malignant neoplasm of Medica l Center colon (procedure) [code = 341900398] Future Scheduled COLON CANCER [facility] ege of Test SCREENING: COLONOSCOPY Medic ine [code = COLON CANCER SCREENING: COLONOSCOPY] Future Scheduled TETANUS SHOT (ADULT) [facility] of Test [code = TETANUS SHOT Medicin e (ADULT)] Future Scheduled BMI FOLLOW UP PLAN [facility] Test [code = BMI FOLLOW UP Medici ne PLAN] Future Scheduled HEPATITIS C SCREENING [employer] Test [code = HEPATITIS C Medicine SCREENING] Future Scheduled HIV SCREENING [code = [employer] HIV SCREENING] Medicine Future Scheduled FLU VACCINE [facility] [code = FLU VACCINE > Medici ne 6 MONTHS] Future Scheduled COLON CANCER [facility] ege of Test SCREENING: COLONOSCOPY Medic ine [code = COLON CANCER SCREENING: COLONOSCOPY] Future Scheduled TETANUS SHOT (ADULT) [facility] [employer] Test [code = TETANUS SHOT Medicin e (ADULT)] Future Scheduled BMI FOLLOW UP PLAN [facility] r [employer] of Test [code = BMI FOLLOW UP Medici ne PLAN] Future Scheduled HEPATITIS C SCREENING [employer] [facility] [code = HEPATITIS C Medicine SCREENING] Future Scheduled HIV SCREENING [code = [employer] HIV SCREENING] Medicine Future Scheduled FLU VACCINE > 6 MON[facility] Test [code = FLU VACCINE > Medici ne 6 MONTHS] Encounters Start End Encounter Admission Attending Care Care Encounter Source Date/Time Date/Time Type Type Clinicians Facility Department ID 2022-04-13 Outpatient Monet, STLMLC STLMLC [id number] Common 14:48:01 Felipa [facility] 2022-03-20 Outpatient Monet, STLMLC STLMLC [id number] Common 09:31:00 Felipa [facility] 2022-01-08 Outpatient Monet, STLMLC STLMLC [id number] Common 07:49:00 Felipa [facility] 2021-08-28 Outpatient Monet, STLMLC STLMLC [id number] Common 08:13:00 Felipa [facility] 2021-07-26 Outpatient Monet, STLMLC STLMLC Common 14:12:49 Felipa [facility] 2021-07-26 Outpatient Monet, STLMLC STLC Common 14:03:20 Felipa [id number] [facility] 2021-07-26 Outpatient Monet, STLMLC STLC Common 12:34:37 Felipa [id number] [facility] 2021-07-26 Outpatient Monet, STLMLC STLMLC Common 12:33:54 Felipa [facility] 2021-07-26 Outpatient Monet, STLMLC STLMLC Common 12:27:03 Felipa [id number] [facility] 2021-07-26 Outpatient Monet, STLMLC STLMLC Common 12:26:30 Felipa 25173 [facility] 2021-07-26 Outpatient Monet, STLMLC STLMLC Common 12:15:49 Felipa 80854 [facility] 2021-07-26 Outpatient Monet, STLMLC STLMLC Common 11:59:11 Felipa 88804 [facility] 2021-07-26 Outpatient Monet, STLMLC STLMLC [id number] Common 11:58:45 Felipa [facility] 2021-07-26 Outpatient Monet, STLMLC STLMLC Common 11:32:48 Felipa [id number] [facility] 2021-07-26 Outpatient Mnoet, STLMLC STLMLC Common 11:18:09 Felipa 56986 [facility] 2021-07-26 Outpatient Monet, STLMLC STLMLC Common 11:01:55 Felipa 24362 [facility] 2021-07-26 Outpatient Monet, STLMLC STLMLC Common 10:57:52 Felipa [id number] [facility] 2021-07-12 Outpatient DUNN, [facility] [id number] [place] 10:43:39 [facility] 2022-04-17 2022-04-17 (TEL) STLMLC STLMLC [id number] Co mmon 00:00:00 00:00:00 [facility] 2022-04-16 2022-04-16 OFFICE STLMLC STLMLC [id number] Co mmon 00:00:00 00:00:00 VISIT [facility] LEVEL 4 [facility] 2022-04-11 2022-04-11 Outpatient FOG_Stocks_ AOSM AOSM [id number] Lety 00:00:00 00:00:00 Sheeba [id number] Orth [facility] Medicin e 2022-01-10 2022-01-10 Office Dunn, [facility] 6410 [id number] [place] 10:00:00 10:21:58 [facility] [id number] [facility] [id number] 2022-01-05 2022-01-05 PREV VISIT STLMLC STLMLC [id number] Common 00:00:00 00:00:00 EST AGE 65 [facility] OVER [facility] 2021-12-06 2021-12-06 (TEL) STLMLC STLMLC [id number] Co mmon 00:00:00 00:00:00 [facility] 2021-11-15 2021-11-15 (HOSP F/U) STLMLC STLMLC [id number] Common 00:00:00 00:00:00 [facility] Follow Up - [facility] 2021-11-09 2021-11-09 (TEL) STLMLC STLMLC [id number] Co mmon 00:00:00 00:00:00 [facility] 2021-09-20 2021-09-20 OFFICE STLMLC STLMLC [id number] Co mmon 00:00:00 00:00:00 VISIT [facility] ESTAB PT - [facility] LEVEL 2 [facility] 2021-08-28 2021-08-28 OFFICE STLMLC STLMLC [id number] Co mmon 00:00:00 00:00:00 VISIT [facility] ESTAB PT - [facility]I LEVEL 4 [facility] 2021-07-12 2021-07-12 Office Dunn, RADHA 6410 [id number] [place] 10:00:00 10:43:44 Visit Chani ENGLE [id number] [facility] [id number] 2021-06-29 2021-06-29 Nurse Therapy, Adc Covid Infusion [facility] [id number] [facility] 16:00:00 17:00:00 Visit Yoni Monet [id number] [id number] [id number] [place] [id number] Branch 2021-06-29 2021-06-29 Outpatient Melecio MONET [facility] [id number] [facility] 16:00:00 16:00:00 YONI ariza of [facility] 2021-06-29 2021-06-29 Orders Doctor MONTANO [id number] [facility] 00:00:00 00:00:00 Only Unassigned, CASSIE [id number] ity of [facility] [id number] Sar[place] as [id number] [place] [address] Branch 2021-06-21 2021-06-21 OFFICE STLMLC STLMLC [id number] Co mmon 00:00:00 00:00:00 [facility]ISIT [facility] ESTAB PT - CHI LEVEL 1 [facility] 2021-05-29 2021-05-29 OFFICE STLMLC STLMLC [id number] Co mmon 00:00:00 00:00:00 VISIT [facility] ESTAB PT - [facility]I LEVEL 4 [facility] 2021-03-10 2021-03-10 (COVID STLMLC STLMLC [id number] Co mmon 00:00:00 00:00:00 Inj) COVID Spi rit Injection [facility] 2021-01-05 2021-01-05 Office Dunn, UTP 6410 [id number] [place] 10:04:17 11:02:39 Visit Chani CARBONE [id number] [facility] [id number] 2020-12-22 2020-12-22 Outpatient STLMLC STLMLC [id number] Common 00:00:00 00:00:00 [facility] 2020-11-18 2020-11-18 Outpatient STLMLC STLMLC [id number] Common 00:00:00 00:00:00 [facility] 2020-11-09 2020-11-09 Outpatient STLMLC STLMLC [id number] Common 00:00:00 00:00:00 [facility] 2020-09-05 2020-09-05 Outpatient STLMLC STLMLC [id number] Common 00:00:00 00:00:00 [facility] 2020-08-30 2020-08-30 Outpatient STLMLC STLMLC [id number] Common 00:00:00 00:00:00 [facility] 2020-08-29 2020-08-29 Outpatient STLMLC STLMLC [id number] Common 00:00:00 00:00:00 [facility] 2020-08-02 2020-08-02 Outpatient STLMLC STLMLC [id number] Common 00:00:00 00:00:00 [facility] 2020-08-01 2020-08-01 Outpatient STLMLC STLMLC [id number] Common 00:00:00 00:00:00 [facility] 2020-08-01 2020-08-01 Outpatient STLMLC STLMLC [id number] Common 00:00:00 00:00:00 [facility] 2020-07-25 2020-07-25 Outpatient STLMLC STLMLC [id number] Common 00:00:00 00:00:00 [facility] 2020-04-26 2020-04-26 Outpatient STLMLC STLMLC [id number] Common 00:00:00 00:00:00 [facility] 2020-01-25 2020-01-25 [facility] [id number] Common 08:45:00 08:45:[address] [facility] 2019-12-15 2019-12-15 Office Guerrero Lennon [id number] 14:06:49 14:48:35 Visit AMBULATOR [id number] Y [id number] [id number] [facility] 2019-12-15 2019-12-15 Office Guerrero Lennon 1.2.840.114 [id number] [facility] 14:06:49 14:48:35 Visit AMBULATOR [id number] College Y 0.2.7.2.686 of [id number] [facility] 335 e 2019-11-27 2019-11-27 Outpatient [facility] [id number] [place] 00:00:00 00:00:00 DAVIN Hernández [facility] 2019-10-26 2019-10-26 [facility] [id number] Common 08:30:00 08:30:[address] [facility] 2019-07-30 2019-07-30 Office GILLIAN Holloway [id number] 13:10:38 15:34:27 Visit Rico Luis AMBULATOR [id number] Y [id number] [id number] 2019-07-30 2019-07-30 Office GILLIAN Holloway [id number] [facility] 13:10:38 15:34:27 Visit Rico Smith AMBULATOR [id number] College Y [id number] [id number] [facility] alicia 300 e 2019-07-27 2019-07-27 [facility] [id number] Common 08:00:00 08:00:[address] [facility] 2019-04-27 2019-04-27 [facility] [id number] Common 14:25:00 14:25:[address] [facility] 2019-04-24 2019-04-24 [facility] [id number] Common 08:00:00 08:00:[address] [facility] [facility] 2019-01-23 2019-01-23 [facility] [id number] Common 08:45:00 08:45:[address] [facility] 2018-12-23 2018-12-23 [facility] 26 [id number] Common 15:38:00 15:38:[address] [facility] 2018-12-22 2018-12-22 [facility] 26 [id number] Common 15:14:00 15:14:00 t Specialty/U Sp [place] Specialty rology - [facility] 2018-12-09 2018-12-09 [facility] 26 [id number] Common 15:00:00 15:00:00 t Specialty/U Sp l[place]ette Specialty rology - [facility]Urology Clinic [facility] 2018-10-27 2018-10-27 [facility] 23 [id number] Common 08:15:00 08:15:[address] [facility] 2018-08-11 2018-08-11 [facility] [id number] Common 08:00:00 08:00:[address] [facility] 2018-07-28 2018-07-28 Outpatient Cyndi Yanez 21 [id number] Common 08:30:00 08:30:[address] [facility] 2018-04-01 2018-04-01 Outpatient Cyndi Hannat 14 [id number] Common 08:45:00 08:45:[address] [facility] 2017-12-30 2017-12-30 Outpatient Cyndi Yanez 14 [id number] Common 10:45:00 10:45:[address] [facility] Results Test Description Test Time Test Comments Results Result Comments Source Sedimentation rate, automated 2021-07-17 19:00:00 Test Item Value Reference Range Interpretation Comme nts SED RATE BY MODIFIED 2 mm/h See_Comment [Autom ated message] The [facility] (test code system which generated this = 4537-7) result transmit tito reference range : < OR = 20. The reference r dillon was not used to interpr et this result as josé l/abnormal. RAC (test code = RAC) Performing Organization Information: ? ?Site ID: RGA ? ?Name: [facility] ? ?Address: [address] [place], [place] [id number] ? ?Director: DAVIN WAGNER MD [facility] and [id number] 19:00:00 Test Item Value Reference Range Interpretation Comments WHITE BLOOD CELL See_Comment [Automated COUNT (test code = message] The 6690-2) system which generated this result transmitted reference range : 3.8 - 10.8 Thousand/uL. Th e reference range was not used to interpret this result as normal/abnormal . RED BLOOD CELL COUNT See_Comment [Autom ated (test code = 789-8) message] The system which generated this result transmitted reference range : 4.20 - 5.80 Million/uL. The reference range was not used to interpret this result as normal/abnormal . HEMOGLOBIN (test 14.9 g/dL 13.2-17.1 code = 718-7) HEMATOCRIT (test 47.8 % 38.5-50.0 code = 4544-3) MCV (test code = 84.3 fL 80.0-100.0 787-2) MCH (test code = 26.3 pg 27.0-33.0 L 785-6) MCHC (test code = 31.2 g/dL 32.0-36.0 L 786-4) RDW (test code = 16.4 % 11.0-15.0 H 788-0) PLATELET COUNT (test See_Comment [Autom ated code = 777-3) message] The system which generated this result transmitted reference range : 140 - 400 Thousand/uL. Th e reference range was not used to interpret this result as normal/abnormal . MPV (test code = 9.7 fL 7.5-12.5 776-5) ABSOLUTE NEUTROPHILS See_Comment [Autom ated (test code = 751-8) message] The system which generated this result transmitted reference range : 1500 - 7800 cells/uL. The reference range was not used to interpret this result as normal/abnormal . ABSOLUTE LYMPHOCYTES See_Comment [Autom ated (test code = 731-0) message] The system which generated this result transmitted reference range : 850 - 3900 cells/uL. The reference range was not used to interpret this result as normal/abnormal . ABSOLUTE MONOCYTES See_Comment [Automat ed (test code = 742-7) message] The system which generated this result transmitted reference range : 200 - 950 cells/uL. The reference range was not used to interpret this result as normal/abnormal . ABSOLUTE EOSINOPHILS See_Comment [Autom ated (test code = 711-2) message] The system which generated this result transmitted reference range : 15 - 500 cells/uL. The reference range was not used to interpret this result as normal/abnormal . ABSOLUTE BASOPHILS See_Comment [Automat ed (test code = 704-7) message] The system which generated this result transmitted reference range : 0 - 200 cells/u L. The reference range was not used to interpr et this result as normal/abnormal . NEUTROPHILS (test 73.1 % code = 770-8) LYMPHOCYTES (test 14.5 % code = 736-9) MONOCYTES (test code 9.4 % = 5905-5) EOSINOPHILS (test 1.9 % code = 713-8) BASOPHILS (test code 1.1 % = 706-2) RAC (test code = Performing RAC) Organization Information: ? ?Site ID: RGA ? ?Name: [facility] ? ?Address: [address] [place] [phone] ? ?Director: DAVIN AWGNER MD Lab Interpretation Abnormal (test code = 98618-5) [facility] [id number] 19:00:00 Test Item Value Reference Interpretation Comments [...] n. eGFR NON- See_Comment L [Automated message] VENEZUELAN (test code The syst em which = 70307-3) generated this result transmit tito reference range : > OR = 60 mL/min/1.73m2. The reference range was not used to interpret this result as normal/abnormal . eGFR See_Comment [Automated mes aziza] VENEZUELAN (test code The syst em which = 43602-9) generated this result transmit tito reference range [...] . SODIUM (test code = 143 mmol/L 282-529 5229-2) POTASSIUM (test 5.2 mmol/L 3.5-5.3 code = 2823-3) CHLORIDE (test code 107 mmol/L 98-110 = 2075-0) CARBON DIOXIDE 29 mmol/L 20-32 (test code = 2027-9) CALCIUM (test code 9.7 mg/dL 8.6-10.3 = 13039-2) PROTEIN, TOTAL 6.8 g/dL 6.1-8.1 (test code = 2885-2) ALBUMIN (test code 4.3 g/dL 3.6-5.1 = 1751-7) GLOBULIN (test code See_Comment [Automa tito message] = 80246-1) The system whic h generated this result transmit tito reference range : 1.9 - 3.7 g/dL (davey c). The reference r dillon was not used to interpret this result as normal/abnormal . ALBUMIN/GLOBULIN See_Comment [Automated message] RATIO (test code = The syste m which 1759-0) generated this result transmit tito reference range : 1.0 - 2.5 (calc). T he reference range was not used to interpret this result as normal/abnormal . BILIRUBIN, TOTAL 0.5 mg/dL 0.2-1.2 (test code = 1974-2) ALKALINE 70 U/L 35-144 PHOSPHATASE (test code = 6768-6) AST (test code = 44 U/L 10-35 H 1920-8) ALT (test code = 54 U/L 9-46 H 1742-6) RAC (test code = Performing RAC) Organization Information: ? ?Site ID: RGA ? ?Name: [facility] ? ?Address: [address] [place] [address] ? ?Director: DAVIN WAGNER MD Lab Interpretation Abnormal (test code = 61099-8) [facility] [id number] 19:00:00 Test Item Value Reference Range Interpretation Comments C-REACTIVE 1 mg/L <8.0 REPORT PROTEIN (test COMMENT:FASTIN G:Y code = 1987-10) ES RAC (test code = Performing RAC) Organization Information: ? ?Site ID: RGA ? ?Name: [facility] ? ?Address: [address] [place] [phone] ? ?Director: DAVIN WAGNER MD [place] [id number](COVID19),[id number] 00:00:00 Test Item Value Reference Range Interpretation Comments SARS-CoV-2 INTERPRETATION (test POSITIVE SEE NOTE code = 33489-0) SOURCE (test code = 92003-0) NOT SPECIFIED [id number] 11:20:23 Test Item Value Reference Range Interpretation Comments PHOSPHORUS (test code = See_Comment Unl ess Otherwise 2777-1) Indicated, All Testing Performed At: [facility] [place] [address] Labora tory Director: Tien SandersonIA Number [id number] Cap Accreditation [place] o. [id number] [Autom ated message] The sy stem which generated this result transmit tito reference range : 2.5 - 4.5 MG/DL. The reference range was not u sed to interpret this result as normal/abnormal . [id number] 11:20:23 Test Item Value Reference Range Interpretation Comments MAGNESIUM (test code = See_Comment Unle ss Otherwise 49101-0) Indicated, All Testing Performed At: [facility] [place] [id number] Laborator y Director: Tien SandersonIA Number [id number] Cap Accreditation N o. [id number] [Autom ated message] The sy stem which generated this result transmitted ref erence range: 1.6 - 2. 6 MG/DL. The reference r dillon was not used to int erpret this result as normal/abnormal . [facility]OLIC [id number] 11:18:47 Test Item Value Reference Range Interpretation Comments GLUCOSE (test code = See_Comment H [Autom ated message] 2345-7) The system [employer] generated this result transmitted ref erence range: [...] H [Au tomated message] 2160-0) The system [employer] generated this result transmitted ref erence range: 0.80 - 1 .40 MG/DL. The refe rence range was not u sed to interpret this result as normal/abnor mal. EGFR AA (test code = See_Comment L [Autom ated message] 75144-0) The system [employer] generated this result transmitted ref erence range: >60 ML/MIN/1.73. Th e reference range was not used to int erpret this result as normal/abnormal . EGFR (test code = See_Comment L [Automate d message] 98171-7) The system [facility] generated this result transmitted ref erence range: >60 ML/MIN/1.73. Th e reference range was not used to int erpret this result as normal/abnormal . BUN/CREAT RATIO (test See_Comment [Auto mated message] code = 3097-3) The system [facility] generated this result transmitted ref erence range: 6 - 28 R ATIO. The reference r dillon was not used to interpret this result as normal/abnor mal. SODIUM (test code = See_Comment [Automa tito message] 5981-2) The system [employer] generated this result transmitted ref erence range: 133 - 14 6 MEQ/L. The refe rence range was not u sed to interpret this result as normal/abnor mal. POTASSIUM (test code = See_Comment [Aut omated message] 0763-3) The system [employer] generated this result transmitted ref erence range: 3.5 - 5. 4 MEQ/L. The refe rence range was not u sed to interpret this result as normal/abnor mal. CHLORIDE (test code = See_Comment [Auto mated message] 2845-0) The system [facility] [employer] generated this result transmitted ref erence range: 95 - 107 MEQ/L. The reference r dillon was not used to interpret this result as normal/abnor mal. CO2 (test code = See_Comment [Automated message] 1962-8) The system [employer] generated this result transmitted ref erence range: 19 - 31 MEQ/L. The reference r dillon was not used to interpret this result as normal/abnor mal. CALCIUM (test code = See_Comment [Autom ated message] 41360-1) The system [facility] [employer] generated this result transmitted ref erence range: 8.5 - 10 .5 MG/DL. The refe rence range was not u sed to interpret this result as normal/abnor mal. PROTEIN TOTAL (test See_Comment [Automa tito message] code = 2885-2) The system [employer] generated this result transmitted ref erence range: 6.1 - 8. 3 G/DL. The reference r dillon was not used to interpret this result as normal/abnor mal. ALBUMIN (test code = See_Comment [Autom ated message] 94953-5) The system [facility] generated this result transmitted ref erence range: 3.5 - 5. 2 G/DL. The reference r dillon was not used to interpret this result as normal/abnor mal. GLOBULINS, SERUM, TOTAL See_Comment [Au tomated message] (test code = 24948-6) The sy stem which generated this result transmitted ref erence range: 1.9 - 3. 7 G/DL. The reference r dillon was not used to interpret this result as normal/abnor mal. A/G RATIO (test code = See_Comment [Aut omated message] 1759-0) The system [facility] generated this result transmitted ref erence range: 1.0 - 2. 6 RATIO. The refe rence range was not u sed to interpret this result as normal/abnor mal. BILIRUBIN TOTAL (test See_Comment [Auto mated message] code = 1975-2) The system [facility] generated this result transmitted ref erence range: <=1.2 MG /DL. The reference r dillon was not used to interpret this result as normal/abnor mal. ALKALINE PHOSPHATASE 66 U/L 40-123 (test code = 6768-6) AST (SGOT) (test code = 29 U/L 9-50 1920-8) ALT (SGPT) (test code = 39 U/L 5-50 Unl ess Otherwise 1744-2) Indicated, All Testing Performed At: [facility], [address] [place] [address] Laborator y Director: Matthias Gutierrez M.D. CLIA Number [id number] Cap Accreditation [place] o. [id number] Lab Interpretation Abnormal (test code = 43887-5) [facility] HospitalURIC [id number] 11:18:47 Test Item Value Reference Range Interpretation Comments URIC ACID (test code = See_Comment H Unle ss Otherwise 5354299) Indicated, All Testing Perform ed At: [facility], [address] [facility], [place] [address] Laborator y Director: Tien SandersonIA Number [id number] Cap Accreditation [place] o. 02386-00 [Autom ated message] The sy stem which generated this result transmit tito reference range : 3.7 - 8.0 MG/DL. Th e reference range was not used to int erpret this result as normal/abnormal . Lab Interpretation (test Abnormal code = 82222-5) [facility] HospitalRANDOM URINE PROTEIN/[id number] 10:36:42 Test Item Value Reference Range Interpretation Comments URINE PROTEIN (test NOT ESTAB MG/DL Refe rence interval for code = 2888-6) random urine samples has not been established. CREATININE URINE NOT ESTAB MG/DL Referen ce interval for (test code = 2161-8) random urine samples has not been established. CALC SEE BELOW MG/G CREAT $$$$$ INTERPRETIVE PROTEIN/CREATININE INFORMATI ON $$$$$NKF (test code = 09400-2) ADULT AND CHILD NORMAL RANGE . . . . . .MG/G CREAT <200AAFP (6-24 MONTHS) N ORMAL RANGE . . .MG/G CREAT <500NEPHROTIC R DILLON PROTEINURIA (AP PROX) . . . .MG/G CREAT >2-3,000 NKF NO RMAL RANGES PREFERRE D FOR FIRST MORNING V OID, BUT NON-FIRSTMORNIN G SPECIMENS ARE ACCEPTABLE. FOR ASSESSMENT OF NON-FIRSTMORNIN G SPECIMENS, ANNA TIONAL INTERPRETIVE INFORMATION PROVIDEDBELOW: AGE MALE FEMALE (MG/G CR EAT) (MG/G CREAT) 7- 9 <220 <300 10-12 <220 <340 13-15 <150 <390 16-17 <190 <350 Refs: National Kid[employer] Foundation K/DO SHANA 2001. ORI Montague and Tez Rodriguez; Proteinuria in Children. Amer. Fam. Phys. 2010; 82( 6): 645-651. MI Sle v et al. Pediatric Refer ence Intervals for R andom Urine Calcium, Phosphorus and Total Protein. Pediat r Nephrol. 2010; 25:9182-5788. U nless Otherwise Indic ated, All Testing Per formed At: [facility], [address] [facility] [place] [address] Laboratory Dire ctor: Tien MorenoIA Number [id number] [facility] [place] [id number] [facility] HospitalURINALYSIS, COMPLETE W/REFLEX TO [id number] 09:59:54 Test Item Value Reference Range Interpretation Comments COLOR UA (test code = YELLOW YELLOW-STRAW 5778-6) CLARITY UA (test code = CLEAR CLEAR 5767-9) SPECIFIC GRAVITY UA 1.005-1.035 (test code = 5811-5) LEUKOCYTE ESTERASE UA NEGATIVE NEGATIVE (test code = 5799-2) NITRITE UA (test code = NEGATIVE NEGATIVE 5802-4) PH UA (test code = 5.0-9.0 5803-2) PROTEIN UA (test code = NEGATIVE NEGATIVE 15549-2) GLUCOSE UA (test code = NEGATIVE NEGATIVE 5792-7) KETONES UA (test code = NEGATIVE NEGATIVE 5797-6) UROBILINOGEN UA (test <2.0 See_Comment [Auto mated message] code = 44832-8) The system [employer] generated this result transmitted ref erence range: <=2.0 MG /DL. The reference r dillon was not used to interpret this result as normal/abnor mal. BILIRUBIN UA (test code NEGATIVE NEGATIVE = 5770-3) OCCULT BLOOD UA (test NEGATIVE NEGATIVE code = 82500-3) WBC UA (test code = See_Comment [Automa tito message] 78805-6) The system [employer] generated this result transmitted ref erence range: 0 - 5 /H PF. The reference range was not used to int erpret this result as normal/abnormal . RBC UA (test code = 0-2 See_Comment [Automa tito message] 18956-5) The system [employer] generated this result transmitted ref erence range: 0 - 5 /H PF. The reference range was not used to int erpret this result as normal/abnormal . EPITHELIAL CELLS (test See_Comment Unle ss Otherwise code = 54796-8) Indicated, A ll Testing Performed At: [facility], [address] [place] [address] Laborator y Director: Matthias Gutierrez M.D. CLIA Number [id number] Cap Accreditation [place] o. 545[address]-14 [Autom ated message] The sy stem which generated this result transmit tito reference range : 0 - 5 /HPF. The refer ence range was not u sed to interpret this result as normal/abnor mal. [facility] W/AUTO DIFF WITH [id number] 09:22:42 Test Item Value Reference Range Interpretation Comments WHITE BLOOD CELL COUNT See_Comment [Aut omated message] (test code = 90870-0) The sy stem which generated this result transmitted ref erence range: 3.5 - 10 .0 K/UL. The refer ence range was not u sed to interpret this result as normal/abnor mal. RED BLOOD CELL COUNT See_Comment [Autom ated message] (test code = 06730-7) The sy stem which generated this result [...] HEMATOCRIT (test code = 42.6 % 38-50 19099-9) MEAN CORPUSCULAR VOLUME 83.2 fL 80-99 (test code = 89559-7) MEAN CORPUSCULAR 28.3 PG 25-34 HEMOGLOBIN (test code = 07866-8) MEAN CORPUSCULAR See_Comment [Automated message] HEMOGLOBIN CONC (test The sy stem which code = 69824-9) generated th is result transmitted ref erence range: 31.0 - 3 6.0 G/DL. The refer ence range was not u sed to interpret this result as normal/abnor mal. RED CELL DISTRIBUTION 15.3 % 11.5-15 H WIDTH (test code = 20217-5) NEUTROPHILS % (test code 65.2 % 40-75 = 13344-6) LYMPHOCYTES % (test code 18.0 % 20-45 L = 34929-0) MONOCYTES % (test code = 13.3 % 4-12 H 58064-8) EOSINOPHILS % (test code 2.2 % 0-7 = 76894-8) BASOPHILS % (test code = 1.3 % 0-2 59433-3) PLATELET COUNT (test See_Comment Unless Otherwise code = 18348-2) Indicated, A ll Testing Perform ed At: [facility] [address] [facility] [place] [address] [facility] Director: Matthias Gutierrez M.D. IA Number [id number] Cap Accreditation [place] o. 52[address]-38 [Autom ated message] The sy stem which generated this result transmit tito reference range : 130 - 400 K/UL. The reference range was not used to int erpret this result as normal/abnormal . Lab Interpretation (test Abnormal code = 78575-8) [facility]COMPRE[facility]IVE METABOLIC [id number] 10:22:15 Test Item Value Reference Range Interpretation Comments GLUCOSE (test code = See_Comment [Autom ated message] 2345-7) The system [employer] generated this result transmitted ref erence range: 70 - 99 MG/DL. The reference r dillon was not used to interpret this result as normal/abnor mal. BLOOD UREA NITROGEN See_Comment H [Automa tito message] (test code = 3091-6) The s tem which generated this result transmitted ref erence range: 8 - 23 M G/DL. The reference r dillon was not used to interpret this result as normal/abnor mal. CREATININE (test code = See_Comment H [Au tomated message] 2160-0) The system [employer] generated this result transmitted ref erence range: 0.80 - 1 .40 MG/DL. The refe rence range was not u sed to interpret this result as normal/abnor mal. EGFR AA (test code = See_Comment L [Autom ated message] 06248-6) The system [employer] generated this result transmitted ref erence range: >60 ML/MIN/1.73. Th e reference range was not used to int erpret this result as normal/abnormal . EGFR (test code = See_Comment L [Automate d message] 38229-2) The system [employer] generated this result transmitted ref erence range: >60 ML/MIN/1.73. Th e reference range was not used to int erpret this result as normal/abnormal . BUN/CREAT RATIO (test See_Comment [Auto mated message] code = 3097-3) The system [employer] generated this result transmitted ref erence range: 6 - 28 R ATIO. The reference r dillon was not used to interpret this result as normal/abnor mal. SODIUM (test code = See_Comment [Automa tito message] 2951-2) The system [facility] generated this result transmitted ref erence range: 133 - 14 6 MEQ/L. The refe rence range was not u sed to interpret this result as normal/abnor mal. POTASSIUM (test code = See_Comment H [Aut omated message] 2823-3) The system [facility] generated this result transmitted ref erence range: 3.5 - 5. 4 MEQ/L. The refe rence range was not u sed to interpret this result as normal/abnor mal. CHLORIDE (test code = See_Comment [Auto mated message] 2075-0) The system [facility] generated this result transmitted ref erence range: 95 - 107 MEQ/L. The reference r dillon was not used to interpret this result as normal/abnor mal. CO2 (test code = See_Comment [Automated message] 1963-8) The system [facility] generated this result transmitted ref erence range: 19 - 31 MEQ/L. The reference r dillon was not used to interpret this result as normal/abnor mal. CALCIUM (test code = See_Comment [Autom ated message] 32038-1) The system [facility] [employer] generated this result transmitted ref erence range: 8.5 - 10 .5 MG/DL. The refe rence range was not u sed to interpret this result as normal/abnor mal. PROTEIN TOTAL (test See_Comment [Automa tito message] code = 2885-2) The system [facility] generated this result transmitted ref erence range: 6.1 - 8. 3 G/DL. The reference r dillon was not used to interpret this result as normal/abnor mal. ALBUMIN (test code = See_Comment [Autom ated message] 84465-8) The system [facility] generated this result transmitted ref erence range: 3.5 - 5. 2 G/DL. The reference r dillon was not used to interpret this result as normal/abnor mal. GLOBULINS, SERUM, TOTAL See_Comment [Au tomated message] (test code = 48499-2) The sy stem which generated this result transmitted ref erence range: 1.9 - 3. 7 G/DL. The reference r dillon was not used to interpret this result as normal/abnor mal. A/G RATIO (test code = See_Comment [Aut omated message] 1759-0) The system whic h generated this result transmitted ref erence range: 1.0 - 2. 6 RATIO. The refe rence range was not u sed to interpret this result as normal/abnor mal. BILIRUBIN TOTAL (test See_Comment [Auto mated message] code = 1975-2) The system ich generated this result transmitted ref erence range: <=1.2 MG /DL. The reference r dillon was not used to interpret this result as normal/abnor mal. ALKALINE PHOSPHATASE 70 U/L 40-123 (test code = 6768-6) AST (SGOT) (test code = 30 U/L 9-50 1920-8) ALT (SGPT) (test code = 37 U/L 5-50 Unl ess Otherwise 1744-2) Indicated, All Testing Performed At: [facility], [address] [place] [address] Laborator y Director: Matthias Gutierrez M.D. CLIA Number [id number] Cap Accreditation N o. 059[address]-44 Lab Interpretation Abnormal (test code = 83518-6) [facility] W/AUTO DIFF WITH [id number] 07:37:08 Test Item Value Reference Range Interpretation Comments WHITE BLOOD CELL COUNT See_Comment [Aut omated message] (test code = 04194-6) The sy stem which generated this result transmitted ref erence range: 4.0 - 11 .0 K/UL. The refer ence range was not u sed to interpret this result as normal/abnor mal. RED BLOOD CELL COUNT See_Comment [Autom ated message] (test code = 10165-1) The sy stem which generated this result [...] HEMATOCRIT (test code = 43.9 % 37-49 84940-8) MEAN CORPUSCULAR VOLUME 80.1 fL 80-100 (test code = 45419-8) MEAN CORPUSCULAR 27.9 PG 27-34 HEMOGLOBIN (test code = 18356-4) MEAN CORPUSCULAR See_Comment [Automated message] HEMOGLOBIN CONC (test The sy stem which code = 04330-1) generated th is result transmitted ref erence range: 32.0 - 3 5.5 G/DL. The refer ence range was not u sed to interpret this result as normal/abnor mal. RED CELL DISTRIBUTION 15.9 % 11-15 H WIDTH (test code = 02383-4) NEUTROPHILS % (test code 66.7 % 40-74 = 96843-4) LYMPHOCYTES % (test code 16.2 % 19-48 L = 03185-2) MONOCYTES % (test code = 12.3 % 4-13 58569-7) EOSINOPHILS % (test code 2.8 % 0-7 = 59958-3) BASOPHILS % (test code = 2.0 % 0-2 08842-8) PLATELET COUNT (test See_Comment Unless Otherwise code = 71151-3) Indicated, A ll Testing Perform ed At[facility] [address] [place] [address] Laborator y Director: Matthias Gutierrez M.D. CLIA Number [id number] Cap Accreditation N o. [id number] [Autom ated message] The sy stem which generated this result transmit tito reference range : 130 - 400 K/UL. The reference range was not used to int erpret this result as normal/abnormal . Lab Interpretation (test Abnormal code = 77975-4) [facility] [id number] 00:00:00 Test Item Value Reference Range Interpretation Comments COLOR UA (test code = 5778-6) Yellow YELLOW/STRAW CLARITY UA (test code = 53917-9) Clear CLEAR GLUCOSE UA (test code = 5792-7) Negative NEGATIVE BILIRUBIN UA (test code = 5770-3) 2+ NEGATIVE KETONES UA (test code = 12170-9) Negative NEGATIVE SPECIFIC GRAVITY UA (test code [...] NEGATIVE REDUCING SUBSTANCES URINE (test code = 93525-4) [facility] [id number] 13:31:00Surgical Pathology Report Case: [id number] Authorizing Provider: Rico Holloway MD Collected: 01/02/2019 1249 Ordering Location: [facility] Received: 01/02/2019 1427 SERVICES Pathologist:Mario Hernandez MD Specimen: Kidney, Left A. KIDNEY, LEFT, RADICAL NEPHRECTOMY: - CLEAR CELL PAPILLARY RENAL CELL CARCINOMA, BLAS NUCLEAR GRADE 2 - TUMOR MEASURES 6.0 CM IN GREATEST DIMENSION - TUMOR IS ORGAN CONFINED - SURGICAL MARGINS, NEGATIVE FOR MALIGNANCY - NEGATIVE FOR LYMPHO- VASCULAR INVASION - NEGATIVE FOR TUMOR NECROSIS - NEGATIVE FOR SARCOMATOID FEATURES - UNINVOLVED KIDNEY WITH NO SIGNIFICANT DIAGNOSTIC ABNORMALITY - PATHOLOGIC TUMOR STAGING: [id number] Signing Pathologist Direct Phone Line: [phone] signed by Mario Hernandez MD on 01/14/2019 at 1:31 PMImmunostains for CK7 and CD10 are positive; while AMACR is negative. While majority of the tumor appears to clear cell papillary renal cell carcinoma, focal areas (~10%) are also reminiscent of conventionalclear cell carcinoma.KIDNEY: Nephrectomy (Kidney Res - All Specimens)SPECIMEN Procedure: Radical nephrectomy Specimen Laterality: Left TUMOR Tumor Site: Lower pole Histologic Type: Clear cell papillaryrenal cell carcinoma Histologic Grade (WHO / ISUP Grade): G2: Nucleoli conspicuous and eosinophilic at 400x magnification, visible but not prominent at 100x magnification Tumor Size: Greatest dimensionin Centimeters (cm): 6 Centimeters (cm) Additional Dimension in Centimeters (cm): 5 Centimeters (cm)Additional Dimension in Centimeters (cm): 4.5 Centimeters (cm) Tumor Focality: Unifocal Tumor Extent: Tumor Extension: Tumor limited to kidney Accessory Findings: Sarcomatoid Features: Not identified Rhabdoid Features: Not identified Tumor Necrosis: Not identified Lymphovascular Invasion: Not identifie d MARGINS Margins: Uninvolved by invasive carcinoma LYMPH NODES Regional Lymph Nodes: No lymph nodessubmitted or found PATHOLOGIC STAGE CLASSIFICATION (pTNM, AJCC 8th Edition) TNM Descriptors: Not applicable Primary Tumor (pT): pT1b Regional Lymph Nodes (pN): pNX ADDITIONAL FINDINGS Pathologic Findings in Nonneoplastic Kidney: None identified [id number] mass Kidney, leftReceived fresh labeled with the [...] x 5 x 4.5 cm, well-circumscribed, polycystic, long- yellow, dunn to red, partially hemorrhagic and necrotic mass in the lower pole. The mass pushes the perinephric fat, but it does not invade through it. There is possible renal vein involvement. The mass pushes on the renal sinus, but it does not invade through it.The uninvolved parenchyma is red-pink and smooth. Lymph nodes are not present in the hilum. [employer] sections are submitted.Ink code: Black-outer surface of perinephric fat.Section code:A1, ureter and vascularmargins, en faceA2-A3, mass to renal sinus and veinA4-A7, mass to capsule and perinephric fat A8, mass to parenchyma interfaceA9, mass to renal yrhyaN93, inbound call center representative of massA11, inbound call center representative of hilar fatA12, uninvolved renal parenchymaCG/ewPerformed.The interpretation of this case included the use of immunohistochemistry or special stains.Control Slides Examined: In-house known positive controlswere evaluated along with the test tissue. These control slides run alongside of the patients sampleshow appropriate staining. Internal positive and negative controls when available are evaluated Immunohistochemistry technical testing was performed at [facility], Pathology Laboratory where it was developed and its performance characteristics were determined. It has not been cleared or approved by the U.S. Food and Drug Administration. The FDA has determined that such clearanceor approval is not necessary. The test is used for clinical purposes. It should not be regarded as investigational or for research. This laboratory is certified under the Clinical Laboratory Improvement Amendments of 1988 (CLIA-88) as qualified to perform high complexity clinical laboratory testing.WOUND CULTURE + GRAM [id number] 14:53:00 Test Item Value Reference Range Interpretation Comments CULTURE (BEAKER) A <1+ Staphyl ococcus (test code = 1095) epidermid is BASIC METABOLIC [id number] 07:18:00 Test Item Value Reference Range Interpretation [...] APPLICABLE FOR DIALYSIS PATIEN TS. HEMOGLOBIN AND [id number] 06:44:00 Test Item Value Reference Range Interpretation Comments HEMOGLOBIN (BEAKER) (test code = 12.2 GM/DL 13.7-17.5 L 410) HEMATOCRIT (BEAKER) (test code = 40.8 % 40.1-51.0 411) ANAEROBIC [id number] 03:32:00 Test Item Value Reference Range Interpretation Comments CULTURE (BEAKER) (test No anaerobes isolated code = 1095) HEPATIC FUNCTION [id number] 11:02:00 Test Item Value Reference Range Interpretation [...] = 18 U/L 6-55 347) BASIC METABOLIC [id number] 06:30:00 Test Item Value Reference Range Interpretation [...] APPLICABLE FOR DIALYSIS PATIEN TS. HEMOGLOBIN AND [id number] 05:41:00 Test Item Value Reference Range Interpretation Comments HEMOGLOBIN (BEAKER) (test code = 12.7 GM/DL 13.7-17.5 L 410) HEMATOCRIT (BEAKER) (test code = 41.7 % 40.1-51.0 411) BASIC METABOLIC [id number] 08:51:00 Test Item Value Reference Range Interpretation [...] APPLICABLE FOR DIALYSIS PATIEN TS. HEMOGLOBIN AND [id number] 08:03:00 Test Item Value Reference Range Interpretation Comments HEMOGLOBIN (BEAKER) (test code = 13.1 GM/DL 13.7-17.5 L 410) HEMATOCRIT (BEAKER) (test code = 43.1 % 40.1-51.0 411) CT, [id number] 16:56:00With PO contrastFINAL REPORT ABDOMINAL AND PELVIS [...] gallstones are present. No biliary dilatation is noted.Pancreas and adrenals are unremarkable. Right kidney is normal in size. A 4.25 x 4.4 seen cyst is seen in the right kidney. Left kidney is surgically absent. The opacified small bowel is unremarkable. Diverticular disease is seen in the large bowel without diverticulitis. Appendix is not visualized. No mass, adenopathy or ascites is present. IMPRESSION: 1. Diverticulosis without diverticulitis.2. Stat us post left nephrectomy.3. Right renal cyst.4. Distended gallbladder with gallstones without biliary dilatation.5. Trace bilateral pleural effusion. Signed: Bridget Yepezeport Verified Date/Time: 01/10/2019 16:56:13 Reading Location: [place] [address] CT Body Reading Room RAD, ABDOMEN/KUB, 1 VIEW [id number] 11:39:00 Reason for exam:->NGT placementShould this be performed at the bedside?->YesFINAL REPORT ONE VIEW ABDOMEN HISTORY: Status post nasogastric tube placement COMPARISON: 01/09/2019 FINDINGS: Single supine AP image of the abdomen was obtained. Nasogastric tube tip is in the region of the body of the stomach. There are dilated bowel loops in the central and lower abdomen, similar to the prior study and suggestive of adynamic ileus. Signed: Morales CroweportVerified Date/Time: 01/10/2019 11:39:35 Reading Location: [facility] C013T Transitional Reading Room [id number] 07:33:00 Test Item Value Reference Range Interpretation Comments MAGNESIUM (BEAKER) 2.2 mg/dL 1.6-2.6 Specimen slightly (test code = 627) hemolyzed [id number] 07:33:00 Test Item Value Reference Range Interpretation Comments PHOSPHORUS (BEAKER) 2.6 mg/dL 2.3-4.7 Specimen slightly (test code = 604) hemolyzed BASIC METABOLIC [id number] 07:33:00 Test Item Value Reference Range Interpretation [...] NOT APPLICABLE FOR DIALYSIS PATIEN TS. URINE [id number] 15:09:00 Test Item Value Reference Range Interpretation Comments CULTURE (BEAKER) (test code = 1095) No growth RAD, ABDOMEN/KUB, 1 VIEW [id number] 10:34:00Reason for exam:->abdominal distensionShould this be performed at the bedside?->YesFINAL REPORT Exam: KUB three views INDICATION: Abdominal distention. COMPARISON: KUB of 01/07/2019. FINDINGS:Persistent dilated loops of small bowel measuring up to 5.0 cm, not significantly changed from the prior KUB of 01/07/2019. Air-fluid levels are not apparent as in the prior study. Persistent paucity of colonic bowel gas. No free air. The osseous structures appear unremarkable. The minimally visualized lung bases appear unremarkable. IMPRESSION:Dilated loops of small bowel,not definitely changed from 01/07/2019, consistent with ileus versus obstruction. Signed: Jayna GoreMDReport Verified Date/Time: 01/09/2019 10:34:42 Reading Location: [facility] Radiology Reading Room [id number] 04:41:00 Test Item Value Reference Range Interpretation Comments PHOSPHORUS (BEAKER) (test code = 2.6 mg/dL 2.3-4.7 604) [id number] 04:41:00 Test Item Value Reference Range Interpretation Comments MAGNESIUM (BEAKER) (test code = 2.2 mg/dL 1.6-2.6 627) BASIC METABOLIC [id number] 04:41:00 Test Item Value Reference Range Interpretation [...] S NOT APPLICABLE FOR DIALYSIS PATIEN TS. [id number] 11:45:00 Test Item Value Reference Range Interpretation Comments AMYLASE (BEAKER) (test code = 349) 78 U/L 25-125 [id number] 02:24:00 Test Item Value Reference Range Interpretation Comments PHOSPHORUS (BEAKER) (test code = 3.7 mg/dL 2.3-4.7 604) [id number] 02:24:00 Test Item Value Reference Range Interpretation Comments MAGNESIUM (BEAKER) (test code = 2.5 mg/dL 1.6-2.6 627) BASIC METABOLIC [id number] 02:24:00 Test Item Value Reference Range Interpretation [...] 0-0 (BEAKER) (test code = 413) CT, [id number] 01:05:00Reason for exam:->EMESISsince 1330 this afternoonReason for [...] intravenous contrast. LOWER CHEST: Trace right pleural effusion.Bibasilar subsegmental atelectasis. Calcified left basilar pleural plaques.LIVER: Within normal limits.BILE DUCTS: Within normal limits.GALL BLADDER: Cholelithiasis.PANCREAS: Within normal limits.SPLEEN: Mild to moderate splenomegaly.ADRENALS: Within normal limits.KIDNEYS/URETERS: Status post left nephrectomy. 4.6 cm exophytic right lower pole renal cyst. No hydronephrosis or radiopaque stones. URINARY BLADDER: Small amount of air in the urinary bladder may be due to recent instrumentation or infection.REPRODUCTIVE ORGANS: Within normal limits. BOWEL/MESENTERY: Colonic diverticulosis without acute diverticulitis. Multiple fluid-filled dilated small bowel loops with air- fluid levels without a transition point compatible with [...] midline abdominal wall and left flank likely from recent surgery.BONES: Degenerative changes of the visualized spine. Lucent lesion in the L4 vertebral body which may represent intraosseous hemangioma. IMPRESSION: Findings in keeping with recent left nephrectomy. Small bowel ileus. No findings to suggest mechanical bowel obstruction. Colonic diverticulosis without acute diverticulitis. Small amount of air in the urinary bladder may be due to recent instrumentation or infection. Correlate clinically. Splenomegaly. Trace right pleural effusion. Bibasilar subsegmental atelectasis. Signed: Bret Avila MDReport Verified Date/Time: 01/08/2019 01:05:19 URINALYSIS W/ MICROSCOPIC 2019-01-07 22:45:00 Test Item Value Reference Range Interpretation [...] /LPF 514) SOURCE(BEAKER) (test code = 2795) [id number] 22:33:00 Test Item Value Reference Range Interpretation Comments LIPASE (BEAKER) (test code = 749) 81 U/L 8-78 H HEPATIC FUNCTION [id number] 22:33:00 Test Item Value Reference Range Interpretation [...] 347) RAD, ABDOMEN SERIES W/ UPRIGHT PA [id number] 22:19:00Reason for exam:- >abd painfree air under [...] identified. IMPRESSION: No acute cardiopulmonary process identified. Multiplediffusely dilated loops of bowel identified within the abdomen with air-fluid levels concerning for bowel obstruction. Consider further evaluation with dedicated CT examination. Signed: Pavel Antony MDReport Verified Date/Time: 01/07/2019 22:19:37 Reading Location: [facility] C0[facility] Consult Reading Room TROPONIN [id number] 21:25:00 Test Item Value Reference Range Interpretation [...] 0-100 (test code = 700) BASIC METABOLIC [id number] 21:18:00 Test Item Value Reference Range Interpretation [...] (test 55 U/L 29-200 code = 380) [id number] 21:17:00 Test Item Value Reference Range Interpretation Comments MAGNESIUM (BEAKER) (test code = 2.5 mg/dL 1.6-2.6 627) CBC W/PLT COUNT & AUTO [id number] 21:03:00 Test Item Value Reference Range Interpretation [...] = 2801) RAD, CHEST, 1 VIEW, NON [id number] 21:03:00Reason for exam:->EMESISsince 1330 this afternoonReason for exam:->SHORTNESS OF BREATHstarted todayFINAL REPORT Chest, 1 view. History: Stenosis, shortness of breath. Comparison:01/05/2019. Discussion: There is stable mild elevation of the left hemidiaphragm and left basilar atelectasis. There is no evidence for new large focal consolidation, pneumothorax, or significant pleuraleffusion. The cardiomediastinal silhouette is stable in appearance. No acute osseous abnormalities identified. IMPRESSION: No significant interval change from 01/05/2019. Signed: Pavel Antony MDReport Verified Date/Time: 01/07/2019 21:03:03 Reading Location: [facility] B1 C013W Consult Reading Room PUL PERF IMAGING, PARTIC, VENT 2019-01-05 10:56:00FINAL REPORT PROCEDURE: V/Q LUNG SCAN CPT CODE: 78954 INDICATION: Acute chest pain, hypoxia PROTOCOL: 10.8 mCi of Xe- 133 gas was administered by inhalation. Single breath and rebreathing/washout images were obtained in the anterior and posterior projections. 4.3 mCi of Tc- 99m MAA was then injected intravenously, and static [...] MDReport Verified Date/Time: 01/05/2019 10:56:35 Reading Location: [facility] Med Reading Room C. DIFFICILE GDH TOXIN 2019-01-05 10:36:00 Test Item Value Reference Range Interpretation Comments CDT TOXIN (test code Negative Negative = 8112172533) CDT GDH ANTIGEN (test Negative Negative No ind ication of code = 8684642576) Clostridi um difficile infection and n o colonization. Discontinue ent josé isolation and t herapy. Testing performed by [employer] Rapid Cassette Assay. For GDH, published sensitivity of the assay is 98.7% compared to cytotoxicity testing. For Toxin AB, published sensitivity is 87.8% and specificity 99.4% compared to cytotoxicity testing.Verification of kit performance was done by the [facility] prior to clinical use.BASIC METABOLIC [id number] 07:58:00 Test Item Value Reference Range Interpretation [...] PATIEN TS. RAD, CHEST, 1 VIEW, NON [id number] 07:51:00Reason for exam:->eval breathing statusShould this be [...] MDReport Verified Date/Time: 01/05/2019 07:51:40 Reading Location: [facility] Radiology Reading Room HEMOGLOBIN AND [id number] 06:22:00 Test Item Value Reference Range Interpretation Comments HEMOGLOBIN (BEAKER) (test code = 15.0 GM/DL 13.7-17.5 410) HEMATOCRIT (BEAKER) (test code = 49.7 % 40.1-51.0 411) BASIC METABOLIC [id number] 06:14:00 Test Item Value Reference Range Interpretation [...] APPLICABLE FOR DIALYSIS PATIEN TS. HEMOGLOBIN AND [id number] 05:56:00 Test Item Value Reference Range Interpretation Comments HEMOGLOBIN (BEAKER) (test code = 14.2 GM/DL 13.7-17.5 410) HEMATOCRIT (BEAKER) (test code = 47.2 % 40.1-51.0 411) BASIC METABOLIC [id number] 06:27:00 Test Item Value Reference Range Interpretation [...] U/L 29-200 code = 380) HEMOGLOBIN AND [id number] 05:28:00 Test Item Value Reference Range Interpretation Comments HEMOGLOBIN (BEAKER) (test code = 13.4 GM/DL 13.7-17.5 L 410) HEMATOCRIT (BEAKER) (test code = 43.4 % 40.1-51.0 411) BASIC METABOLIC [id number] 15:27:00 Test Item Value Reference Range Interpretation [...] U/L 29-200 code = 380) HEMOGLOBIN AND [id number] 15:15:00 Test Item Value Reference Range Interpretation Comments HEMOGLOBIN (BEAKER) (test code = 13.7 GM/DL 13.7-17.5 410) HEMATOCRIT (BEAKER) (test code = 44.9 % 40.1-51.0 411) ColonoscopyColonoscopy
--- NOTE | 2022-04-22 12:18 | RAD REPORT ---
EXAM DESCRIPTION: RAD - Chest Single View - 04/22/2022 12:12 pm CLINICAL HISTORY: CHEST PAIN COMPARISON: 11/08/2021 FINDINGS: Lines: None. Lungs: No evidence of edema or pneumonia. Pleural: No significant pleural effusions or pneumothorax. Cardiac: The heart size is within normal limits. Mediastinum: Within normal limits. Bones: No acute fractures. Other: None IMPRESSION: No acute cardiopulmonary disease.
[2022-04-22] MEDS ORDERED: ONDANSETRON 4 MG/2 ML VIAL ONE (12:31)
[2022-04-22] MEDS ORDERED: MORPHINE 4 MG/ML SYR ONE (12:31)
[2022-04-22 12:41] LABS: Absolute Lymphocytes (CBC) 0.9 K/uL (0.7-4.9); Hematocrit 47.8 % (39.6-49.0); Lymphocytes % 8.2 % (15.3-44.8); MCV 77.1 fL (80-100); MPV 8.1 fL (7.6-11.3)
[2022-04-22 12:51] LABS: Potassium 4.5 mmol/L (3.5-5.1); Troponin High Sensitivity 6.2 pg/mL (<58.9)
--- NOTE | 2022-04-22 13:27 | RAD REPORT ---
EXAM DESCRIPTION: CT - Chest For Pe Angio - 04/22/2022 1:11 pm CLINICAL HISTORY: chest pain, hx of PE COMPARISON: Chest For Pe Angio dated 11/08/2021; Lung Cancer Screening CT W/O dated 08/12/2018; Extrem Venous W Compress Mg dated 11/08/2021 TECHNIQUE: Dynamically enhanced axial 3 mm thick images of the chest were obtained during administra tion of <100> mL Isovue 370 IV contrast. Coronal and oblique reconstruction images were generated and reviewed. Exam utilizes a protocol for optimal evaluation of pulmonary arterial tree. Maximum intensity projections 3D imaging was utilized All CT scans are performed using dose optimization technique as appropriate and may include automated exposure control or mA/KV adjustment according to patient size. FINDINGS: Chest Wall: No suspicious thyroid nodules or pathologic lymphadenopathy. Lungs: No acute abnormality. Pleura: Calcification along the left basilar pleural surface. This could be from a prior pleurodesis. Mediastinum/juan carlos: No pathologic lymphadenopathy. Pulmonary arteries/Aorta: No central pulmonary embolus identified. The segmental and subsegmental pul monary arteries cannot be adequately assessed. No aortic aneurysm. Suboptimal opacification of the pu lmonary arteries due to technical factors related to the power injector. Heart: No significant pericardial effusion. Normal heart size. Coronary artery calcifications. Upper abdomen: No acute abnormality.Cholelithiasis. Hepatic steatosis. Multilevel degenerative change s are present in the spine. Bones: No acute abnormality. IMPRESSION: No central pulmonary embolus. The segmental and subsegmental pulmonary arteries cannot b e adequately assessed due to technical factors which limited the contrast bolus. No other acute proce ss identified. Could consider short-term repeat CT with PE protocol if clinically indicated.
[2022-04-22] MEDS ORDERED: KETOROLAC 30 MG/ML INJ ONE (14:25)
[2022-04-22] MEDS ORDERED: METHYLPREDNISOLONE 125 MG INJ ONE (14:25)
[2022-04-22] MEDS ORDERED: LEVALBUTEROL 1.25 MG/3 ML NEB ONE (14:25)
--- NOTE | 2022-04-22 15:32 | EDPHYS ---
Physician Documentation [facility] Name: Navdeep Gonzalez Age: 66 yrs Sex: Male : 1955 Arrival Date: 04/22/2022 Time: 11:43 Bed 7 Private MD: Portillo Monet ED Physician Julian Parada HPI: 04/22 15:27 This 66 yrs old Male presents to ER via Wheelchair with complaints of Chest Tightness, rn Shortness Of Breath. 15:27 The patient or guardian reports chest pain that is located primarily in the substernal rn area. 15:27 Onset: this morning. The pain does not radiate. Associated signs and symptoms: rn Pertinent positives: shortness of breath, Pertinent negatives: abdominal pain, cough, diaphoresis, lower extremity swelling, near syncope, palpitations, vomiting. The chest pain is described as sharp, stabbing. Duration: The patient or guardian reports multiple episodes. Modifying factors: The symptoms are alleviated by nothing. the symptoms are aggravated by deep breath. Severity of pain: At its worst the pain was moderate in the emergency department the pain is unchanged. The patient has experienced a previous episode. The patient has not recently seen a physician. Pt reports just saw cardiology with normal cardiac w/u and provocative testing.. Historical: - Allergies: 12:41 No Known Allergies; ph - Home Meds: 12:41 atorvastatin 40 mg Oral tab 1 tab once daily [Active]; bupropion HCl 300 mg Oral Tb24 1 ph tab once daily [Active]; escitalopram oxalate 20 mg Oral tab 1 tab once daily [Active]; desloratadine 5 mg Oral tab 1 tab once daily [Active]; ezetimibe 10 mg Oral tab 1 tab once daily [Active]; folic acid 1 mg Oral tab 1 tab once daily [Active]; losartan 50 mg Oral tab 1 tab once daily [Active]; metoprolol succinate 50 mg Oral Tb24 1 tab once daily [Active]; 12:42 Eliquis oral [Active]; ph - PMHx: 12:41 Anxiety; Arthritis; Depression; Hyperlipidemia; Hypertension; ph - Immunization history:: Adult Immunizations up to date, Flu vaccine is up to date. - Social history:: Smoking status: Patient/guardian denies using tobacco, the patient reports quitting approximately 18 years ago. - Family history:: not pertinent. - Hospitalizations: : No recent hospitalization is reported. ROS: 15:27 Constitutional: Negative for fever, chills, and weight loss, Eyes: Negative for injury, rn pain, redness, and discharge, Neck: Negative for injury, pain, and swelling, Cardiovascular: Negative for palpitations, and edema, Respiratory: Negative for cough Abdomen/GI: Negative for abdominal pain, nausea, vomiting, diarrhea, and constipation, MS/Extremity: Negative for injury and deformity, Skin: Negative for injury, rash, and discoloration, Neuro: Negative for headache, weakness, numbness, tingling, and seizure. Exam: 12:26 ECG was reviewed by the Attending Physician. rn 15:27 Constitutional: This is a well developed, well nourished patient who is awake, alert, rn and in no acute distress. Head/Face: Normocephalic, atraumatic. ENT: no stridor Cardiovascular: Regular rate and rhythm. No pulse deficits. Respiratory: + mild tachypnea, no retractions, + faint wheezing noted bilaterally Abdomen/GI: Soft, non-tender Skin: Warm, dry MS/ Extremity: Pulses equal, no cyanosis. Neuro: Awake and alert, GCS 15 Vital Signs: 12:03 BP 135 / 77; Pulse 86; Resp 24; Temp 97.2; Pulse Ox 92% on R/A; Weight 140.61 kg; ph Height 6 ft. 1 in. (185.42 cm); 12:30 BP 136 / 87; Pulse 88; Resp 24; Pulse Ox 97% on 2 lpm NC; ph 13:36 BP 131 / 95; Pulse 91; Resp 24; Pulse Ox 95% on 2 lpm NC; ph 15:00 BP 128 / 78; Pulse 87; Resp 18; Temp 97.2; Pulse Ox 94% on R/A; ph 12:03 Body Mass Index 40.90 (140.61 kg, 185.42 cm) ph MDM: 11:48 Patient medically screened. rn 15:27 Differential diagnosis: acute myocardial infarction, acute pericarditis, anxiety, rn coronary artery disease costochondritis, esophagitis, gastritis, gastroesophageal reflux disease (GERD), pleurisy, pneumonia, pneumothorax, pulmonary embolus, stable angina. Data reviewed: vital signs, nurses notes, lab test result(s), EKG, radiologic studies, CT scan, plain films, and as a result, I will discharge patient. Counseling: I had a detailed discussion with the patient and/or guardian regarding: the historical points, exam findings, and any diagnostic results supporting the discharge/admit diagnosis, lab results, radiology results, the need for outpatient follow up, to return to the emergency department if symptoms worsen or persist or if there are any questions or concerns that arise at home. Response to treatment: the patient's symptoms have markedly improved after treatment, and as a result, I will discharge patient. Special discussion: Based on the patient's history, exam, and Dx evaluation, there is no indication for emergent intervention or inpatient Tx. It is understood by the patient/guardian that if the Sx's persist or worsen they need to return immediately for re-evaluation. I discussed with the patient/guardian in detail that at this point there is no indication for admission to the hospital. It is understood, however, that if the symptoms persist or worsen the patient needs to return immediately for re-evaluation. Based on the history and exam findings, there is no indication for further emergent testing or inpatient evaluation. I discussed with the patient/guardian the need to see the primary care provider for further evaluation of the symptoms. ED course: Pt feels much better, breathing better after steroids and nebs. Trop neg x 2, neg CT PE, didn't improve until after treatment of his COPD. Will dc home with steroids and inhaler. . 04/22 11:54 Order name: Basic Metabolic Panel; Complete Time: 13:43 04/22 11:54 Order name: CBC with Diff; Complete Time: 13: rn 04/22 11:54 Order name: NT PRO-BNP; Complete Time: 13:43 rn 04/22 11:54 Order name: Troponin HS; Complete Time: 13:43 rn 04/22 11:54 Order name: XRAY Chest (1 view); Complete Time: 13:43 rn 04/22 14:15 Order name: Troponin High Sensitivity; Complete Time: 15:01 rn 04/22 11:54 Order name: EKG; Complete Time: 11:55 rn 04/22 11:54 Order name: Cardiac monitoring; Complete Time: 12:40 rn 04/22 11:54 Order name: CT Chest For PE Angio; Complete Time: 13:43 rn 04/22 11:54 Order name: EKG - Nurse/Tech; Complete Time: 12:40 rn 04/22 11:54 Order name: IV Saline Lock; Complete Time: 12:41 rn 04/22 11:54 Order name: Labs collected and sent; Complete Time: 12:41 rn 04/22 11:54 Order name: O2 Per Protocol; Complete Time: 12:41 rn 04/22 11:54 Order name: O2 Sat Monitoring; Complete Time: 12:41 rn EC: Rate is 86 beats/min. Rhythm is regular. QRS Talmage is Normal. NC interval is normal. QRS rn interval is normal. QT interval is normal. No Q waves. T waves are Normal. No ST changes noted. Clinical impression: Normal ECG. Interpreted by me. Reviewed by me. Administered Medications: 12:35 Drug: Zofran (Ondansetron) 4 mg Route: IVP; Site: right forearm; ph 13:00 Follow up: Response: No adverse reaction ph 12:37 Drug: morphine 4 mg Route: IVP; Infused Over: 4 mins; Site: right forearm; ph 13:00 Follow up: Response: No adverse reaction ph 14:31 Drug: Ketorolac 15 mg Route: IVP; Site: right forearm; ld1 15:00 Follow up: Response: No adverse reaction ph 14:32 Drug: SOLU-Medrol (methylPrednisoLONE) 125 mg Route: IVP; Site: right forearm; ld1 15:00 Follow up: Response: No adverse reaction ph 14:32 Drug: Xopenex (levalbuterol) (3) 1.25 mg Route: Inhalation; ld1 15:00 Follow up: Response: No adverse reaction ph Disposition Summary: 04/22/22 15:31 Discharge Ordered Location: Home rn Problem: new rn Symptoms: have improved rn Condition: Stable rn Diagnosis - Chest pain, unspecified rn - COPD/ Chronic obstructive pulmonary disease with (acute) exacerbation rn Followup: rn - With: Julian Parada MD - When: As needed - Reason: Recheck today's complaints, Re-evaluation by your physician Discharge Instructions: - Discharge Summary Sheet rn Forms: - Medication Reconciliation Form rn - Thank You Letter rn - Antibiotic 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
--- NOTE | 2022-04-22 15:32 | ER ---
[facility] Name: Navdeep Gonzalez Age: 66 yrs Sex: Male : 1955 Arrival Date: 04/22/2022 Time: 11:43 Bed 7 Private MD: Portillo Monet Diagnosis: Chest pain, unspecified;COPD/ Chronic obstructive pulmonary disease with (acute) exacerbation Presentation: 04/22 12:03 Chief complaint: Patient states: Chest pain and SOB that started this morning, reports ph hx of PE in October and states that symptoms are similar. Also reports headache, hx of migraines and says pain is similar to past headaches. Coronavirus screen: Vaccine status: Patient reports receiving the 2nd dose of the covid vaccine. Ebola Screen: No symptoms or risks identified at this time. Initial Sepsis Screen: Does the patient meet any 2 criteria? No. Patient's initial sepsis screen is negative. Does the patient have a suspected source of infection? No. Patient's initial sepsis screen is negative. Risk Assessment: Do you want to hurt yourself or someone else? Patient reports no desire to harm self or others. Onset of symptoms was April 22, 2022. 12:03 Method Of Arrival: Wheelchair ph 12:03 Acuity: CHERI 2 ph Triage Assessment: 12:05 General: Appears in no apparent distress. uncomfortable, Behavior is calm, cooperative, ph appropriate for age, Denies fever, feeling ill. Pain: Complains of pain in anterior aspect of right upper chest and anterior aspect of left upper chest. Pain: Complains of pain in head. Neuro: Level of Consciousness is awake, alert, obeys commands, Oriented to person, place, time, situation, Reports headache. Cardiovascular: Reports chest pain, shortness of breath, Denies nausea, vomiting, Capillary refill < 3 seconds in bilateral fingers Patient's skin is warm and dry. Chest pain is located in right left anterior posterior is aggravated by breathing. Respiratory: Airway is patent Respiratory effort is even, labored, Respiratory pattern is tachypnea. GI: No signs and/or symptoms were reported involving the gastrointestinal system. Derm: Skin is healthy with good turgor, Skin is pink, warm \T\ dry. Musculoskeletal: Circulation, motion, and sensation intact. Range of motion: intact in all extremities. Historical: - Allergies: 12:41 No Known Allergies; ph - Home Meds: 12:41 atorvastatin 40 mg Oral tab 1 tab once daily [Active]; bupropion HCl 300 mg Oral Tb24 1 ph tab once daily [Active]; escitalopram oxalate 20 mg Oral tab 1 tab once daily [Active]; desloratadine 5 mg Oral tab 1 tab once daily [Active]; ezetimibe 10 mg Oral tab 1 tab once daily [Active]; folic acid 1 mg Oral tab 1 tab once daily [Active]; losartan 50 mg Oral tab 1 tab once daily [Active]; metoprolol succinate 50 mg Oral Tb24 1 tab once daily [Active]; 12:42 Eliquis oral [Active]; ph - PMHx: 12:41 Anxiety; Arthritis; Depression; Hyperlipidemia; Hypertension; ph - Immunization history:: Adult Immunizations up to date, Flu vaccine is up to date. - Social history:: Smoking status: Patient/guardian denies using tobacco, the patient reports quitting approximately 18 years ago. - Family history:: not pertinent. - Hospitalizations: : No recent hospitalization is reported. Screenin:44 Abuse screen: Denies threats or abuse. Denies injuries from another. Nutritional ph screening: No deficits noted. Tuberculosis screening: No symptoms or risk factors identified. Fall Risk None identified. Assessment: 13:36 Reassessment: Patient appears in no apparent distress at this time. Patient and/or ph family updated on plan of care and expected duration. Pain level reassessed. Patient is alert, oriented x 3, equal unlabored respirations, skin warm/dry/pink. 15:00 Reassessment: Patient appears in no apparent distress at this time. Patient and/or ph family updated on plan of care and expected duration. Pain level reassessed. Patient is alert, oriented x 3, equal unlabored respirations, skin warm/dry/pink. Patient states feeling better. Patient states symptoms have improved. Vital Signs: 12:03 BP 135 / 77; Pulse 86; Resp 24; Temp 97.2; Pulse Ox 92% on R/A; Weight 140.61 kg; ph Height 6 ft. 1 in. (185.42 cm); 12:30 BP 136 / 87; Pulse 88; Resp 24; Pulse Ox 97% on 2 lpm NC; ph 13:36 BP 131 / 95; Pulse 91; Resp 24; Pulse Ox 95% on 2 lpm NC; ph 15:00 BP 128 / 78; Pulse 87; Resp 18; Temp 97.2; Pulse Ox 94% on R/A; ph 12:03 Body Mass Index 40.90 (140.61 kg, 185.42 cm) ph ED Course: 11:43 Patient arrived in ED. am2 11:43 Portillo Monet DO is Private Physician. am2 11:48 Julian Parada MD is Attending Physician. rn 12:03 Vandana Webb RN is Primary Nurse. ph 12:05 Triage completed. ph 12:14 XRAY Chest (1 view) In Process Unspecified. EDMS 12:25 Missed attempt(s): 20 gauge in right forearm. Bleeding controlled, band aid applied, ph catheter tip intact. 12:30 Initial lab(s) drawn, by me, sent to lab. Inserted saline lock: 22 gauge in right ph antecubital area, using aseptic technique. 12:44 Arm band placed on Patient placed in an exam room. ph 12:44 Patient has correct armband on for positive identification. Placed in gown. Bed in low ph position. Call light in reach. Client placed on continuous cardiac and pulse oximetry monitoring. NIBP monitoring applied. 12:44 Oxygen administration via nasal cannula \T\ 2L/min Response to oxygen therapy: symptoms ph improved. 13:12 CT Chest For PE Angio In Process Unspecified. EDMS 14:32 Troponin High Sensitivity Sent. ld1 15:31 Julian Parada MD is Referral Physician. rn 15:55 No provider procedures requiring assistance completed. IV discontinued, intact, ph bleeding controlled, No redness/swelling at site. Pressure dressing applied. Administered Medications: 12:35 Drug: Zofran (Ondansetron) 4 mg Route: IVP; Site: right forearm; ph 13:00 Follow up: Response: No adverse reaction ph 12:37 Drug: morphine 4 mg Route: IVP; Infused Over: 4 mins; Site: right forearm; ph 13:00 Follow up: Response: No adverse reaction ph 14:31 Drug: Ketorolac 15 mg Route: IVP; Site: right forearm; ld1 15:00 Follow up: Response: No adverse reaction ph 14:32 Drug: SOLU-Medrol (methylPrednisoLONE) 125 mg Route: IVP; Site: right forearm; ld1 15:00 Follow up: Response: No adverse reaction ph 14:32 Drug: Xopenex (levalbuterol) (3) 1.25 mg Route: Inhalation; ld1 15:00 Follow up: Response: No adverse reaction ph Medication: 12:44 VIS not applicable for this client. ph Outcome: 15:31 Discharge ordered by . rn 15:55 Patient left the ED. ph 15:55 Discharged to home ambulatory, with significant other. ph 15:55 Condition: good 15:55 Discharge instructions given to patient, significant other, Instructed on discharge instructions, follow up and referral plans. medication usage, Demonstrated understanding of instructions, follow-up care, medications, Prescriptions given X 2. Signatures: Dispatcher [employer] EDMS Julian Parada MD MD rn Hall, Patricia, RN RN Nohemi [facility] Selin Peñaloza RN RN ld1
[2022-04-22 16:00] VITALS: TEMP 97.2
[2022-04-22 16:03] VITALS: BP 131/95; O2SAT 95
--- NOTE | 2022-04-23 18:40 | EKG ---
Test Date: 2022-04-22 Test Time: 11:53:32 Buccaro: PH MEASUREMENT RESULTS: Intervals: Rate: 86 OH: 176 QRSD: 88 QT: 368 QTc: 440 Parkin: P: 41 OH: 176 QRS: -1 T: 51 INTERPRETIVE STATEMENTS: Normal sinus rhythm Normal ECG Compared to ECG 11/08/2021 08:40:54 Myocardial infarct finding no longer present Electronically Signed On 04-23-22 18:37:39 CDT by Billy Nunez
== END 2022-04-22 15:55 | disposition home or self-care (01) ==
LOC: ER 11:42
DX: J44.1 Chronic obstructive pulmonary disease with (acute) exacerbation (principal); R07.89 Other chest pain; I10 Essential (primary) hypertension; E78.5 Hyperlipidemia, unspecified; Z79.01 Long term (current) use of anticoagulants
CPT/HCPCS: 93005; 85025; 80048; 36415; 84484 ×2; 83880; 71275; 71045; 96375; 96374; 99285; Q9967; J7614; J2930; J2405

== ENCOUNTER 2023-04-11 10:30 | Day surgery (SDC) | payer OTHER ==
[2023-04-10 13:34] LABS: Absolute Lymphocytes (CBC) 0.7 K/uL (0.7-4.9); Hematocrit 35.3 % (39.6-49.0); Lymphocytes % 5.7 % (15.3-44.8); MCV 62.6 fL (80-100); MPV 8.2 fL (7.6-11.3); Platelets 351 thou/uL (152-406); RBC Red Blood Cell Count 5.64 M/uL (4.33-5.43)
[2023-04-10 13:35] LABS: Protime INR 1.26
[2023-04-10 13:39] LABS: Potassium 4.5 mEq/L (3.5-5.1)
[2023-04-10 14:20] LABS: Platelet Estimate ADEQ; White Blood Cell Scan OK (OK)
[2023-04-10 14:21] LABS: Anisocytosis 1+; Blood Morphology Comment NOTED (NOT SEEN); Hypochromasia 2+
[2023-04-11] MEDS ORDERED: Ringers Lactate 1,000 ML IV ONE (10:48)
[2023-04-11] MEDS ORDERED: LIDOCAINE 1% MPF 5 ML VIAL ONE (11:34)
[2023-04-11] MEDS ORDERED: propofoL 200 MG/20 ML VIAL IV ONE ×2 (11:34→12:13)
--- NOTE | 2023-04-11 12:29 | EKG ---
Test Date: 2023-04-10 Test Time: 13:08:22 Component Technician: KENTRELL MEASUREMENT RESULTS: Intervals: Rate: 83 SC: 176 QRSD: 90 QT: 392 QTc: 460 [place]: P: 45 SC: 176 QRS: 17 T: 37 INTERPRETIVE STATEMENTS: Normal sinus rhythm Low voltage QRS Cannot rule out Anterior infarct, age undetermined Abnormal ECG Compared to ECG 04/22/2022 11:53:32 Low QRS voltage now present Myocardial infarct finding now present Electronically Signed On 04-11-23 12:27:59 CDT by Billy Nunez
[2023-04-11] MEDS ORDERED: GLUCAGON 1 MG/VIAL ONE (12:40)
[2023-04-11 14:04] VITALS: O2SAT 95
[2023-04-11 14:06] VITALS: BP 107/69
[2023-04-11 14:08] VITALS: TEMP 97.7
== END 2023-04-11 13:19 | disposition home or self-care (01) ==
LOC: OR 10:30
PROVIDERS: ATTEND Surgery
PROC: 0DBH8ZX Excision of Cecum, Via Natural or Artificial Opening Endoscopic, Diagnostic (ICD-10-PCS; 2023-04-11)
PROC: 0DB98ZX Excision of Duodenum, Via Natural or Artificial Opening Endoscopic, Diagnostic (ICD-10-PCS; 2023-04-11)
PROC: 0DB78ZX Excision of Stomach, Pylorus, Via Natural or Artificial Opening Endoscopic, Diagnostic (ICD-10-PCS; 2023-04-11)
PROC: 0DB68ZX Excision of Stomach, Via Natural or Artificial Opening Endoscopic, Diagnostic (ICD-10-PCS; 2023-04-11)
PROC: 0DB18ZX Excision of Upper Esophagus, Via Natural or Artificial Opening Endoscopic, Diagnostic (ICD-10-PCS; 2023-04-11)
PROC: 0DB48ZX Excision of Esophagogastric Junction, Via Natural or Artificial Opening Endoscopic, Diagnostic (ICD-10-PCS; 2023-04-11)
PROC: 0DBK8ZX Excision of Ascending Colon, Via Natural or Artificial Opening Endoscopic, Diagnostic (ICD-10-PCS; principal; 2023-04-11 12:00)
PROC: 0DBM8ZX Excision of Descending Colon, Via Natural or Artificial Opening Endoscopic, Diagnostic (ICD-10-PCS; 2023-04-11 12:00)
DX: D62 Acute posthemorrhagic anemia (principal); K21.9 Gastro-esophageal reflux disease without esophagitis; D56.0 Alpha thalassemia; N42.9 Disorder of prostate, unspecified; K57.30 Diverticulosis of large intestine without perforation or abscess without bleeding; K64.8 Other hemorrhoids; D12.2 Benign neoplasm of ascending colon; D12.0 Benign neoplasm of cecum; D12.4 Benign neoplasm of descending colon; K29.50 Unspecified chronic gastritis without bleeding; K20.90 Esophagitis, unspecified without bleeding; I10 Essential (primary) hypertension; E78.00 Pure hypercholesterolemia, unspecified; F32.A Depression, unspecified; E66.01 Morbid (severe) obesity due to excess calories; Z68.41 Body mass index [BMI] 40.0-44.9, adult
CPT/HCPCS: 45385; 93005; 85025; 80048; 36415; 88312; 85610; 88305; 85730; 43239; J1610; J2704 ×2; J2001; J7120

== ENCOUNTER 2024-06-11 11:34 | Emergency (ER) | payer OTHER ==
[2024-06-11 12:23] LABS: Absolute Basophils 0.1 K/uL (0-0.5); Absolute Eosinophils 0.3 K/uL (0-0.5); Absolute Lymphocytes (CBC) 0.8 K/uL (0.7-4.9); Absolute Monocytes 0.5 K/uL (0.1-1.3); Absolute Neutrophil 11.8 K/uL (1.8-8.0); Basophils % 1.1 % (0-1.3); Eosinophils % 2.1 % (0-4.4); Hematocrit 48.7 % (39.6-49.0); Hemoglobin 14.8 g/dL (13.6-17.9); Lymphocytes % 5.7 % (15.3-44.8); MCH 22.8 pg (27.0-35.0); MCHC 30.3 g/dL (32.0-36.0); MCV 75.1 fL (80-100); MPV 8.6 fL (7.6-11.3); Monocytes % 3.5 % (3.3-12.3); Neutrophils % 87.6 % (41.7-73.7); Nucleated RBC Absolute Count 0.1 (0-0); Nucleated Red Blood Cells % 0.7 % (0-0); Platelets 175 thou/uL (152-406); RBC Red Blood Cell Count 6.49 M/uL (4.33-5.43); Red Cell Distribution Width 19.3 % (12.1-15.2)
[2024-06-11 12:40] LABS: Albumin 3.2 g/dL (3.4-5.0); Albumin/Globulin Ratio 1.1 (1.1-1.8); Anion Gap 5.3 mEq/L (5.0-15.0); Bilirubin Total 1.1 mg/dL (0.2-1.0); Globulin 2.9 g/dL (2.3-3.5); Potassium 4.3 mEq/L (3.5-5.1); Protein, Total 6.1 g/dL (6.4-8.2)
[2024-06-11 12:45] LABS: Anisocytosis 1+; Band Neutrophils 1 % (0-1); Blood Morphology Comment NOTED (NOT SEEN); Differential Total Cells Count 100; Eosinophils 3 % (0-3); Lymphocytes 7 % (15-42); Monocytes 6 % (0-10); Platelet Estimate ADEQ; Segmented Neutrophils 80 % (40-80)
[2024-06-11 12:46] LABS: Polychromasia 1+
--- NOTE | 2024-06-11 13:32 | RAD REPORT ---
EXAMINATION: CT ABDOMEN AND PELVIS WITH CONTRAST CLINICAL INDICATION: BACK HEMATOMA, SP MARROW BIOPSY TECHNIQUE: CT abdomen and pelvis was performed, after the administration of IV contrast[facility]. Axial, sagittal and coronal reconstructions were obtained. One or more of the following dose reduction techniques were used: Automated exposure control, adjustment of the mA and k V according to patient size, and iterative reconstruction. Unless otherwise specified, incidental findings do not require dedicated imaging follow-up. COMPARISON: 12/09/2018 FINDINGS: LOWER CHEST: Calcified pleural plaque medial left lung base. LIVER: Mild fatty liver is present. No focal lesion or biliary dilatation is seen. Small gallstones suspected. SPLEEN: Spleen is moderately enlarged. PANCREAS: No mass, ductal dilation, or ron-pancreatic fluid. ADRENALS: Normal; no mass. KIDNEYS: Normal size and contour right kidney. No hydronephrosis. Nonvisualized left kidney GASTROINTESTINAL TRACT: No evidence of free air, significant intra-abdominal free fluid, bowel obstru ction or abscess. Mild sigmoid diverticulosis coli without diverticulitis. APPENDIX: Normal appendix. LYMPH NODES: No lymphadenopathy. MUSCULOSKELETAL: Mild multilevel spinal degenerative changes. ADDITIONAL FINDINGS: Subcutaneous soft tissue hematoma suspected right posterior back adjacent to the right ischium measuring 5 x 2 cm.. IMPRESSION: No acute or concerning abnormalities seen in the abdomen or pelvis. Small hematoma in the subcutaneous soft tissues adjacent to the ischium. Cholelithiasis.
--- NOTE | 2024-06-11 13:59 | ER ---
Nurse's Notes [facility] Name: Navdeep Gonzalez Age: 69 yrs Sex: Male : 1955 Arrival Date: 06/11/2024 Time: 11:34 Bed 13 Private MD: Diagnosis: Postprocedural hemorrhage of skin and subcutaneous tissue following other procedure-BONE MARROW BIOPSY;Elevated white blood cell count Presentation: 06/11 11:52 Chief complaint: Patient states: he had a bone marrow biopsy on 06/02/[address] White, ap3 and has since had bruising that is spreading on his right lower flank area. Coronavirus screen: At this time, the client does not indicate any symptoms associated with coronavirus-19. Ebola Screen: No symptoms or risks identified at this time. Initial Sepsis Screen: Does the patient meet any 2 criteria? No. Patient's initial sepsis screen is negative. Does the patient have a suspected source of infection? No. Patient's initial sepsis screen is negative. Risk Assessment: Do you want to hurt yourself or someone else? Patient reports no desire to harm self or others. Onset of symptoms was June 02, 2024. 11:52 Method Of Arrival: Ambulatory ap3 11:52 Acuity: CHERI 3 ap3 Triage Assessment: 11:55 General: Appears in no apparent distress. Behavior is calm, cooperative, appropriate ap3 for age. Pain: Complains of pain in low back area. Neuro: Level of Consciousness is awake, alert, obeys commands, Oriented to person, place, time, situation, Appropriate for age. Cardiovascular: Patient's skin is warm and dry. Respiratory: Airway is patent Respiratory effort is even, unlabored, Respiratory pattern is regular, symmetrical. Derm: Bruising that is dark purple, on right low back. Historical: - Allergies: 11:54 No Known Allergies; ap3 - PMHx: 11:54 Anxiety; Arthritis; Depression; Hyperlipidemia; Hypertension; ap3 - Immunization history:: Flu vaccine status is unknown. - Infectious Disease History:: Denies. - Social history:: Smoking status: Patient denies any tobacco usage or history of. - Family history:: not pertinent. Screenin:56 [facility] ED Fall Risk Assessment (Adult). Abuse screen: Denies threats or abuse. ap3 Nutritional screening: No deficits noted. Tuberculosis screening: No symptoms or risk factors identified. 12:31 [facility] ED Fall Risk Assessment (Adult) History of falling in the last 3 months, ph including since admission No falls in past 3 months (0 pts) Confusion or Disorientation No (0 pts) Intoxicated or Sedated No (0 pts) Impaired Gait No (0 pts) Mobility Assist Device Used No (0 pt) Altered Elimination No (0 pt) Score/Fall Risk Level 0 - 2 = Low Risk Oriented to surroundings, Maintained a safe environment, Hourly rounding (assess needs \T\ fall precautionary measures) done, Used ambulatory aids as needed (educated on \T\ assisted with). Assessment: 12:30 General: Appears in no apparent distress. Behavior is calm, cooperative. Pain: Complains of pain in lumbar area. Neuro: Level of Consciousness is awake, alert, obeys commands, Oriented to person, place, time, situation. Cardiovascular: Capillary refill < 3 seconds in bilateral fingers Patient's skin is warm and dry. Derm: Skin is pink, warm \T\ dry. Bruising that is dark purple, on lumbar area, low back area and right low back. Vital Signs: 11:52 BP 178 / 71; Pulse 78; Resp 17; Temp 97.7; Pulse Ox 97% ; Weight 137.89 kg; Height 6 ap3 ft. 1 in. ; 12:32 BP 148 / 82; Pulse 77; Resp 18; Pulse Ox 96% on R/A; ph 14:00 BP 137 / 86; Pulse 75; Resp 18; Pulse Ox 98% on R/A; ph 11:52 Body Mass Index 40.11 (137.89 kg, 185.42 cm) ap3 ED Course: 11:36 Patient arrived in ED. ra3 11:40 Moe Benoit MD is Attending Physician. [facility] 11:53 Vandana Webb, RODOLFO is Primary Nurse. ph 11:54 Triage completed. ap3 11:56 Arm band placed on right wrist. ap3 11:56 Provided Education on: call light education. ap3 12:30 Patient has correct armband on for positive identification. Bed in low position. Call light in reach. Side rails up X 1. 12:30 Initial lab(s) drawn, by in, sent to lab. Inserted saline lock: 20 gauge in right ph forearm, using aseptic technique. Blood collected. Flushed with 10 mL NS. 12:32 No provider procedures requiring assistance completed. ph 13:04 CT Abd/Pelvis - IV Contrast Only In Process Unspecified. EDMS 13:59 Portillo Monet DO is Referral Physician. [facility] 14:40 IV discontinued, intact, bleeding controlled, No redness/swelling at site. Pressure ph dressing applied. Administered Medications: 14:12 Not Given (Other Intervention Used): ns 0.9% 500 ml 500 ml IV at 1 bolus once; to be ph given as a bolus over 30 minutes 14:39 Drug: Amoxicillin-Clavulanate PO 875 mg PO once Route: PO; ph 14:40 Follow up: Response: No adverse reaction; Medication administered at discharge. ph Medication: 12:32 VIS not applicable for this client. ph Outcome: 13:59 Discharge ordered by . [facility] 14:40 Patient left the ED. ph 14:40 Discharged to home ambulatory, ph 14:40 Condition: good 14:40 Discharge instructions given to patient, Instructed on discharge instructions, follow up and referral plans. medication usage, Demonstrated understanding of instructions, follow-up care, medications, Prescriptions given X 2, Signatures: Dispatcher [employer] EDMS Moe Benoit MD MD cha Hall, Patricia, RN RN Nohemi Bee RN RN [email or web address] Wendy Ram ra3
--- NOTE | 2024-06-11 13:59 | EDPHYS ---
Physician Documentation [facility] Name: Navdeep Gonzalez Age: 69 yrs Sex: Male : 1955 Arrival Date: 06/11/2024 Time: 11:34 Bed 13 Private MD: ED Physician Moe Benoit HPI: 06/11 12:11 This 69 yrs old Male presents to ER via Ambulatory with complaints of Sent by diana Thomas:back bruising post Sx. 12:11 The patient presents with pain that is acute, and an injury, and swelling, and diana tenderness. The symptoms are located in the low back. Onset: The symptoms/episode began/occurred 7 day(s) ago. The pain does not radiate. Associated signs and symptoms: The patient has no apparent associated signs or symptoms. The problem was sustained SP BONE MARROW BIOPSY. Modifying factors: The patient symptoms are alleviated by nothing, the patient symptoms are aggravated by nothing. Severity of symptoms: At their worst the symptoms were mild, moderate, in the emergency department the symptoms are unchanged. The patient has not experienced similar symptoms in the past. Historical: - Allergies: 11:54 No Known Allergies; ap3 - PMHx: 11:54 Anxiety; Arthritis; Depression; Hyperlipidemia; Hypertension; ap3 - Immunization history:: Flu vaccine status is unknown. - Infectious Disease History:: Denies. - Social history:: Smoking status: Patient denies any tobacco usage or history of. - Family history:: not pertinent. ROS: 12:11 Constitutional: Negative for fever, chills, and weight loss, Eyes: Negative for injury, diana pain, redness, and discharge, ENT: Negative for injury, pain, and discharge, Neck: Negative for injury, pain, and swelling, Cardiovascular: Negative for chest pain, palpitations, and edema, Respiratory: Negative for shortness of breath, cough, wheezing, and pleuritic chest pain, Abdomen/GI: Negative for abdominal pain, nausea, vomiting, diarrhea, and constipation, : Negative for injury, bleeding, discharge, and swelling, MS/Extremity: Negative for injury and deformity, Skin: Negative for injury, rash, and discoloration, Neuro: Negative for headache, weakness, numbness, tingling, and seizure, Psych: Negative for depression, anxiety, suicide ideation, homicidal ideation, and hallucinations, Allergy/Immunology: Negative for hives, rash, and allergies, Endocrine: Negative for neck swelling, polydipsia, polyuria, polyphagia, and marked weight changes, Hematologic/Lymphatic: Negative for swollen nodes, abnormal bleeding, and unusual bruising, 12:11 Back: Positive for injury or acute deformity, decreased range of motion, pain with movement, of the lumbar area, low back area and right low back, Exam: 12:11 Constitutional: This is a well developed, well nourished patient who is awake, alert, diana and in no acute distress. Head/Face: Normocephalic, atraumatic. Eyes: Pupils equal round and reactive to light, extra-ocular motions intact. Lids and lashes normal. Conjunctiva and sclera are non-icteric and not injected. Cornea within normal limits. Periorbital areas with no swelling, redness, or edema. ENT: Nares patent. No nasal discharge, no septal abnormalities noted. Tympanic membranes are normal and external auditory canals are clear. Oropharynx with no redness, swelling, or masses, exudates, or evidence of obstruction, uvula midline. Mucous membranes moist. Neck: Trachea midline, no thyromegaly or masses palpated, and no cervical lymphadenopathy. Supple, full range of motion without nuchal rigidity, or vertebral point tenderness. No Meningismus. Chest/axilla: Normal chest wall appearance and motion. Nontender with no deformity. No lesions are appreciated. Cardiovascular: Regular rate and rhythm with a normal S1 and S2. No gallops, murmurs, or rubs. Normal PMI, no JVD. No pulse deficits. Respiratory: Lungs have equal breath sounds bilaterally, clear to auscultation and percussion. No rales, rhonchi or wheezes noted. No increased work of breathing, no retractions or nasal flaring. Abdomen/GI: Soft, non-tender, with normal bowel sounds. No distension or tympany. No guarding or rebound. No evidence of tenderness throughout. Male : Normal genitalia with no discharge or lesions. Skin: Warm, dry with normal turgor. Normal color with no rashes, no lesions, and no evidence of cellulitis. MS/ Extremity: Pulses equal, no cyanosis. Neurovascular intact. Full, normal range of motion., bilateral aka Neuro: Awake and alert, GCS 15, oriented to person, place, time, and situation. Cranial nerves II-XII grossly intact. Motor strength 5/5 in all extremities. Sensory grossly intact. Cerebellar exam normal. Normal gait. Psych: Awake, alert, with orientation to person, place and time. Behavior, mood, and affect are within normal limits. 12:11 Back: pain, that is mild, ROM is normal, painful, with flexion, with extension, normal spinal alignment noted, CVA tenderness, is absent, muscle spasm, is not present, VISIBLE ECCHYMOSIS OF THE SKIN, HEMATOMA, Vital Signs: 11:52 BP 178 / 71; Pulse 78; Resp 17; Temp 97.7; Pulse Ox 97% ; Weight 137.89 kg; Height 6 ap3 ft. 1 in. ; 12:32 BP 148 / 82; Pulse 77; Resp 18; Pulse Ox 96% on R/A; ph 14:00 BP 137 / 86; Pulse 75; Resp 18; Pulse Ox 98% on R/A; ph 11:52 Body Mass Index 40.11 (137.89 kg, 185.42 cm) ap3 MDM: 11:40 Medical Screening Exam initiated diana 12:14 Differential diagnosis: Fatigue Fracture Joint Injury Obesity ruptured disc, spinal diana injury, sprain, vertebral fracture. Data reviewed: vital signs, nurses notes, lab test result(s), radiologic studies, CT scan. Consideration of Admission/Observation Escalation of care including admission/observation considered. I considered the following discharge prescriptions or medication management in the emergency department Medications were administered in the Emergency Department. See MAR. Test considered but Not performed: MRI: NO MRI , NO USG. Historians other than the Patient: Spouse/Significant Other: WELL INFORMED. Care significantly affected by the following chronic conditions: Hypertension, Obesity, ANXIETY, DEPRESSION, HYOPERLIPIDEMIA. Counseling: I had a detailed discussion with the patient and/or guardian regarding the historical points, exam findings, and any diagnostic results supporting the discharge/admit diagnosis, lab results, radiology results, the need for outpatient follow up, 06/11 12:01 Order name: CBC with Diff; Complete Time: 13:57 diana 06/11 12:01 Order name: Comprehensive Metabolic Panel; Complete Time: 13:57 diana 06/11 12:46 Order name: Manual Differential; Complete Time: 13:57 EDMS 06/11 12: Order name: CT Abd/Pelvis - IV Contrast Only; Complete Time: 13:57 diana Administered Medications: 14:12 Not Given (Other Intervention Used): ns 0.9% 500 ml 500 ml IV at 1 bolus once; to be ph given as a bolus over 30 minutes 14:39 Drug: Amoxicillin-Clavulanate PO 875 mg PO once Route: PO; ph 14:40 Follow up: Response: No adverse reaction; Medication administered at discharge. ph Disposition Summary: 06/11/24 13:59 Discharge Ordered Notes: Location: Home diaan Problem: new diana Symptoms: have improved diana Condition: Stable diana Diagnosis - Postprocedural hemorrhage of skin and subcutaneous tissue following other procedure diana - BONE MARROW BIOPSY - Elevated white blood cell count diana Followup: diana - With: Private Physician - When: 1 - 2 days - Reason: Trouble breathing, Recheck today's complaints, Continuance of care, Re-evaluation by your physician Followup: diana - With: Portillo Monet DO - When: 1 - 2 days - Reason: Recheck today's complaints, Re-evaluation by your physician Discharge Instructions: - Discharge Summary Sheet diana - Hematoma diana - Hematoma, [id number] [facility] Forms: - Medication Reconciliation Form [facility] - Antibiotic Education diana - Prescription Opioid Use diana - Patient Portal Instructions [facility] - Leadership Thank You Letter [facility] Prescriptions: - acetaminophen-codeine 300-30 mg Oral tablet - take 1 tablet ORAL route every 4 to 6 hours as needed for pain; 20 tablet; [facility] Refills: 0, Product Selection Permitted - Augmentin 875-125 mg Oral tablet - take 1 tablet ORAL route every 12 hours for 7 days; 14 tablet; Refills: 0, [facility] Product Selection Permitted Signatures: Dispatcher [employer] Moe Gustafson MD MD cha Hall, Patricia, RN RN ph Nohemi Bee RN RN ap3
[2024-06-11 15:19] VITALS: TEMP 97.7
[2024-06-11 15:21] VITALS: BP 148/82; O2SAT 96
== END 2024-06-11 14:40 | disposition home or self-care (01) ==
LOC: ER 11:34
DX: L76.22 Postprocedural hemorrhage of skin and subcutaneous tissue following other procedure (principal); D72.829 Elevated white blood cell count, unspecified; M54.50 Low back pain, unspecified; I10 Essential (primary) hypertension; E78.5 Hyperlipidemia, unspecified; F32.A Depression, unspecified; F41.9 Anxiety disorder, unspecified
CPT/HCPCS: 85025; 36415; 80053; 74177; 99284; Q9967